=== PATIENT | male | born 1955 | race Caucasian/White ===

== ENCOUNTER → 2019-06-12 06:35 | Outpatient (CLI) | payer MEDICARE, OTHER, SELFPAY ==
[2019-06-10 13:54] VITALS: BMI 33.7
--- NOTE | 2019-06-12 10:18 | STRESSREP ---
Stress Test Report Exercise myocardial perfusion stress test. 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 Medications: Amlodipine, aspirin, metoprolol, rosuvastatin. Stress protocol: Resting EKG demonstrates normal sinus rhythm with a rate of 66 bpm normal intervals are noted resting blood pressures 144/74 mmHg. The patient exercised according to regular Andriy protocol for total duration of 8 minutes. Patient completed stage III of the Andriy protocol. The maximum heart rate attained was 151 bpm which was 97% of maximum predicted heart rate the maximum workload was 10.1 metabolic equivalents. At rest there were no ST or T wave changes noted suggest ischemia at peak exercise mild downsloping ST depression in leads II, III and aVF less than 1 mm not meeting the criteria for ischemia. No clinical angina was noted the test was terminated due to target heart rate being achieved. The resting blood pressure was 144/74 with a peak blood pressure 182/70 mmHg. Myocardial perfusion protocol. 15.0 mCi of technetium 99m sestamibi was injected at rest. The patient exercised according to regular Andriy protocol for 8 minutes at peak exercise 45.0 mCi of technetium 99m sestamibi was injected stress images were obtained stress and rest images were reconstructed and compared in the short axis vertical long horizontal long axis. Gated images were also obtained Perfusion SPECT analysis. Review of the stress images demonstrate normal uptake of tracer noted in all areas of the myocardium no areas of reversibility are noted suggest ischemia no previous infarct is noted. Gated SPECT analysis: The gated ejection fraction is noted to be 60%. Conclusion: Normal exercise myocardial perfusion stress test. Good functional aerobic capacity. Preserved ejection fraction.
== END ==
PROVIDERS: Family Provider Family Medicine; PCP Family Medicine; Referring Provider Internal Medicine Cardiovascular Disease; Visit Provider Internal Medicine Cardiovascular Disease
DX: Z95.1 Presence of aortocoronary bypass graft (principal)
CPT/HCPCS: 78452; 93017; A9500; A4216

== ENCOUNTER → 2019-10-12 10:47 | Outpatient (CLI) | payer MEDICARE, OTHER, SELFPAY ==
[2019-07-02 14:18] VITALS: BMI 33.7
--- NOTE | 2019-10-12 16:30 | LES_PTH ---
PATIENT: TRAVIS WHITNEY LOC: [facility] U#:[id number] AGE/SX: 70/M ROOM: RE10/12/[address]: Dr. Sundar Panda MD : [id number] BED: DIS: SPEC #: [id number] RECD: 10/13/19 10:42 STATUS: CAILIN KARIS #: [id number] KULWANT: 10/12/19 16:[address]: Sundar Panda DEPT: SURGICAL PATHOLOGY RECD BY: Randolph Ledbetter ENTERED: 10/13/19 13:08 SP TYPE: Lesion OTHR DR: Dr. Cody Kasper MD Tissues: Skin of eyelid, NOS Procedures: Surgery Specimen Level IV HEADER OPERATION: Removal of lesion ALEKSANDR PRE-OP DIAGNOSIS: Lesion increased size and hits LL with a blink TISSUE SUBMITTED: Lesion ALEKSADNR MICROSCOPIC DIAGNOSIS ALEKSANDR lesion, biopsy: Squamous papilloma. SJ:jackie 10/14/19 MICROSCOPIC DESCRIPTION Slides are reviewed. GROSS DESCRIPTION Received in fixative is one container labeled with the patient's name and designated left upper lid. The specimen consists of a piece of golden-white skin measuring 0.3 x 0.3 x 0.1 cm. The entire specimen is submitted in one cassette. / SJ:jackie 10/13/19 TC:1 CPT: 17893
== END ==
PROVIDERS: PCP Family Medicine; Referring Provider Ophthalmology; Visit Provider Ophthalmology
DX: D23.121 Other benign neoplasm of skin of left upper eyelid, including canthus (principal)
CPT/HCPCS: 88305

== ENCOUNTER → 2020-07-19 06:53 | Outpatient (CLI) | payer MEDICARE, OTHER, SELFPAY ==
[2020-06-09 14:45] VITALS: BMI 32.5
[2020-06-16 08:18] VITALS: BMI 32.5
--- NOTE | 2020-07-19 12:42 | STRESSREP ---
Stress Test Report Exercise myocardial perfusion stress test. 65-year-old man with a history of coronary artery disease. Medications amlodipine aspirin metoprolol glimepiride. Stress protocol: Resting EKG demonstrates normal sinus rhythm with a rate of 66 bpm normal intervals are noted resting blood pressure is 144/76 mmHg. Patient exercised according to regular Andriy protocol for a total duration of 6 minutes and 30 seconds. The maximum heart rate attained was 146 bpm which was 94% of max impacted heart rate the maximum workload was 7.7 metabolic equivalents. At rest there were no ST or T wave changes noted suggest ischemia at peak exercise upsloping ST changes only were noted with intermediate criteria for ischemia. T wave inversions was noted in lead III. The test was terminated due to shortness of breath. The resting blood pressure was 144/76 with a peak blood pressure 190/82 mmHg. Myocardial perfusion protocol. 14.7 mCi of technetium 99m sestamibi was injected at rest. The patient exercised according to regular Andriy protocol for 6-1/2 minutes. At peak exercise 44.9 mCi of technetium 99m sestamibi was injected stress images were obtained stress and rest images were reconstructed and compared in the short axis vertical long horizontal long axis. Gated images were also obtained Perfusion SPECT analysis: Review of the images demonstrate normal uptake of tracer noted in all areas of myocardium except for small portion of the apex which demonstrates a perfusion defect. This is present on the resting images as well. The above is suggestive of apical thinning. No reversibility is noted to suggest ischemia no previous infarct is noted. Gated SPECT analysis: The gated ejection fraction is 62%. Conclusion: Normal exercise myocardial perfusion stress test at a moderate workload. Preserved ejection fraction.
== END ==
PROVIDERS: PCP Family Medicine; Referring Provider Internal Medicine Cardiovascular Disease; Visit Provider Internal Medicine Cardiovascular Disease
DX: I25.10 Atherosclerotic heart disease of native coronary artery without angina pectoris (principal); Z95.1 Presence of aortocoronary bypass graft
CPT/HCPCS: 78452; 93017; A9500; A4216

== ENCOUNTER 2020-11-10 15:26 | Outpatient (RCR) | payer MEDICARE, OTHER, SELFPAY ==
[2020-06-16 08:18] VITALS: BMI 32.5
[2020-11-10] MEDS: COVID-19 VACC, MRNA(PFIZER)/PF 30 MCG/0.3 ML SYRINGE IM (08:14)
[2020-12-01] MEDS: COVID-19 VACC, MRNA(PFIZER)/PF 30 MCG/0.3 ML SYRINGE IM (07:54)
== END 2020-11-10 23:59 ==
LOC: IMMUN 15:26
PROVIDERS: PCP Family Medicine; Visit Provider Family Medicine
DX: Z23 Encounter for immunization (principal)
CPT/HCPCS: 0001A; 0002A

== ENCOUNTER → 2023-02-01 | Outpatient (CLI) | payer MEDICARE, OTHER, SELFPAY ==
--- NOTE | 2023-02-01 16:26 | STRESSREP ---
Stress Test Report Exercise myocardial perfusion stress test. 67-year-old man with a history of coronary artery disease Stress protocol: Resting EKG demonstrates normal sinus rhythm with a rate of 73 bpm resting blood pressure is 130/72 mmHg. The patient exercised according to the regular Andriy protocol for a total duration of 7 minutes attaining a maximum heart rate of 150 bpm which was 98% of maximum predicted heart rate; the maximum workload was 10 metabolic equivalents. At rest there were no ST or T wave changes noted to suggest ischemia and at peak exercise upsloping ST changes only were noted which did not meet the criteria for ischemia. No clinical angina was noted the test was terminated due to the target heart rate being achieved/fatigue. During recovery there were some downsloping ST changes noted which did not meet the criteria for ischemia. The peak blood pressure was 218/74 mmHg. Rate-pressure product was 25,200. Myocardial perfusion protocol. 14.9 mCi of technetium 99m sestamibi was injected at rest. The patient exercised according to regular Andriy protocol for total duration of 7 minutes and at peak exercise 44.6 mCi of technetium 99m sestamibi was injected stress images were obtained stress and rest images were reconstructed in comparing the short axis vertical long and horizontal long axis. Gated images were also obtained. Perfusion SPECT analysis: Review of the stress images demonstrate normal uptake of tracer noted in all areas of the myocardium. The resting images similarly demonstrate normal uptake of tracer noted in all areas of the myocardium. No areas of reversibility are noted to suggest ischemia no previous infarct was noted. Gated SPECT analysis: The gated ejection fraction is 53%. Conclusion: Normal exercise myocardial perfusion stress test at a high workload Preserved ejection fraction.
== END | disposition home or self-care (01) ==
LOC: CVS 06:20
PROVIDERS: PCP Family Medicine; Referring Provider Nurse Practitioner Family; Visit Provider Nurse Practitioner Family
DX: Z02.89 Encounter for other administrative examinations (principal); I25.10 Atherosclerotic heart disease of native coronary artery without angina pectoris; Z95.1 Presence of aortocoronary bypass graft; I10 Essential (primary) hypertension; E78.5 Hyperlipidemia, unspecified
CPT/HCPCS: 78452; 93017; A9500; A4216

== ENCOUNTER 2025-07-02 16:07 | Emergency (ER) | payer MEDICARE, OTHER, SELFPAY ==
[2025-07-02 16:07] VITALS: BP 148/116; PULSE 82; RESP 16; TEMP 37; O2SAT 98; BMI 32.3
--- NOTE | 2025-07-02 16:27 | EKG12_ITS ---
Test Reason : CP Blood Pressure : */* mmHG Vent. Rate : 72 BPM Atrial Rate : 72 BPM P-R Int : 282 ms QRS Dur : 80 ms QT Int : 394 ms P-R-T Axes : 57 64 80 degrees QTcB Int : 431 ms Sinus rhythm with 1st degree A-V block with Fusion complexes Nonspecific ST and T wave abnormality Abnormal ECG Confirmed by DORON PABON ([id number]), editorial specialist VIRGILIO HANDLEY ([id number]) on 07/05/2025 6:39:09 AM Referred By: UG/TB Confirmed By: DORON PABON
--- NOTE | 2025-07-02 16:28 | EX.ED.DYSGE1 ---
HPI History of Present Illness Chief Complaint: Abd Pain Detail of Chief Complaint: Patient presents with upper abdominal pain, distention, nausea Informant: patient Onset/Context/Timing Onset: Yesterday Context: Sudden Onset Timing: Continuous Quality: Pain Location: Right upper quadrant greater left upper quadrant Current Severity: Severe Maximum Severity: Severe Worsened by: Nothing Relieved by: Nothing Associated Symptoms Associated Symptoms: Nausea and vomiting yesterday and diarrhea yesterday Narrative Narrative: Patient is a 70-year-old male. He has history of essential hypertension, hyperlipidemia, coronary disease status post bypass surgery October 2009 who was placed on Ozempic part of a cardiology study through the [place] [facility] office. He is seen by NURSE UNIT MANAGER Raffi Arguello. The pain does radiate through to his back. He denies intolerance to greasy or fried foods. He had nothing to eat today. He denies fever, chills night sweats. He denies chest discomfort. He complains of pain in the right costal margin region and epigastric area. He states he does not drink alcoholic beverages. Prior similar symptoms: No Recent Illness/Hospitalization: No [facility] Medical History Type 2 diabetes mellitus Atherosclerosis of coronary artery of [place] heart without angina pectoris Essential hypertension HLD (hyperlipidemia) Home Medications ?Medication ?Instructions ?Recorded ?Last Taken ?Type aspirin 81 mg tablet,delayed 81 mg PO DAILY 06/05/19 Unknown History release (Adult Aspirin Regimen) metoprolol succinate 50 mg 50 mg PO DAILY 06/05/19 Unknown History tablet,extended release 24 hr nitroglycerin 0.4 mg sublingual 0.4 mg sublingual Q5-15M chest pain 06/05/19 Unknown History tablet omega-3 fatty acids 1,250 mg 1,250 mg PO DAILY 06/05/19 Unknown History capsule omeprazole 20 mg capsule,delayed 20 mg PO DAILY 06/05/19 Unknown History release rosuvastatin 20 mg tablet 20 mg PO DAILY 06/05/19 Unknown History metformin 750 mg tablet,extended 750 mg PO BID 04/12/22 Unknown History release 24 hr losartan 50 mg tablet 50 mg PO DAILY #90 tabs 09/10/23 Unknown Rx amlodipine 5 mg tablet 5 mg PO DAILY #90 tabs 05/31/25 Unknown Rx glimepiride 4 mg tablet 4 mg PO QDAY #1 TAB 05/31/25 Unknown Rx semaglutide 0.25 mg or 0.5 mg (2 0.25 mg (0.368 mL) subcut QWEEK 4 06/10/25 Unknown Rx mg/3 mL) subcutaneous pen injector weeks #3 mL (Ozempic) metoclopramide HCl 5 mg tablet 5 mg PO UD #20 tabs 07/02/25 Unknown Rx (Reglan) Allergy/AdvReac Type Severity Reaction Status Date / Time celecoxib (From Celebrex) Allergy shortness Verified 07/02/25 16:09 of breath mushroom Allergy swelling Verified 07/02/25 16:09 naproxen Allergy rash Verified 07/02/25 16:09 [id number] Reductase Allergy leg cramps Verified 07/02/25 16:09 Inhibitor (Gxpcoji-Fhm-Bcz Reductase Inhibitor) Surgical History History of cataract extraction with lens replacement H/O coronary artery bypass surgery (11/02/09) H/O hernia repair H/O neck surgery History of lumbar surgery H/O colonoscopy History of appendectomy Social History Smoking Status: Former smoker how long ago did patient quit smokin alcohol intake: never substance use type: does not use caffeine: Yes Type: tea Number of servings: 10 ROS ROS ED Constitutional Constitutional ED: Denies chills, fever(s), subjective or sweats Eyes Eyes: Denies blurry vision or change in vision ENT ENT ED: Denies ear pain, rhinorrhea or sore throat Cardiovascular Cardiovascular: Denies chest pain, orthopnea, palpitations, paroxysmal nocturnal dyspnea or racing heartbeat Respiratory/Chest Respiratory/Chest: Denies cough, dyspnea, dyspnea on exertion, orthopnea or paroxysmal nocturnal dyspnea Gastrointestinal Gastrointestinal: Reports abdominal pain, diarrhea, nausea, vomiting and other Details: Stool was mushy not watery. There was no blood or mucus. He states it was a light mckeon brown color ; Denies constipation or melena Genitourinary Genitourinary ED: Denies dysuria, hematuria or urinary frequency Musculoskeletal Musculoskeletal: Reports back pain; Denies arthralgias or myalgias Integumentary Denies rash Neurologic Neurologic: Denies headache(s), paresthesias or weakness Endocrine Endocrinology: Denies cold intolerance or heat intolerance Hematologic/Lymphatic Hematologic/Lymphatic: Reports systems reviewed and no addt'l complaints, except as documented EXAM Physical Exam Const Vital Signs: 07/02/25 16:07 07/02/25 18:07 Temperature 98.6 F 99.0 F Temperature Source Oral Oral Pulse Rate 82 100 Respiratory Rate 16 17 Blood Pressure 148/116 H 155/83 H Blood Pressure Mean 126 107 Pulse Ox 98 95 Oxygen Delivery Method Room Air Room Air Positive well nourished and well developed Constitutional Narrative: Patient appears uncomfortable. His abdomen appears distended. BMI is 32.3. Blood pressure is elevated. General Appearance ED: well developed and pallor HEENT Reports dry mucous membranes HEENT Narrative: Head is atraumatic and normocephalic. Ears are normal. Nares are patent. Posterior pharynx is normal Mouth ED: Yes dry mucous membranes Mouth: dry mucous membranes Eyes PERRL and EOMs intact bilaterally General Eye ED: Negative for pale conjunctiva or scleral icterus Neck no lymphadenopathy, supple and no JVD Resp normal respiratory effort and clear to auscultation bilaterally Cardio regular rate, regular rhythm, S1 normal heart sound, S2 normal heart sound and no murmurs GI no masses; Negative for non-tender, non-distended or hepatosplenomegaly Inspection: abdominal distention Auscultation: hypoactive bowel sounds Palpation: soft and tender RUQ and Sarkar's sign Back/Spine no CVA tenderness Extremity normal to inspection General Extremety ED: Negative for edema General Extremity: Negative for edema Neuro oriented x3 and CN's II-XII intact bilaterally Sensorium / Orientation: alert Psych mental status grossly normal Skin no rashes or lesions noted, no wounds and No skin turgor normal General Skin Exam: pallor; Negative for jaundice MDM MDM MDM Narrative Medical decision making narrative: Differential diagnosis includes abdominal pain due to Ozempic, pain unknown etiology, biliary colic, cholecystitis, peptic ulcer disease. Will obtain liver panel, lipase as well as CBC and electrolyte panel. Patient was medicated with IV morphine for his pain and IV Zofran for his nausea. Lab Data Attestation: I reviewed the patient's lab results. Lab results narrative: White count is elevated 14.7 thousand with shift. H&H and indices are unremarkable. Electrolyte panel is unremarkable. Glucose is 181 with normal CO2 anion gap. Liver enzymes are normal. Lipase is normal Labs: Laboratory Results - last 24 hr 07/02/25 16:30 WBC 14.7 H RBC 5.11 Hgb 13.7 Hct 42.2 MCV 82.6 MCH 26.8 L MCHC 32.5 RDW Std Deviation 42.4 RDW Coeff of [place] 14.0 Plt Count 199 MPV 10.4 Immature Gran % (Auto) 0.400 Neut % (Auto) 77.1 H Lymph % (Auto) 14.3 L [place] % (Auto) 7.7 Eos % (Auto) 0.3 Baso % (Auto) 0.2 Absolute Neuts (auto) 11.4 H Absolute Lymphs (auto) 2.11 Nucleated RBC % 0 Sodium 140 Potassium 4.0 Chloride 104 Carbon Dioxide 23.5 Anion Gap 13 BUN 13 Creatinine 0.84 Estim Creat Clear Calc 90.81 Est GFR (MDRD) Non-Af 93 BUN/Creatinine Ratio 15.5 Glucose 181 H Lactic Acid 2.2 H* Calcium 10.0 Total Bilirubin 0.85 Direct Bilirubin 0.49 H AST 31 ALT 26 Alkaline Phosphatase 48 Total Protein 7.3 Albumin 4.9 H Globulin 2.5 Lipase 41 Radiography Diagnostic Testing: Clinical Impression(s) from Imaging Studies Abdomen/Pelvis CT 07/02/25 17:28 IMPRESSION: 1. Colonic diverticulosis without acute diverticulitis. 2. No acute findings in the abdomen or pelvis as imaged. Reading Location: [facility] The radiologist interpretation was reviewed. Suspect this is due to the Ozempic. Patient had improvement after Reglan. Will prescribe 5-day course of Reglan. He was told he will need to tell his doctor that he will need to drop out of the study and stop taking Ozempic Treatment and Re-Evaluation :: In spite of 0.1 mg/kg of morphine patient still having 8?9 out of 10 pain. Prior to ordering advanced imaging he was reexamined. Patient has delayed capillary refill. He has a very firm abdomen. He has bilateral discomfort. In light of this we will obtain a CT of the abdomen pelvis with IV contrast to assess cause of his symptoms and findings. Discharge Plan Triage Chief Complaint: Abd Pain ED Provider: UvaldoTerrence Dx/Rx/DC Orders Clinical Impression: Adverse effect of drug therapy, Gastric paresis, Type 2 diabetes mellitus, HLD (hyperlipidemia), Essential hypertension, Acidosis, lactic, Leukocytosis Instructions: ED Drug Reaction, Other Prescriptions: New metoclopramide HCl [Reglan] 5 mg tablet 5 mg PO UD Qty: 20 0RF Rx Instructions: Half hour AC and at bedtime No Action nitroglycerin 0.4 mg tablet, sublingual 0.4 mg SUBLINGUAL Q5-15M omega-3 fatty acids 1,250 mg capsule 1,250 mg PO DAILY rosuvastatin 20 mg tablet 20 mg PO DAILY metoprolol succinate 50 mg tablet extended release 24 hr 50 mg PO DAILY omeprazole 20 mg capsule,delayed release(DR/EC) 20 mg PO DAILY aspirin [Adult Aspirin Regimen] 81 mg tablet,delayed release (DR/EC) 81 mg PO DAILY metformin 750 mg tablet extended release 24 hr 750 mg PO BID glimepiride 4 mg tablet 4 mg PO QDAY Qty: 1 0RF amlodipine 5 mg tablet 5 mg PO DAILY Qty: 90 4RF losartan 50 mg tablet 50 mg PO DAILY Qty: 90 3RF Ozempic 0.25 mg or 0.5 mg (2 mg/3 mL) pen injector 0.25 mg subcut QWEEK 28 Days Qty: 3 0RF Rx Instructions: for 4 weeks Primary Care Provider: Cody Kasper Referrals: Cody Kasper MD [Primary Care Provider, Family Practice] - As Needed Activity Restrictions/Additional Instructions: You need to discontinue taking Ozempic Print Language: Czech Disposition Disposition: Home, Self Care
[2025-07-02] MEDS: 0.9% Normal Saline (1000mL) 1,000 ML 999 ML IV (16:33)
[2025-07-02 16:56] LABS: Hematocrit 42.2 % (40-54); Hemoglobin 13.7 g/dL (13.0-16.5); Immature Granulocytes Count 0.060 X10^3/uL (0.0-0.0); Mean Corp Hgb Conc 32.5 g/dL (32-36); Mean Corpuscular Volume 82.6 fL (80-94); Mean Platelet Vol. 10.4 fl (6.2-12.0); NRBC Flagged by Analyzer 0 % (0-5); Platelet Count 199 K/mm3 (150-450); RBC Distribution Width CV 14.0 % (11.6-14.6); RBC Distribution Width SD 42.4 fl (35.1-43.9); Red Blood Count 5.11 M/mm3 (4.6-6.2); White Blood Count 14.7 K/mm3 (4.4-11.0)
--- OUTSIDE RECORDS SUMMARY | 2025-07-02 17:04 | XMS RPT_ITS | CCD ---
Author Organization [facility]iniSyne Care Team Providers Care Cartridge Feeder Name Role Phone CHAPARRO CROWDER Unavailable Unavailable CHAPARRO CROWDER Unavailable Unavailable NO REFERRING Unavailable Unavailable DANIELA BRADY Unavailable Unavailable DANIELA BRADY Unavailable Unavailable DANIELA BRADY Unavailable Unavailable ELVIA CONTRERAS MD Primary Care Physician Elvia Contreras MD Primary Care Provider [phone] Dr. Elvia Contreras Primary Care Provider Alayna CNC SPECIALIST, CNC SPECIALIST-C Raffi Miller Referring Provider Alayna CNC SPECIALIST, CNC SPECIALIST-C Raffi Miller Other Provider Dr. Chetan Malave Attending Provider [phone] Elvia Contreras MD Primary Care Provider Elvia Contreras MD Primary Care Provider [phone] Elvia Contreras MD Primary Care Provider ELVIA CONTRERAS MD Primary Care Unavailable ELVIA CONTRERAS MD Attending Unavailable ELVIA CONTRERAS MD Primary Care Unavailable ELVIA CONTRERAS MD Attending Unavailable ELVIA CONTRERAS MD Primary Care Unavailable ELVIA CONTRERAS MD Attending Unavailable ELVIA CONTRERAS MD Primary Care Unavailable [facility] GARDUNO MD Attending Unavail able ELVIA CONTRERAS Primary Care Unavailable JOHANNE CHAPMAN Attending Unavailable Dr. Elvia Contreras MD Primary Care Physician [phone] Dr. Elvia Contreras MD Referring Provider Alayna CNC SPECIALIST-CRaffi Attending Physician Elvia Contreras Referring Unavailable Elvia Contreras Primary Care Unavailable Raffi Catalan NP Attending Unavailable ELVIA CONTRERAS MD Primary Care Unavailable ELVIA CONTRERAS MD Attending Unavailable ELVIA CONTRERAS MD Attending Unavailable ELVIA CONTRERAS MD Primary Care Unavailable ELVIA CONTRERAS MD Primary Care Unavailable ELVIA CONTRERAS MD Attending Unavailable ELVIA CONTRERAS MD Primary Care Unavailable ELVIA CONTRERAS MD Attending Unavailable Allergies Allergy Classification Reported Allergen(s) Allergy Type Date of Onset Reaction(s) Facility Acetaminophen / oxyCODONE (1 source) Acetaminophen / oxyCODONE; Translations: [acetaminophen-ox ycodone] Drug Allergy [facility] NSAIDs (3 sources) Naproxen; Translations: [naproxen] Drug Allergy Naproxen (substance) [facility] (1 source) acetaminophen / oxyCODONE; Translations: [PERCOCET] Drug Allergy [facility] (10 sources) celecoxib; Translations: [CELEBREX] Drug Allergy [facility] (1 source) Mushroom (edible); Translations: [MUSHROOMS] Propensity to adverse reactions (disorder) [facility] (19 sources) naproxen; Translations: [NAPROXEN] Drug Allergy 0 Rash [facility] (1 source) HCIUKEU-ISE-CXG REDU; Translations: [ZXTFILG-LEM-SRA REDU] Propensity to adverse reactions (disorder) [facility] (9 sources) Acetaminophen / oxyCODONE; Translations: [acetaminophen-ox ycodone] Drug Allergy [facility] (17 sources) celecoxib; Translations: [celecoxib] Drug Allergy 0 Naproxen (substance), Shortness of Breath [facility] (6 sources) HMG-CoA reductase inhibitor; Translations: [JWZEVYN-EOS-CWT REDUCTASE INHIBITORS] Propensity to adverse reactions 0 [facility] (3 sources) mushrooms [Other] Propensity to adverse reactions [address] [facility] (2 sources) cultivated mushroom extract Drug Allergy 2 swelling [facility] Comment on above: Morrels (2 sources) Yngcqkk-Feb-Rhv Reductase Inhibitor Allergy to substance 1 leg cramps [facility] (1 source) OTHER; Translations: [OTHER] Propensity to adverse reactions (disorder) 0 [facility] (1 source) celecoxib Drug Allergy 5 [facility] (1 source) Mushroom (edible) Drug allergy (disorder) 5 [facility] (1 source) Htdihon-Cyv-Hdr Reductase Inhibitor Drug allergy (disorder) 5 [facility] Medications Current Medications Medication Drug Class(es) Dates Sig (Normalized) Sig (Original) amLODIPine 5 mg oral tablet (20 sources) Dihydropyridine Calcium Channel Davey Start: 03-19-2025 End: 10-05-2025 take 1 tablet by mouth once daily Amlodipine 5 mg tablet Active 5 mg PO DAILY 90 4 May 31, 2025 2:00pm Complies with drug therapy Start: 06-10-2020 End: 05-31-2025 take 1 tablet by mouth once daily Amlodipine 10 mg tablet Discontinued 10 mg PO DAILY 90 4 June 10, 2020 1:53pm May 31, 2025 2:02pm Start: 12-13-2016 End: 02-02-2025 take 1 tablet by mouth once daily Amlodipine 5 mg tablet Discontinued 5 mg PO DAILY June 05, 2019 12:00am June 10, 2020 1:54pm Comment on above: Take 1 tablet by beatrice th once daily. Aspirin (17 sources) Platelet Aggregation Inhibitor, Nonsteroidal Anti-inflammatory Drug Start: 11-05-2014 take 81 doses by mouth once daily aspirin 81, Oral, qDay Start Date: 11/05/14 Status: Ordered Medication Dispense Status: Completed Total Allowed Fills: 1 Fills Dispensed: 0 Start: 11-05-2014 aspirin 81, Or al, qDay Start Date: 11/05/14 Status: Ordered Repeat number: 1 Start: 11-05-2014 aspirin 81, Or al, qDay Start Date: 11/05/14 Status: Ordered Start: 10-11-2009 take 1 tablet by beatrice th once daily Aspirin (Adult Aspirin Regimen) 81 mg tablet,delayed release (DR/EC) Active 81 mg PO DAILY June 05, 2019 12:00am Complies with drug therapy Comment on above: Take one(1) tablet d aily. CPAP/BIPAP/OTHER (2 sources) Start: 01-17-2024 End: 06-03-2051 CPAP/BIPAP/OTHER autoCPAP 12-20 cmH2O DME [facility] 1 Each 01/17/2024 06/03/2051 Active Start: 01-17-2024 End: 06-03-2051 CPAP/BIPAP/OTHER autoCPAP 12 -20 cmH2O DME [facility] 1 Each 0 01/17/2024 06/03/2051 Active empagliflozin 10 mg oral tablet (1 source) Sodium-Glucose Cotransporter 2 Inhibitor Start: 05-31-2025 take 1 tablet by mouth once daily Empagliflozin (Jardiance) 10 mg tablet Active 10 mg PO DAILY 08 08May 31, 2025 12:00am Complies with drug therapy Fish Oils (10 sources) Start: 05-18-2019 Fish Oil 1000 mg oral capsule Dose : 1,000 mg = 1 cap(s), Oral, qDay, # 90 cap(s), 0 Refill(s) Start Date: 05/18/19 Status: Ordered Medication Dispense Status: Completed Quantity: 90.0 Unit: cap(s) Total Allowed Fills: 1 Fills Dispensed: 0 Start: 05-18-2019 Fish Oil 1000 mg oral capsule Dose : 1,000 mg = 1 cap(s), Oral, qDay, # 90 cap(s), 0 Refill(s) Start Date: 05/18/19 Status: Ordered Quantity: 90.0 Unit: cap(s) Repeat number: 1 Start: 05-18-2019 Fish Oil 1000 mg oral capsule Dose : 1,000 mg = 1 cap(s), Oral, qDay, # 90 cap(s), 0 Refill(s) Start Date: 05/18/19 Status: Ordered glimepiride 4 mg oral tablet (20 sources) Sulfonylurea Start: 09-22-2024 glimepiride 2 mg oral tablet Dose : 2 mg = 1 tab(s), Oral, qDay, # 90 tab(s), 3 Refill(s), Pharmacy: [facility], CAD (coronary atherosclerotic disease) Diabetes mellitus type 2, 174.5, cm, 09/22/24 8:55:00 EST, Height, kg, 09/22/24 8:55:00 EST, Dosing Weight Start Date: 09/22/24 Status: Ordered Quantity: 90.0 Unit: tab(s) Repeat number: 4 Indications: Type 2 diabetes mellitus without complications; Atherosclerotic heart disease of unga coronary artery without angina pectoris; Start: 02-02-2022 End: 05-31-2025 glimepiride 4 mg oral tablet Dose : 4 mg = 1 tab(s), Oral, qDay, # 90 tab(s), 0 Refill(s), [facility], 174.5, cm, 03/17/25 9:27:00 EDT, Height, kg, 03/17/25 9:27:00 EDT, Dosing Weight Start Date: 05/03/25 Status: Ordered Medication Dispense Status: Completed Quantity: 90.0 Unit: tab(s) Total Allowed Fills: 1 Fills Dispensed: 0 Start: 06-09-2020 End: 04-12-2022 take 1 tablet by mouth once daily Glimepiride 2 mg tablet Discontinued 2 mg PO DAILY June 09, 2020 12:00am April 12, 2022 11:02am Start: 06-05-2019 End: 06-10-2019 take 1 tablet by mouth once daily in the morning as needed Glimepiride 4 mg tablet Discontinued 4 mg PO EVERY MORNING as needed June 05, 2019 12:00am June 10, 2019 1:56pm Comment on above: Take 4 mg by mouth a s needed. losartan potassium 50 mg oral tablet (19 sources) Angiotensin 2 Receptor Davey Start: 08-04-2024 losartan 50 mg oral tablet Dose : 50 mg = 1 tab(s), Oral, qDay, # 90 tab(s), 3 Refill(s), Pharmacy: [facility], 174.5, cm, 03/19/24 7:33:00 EDT, Height, kg, 03/19/24 7:33:00 EDT, Dosing Weight Start Date: 08/04/24 Status: Ordered Medication Dispense Status: Completed Quantity: 90.0 Unit: tab(s) Total Allowed Fills: 4 Fills Dispensed: 0 Start: 03-11-2023 End: 09-10-2023 take 1 tablet by mouth once daily Losartan 50 mg tablet Discontinued 50 mg PO DAILY 90 September 04, 2023 12:19pm September 10, 2023 5:09pm Start: 06-05-2021 End: 03-11-2023 take 1 tablet by mouth once daily Losartan 25 mg tablet Discontinued 25 mg PO DAILY 08 08May 29, 2022 10:50am March 11, 2023 11:44am meloxicam 15 mg oral tablet (3 sources) Nonsteroidal Anti-inflammatory Drug Start: 11-02-2022 meloxicam 15 mg o ral tablet Dose : 15 mg = 1 tab(s), Oral, qDay, Take with food/milk, # 90 tab(s), 1 Refill(s), [facility] HTN (hypertension) Diabetes mellitus type 2, 174.5, cm, 09/12/22 7:55:00 EST, Height, kg, 09/12/22 7:55:00 EST... Start Date: 11/02/22 Status: Ordered Start: 06-13-2022 meloxicam 15 m g oral tablet Dose : 15 mg = 1 tab(s), Oral, qDay, Take with food/milk, # 90 tab(s), 3 Refill(s), Pharmacy: [facility], HTN (hypertension) Diabetes mellitus type 2, 174.5, cm, 06/13/22 8:01:00 EDT, Height Start Date: 06/13/22 Status: Ordered nitroglycerin 0.4 mg sublingual tablet (17 sources) Nitrate Vasodilator Start: 06-05-2019 Nitroglyce rin 0.4 mg tablet, sublingual Active 0.4 mg SL every 5 to 15 minutes as needed June 05, 2019 12:00am Complies with drug therapy Start: 11-29-2016 nitroglycerin sublingual (NITROQUICK) 0.4 mg SL tablet Dissolve 1 tablet under the tongue as needed. FOR CHEST PAIN. IF NO RELIEF CALL 911 25 tablet 6 11/29/2016 Active Start: 10-26-2014 nitroglycerin 0.4 mg sublingual tablet 0.4 mg Dose = 1 tab(s), Sublingual, q5min, PRN for chest pain, # 25 tab(s), 0 Refill(s), Pharmacy: [facility], 174.5, cm, 06/13/22 8:01:00 EDT, Height Start Date: 06/14/22 Status: Ordered Medication Dispense Status: Completed Quantity: 25.0 Unit: tab(s) Total Allowed Fills: 1 Fills Dispensed: 0 Comment on above: Dissolve 1 tablet un elvira the tongue as needed. FOR CHEST PAIN. IF NO RELIEF CALL 911 Tilden-3 Fatty Acids (2 sources) Start: 06-05-2019 take 1 capsule by mouth once daily Tilden-3 Fatty Acids 1,250 mg capsule Active 1250 mg PO DAILY June 05, 2019 12:00am Complies with drug therapy Start: 06-05-2019 take 1 capsule by mo uth once daily omega-3 fatty acids 1,250 mg capsule Active 1250 MG PO DAILY June 05, 2019 12:00am Tilden-3 Fatty Acids, FISH OIL, 360-1,200 mg cap (4 sources) take 1 capsule by mo uth once daily at breakfast Tilden-3 Fatty Acids, FISH OIL, 360-1,200 mg cap Take 1 capsule by mouth daily with breakfast. Active take 1 capsule by mo uth once daily at breakfast Tilden-3 Fatty Acids, FISH OIL, 360-1,200 mg cap Take 1 capsule by mouth daily with breakfast. 0 Active Comment on above: Take 1 capsule by mo uth daily with breakfast. omeprazole 20 mg delayed release oral capsule (17 sources) Proton Pump Inhibitor Start: 06-05-2019 End: 09-17-2025 omeprazole 20 mg oral delayed release capsule Dose : 20 mg = 1 cap(s), Oral, qDay, # 90 cap(s), 3 Refill(s), Pharmacy: [facility], 174.5, cm, 09/22/24 8:55:00 EST, Height, kg, 09/22/24 8:55:00 EST, Dosing Weight Start Date: 09/22/24 Stop Date: 09/17/25 Status: Ordered Medication Dispense Status: Completed Quantity: 90.0 Unit: cap(s) Total Allowed Fills: 4 Fills Dispensed: 0 Start: 02-15-2010 OMEPRAZOLE 20 MG TAB, DELAYED RELEASE Take one(1) tablet daily. 30 6 02/15/2010 Active Comment on above: Take one(1) tablet d aily. predniSONE 50 mg oral tablet (1 source) Start: 03-14-2023 End: 03-19-2023 predniSONE 50 mg oral tablet Dose : 50 mg = 1 tab(s), Oral, qDayM, X 5 day(s), # 5 tab(s), 0 Refill(s), 03/19/23 0:00:00 EDT, Ankle pain Start Date: 03/14/23 Stop Date: 03/19/23 Status: Ordered psyllium 3400 mg powder for oral suspension (4 sources) Psyllium Seed-[place] crose Take by mouth twice daily. Active Comment on above: Take by mouth twice daily. rosuvastatin calcium 20 mg oral tablet (17 sources) HMG-CoA Reductase Inhibitor Start: 10-26-2013 Crestor 20 mg oral tablet Dose : 20 mg = 1 tab(s), Oral, Daily, # 90 tab(s), 3 Refill(s), Pharmacy: [facility], 174.5, cm, 03/19/24 7:33:00 EDT, Height, kg, 03/19/24 7:33:00 EDT, Dosing Weight Start Date: 07/17/24 Status: Ordered Medication Dispense Status: Completed Quantity: 90.0 Unit: tab(s) Total Allowed Fills: 4 Fills Dispensed: 0 Comment on above: Take 1 tablet by beatrice th once daily. Semaglutide (1 source) Start: 05-31-2025 Semaglutide (Ozempic) 0.25 mg or 0.5 mg (2 mg/3 mL) pen injector Active 0.25 mg SC EVERY WEEK 3 28 0 May 31, 2025 12:00am June 27, 2025 12:00am for 4 weeks Complies with drug therapy Completed/Discontinued Medications Medication Drug Class(es) Dates Sig (Normalized) Sig (Original) acetaminophen 325 mg / HYDROcodone bitartrate 5 mg oral tablet (7 sources) Opioid Agonist Start: 06-05-2019 End: 06-10-2019 Hydrocodone-Acetami nophen ([place]) 5-325 mg tablet Discontinued 1 {tbl} PO EVERY 6 HOURS as needed 0 June 05, 2019 12:00am June 10, 2019 1:57pm Comment on above: Take 1 tablet by beatrice every 6 hours as needed. CPAP (13 sources) Start: 03-03-2020 End: 01-16-2024 CPAP Supplies: Mask (per patient preference) optional chin strap (if indicated) , filters, tubing, humidifier and lifetime supplies. Dx. ZACHARIAH 327.23 1 Device 11 03/03/2020 01/16/2024 Discontinued Start: 03-03-2020 CPAP Supplies: Mask (per patient preference) optional chin strap (if indicated) , filters, tubing, humidifier and lifetime supplies. Dx. ZACHARIAH 327.23 1 Device 11 03/03/2020 Active Start: 09-10-2019 CPAP New set u p: Settings 12 - 16 cm H2O, suitable mask per pt preference, chin strap, head gear, humidity, tubing, lifetime supplies. G47.33 ZACHARIAH 1 Device 09/10/2019 Active Start: 09-10-2019 CPAP New set u p: Settings 12 - 16 cm H2O, suitable mask per pt preference, chin strap, head gear, humidity, tubing, lifetime supplies. G47.33 ZACHARIAH 1 Device 0 09/10/2019 Active Start: 06-18-2012 End: 01-16-2024 CPAP Indications: ZACHARIAH (obstr uctive sleep apnea) CPAP 14 cm H2O, suitable mask, tubing, humidifier, filters. Lifetime supplies. Dx: 327.23 - Obstructive sleep apnea 1 Device 0 06/18/2012 01/16/2024 Discontinued Start: 06-18-2012 CPAP Indicatio ns: ZACHARIAH (obstructive sleep apnea) CPAP 14 cm H2O, suitable mask, tubing, humidifier, filters. Lifetime supplies. Dx: 327.23 - Obstructive sleep apnea 1 Device 0 06/18/2012 Active Comment on above: CPAP 14 cm H2O, suit able mask, tubing, humidifier, filters. Lifetime supplies. Dx: 327.23 - Obstructive sleep apnea New set up: Settings 12 - 16 cm H2O, suitable mask per pt preference, chin strap, head gear, humidity, tubing, lifetime supplies. G47.33 ZACHARIAH Supplies: Mask (per patient preference) optional chin strap (if indicated) , filters, tubing, humidifier and lifetime supplies. Dx. ZACHARIAH 327.23 cyclobenzaprine hydrochloride 10 mg oral tablet (1 source) Muscle Relaxant Start: take 1 tablet by mouth every eight hours as needed cyclobenzaprine (FLEXERIL) 10 mg tablet Take 1 tablet by mouth three times daily as needed for Muscle Spasm. 15 tablet 0 02/23/2020 Active Comment on above: Take 1 tablet by beatrice three times daily as needed for Muscle Spasm. docusate sodium 100 mg oral capsule (20 sources) Start: End: 025 take 1 capsule by mouth once daily Docusate Sodium 100 mg capsule Discontinued 100 mg PO DAILY March 05, 2024 9:12am May 31, 2025 1:26pm Start: 09-19-2011 End: 04-12-2022 Colace 50 mg oral capsule Do se : 50 mg = 1 cap(s), Oral, BID, PRN for constipation Start Date: 10/26/14 Status: Ordered Medication Dispense Status: Completed Total Allowed Fills: 1 Fills Dispensed: 0 Comment on above: Take by mouth daily at bedtime. FLAXSEED OIL ORAL (1 source) take 1 capsule by mouth once daily FLAXSEED OIL ORAL Take 1 capsule by mouth once daily. 0 Active Comment on above: Take 1 capsule by mo ut once daily. linseed oil 1000 mg oral capsule (2 sources) Start: 9 End: 9 take 1 capsule by mouth once daily Flaxseed Oil 1,000 mg capsule Discontinued 1000 mg PO DAILY June 05, 2019 12:00am June 10, 2019 1:56pm 24 hr metFORMIN hydrochloride 750 mg extended release oral tablet (20 sources) Biguanide Start: End: metFORMIN 750 mg oral tablet EXTENDED RELEASE Dose : 750 mg = 1 tab(s), Oral, BID, # 200 tab(s), 1 Refill(s), Pharmacy: [facility], 174.5, cm, 09/22/24 8:55:00 EST, Height, kg, 09/22/24 8:55:00 EST, Dosing Weight Start Date: 09/22/24 Stop Date: 04/10/25 Status: Ordered Medication Dispense Status: Completed Quantity: 200.0 Unit: tab(s) Total Allowed Fills: 2 Fills Dispensed: 0 Start: 03-21-2022 End: 09-19-2024 metFORMIN 750 mg oral tablet EXTENDED RELEASE Dose : 750 mg = 1 tab(s), Oral, BID, # 200 tab(s), 1 Refill(s), Pharmacy: [facility], 174.5, cm, 09/19/23 7:54:00 EST, Height, kg, 09/19/23 7:54:00 EST, Dosing Weight Start Date: 03/03/24 Stop Date: 09/19/24 Status: Ordered Start: 06-09-2020 End: 04-12-2022 Metformin 500 mg tablet Discontinued 750 mg PO TWICE A DAY June 09, 2020 2:46pm April 12, 2022 11:02am Start: 06-09-2020 End: 04-12-2022 take 750 mg by mouth twice daily Metformin Discontinue d 750 MG PO TWICE A DAY June 09, 2020 2:46pm April 12, 2022 11:02am Start: 06-05-2019 End: 06-09-2020 take 1 tablet by mouth once daily Metformin 500 mg tablet Discontinued 500 mg PO DAILY June 05, 2019 12:00am June 09, 2020 2:47pm take 1 tablet by beatrice th twice daily at mealtime metFORMIN (GLUCOPHAGE) 500 mg tablet Take 500 mg by mouth twice daily with meals. Active Comment on above: Take 500 mg by mouth daily with breakfast. Take 500 mg by mouth twice daily with meals. metoprolol tartrate 50 mg oral tablet (17 sources) beta-Adrenergic Davey Start: 07-17-2024 End: 07-31-2024 Metoprolol Succinate ER 50 mg oral TABLET extended release Dose : 50 mg = 1 tab(s), Oral, qDay, # 90 tab(s), 3 Refill(s), Pharmacy: [facility], 174.5, cm, 03/19/24 7:33:00 EDT, Height, kg, 03/19/24 7:33:00 EDT, Dosing Weight Start Date: 07/17/24 Stop Date: 07/31/24 Status: Ordered Medication Dispense Status: Completed Quantity: 90.0 Unit: tab(s) Total Allowed Fills: 4 Fills Dispensed: 0 Start: 06-13-2022 End: 03-24-2024 Metoprolol Succinate ER 50 m g oral TABLET extended release Dose : 50 mg = 1 tab(s), Oral, qDay, # 90 tab(s), 1 Refill(s), Pharmacy: [facility], 174.5, cm, 09/19/23 7:54:00 EST, Height, kg, 09/19/23 7:54:00 EST, Dosing Weight Start Date: 09/26/23 Stop Date: 03/24/24 Status: Ordered Start: 08-25-2021 Metoprolol Suc cinate ER 50 mg oral TABLET extended release Dose : 50 mg = 1 tab(s), Oral, qDay, # 30 tab(s), 11 Refill(s), Pharmacy: [facility], 174.3, cm, 05/29/21 7:49:00 EDT, Height, kg, 05/29/21 7:49:00 EDT, Dosing Weight Start Date: 08/25/21 Status: Ordered Start: 10-26-2013 take 1 tablet by beatrice th once daily Metoprolol Succinate 50 mg tablet extended release 24 hr Active 50 mg PO DAILY June 05, 2019 12:00am Complies with drug therapy Comment on above: Take 1 tablet by beatrice th once daily. Tilden-3 Fatty Acids, FISH OIL, (FISH OIL) 360-1,200 mg cap (1 source) take 1 capsule by mouth once daily at breakfast Tilden-3 Fatty Acids, FISH OIL, (FISH OIL) 360-1,200 mg cap Take 1 capsule by mouth daily with breakfast. 0 Active Comment on above: Take 1 capsule by mo uth daily with breakfast. Psyllium Seed-Sucrose (METAMUCIL) powd (1 source) Psyllium Seed-Sucrose (METAMUCIL) powd Take by mouth twice daily. 0 Active Comment on above: Take by mouth twice daily. tiZANidine 4 mg oral tablet (3 sources) Central alpha-2 Adrenergic Agonist Start: 9 End: 9 take 1 tablet by mouth every eight hours as needed Tizanidine 4 mg tablet Discontinued 4 mg PO Q8H as needed June 05, 2019 12:00am June 10, 2019 1:56pm take 1 tablet by beatrice th every six hours as needed tiZANidine (ZANAFLEX) 4 mg tablet Take 4 mg by mouth every 6 hours as needed. 0 Active Comment on above: Take 4 mg by mouth e very 6 hours as needed. traMADol hydrochloride 50 mg oral tablet (2 sources) Opioid Agonist Start: 9 End: 9 take 1 tablet by mouth every six hours as needed Tramadol 50 mg tablet Discontinued 50 mg PO EVERY 6 HOURS as needed June 05, 2019 12:00am June 10, 2019 1:57pm Problems Active Problems Problem Classification Problem Date Documented Date Episodic/Chronic Administrative/social admission (2 sources) Administrative reason for encounter; Translations: [Encounter for other administrative examinations] 06-16-2020 Episodic Coronary atherosclerosis and other heart disease (20 sources) Coronary atherosclerosis; Translations: [Coronary arteriosclerosis] Onset: 11-02-2009 11-28-2021 Chronic Diabetes mellitus without complication (17 sources) Type 2 diabetes mellitus; Translations: [Type 2 diabetes mellitus without complications] Onset: 09-19-2023 05-18-2019 Chronic Disorders of lipid metabolism (20 sources) Hypercholesterolemia; Translations: [Mixed hyperlipidemia] Onset: 11-03-2009 10-26-2014 Chronic Esophageal disorders (12 sources) Gastroesophageal reflux disease; Translations: [Gastro-esophageal reflux disease without esophagitis] Onset: 09-19-2023 11-28-2021 Chronic Essential hypertension (20 sources) Hypertensive disorder; Translations: [Essential (primary) hypertension] Onset: 11-03-2009 10-26-2014 Chronic Other circulatory disease (10 sources) Carotid bruit 05-18-2019 Episodic Other injuries and conditions due to external causes (10 sources) Multiple bruising 01-13-2018 Episodic Other non-traumatic joint disorders (1 source) Osteophyte, vertebrae; Translations: [OSTEOPHYTE VERTEBRAE] Onset: 07-27-2015 Chronic Other non-traumatic joint disorders (1 source) Ankle joint pain; Translations: [Pain in unspecified ankle and joints of unspecified foot] Onset: 03-14-2023 Episodic Other screening for suspected conditions (not mental disorders or infectious disease) (1 source) Patient encounter status; Translations: [Encounter for screening for malignant neoplasm of colon] 02-05-2023 Episodic Residual codes; unclassified (10 sources) Sleep apnea 10-26-2014 Chronic Residual codes; unclassified (12 sources) Obstructive sleep apnea syndrome; Translations: [Obstructive sleep apnea (adult) (pediatric)] Onset: 04-30-2012 02-01-2021 Chronic Residual codes; unclassified (10 sources) H/O Spinal surgery 10-26-2014 Episodic Spondylosis; intervertebral disc disorders; other back problems (2 sources) Other cervical disc degeneration, unspecified cervical region; Translations: [OTH CERV DISC DEGENERATI] Onset: 07-27-2015 Chronic Spondylosis; intervertebral disc disorders; other back problems (20 sources) Spinal stenosis, cervical region; Translations: [Cervical radiculitis] Onset: 12-21-2011 05-18-2019 Episodic Unclassified (9 sources) Non-smoker 06-13-2022 Unclassified (9 sources) Vaccination needed 06-13-2022 Unclassified (5 sources) 11/02/09: CABG x 4:in situ RIVERA>LAD, free DIAMOND>lat cx (Y'd proximally to RENATA) and posterolateral cx, SVG>PDA Onset: 11-02-2009 Past or Other Problems Problem Classification Problem Date Documented Da te Episodic/Chronic Abdominal pain (10 sources) Lower abdominal pain; Translations: [Lower abdominal pain, unspecified] Onset: 02-05-2023 02-05-2023 Episodic Fluid and electrolyte disorders (2 sources) Hypervolemia; Translations: [Fluid overload] Onset: 11-03-2009 Resolved: 11-06-2009 Episodic Other connective tissue disease (1 source) Arthrodesis status; Translations: [ARTHRODESIS STATUS] Onset: 07-27-2015 Episodic Other connective tissue disease (5 sources) History of cervical spine fusion; Translations: [Arthrodesis status] Onset: 12-24-2011 12-24-2011 Episodic Other gastrointestinal disorders (5 sources) Constipation; Translations: [Constipation, unspecified] Onset: 02-05-2023 02-05-2023 Episodic Other lower respiratory disease (2 sources) Disorder of respiratory system; Translations: [Respiratory disorder, unspecified] Onset: 11-02-2009 Resolved: 11-03-2009 Episodic Pleurisy; pneumothorax; pulmonary collapse (5 sources) Atelectasis; Translations: [Atelectasis] Onset: 11-03-2009 Episodic Results Test Name Value Interpretation Reference Range Facility .Auto Diffon 06-16-2025 Basophil, Absolute 0.0 10 3/mcL Normal 0.0-0.3 [facility] Comment on above: Performed By: #### A CATHIE, GFR, LIPID, CMP, A1C, PSA, CBC, ADIFF, VIDH #### [facility] [address] [place], [place] [address] Basophils/100 WBC (Bld) 0.9 % Normal 0.0-2.5 Comment on above: Performed By: #### A CATHIE, GFR, LIPID, CMP, A1C, PSA, CBC, ADIFF, VIDH #### [address] [address] Eosinophil, Absolute 0.1 10 3/mcL Normal 0.0-0.7 [facility] Comment on above: Performed By: #### A CATHIE, GFR, LIPID, CMP, A1C, PSA, CBC, ADIFF, VIDH #### [address] [address] Eosinophils/100 WBC (Bld) 1.8 % Normal 0.0-6.0 Comment on above: Performed By: #### A CATHIE, GFR, LIPID, CMP, A1C, PSA, CBC, ADIFF, VIDH #### [address] [address] Lymphocyte, Absolute 1.3 10 3/mcL Normal 0.9-4.3 [facility] Comment on above: Performed By: #### A CATHIE, GFR, LIPID, CMP, A1C, PSA, CBC, ADIFF, VIDH #### [address] [address] Lymphocytes/100 WBC (Bld) 29.8 % Normal 20.0-40.0 Comment on above: Performed By: #### A CATHIE, GFR, LIPID, CMP, A1C, PSA, CBC, ADIFF, VIDH #### [address] [address] Monocyte, Absolute 0.4 10 3/mcL Normal 0.1-1.4 [facility] Comment on above: Performed By: #### A CATHIE, GFR, LIPID, CMP, A1C, PSA, CBC, ADIFF, VIDH #### [address] [address] Monocytes/100 WBC (Bld) 9.9 % Normal 2.0-13.0 Comment on above: Performed By: #### A CATHIE, GFR, LIPID, CMP, A1C, PSA, CBC, ADIFF, VIDH #### [address] [address] Neutrophils/100 WBC (Bld) 57.6 % Normal 50.0-75.0 Comment on above: Performed By: #### A CATHIE, GFR, LIPID, CMP, A1C, PSA, CBC, ADIFF, VIDH #### [address] [address] .GFRon 06-16-2025 Estimated Glomerular Filtration Rate 95 ml/min/1.73sqm Normal Comment on above: Result Comment: Stages of Chronic Kidney Disease (CKD) Stage Description eGFR(ml/min/1.73 sq.m.) CKD 1 Normal kidney function or >=90 normal kindney function with possible kidney damage (ex. Proteinuria) CKD 2 Kidney damage with mild loss 60-89 of kidney function CKD 3a Mild to moderate loss of kidney 45-59 function CKD 3b Moderate to severe loss of 30-44 of kindey function CKD 4 Severe loss of kidney function 15-29 CKD 5 Kidney failure <15 Note: (go live 2024) the eGFR calculation was updated to the 2020 CKD-EPI creatinine equation without a race factor to calculate the eGFR results. Performed By: #### A CATHIE, GFR, LIPID, CMP, A1C, PSA, CBC, ADIFF, VIDH #### [address] [address] .NEUABSon 06-16-2025 Neutrophil, Absolute 2.5 10 3/mcL Normal 2.3-8.1 [facility] Comment on above: Performed By: #### A CATHIE, GFR, LIPID, CMP, A1C, PSA, CBC, ADIFF, VIDH #### [address] [address] A1Con 06-16-2025 Glucose [Mass/Vol] 169 mg/dL Normal [facility] Comment on above: Result Comment: Caitlin mated Average Glucose calculated by equation ((28.7xA1C)-46.7) Estimated average glucose (eAG) is a calculated value from Hemoglobin A1C and is assistance representative of the average blood glucose level in the last 2-3 month period. Normal range: less than 114 mg/dL Performed By: #### A CATHIE, GFR, LIPID, CMP, A1C, PSA, CBC, ADIFF, VIDH #### [address] [address] HbA1c (Bld) [Mass fraction] 7.5 % High 4.3-6.4 Comment on above: Performed By: #### A CATHIE, GFR, LIPID, CMP, A1C, PSA, CBC, ADIFF, VIDH #### [address] [address] CBCon 06-16-2025 Erythrocyte distribution width (RBC) [Ratio] 14.6 % Normal 11.5-15.5 Comment on above: Performed By: #### A CATHIE, GFR, LIPID, CMP, A1C, PSA, CBC, ADIFF, VIDH #### [place] [id number] Hematocrit (Bld) [Volume fraction] 36.4 % Low 40.0-52.0 Comment on above: Performed By: #### A CATHIE, GFR, LIPID, CMP, A1C, PSA, CBC, ADIFF, VIDH #### [address] [address] Hgb 12.1 G/dL Low 13.0-17.5 Comment on above: Performed By: #### A CATHIE, GFR, LIPID, CMP, A1C, PSA, CBC, ADIFF, VIDH #### [address] [address] MCH (RBC) [Entitic mass] 26.9 pg Low 27.0-33.0 Comment on above: Performed By: #### A CATHIE, GFR, LIPID, CMP, A1C, PSA, CBC, ADIFF, VIDH #### [address] [address] MCHC 33.2 G/dL Normal 32.0-36.0 Comment on above: Performed By: #### A CATHIE, GFR, LIPID, CMP, A1C, PSA, CBC, ADIFF, VIDH #### [address] [address] MCV (RBC) [Entitic vol] 81.1 fL Normal 81.0-100.0 Comment on above: Performed By: #### A CATHIE, GFR, LIPID, CMP, A1C, PSA, CBC, ADIFF, VIDH #### [address] [address] Platelet 131 10 3/mcL Low 150-450 Comment on above: Performed By: #### A CATHIE, GFR, LIPID, CMP, A1C, PSA, CBC, ADIFF, VIDH #### [address] [address] Platelet mean volume (Bld) [Entitic vol] 9.0 fL Normal 6.4-10.5 Comment on above: Performed By: #### A CATHIE, GFR, LIPID, CMP, A1C, PSA, CBC, ADIFF, VIDH #### [address] [address] RBC 4.49 10 6/mcL Low 4.50-6.00 Comment on above: Performed By: #### A CATHIE, GFR, LIPID, CMP, A1C, PSA, CBC, ADIFF, VIDH #### [address] [address] WBC 4.3 10 3/mcL Low 4.5-10.8 Comment on above: Performed By: #### A CATHIE, GFR, LIPID, CMP, A1C, PSA, CBC, ADIFF, VIDH #### [address] [address] CMPon 06-16-2025 Albumin Level 3.8 G/dL Normal 3.4-4.8 Comment on above: Performed By: #### A CATHIE, GFR, LIPID, CMP, A1C, PSA, CBC, ADIFF, VIDH #### [address] [address] Albumin/Globulin [Mass ratio] 1.3 {ratio} Normal 1.1-2.5 Comment on above: Performed By: #### A CATHIE, GFR, LIPID, CMP, A1C, PSA, CBC, ADIFF, VIDH #### [address] [address] ALP [Catalytic activity/Vol] 45 U/L Normal 40-135 Comment on above: Performed By: #### A CATHIE, GFR, LIPID, CMP, A1C, PSA, CBC, ADIFF, VIDH #### [address] [address] ALT [Catalytic activity/Vol] 31 U/L Normal 16-63 Comment on above: Performed By: #### A CATHIE, GFR, LIPID, CMP, A1C, PSA, CBC, ADIFF, VIDH #### [address] [address] AST [Catalytic activity/Vol] 11 U/L Normal 10-40 Comment on above: Performed By: #### A CATHIE, GFR, LIPID, CMP, A1C, PSA, CBC, ADIFF, VIDH #### [address] [address] Bili Total 0.3 mg/dL Normal 0.2-1.0 Comment on above: Result Comment: Use of this assay is not recommended for patients undergoing treatment with eltrombopag due to the potential for falsely elevated results. Performed By: #### A CATHIE, GFR, LIPID, CMP, A1C, PSA, CBC, ADIFF, VIDH #### [address] [address] BUN/Creatinine Ratio 15 ratio Normal 7-27 [facility] Comment on above: Performed By: #### A CATHIE, GFR, LIPID, CMP, A1C, PSA, CBC, ADIFF, VIDH #### [address] [address] Calcium [Mass/Vol] 9.4 mg/dL Normal 8.4-10.2 [facility] Comment on above: Performed By: #### A CATHIE, GFR, LIPID, CMP, A1C, PSA, CBC, ADIFF, VIDH #### [address] [address] Chloride [Moles/Vol] 106 mmol/L Normal 98-107 [facility] Comment on above: Performed By: #### A CATHIE, GFR, LIPID, CMP, A1C, PSA, CBC, ADIFF, VIDH #### [place] [address] CO2 [Moles/Vol] 27 mmol/L Normal 23-31 Comment on above: Performed By: #### A CATHIE, GFR, LIPID, CMP, A1C, PSA, CBC, ADIFF, VIDH #### [address] [address] Creatinine [Mass/Vol] 0.79 mg/dL Normal 0.67-1.17 [facility] Comment on above: Performed By: #### A CATHIE, GFR, LIPID, CMP, A1C, PSA, CBC, ADIFF, VIDH #### [place] [address] Electrolyte Balance 9.0 mEq/L Normal 4.0-15.0 [facility] Comment on above: Performed By: #### A CATHIE, GFR, LIPID, CMP, A1C, PSA, CBC, ADIFF, VIDH #### [place] [address] Globulin 3.0 G/dL Normal 2.7-4.4 Comment on above: Performed By: #### A CATHIE, GFR, LIPID, CMP, A1C, PSA, CBC, ADIFF, VIDH #### [place] [address] Glucose [Mass/Vol] 147 mg/dL High 83-110 [facility] Comment on above: Performed By: #### A CATHIE, GFR, LIPID, CMP, A1C, PSA, CBC, ADIFF, VIDH #### [address] [address] Potassium [Moles/Vol] 4.3 mmol/L Normal 3.5-5.1 [facility] Comment on above: Performed By: #### A CATHIE, GFR, LIPID, CMP, A1C, PSA, CBC, ADIFF, VIDH #### [address] [address] Sodium [Moles/Vol] 142 mmol/L Normal 136-145 [facility] Comment on above: Performed By: #### A CATHIE, GFR, LIPID, CMP, A1C, PSA, CBC, ADIFF, VIDH #### [place] [address] [place], [place] [address] Total Protein 6.8 G/dL Normal 6.4-8.2 Comment on above: Performed By: #### A CATHIE, GFR, LIPID, CMP, A1C, PSA, CBC, ADIFF, VIDH #### [place] [address] Urea nitrogen [Mass/Vol] 12 mg/dL Normal 7-18 Comment on above: Performed By: #### A CATHIE, GFR, LIPID, CMP, A1C, PSA, CBC, ADIFF, VIDH #### [address] [address] LABORATORYOrdered By: SYSTEM SYSTEM on 06-16-2025 25-hydroxyvitamin D3 [Mass/Vol] 21.6 ng/mL Invalid Interpretation Code AO ADM SS Comment on above: Interpretive Data: I nterpretive Values Based on Total 25(OH) Vitamin D: Deficient <20 ng/mL Insufficient 20 - <30 ng/mL Sufficient 30-100 ng/mL Albumin BCP dye [Mass/Vol] 3.8 G/dL Normal 3.4 - 4.8 G/dL AO ADM SS Albumin/Globulin [Mass ratio] 1.3 {ratio} Normal 1.1 - 2.5 ratio AO ADM SS ALP [Catalytic activity/Vol] 45 U/L Normal 40 - 135 U/L AO ADM SS ALT With P-5'-P [Catalytic activity/Vol] 31 U/L Normal 16 - 63 U/L AO ADM SS AST With P-5'-P [Catalytic activity/Vol] 11 U/L Normal 10 - 40 U/L AO ADM SS Basophils (Bld) [#/Vol] 0.0 103/mcL Normal 0.0 - 0.3 10^3/mcL AO Workflow SS Basophils/100 WBC (Bld) 0.9 % Normal 0.0 - 2.5 % AO Workflow SS Bilirubin [Mass/Vol] 0.3 mg/dL Normal 0.2 - 1 .0 mg/dL AO ADM SS Comment on above: Interpretive Data: U se of this assay is not recommended for patients undergoing treatment with eltrombopag due to the potential for falsely elevated results. Calcium [Mass/Vol] 9.4 mg/dL Normal 8.4 - 10. 2 mg/dL AO ADM SS Chloride [Moles/Vol] 106 mmol/L Normal 98 - 10 7 mmol/L AO ADM SS CO2 [Moles/Vol] 27 mmol/L Normal 23 - 31 mmol/L AO ADM SS Creatinine [Mass/Vol] 0.79 mg/dL Normal 0.67 - 1.17 mg/dL AO ADM SS Electrolyte Balance 9.0 mEq/L Normal 4.0 - 15 .0 mEq/L AO ADM SS Eosinophil, Absolute 0.1 103/mcL Normal 0.0 - 0 .7 10^3/mcL AO Workflow SS Eosinophils/100 WBC (Bld) 1.8 % Normal 0.0 - 6.0 % AO Workflow SS Erythrocyte distribution width (RBC) [Ratio] 14.6 % Normal 11.5 - 15.5 % AO Workflow SS Globulin 3.0 G/dL Normal 2.7 - 4.4 G/dL AO ADM SS GLOMERULAR FILTRATION RATE/1.73 SQ M.PREDICTED:ARVRAT:PT: SER/PLAS/BLD:QN:CREATI NINE-BASED FORMULA (CKD-EPI 2020) 95 ml/min/1.73sqm Invalid Interpretation Code AO Chemistry S Comment on above: Interpretive Data: Stages of Chronic Kidney Disease (CKD) Stage Description eGFR(ml/min/1.73 sq.m.) CKD 1 Normal kidney function or >=90 normal kindney function with possible kidney damage (ex. Proteinuria) CKD 2 Kidney damage with mild loss 60-89 of kidney function CKD 3a Mild to moderate loss of kidney 45-59 function CKD 3b Moderate to severe loss of 30-44 of kindey function CKD 4 Severe loss of kidney function 15-29 CKD 5 Kidney failure <15 Note: (go live 2024) the eGFR calculation was updated to the 2020 CKD-EPI creatinine equation without a race factor to calculate the eGFR results. Glucose [Mass/Vol] 147 mg/dL High 83 - 110 mg/dL AO ADM SS Glucose [Mass/Vol] 169 mg/dL Invalid Interpretation Code AO Chemistry S Comment on above: Interpretive Data: E stimated average glucose (eAG) is a calculated value from Hemoglobin A1C and is assistance representative of the average blood glucose level in the last 2-3 month period. Normal range: less than 114 mg/dL HbA1c (Bld) [Mass fraction] 7.5 % High 4.3 - 6.4 % AO ADM SS Hematocrit (Bld) [Volume fraction] 36.4 % Low 40.0 - 52.0 % AO Workflow SS Hemoglobin (Bld) [Mass/Vol] 12.1 G/dL Low 13.0 - 17.5 G/dL AO Workflow SS Lymphocytes (Bld) [#/Vol] 1.3 103/mcL Normal 0.9 - 4.3 10^3/mcL AO Workflow SS Lymphocytes/100 WBC (Bld) 29.8 % Normal 20.0 - 40.0 % AO Workflow SS MCH (RBC) [Entitic mass] 26.9 pg Low 27.0 - 33.0 pg AO Workflow SS MCHC 33.2 G/dL Normal 32.0 - 36.0 G/dL AO Workflow SS MCV (RBC) [Entitic vol] 81.1 fL Normal 81.0 - 100.0 fL AO Workflow SS Monocytes (Bld) [#/Vol] 0.4 103/mcL Normal 0.1 - 1.4 10^3/mcL AO Workflow SS Monocytes/100 WBC (Bld) 9.9 % Normal 2.0 - 13.0 % AO Workflow SS Neutrophils (Bld) [#/Vol] 2.5 103/mcL Normal 2.3 - 8.1 10^3/mcL AO Workflow SS Neutrophils/100 WBC (Bld) 57.6 % Normal 50.0 - 75.0 % AO Workflow SS Platelet mean volume (Bld) [Entitic vol] 9.0 fL Normal 6.4 - 10.5 fL AO Workflow SS Platelets (Bld) [#/Vol] 131 103/mcL Low 150 - 450 10^3/mcL AO Workflow SS Potassium [Moles/Vol] 4.3 mmol/L Normal 3.5 - 5.1 mmol/L AO ADM SS Prostate specific Ag [Mass/Vol] 2.92 ng/mL Normal 0.00 - 4.00 ng/mL AO ADM SS Protein [Mass/Vol] 6.8 G/dL Normal 6.4 - 8.2 G/dL AO ADM SS RBC (Bld) [#/Vol] 4.49 106/mcL Low 4.50 - 6.0 0 10^6/mcL AO Workflow SS Sodium [Moles/Vol] 142 mmol/L Normal 136 - 145 mmol/L AO ADM SS Urea nitrogen [Mass/Vol] 12 mg/dL Normal 7 - 18 mg/dL AO ADM SS Urea nitrogen/Creatinine [Mass ratio] 15 ratio Normal 7 - 27 ratio AO ADM SS WBC (Bld) [#/Vol] 4.3 103/mcL Low 4.5 - 10.8 10^3/mcL AO Workflow SS LABORATORYOrdered By: Elvia Echeverria on 06-16-2025 Cholesterol [Mass/Vol] 130 mg/dL Normal 0 - 200 mg/dL AO ADM SS Comment on above: Interpretive Data: C holesterol Reference Interval: Less than 200 Desirable 200-239 Borderline high risk 240 and above High risk Cholesterol in HDL [Mass/Vol] 45 mg/dL Normal 40 - 60 mg/dL AO ADM SS Cholesterol in LDL [Mass/Vol] 56 mg/dL Normal 0 - 130 mg/dL AO ADM SS Triglyceride [Mass/Vol] 146 mg/dL Normal 0 - 150 mg/dL AO ADM SS Comment on above: Interpretive Data: T riglyceride Reference Interval: Less than 150 Normal 150-199 Borderline high risk 200-499 High risk 500 or higher Very high risk LIPIDon 06-16-2025 Cholesterol [Mass/Vol] 130 mg/dL Normal 0-200 [facility] Comment on above: Result Comment: Chol esterol Reference Interval: Less than 200 Desirable 200-239 Borderline high risk 240 and above High risk Performed By: #### A CATHIE, GFR, LIPID, CMP, A1C, PSA, CBC, ADIFF, VIDH #### [place] [address] [place], [place] [address] Cholesterol in HDL [Mass/Vol] 45 mg/dL Normal 40-60 Comment on above: Performed By: #### A CATHIE, GFR, LIPID, CMP, A1C, PSA, CBC, ADIFF, VIDH #### [place] [address] [place], [place] [address] Cholesterol in LDL [Mass/Vol] 56 mg/dL Normal 0-130 Comment on above: Performed By: #### A CATHIE, GFR, LIPID, CMP, A1C, PSA, CBC, ADIFF, VIDH #### [place] [address] [place], [place] [address] Triglyceride [Mass/Vol] 146 mg/dL Normal 0-150 Comment on above: Result Comment: Trig lyceride Reference Interval: Less than 150 Normal 150-199 Borderline high risk 200-499 High risk 500 or higher Very high risk Performed By: #### A CATHIE, GFR, LIPID, CMP, A1C, PSA, CBC, ADIFF, VIDH #### [place] [address] [place], [place] [address] PSAon 06-16-2025 Prostate Specific Antigen 2.92 ng/mL Normal 0.00-4.00 Comment on above: Performed By: #### A CATHIE, GFR, LIPID, CMP, A1C, PSA, CBC, ADIFF, VIDH #### [address] [address] VIDHon 06-16-2025 Vit. D 25-Hydroxy 21.6 ng/mL Normal Comment on above: Result Comment: Inte rpretive Values Based on Total 25(OH) Vitamin D: Deficient <20 ng/mL Insufficient 20 - <30 ng/mL Sufficient 30-100 ng/mL Performed By: #### A CATHIE, GFR, LIPID, CMP, A1C, PSA, CBC, ADIFF, VIDH #### [address] [address] Cardiology Visit Reporton Cardiology Visit Report [facility] [address] [place], [place] [id number] OFFICE VISIT Date of Service: 05/31/25 MR#: [id number] Acct: [id number] Name: OBDULIO WHITNEY Rep #: [id number] : 1955 Provider: DARRIUS jacinto Age/Sex: 70/M [place] [facility] [place] Status: Signed with Addenda ADDENDUM by DARRIUS Catalan on 06/10/25 at 1637 Addendum Addendum Details:: Patient is currently enrolled in [employer] research trial. He has been randomized to GLP-1 medication. 06/10/25 1637 Date Raffi Catalan NP cc: Dr. Elvia Contreras MD * Signed HPI HPI History of Present Illness Details: Pleasant 70-year-old man with a history of coronary artery disease status post coronary artery bypass surgery in 2009 with an in situ left internal mammary artery to the left anterior descending artery, free right internal mammary artery to the lateral circumflex artery and posterior lateral circumflex artery and saphenous vein graft to the posterior descending artery. 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 His last stress test was in 2018 during which no evidence of ischemia was noted. As part of his [employer] license he underwent a stress test on 07/19/2020 that was negative for ischemia at a moderate workload and showed a preserved ejection fraction and January 2023 that was also negative for ischemia at a high workload. He denies chest, arm, jaw, or neck discomfort. He acknowledges occasional palpitations that he describes as pounding. He states bilateral lower extremity edema near his ankles. He denies claudication. He states shortness of breath with activity such as caring for his mini horses carrying wheelbarrow. He denies shortness of breath at rest, orthopnea, or PND. He denies chronic cough. He denies significant, sudden weight gain. He denies lightheadedness, dizziness, near- syncope, or syncope. He denies blood in urine, blood in stool, or epistaxis. He denies fever with chills. He denies myalgia. He denies fatigue. He acknowledges weakness. His exercise level has remained stable. Intake Vital Signs 03/05/24 09:07 05/31/25 13:27 Height 5 ft 8 in 5 ft 8 in Weight: 211 lb BMI 32.1 BP 99/68 Blood Pressure Location Lt brachial Position Sitting Respiration 16 Pulse 70 Pulse Source Monitor Intake Visit Reasons: OVERDUE FOR OV/LAST SEEN 02/2024 Pattern Mechanic Required: No Accompanied by: Self Is patient in pain?: No Allergies celecoxib (From Celebrex) Allergy (Verified 05/31/25 13:25) shortness of breath mushroom Allergy (Verified 05/31/25 13:25) swelling naproxen Allergy (Verified 05/31/25 13:25) rash Fimqftr-QTE-HlU Reductase Inhibitor (Scrykjc-Oxt-Nng Reductase Inhibitor) Allergy (Verified 05/31/25 13:25) leg cramps Medications ???Medication ???Instructions ???Recorded ???Confirmed ???Type aspirin 81 mg tablet,delayed 81 mg PO DAILY 06/05/19 05/31/25 H istory release (Adult Aspirin Regimen) metoprolol succinate 50 mg 50 mg PO DAILY 06/05/19 05/31/25 H istory tablet,extended release 24 hr nitroglycerin 0.4 mg sublingual 0.4 mg sublingual Q5-15M PRN 06/0505/31/25 History tablet omega-3 fatty acids 1,250 mg 1,250 mg PO DAILY 06/05/19 5 History capsule omeprazole 20 mg capsule,delayed 20 mg PO DAILY 06/05/19 05/31/25 H istory release rosuvastatin 20 mg tablet 20 mg PO DAILY 06/05/19 05/31/25 H istory metformin 750 mg tablet,extended 750 mg PO BID 04/12/22 05/31/25 Hi story release 24 hr losartan 50 mg tablet 50 mg PO DAILY #90 tabs 09/10/23 0 05/31/25 Rx amlodipine 5 mg tablet 5 mg PO DAILY #90 tabs 05/31/25 Rx empagliflozin 10 mg tablet 10 mg PO DAILY #30 tabs 05/31/25 0 05/31/25 Rx (Jardiance) glimepiride 4 mg tablet 4 mg PO QDAY #1 TAB 05/31/2505/31 Rx semaglutide 0.25 mg or 0.5 mg (2 0.25 mg (0.368 mL) subcut QWEEK 4 05/31/25 05/31/25 Rx mg/3 mL) subcutaneous pen injector weeks #3 mL (Ozempic) Have you fallen in the past year?: No PFSH Medical History (Updated 05/31/25 @ 13:54 by Raffi Catalan CNC SPECIALIST, CNC SPECIALIST-C) Type 2 diabetes mellitus Atherosclerosis of coronary artery of [place] heart without angina pectoris Essential hypertension HLD (hyperlipidemia) Surgical History History of cataract extraction with lens replacement H/O coronary artery bypass surgery (11/02/09) H/O hernia repair H/O neck surgery History of lumbar surgery H/O colonoscopy History of appendectomy Social History Smoking Status: Former smoker how long ago did patient quit smokin alcohol intake: never substance use type: does not use caffeine: Yes Type: tea Number of servings: 10 (more content not included)... Normal [facility] .Auto Diffon 03-11-2025 Basophil, Absolute 0.0 10 3/mcL Normal 0.0-0.3 [facility] Comment on above: Performed By: #### A CATHIE, GFR, LIPID, CMP, A1C, PSA, CBC, ADIFF, VIDH #### [address] [address] Basophils/100 WBC (Bld) 1.1 % Normal 0.0-2.5 Comment on above: Performed By: #### A CATHIE, GFR, LIPID, CMP, A1C, PSA, CBC, ADIFF, VIDH #### [address] [address] Eosinophil, Absolute 0.1 10 3/mcL Normal 0.0-0.7 [facility] Comment on above: Performed By: #### A CATHIE, GFR, LIPID, CMP, A1C, PSA, CBC, ADIFF, VIDH #### [address] [address] Eosinophils/100 WBC (Bld) 1.3 % Normal 0.0-6.0 Comment on above: Performed By: #### A CATHIE, GFR, LIPID, CMP, A1C, PSA, CBC, ADIFF, VIDH #### [address] [address] Lymphocyte, Absolute 1.3 10 3/mcL Normal 0.9-4.3 [facility] Comment on above: Performed By: #### A CATHIE, GFR, LIPID, CMP, A1C, PSA, CBC, ADIFF, VIDH #### [address] [address] Lymphocytes/100 WBC (Bld) 30.9 % Normal 20.0-40.0 Comment on above: Performed By: #### A CATHIE, GFR, LIPID, CMP, A1C, PSA, CBC, ADIFF, VIDH #### [address] [address] Monocyte, Absolute 0.5 10 3/mcL Normal 0.1-1.4 [facility] Comment on above: Performed By: #### A CATHIE, GFR, LIPID, CMP, A1C, PSA, CBC, ADIFF, VIDH #### [address] [address] Monocytes/100 WBC (Bld) 10.6 % Normal 2.0-13.0 Comment on above: Performed By: #### A CATHIE, GFR, LIPID, CMP, A1C, PSA, CBC, ADIFF, VIDH #### [address] [address] Neutrophils/100 WBC (Bld) 56.1 % Normal 50.0-75.0 Comment on above: Performed By: #### A CATHIE, GFR, LIPID, CMP, A1C, PSA, CBC, ADIFF, VIDH #### [address] [address] .GFRon 03-11-2025 Estimated Glomerular Filtration Rate 97 ml/min/1.73sqm Normal Comment on above: Result Comment: Stages of Chronic Kidney Disease (CKD) Stage Description eGFR(ml/min/1.73 sq.m.) CKD 1 Normal kidney function or >=90 normal kindney function with possible kidney damage (ex. Proteinuria) CKD 2 Kidney damage with mild loss 60-89 of kidney function CKD 3a Mild to moderate loss of kidney 45-59 function CKD 3b Moderate to severe loss of 30-44 of kindey function CKD 4 Severe loss of kidney function 15-29 CKD 5 Kidney failure <15 Note: (go live 2024) the eGFR calculation was updated to the 2020 CKD-EPI creatinine equation without a race factor to calculate the eGFR results. Performed By: #### A CATHIE, GFR, LIPID, CMP, A1C, PSA, CBC, ADIFF, VIDH #### [address] [address] .NEUABSon 03-11-2025 Neutrophil, Absolute 2.4 10 3/mcL Normal 2.3-8.1 [facility] Comment on above: Performed By: #### A CATHIE, GFR, LIPID, CMP, A1C, PSA, CBC, ADIFF, VIDH #### [place] [id number] A1Con 03-11-2025 Glucose [Mass/Vol] 200 mg/dL Normal [facility] Comment on above: Result Comment: Caitlin mated Average Glucose calculated by equation ((28.7xA1C)-46.7) Estimated average glucose (eAG) is a calculated value from Hemoglobin A1C and is assistance representative of the average blood glucose level in the last 2-3 month period. Normal range: less than 114 mg/dL Performed By: #### A CATHIE, GFR, LIPID, CMP, A1C, PSA, CBC, ADIFF, VIDH #### [address] [address] HbA1c (Bld) [Mass fraction] 8.6 % High 4.3-6.4 Comment on above: Performed By: #### A CATHIE, GFR, LIPID, CMP, A1C, PSA, CBC, ADIFF, VIDH #### [address] [address] CBCon 03-11-2025 Erythrocyte distribution width (RBC) [Ratio] 14.3 % Normal 11.5-15.5 Comment on above: Performed By: #### L IPID, ADIFF, ANEU, GFR, A1C, CBC, CMP #### [place] [id number] Hematocrit (Bld) [Volume fraction] 40.4 % Normal 40.0-52.0 Comment on above: Performed By: #### L IPID, ADIFF, ANEU, GFR, A1C, CBC, CMP #### [place] [address] Hgb 13.3 G/dL Normal 13.0-17.5 Comment on above: Performed By: #### L IPID, ADIFF, ANEU, GFR, A1C, CBC, CMP #### [place] [address] MCH (RBC) [Entitic mass] 26.5 pg Low 27.0-33.0 Comment on above: Performed By: #### L IPID, ADIFF, ANEU, GFR, A1C, CBC, CMP #### [place] [address] MCHC 32.8 G/dL Normal 32.0-36.0 Comment on above: Performed By: #### L IPID, ADIFF, ANEU, GFR, A1C, CBC, CMP #### [place] [address] MCV (RBC) [Entitic vol] 80.8 fL Low 81.0-100.0 Comment on above: Performed By: #### L IPID, ADIFF, ANEU, GFR, A1C, CBC, CMP #### [place] [address] Platelet 154 10 3/mcL Normal 150-450 Comment on above: Performed By: #### L IPID, ADIFF, ANEU, GFR, A1C, CBC, CMP #### [place] [address] Platelet mean volume (Bld) [Entitic vol] 8.9 fL Normal 6.4-10.5 Comment on above: Performed By: #### L IPID, ADIFF, ANEU, GFR, A1C, CBC, CMP #### [place] [address] RBC 5.00 10 6/mcL Normal 4.50-6.00 Comment on above: Performed By: #### L IPID, ADIFF, ANEU, GFR, A1C, CBC, CMP #### [address] [address] WBC 4.3 10 3/mcL Low 4.5-10.8 Comment on above: Performed By: #### L IPID, ADIFF, ANEU, GFR, A1C, CBC, CMP #### [address] [address] CMPon 03-11-2025 Albumin Level 3.9 G/dL Normal 3.4-4.8 Comment on above: Performed By: #### A CATHIE, GFR, LIPID, CMP, A1C, PSA, CBC, ADIFF, VIDH #### [address] [address] Albumin/Globulin [Mass ratio] 1.2 {ratio} Normal 1.1-2.5 Comment on above: Performed By: #### A CATHIE, GFR, LIPID, CMP, A1C, PSA, CBC, ADIFF, VIDH #### [address] [address] ALP [Catalytic activity/Vol] 44 U/L Normal 40-135 Comment on above: Performed By: #### A CATHIE, GFR, LIPID, CMP, A1C, PSA, CBC, ADIFF, VIDH #### [address] [address] ALT [Catalytic activity/Vol] 30 U/L Normal 16-63 Comment on above: Performed By: #### A CATHIE, GFR, LIPID, CMP, A1C, PSA, CBC, ADIFF, VIDH #### [address] [address] AST [Catalytic activity/Vol] 13 U/L Normal 10-40 Comment on above: Performed By: #### A CATHIE, GFR, LIPID, CMP, A1C, PSA, CBC, ADIFF, VIDH #### [address] [address] Bili Total 0.5 mg/dL Normal 0.2-1.0 Comment on above: Result Comment: Use of this assay is not recommended for patients undergoing treatment with eltrombopag due to the potential for falsely elevated results. Performed By: #### A CATHIE, GFR, LIPID, CMP, A1C, PSA, CBC, ADIFF, VIDH #### [address] [address] BUN/Creatinine Ratio 20 ratio Normal 7-27 [facility] Comment on above: Performed By: #### A CATHIE, GFR, LIPID, CMP, A1C, PSA, CBC, ADIFF, VIDH #### [address] [address] Calcium [Mass/Vol] 9.5 mg/dL Normal 8.4-10.2 [facility] Comment on above: Performed By: #### A CATHIE, GFR, LIPID, CMP, A1C, PSA, CBC, ADIFF, VIDH #### [address] [address] Chloride [Moles/Vol] 103 mmol/L Normal 98-107 [facility] Comment on above: Performed By: #### A CATHIE, GFR, LIPID, CMP, A1C, PSA, CBC, ADIFF, VIDH #### [address] [address] CO2 [Moles/Vol] 28 mmol/L Normal 23-31 Comment on above: Performed By: #### A CATHIE, GFR, LIPID, CMP, A1C, PSA, CBC, ADIFF, VIDH #### [address] [address] Creatinine [Mass/Vol] 0.74 mg/dL Normal 0.67-1.17 [facility] Comment on above: Performed By: #### A CATHIE, GFR, LIPID, CMP, A1C, PSA, CBC, ADIFF, VIDH #### [address] [address] Electrolyte Balance 9.0 mEq/L Normal 4.0-15.0 [facility] Comment on above: Performed By: #### A CATHIE, GFR, LIPID, CMP, A1C, PSA, CBC, ADIFF, VIDH #### [address] [address] Globulin 3.3 G/dL Normal 2.7-4.4 Comment on above: Performed By: #### A CATHIE, GFR, LIPID, CMP, A1C, PSA, CBC, ADIFF, VIDH #### [address] [address] Glucose [Mass/Vol] 254 mg/dL High 83-110 [facility] Comment on above: Performed By: #### A CATHIE, GFR, LIPID, CMP, A1C, PSA, CBC, ADIFF, VIDH #### [address] [address] Potassium [Moles/Vol] 4.9 mmol/L Normal 3.5-5.1 [facility] Comment on above: Performed By: #### A CATHIE, GFR, LIPID, CMP, A1C, PSA, CBC, ADIFF, VIDH #### [address] [address] Sodium [Moles/Vol] 140 mmol/L Normal 136-145 [facility] Comment on above: Performed By: #### A CATHIE, GFR, LIPID, CMP, A1C, PSA, CBC, ADIFF, VIDH #### [address] [address] Total Protein 7.2 G/dL Normal 6.4-8.2 Comment on above: Performed By: #### A CATHIE, GFR, LIPID, CMP, A1C, PSA, CBC, ADIFF, VIDH #### [address] [address] Urea nitrogen [Mass/Vol] 15 mg/dL Normal 7-18 Comment on above: Performed By: #### A CATHIE, GFR, LIPID, CMP, A1C, PSA, CBC, ADIFF, VIDH #### [place] [address] [place], [place] [address] LABORATORYOrdered By: SYSTEM SYSTEM on 03-11-2025 Albumin BCP dye [Mass/Vol] 3.9 G/dL Normal 3.4 - 4.8 G/dL AO ADM SS Albumin/Globulin [Mass ratio] 1.2 {ratio} Normal 1.1 - 2.5 ratio AO ADM SS ALP [Catalytic activity/Vol] 44 U/L Normal 40 - 135 U/L AO ADM SS ALT With P-5'-P [Catalytic activity/Vol] 30 U/L Normal 16 - 63 U/L AO ADM SS AST With P-5'-P [Catalytic activity/Vol] 13 U/L Normal 10 - 40 U/L AO ADM SS Basophils (Bld) [#/Vol] 0.0 103/mcL Normal 0.0 - 0.3 10^3/mcL AO Workflow SS Basophils/100 WBC (Bld) 1.1 % Normal 0.0 - 2.5 % AO Workflow SS Bilirubin [Mass/Vol] 0.5 mg/dL Normal 0.2 - 1 .0 mg/dL AO ADM SS Comment on above: Interpretive Data: U se of this assay is not recommended for patients undergoing treatment with eltrombopag due to the potential for falsely elevated results. Calcium [Mass/Vol] 9.5 mg/dL Normal 8.4 - 10. 2 mg/dL AO ADM SS Chloride [Moles/Vol] 103 mmol/L Normal 98 - 10 7 mmol/L AO ADM SS CO2 [Moles/Vol] 28 mmol/L Normal 23 - 31 mmol/L AO ADM SS Creatinine [Mass/Vol] 0.74 mg/dL Normal 0.67 - 1.17 mg/dL AO ADM SS Electrolyte Balance 9.0 mEq/L Normal 4.0 - 15 .0 mEq/L AO ADM SS Eosinophil, Absolute 0.1 103/mcL Normal 0.0 - 0 .7 10^3/mcL AO Workflow SS Eosinophils/100 WBC (Bld) 1.3 % Normal 0.0 - 6.0 % AO Workflow SS Erythrocyte distribution width (RBC) [Ratio] 14.3 % Normal 11.5 - 15.5 % AO Workflow SS Estimated Glomerular Filtration Rate 97 ml/min/1.73sqm Invalid Interpretation Code AO Chemistry S Comment on above: Interpretive Data: Stages of Chronic Kidney Disease (CKD) Stage Description eGFR(ml/min/1.73 sq.m.) CKD 1 Normal kidney function or >=90 normal kindney function with possible kidney damage (ex. Proteinuria) CKD 2 Kidney damage with mild loss 60-89 of kidney function CKD 3a Mild to moderate loss of kidney 45-59 function CKD 3b Moderate to severe loss of 30-44 of kindey function CKD 4 Severe loss of kidney function 15-29 CKD 5 Kidney failure <15 Note: (go live 2024) the eGFR calculation was updated to the 2020 CKD-EPI creatinine equation without a race factor to calculate the eGFR results. Globulin 3.3 G/dL Normal 2.7 - 4.4 G/dL AO ADM SS Glucose [Mass/Vol] 254 mg/dL High 83 - 110 mg/dL AO ADM SS Glucose [Mass/Vol] 200 mg/dL Invalid Interpretation Code AO Chemistry S Comment on above: Interpretive Data: E stimated average glucose (eAG) is a calculated value from Hemoglobin A1C and is assistance representative of the average blood glucose level in the last 2-3 month period. Normal range: less than 114 mg/dL HbA1c (Bld) [Mass fraction] 8.6 % High 4.3 - 6.4 % AO ADM SS Hematocrit (Bld) [Volume fraction] 40.4 % Normal 40.0 - 52.0 % AO Workflow SS Hemoglobin (Bld) [Mass/Vol] 13.3 G/dL Normal 13.0 - 17.5 G/dL AO Workflow SS Lymphocytes (Bld) [#/Vol] 1.3 103/mcL Normal 0.9 - 4.3 10^3/mcL AO Workflow SS Lymphocytes/100 WBC (Bld) 30.9 % Normal 20.0 - 40.0 % AO Workflow SS MCH (RBC) [Entitic mass] 26.5 pg Low 27.0 - 33.0 pg AO Workflow SS MCHC 32.8 G/dL Normal 32.0 - 36.0 G/dL AO Workflow SS MCV (RBC) [Entitic vol] 80.8 fL Low 81.0 - 100.0 fL AO Workflow SS Monocytes (Bld) [#/Vol] 0.5 103/mcL Normal 0.1 - 1.4 10^3/mcL AO Workflow SS Monocytes/100 WBC (Bld) 10.6 % Normal 2.0 - 13.0 % AO Workflow SS Neutrophils (Bld) [#/Vol] 2.4 103/mcL Normal 2.3 - 8.1 10^3/mcL AO Workflow SS Neutrophils/100 WBC (Bld) 56.1 % Normal 50.0 - 75.0 % AO Workflow SS Platelet mean volume (Bld) [Entitic vol] 8.9 fL Normal 6.4 - 10.5 fL AO Workflow SS Platelets (Bld) [#/Vol] 154 103/mcL Normal 150 - 450 10^3/mcL AO Workflow SS Potassium [Moles/Vol] 4.9 mmol/L Normal 3.5 - 5.1 mmol/L AO ADM SS Protein [Mass/Vol] 7.2 G/dL Normal 6.4 - 8.2 G/dL AO ADM SS RBC (Bld) [#/Vol] 5.00 106/mcL Normal 4.50 - 6.0 0 10^6/mcL AO Workflow SS Sodium [Moles/Vol] 140 mmol/L Normal 136 - 145 mmol/L AO ADM SS Urea nitrogen [Mass/Vol] 15 mg/dL Normal 7 - 18 mg/dL AO ADM SS Urea nitrogen/Creatinine [Mass ratio] 20 ratio Normal 7 - 27 ratio AO ADM SS WBC (Bld) [#/Vol] 4.3 103/mcL Low 4.5 - 10.8 10^3/mcL AO Workflow SS LABORATORYOrdered By: Regine Sarkar on 03-11-2025 Cholesterol [Mass/Vol] 131 mg/dL Normal 0 - 200 mg/dL AO ADM SS Comment on above: Interpretive Data: C holesterol Reference Interval: Less than 200 Desirable 200-239 Borderline high risk 240 and above High risk Cholesterol in HDL [Mass/Vol] 43 mg/dL Normal 40 - 60 mg/dL AO ADM SS Cholesterol in LDL [Mass/Vol] 61 mg/dL Normal 0 - 130 mg/dL AO ADM SS Triglyceride [Mass/Vol] 135 mg/dL Normal 0 - 150 mg/dL AO ADM SS Comment on above: Interpretive Data: T riglyceride Reference Interval: Less than 150 Normal 150-199 Borderline high risk 200-499 High risk 500 or higher Very high risk LIPIDon 03-11-2025 Cholesterol [Mass/Vol] 131 mg/dL Normal 0-200 [facility] Comment on above: Result Comment: Chol esterol Reference Interval: Less than 200 Desirable 200-239 Borderline high risk 240 and above High risk Performed By: #### A CATHIE, GFR, LIPID, CMP, A1C, PSA, CBC, ADIFF, VIDH #### [address] [address] Cholesterol in HDL [Mass/Vol] 43 mg/dL Normal 40-60 Comment on above: Performed By: #### A CATHIE, GFR, LIPID, CMP, A1C, PSA, CBC, ADIFF, VIDH #### [address] [address] Cholesterol in LDL [Mass/Vol] 61 mg/dL Normal 0-130 Comment on above: Performed By: #### A CATHIE, GFR, LIPID, CMP, A1C, PSA, CBC, ADIFF, VIDH #### [address] [address] Triglyceride [Mass/Vol] 135 mg/dL Normal 0-150 Comment on above: Result Comment: Trig lyceride Reference Interval: Less than 150 Normal 150-199 Borderline high risk 200-499 High risk 500 or higher Very high risk Performed By: #### A CATHIE, GFR, LIPID, CMP, A1C, PSA, CBC, ADIFF, VIDH #### [address] [address] MALBRon 12-22-2024 U Creatinine 36.4 mg/dL Normal Comment on above: Performed By: #### A CATHIE, GFR, LIPID, CMP, A1C, PSA, CBC, ADIFF, VIDH #### [address] [address] U Microalb 28.5 mg/L Normal Comment on above: Performed By: #### A CATHIE, GFR, LIPID, CMP, A1C, PSA, CBC, ADIFF, VIDH #### [address] [address] U Ratio Alb/Cre 78 mg/G High 0-30 Comment on above: Performed By: #### A CATHIE, GFR, LIPID, CMP, A1C, PSA, CBC, ADIFF, VIDH #### [address] [address] .GFRon 08-18-2024 GFR 94 ml/min/1.73sqm [facility] Comment on above: Result Comment: GFR Population mean for , Non- Americans Ages 20-29 = 116 mL/min/1.73 sq.m. Ages 30-39 = 107 mL/min/1.73 sq.m. Ages 40-49 = 99 mL/min/1.73 sq.m. Ages 50-59 = 93 mL/min/1.73 sq.m. Ages 60-69 = 85 mL/min/1.73 sq.m. Ages 70+ = 75 mL/min/1.73 sq.m. Chronic Kidney Disease: Less than 60 mL/min/1.73 square meters End Stage Renal Disease: Less than 15 mL/min/1.73 square meters Performed By: #### A CATHIE, GFR, LIPID, CMP, A1C, PSA, CBC, ADIFF, VIDH #### [address] [address] GFR Non- 77 ml/min/1.73sqm [facility] Comment on above: Result Comment: GFR Population mean for , Non- Americans Ages 20-29 = 116 mL/min/1.73 sq.m. Ages 30-39 = 107 mL/min/1.73 sq.m. Ages 40-49 = 99 mL/min/1.73 sq.m. Ages 50-59 = 93 mL/min/1.73 sq.m. Ages 60-69 = 85 mL/min/1.73 sq.m. Ages 70+ = 75 mL/min/1.73 sq.m. Chronic Kidney Disease: Less than 60 mL/min/1.73 square meters End Stage Renal Disease: Less than 15 mL/min/1.73 square meters Performed By: #### A CATHIE, GFR, LIPID, CMP, A1C, PSA, CBC, ADIFF, VIDH #### [place] [address] [place], [place] [address] A1Con 08-18-2024 Glucose [Mass/Vol] 203 mg/dL Normal [facility] Comment on above: Result Comment: Caitlin mated Average Glucose calculated by equation ((28.7xA1C)-46.7) Estimated average glucose (eAG) is a calculated value from Hemoglobin A1C and is assistance representative of the average blood glucose level in the last 2-3 month period. Normal range: less than 114 mg/dL Performed By: #### A CATHIE, GFR, LIPID, CMP, A1C, PSA, CBC, ADIFF, VIDH #### [address] [address] HbA1c (Bld) [Mass fraction] 8.7 % High 4.3-6.4 Comment on above: Performed By: #### A CATHIE, GFR, LIPID, CMP, A1C, PSA, CBC, ADIFF, VIDH #### [address] [address] CMPon 08-18-2024 Albumin Level 3.9 G/dL Normal 3.4-4.8 Comment on above: Performed By: #### A CATHIE, GFR, LIPID, CMP, A1C, PSA, CBC, ADIFF, VIDH #### [address] [address] Albumin/Globulin [Mass ratio] 1.4 {ratio} Normal 1.1-2.5 Comment on above: Performed By: #### A CATHIE, GFR, LIPID, CMP, A1C, PSA, CBC, ADIFF, VIDH #### [address] [address] ALP [Catalytic activity/Vol] 52 U/L Normal 40-135 Comment on above: Performed By: #### A CAHTIE, GFR, LIPID, CMP, A1C, PSA, CBC, ADIFF, VIDH #### [address] [address] ALT [Catalytic activity/Vol] 34 U/L Normal 16-63 Comment on above: Performed By: #### A CATHIE, GFR, LIPID, CMP, A1C, PSA, CBC, ADIFF, VIDH #### [address] [address] AST [Catalytic activity/Vol] 17 U/L Normal 10-40 Comment on above: Performed By: #### A CATHIE, GFR, LIPID, CMP, A1C, PSA, CBC, ADIFF, VIDH #### [address] [address] Bili Total 0.5 mg/dL Normal 0.2-1.0 Comment on above: Result Comment: Use of this assay is not recommended for patients undergoing treatment with eltrombopag due to the potential for falsely elevated results. Performed By: #### A CATHIE, GFR, LIPID, CMP, A1C, PSA, CBC, ADIFF, VIDH #### [address] [address] BUN/Creatinine Ratio 17 ratio Normal 7-27 [facility] Comment on above: Performed By: #### A CATHIE, GFR, LIPID, CMP, A1C, PSA, CBC, ADIFF, VIDH #### [address] [address] Calcium [Mass/Vol] 9.4 mg/dL Normal 8.4-10.2 [facility] Comment on above: Performed By: #### A CATHIE, GFR, LIPID, CMP, A1C, PSA, CBC, ADIFF, VIDH #### [address] [address] Chloride [Moles/Vol] 102 mmol/L Normal 98-107 [facility] Comment on above: Performed By: #### A CATHIE, GFR, LIPID, CMP, A1C, PSA, CBC, ADIFF, VIDH #### [address] [address] CO2 [Moles/Vol] 27 mmol/L Normal 23-31 Comment on above: Performed By: #### A CATHIE, GFR, LIPID, CMP, A1C, PSA, CBC, ADIFF, VIDH #### [address] [address] Creatinine [Mass/Vol] 0.96 mg/dL Normal 0.70-1.30 [facility] Comment on above: Result Comment: Test ing performed on Siemens Dimension EXL analyzer using a modified kinetic Rinku technique. Performed By: #### A CATHIE, GFR, LIPID, CMP, A1C, PSA, CBC, ADIFF, VIDH #### [address] [address] Electrolyte Balance 11.0 mEq/L Normal 4.0-15.0 [facility] Comment on above: Performed By: #### A CATHIE, GFR, LIPID, CMP, A1C, PSA, CBC, ADIFF, VIDH #### [address] [address] Globulin 2.7 G/dL Normal Comment on above: Performed By: #### A CATHIE, GFR, LIPID, CMP, A1C, PSA, CBC, ADIFF, VIDH #### [address] [address] Glucose [Mass/Vol] 214 mg/dL High 83-110 [facility] Comment on above: Performed By: #### A CATHIE, GFR, LIPID, CMP, A1C, PSA, CBC, ADIFF, VIDH #### [address] [address] Potassium [Moles/Vol] 4.5 mmol/L Normal 3.5-5.1 [facility] Comment on above: Performed By: #### A CATHIE, GFR, LIPID, CMP, A1C, PSA, CBC, ADIFF, VIDH #### [address] [address] Sodium [Moles/Vol] 140 mmol/L Normal 136-145 [facility] Comment on above: Performed By: #### A CATHIE, GFR, LIPID, CMP, A1C, PSA, CBC, ADIFF, VIDH #### [address] [address] Total Protein 6.6 G/dL Normal 6.4-8.2 Comment on above: Performed By: #### A CATHIE, GFR, LIPID, CMP, A1C, PSA, CBC, ADIFF, VIDH #### [place] [id number] [place], [place] [address] Urea nitrogen [Mass/Vol] 16 mg/dL Normal 7-18 Comment on above: Performed By: #### A CATHIE, GFR, LIPID, CMP, A1C, PSA, CBC, ADIFF, VIDH #### [place] [address] [place], [place] [address] LABORATORYOrdered By: SYSTEM SYSTEM on 08-18-2024 Albumin BCP dye [Mass/Vol] 3.9 G/dL Normal 3.4 - 4.8 G/dL AO ADM SS Albumin/Globulin [Mass ratio] 1.4 {ratio} Normal 1.1 - 2.5 ratio AO ADM SS ALP [Catalytic activity/Vol] 52 U/L Normal 40 - 135 U/L AO ADM SS ALT With P-5'-P [Catalytic activity/Vol] 34 U/L Normal 16 - 63 U/L AO ADM SS AST With P-5'-P [Catalytic activity/Vol] 17 U/L Normal 10 - 40 U/L AO ADM SS Bilirubin [Mass/Vol] 0.5 mg/dL Normal 0.2 - 1 .0 mg/dL AO ADM SS Comment on above: Interpretive Data: U se of this assay is not recommended for patients undergoing treatment with eltrombopag due to the potential for falsely elevated results. Calcium [Mass/Vol] 9.4 mg/dL Normal 8.4 - 10. 2 mg/dL AO ADM SS Chloride [Moles/Vol] 102 mmol/L Normal 98 - 10 7 mmol/L AO ADM SS CO2 [Moles/Vol] 27 mmol/L Normal 23 - 31 mmol/L AO ADM SS Creatinine [Mass/Vol] 0.96 mg/dL Normal 0.70 - 1.30 mg/dL AO ADM SS Comment on above: Interpretive Data: T esting performed on Siemens Dimension EXL analyzer using a modified kinetic Rinku technique. Electrolyte Balance 11.0 mEq/L Normal 4.0 - 15 .0 mEq/L AO ADM SS GFR/1.73 sq M.predicted among blacks MDRD (S/P/Bld) [Vol rate/Area] 94 ml/min/1.73sqm Invalid Interpretation Code AO Chemistry S Comment on above: Interpretive Data: GFR Population mean for , Non- Americans Ages 20-29 = 116 mL/min/1.73 sq.m. Ages 30-39 = 107 mL/min/1.73 sq.m. Ages 40-49 = 99 mL/min/1.73 sq.m. Ages 50-59 = 93 mL/min/1.73 sq.m. Ages 60-69 = 85 mL/min/1.73 sq.m. Ages 70+ = 75 mL/min/1.73 sq.m. Chronic Kidney Disease: Less than 60 mL/min/1.73 square meters End Stage Renal Disease: Less than 15 mL/min/1.73 square meters GFR/1.73 sq M.predicted among non-blacks MDRD (S/P/Bld) [Vol rate/Area] 77 ml/min/1.73sqm Invalid Interpretation Code AO Chemistry S Comment on above: Interpretive Data: GFR Population mean for , Non- Americans Ages 20-29 = 116 mL/min/1.73 sq.m. Ages 30-39 = 107 mL/min/1.73 sq.m. Ages 40-49 = 99 mL/min/1.73 sq.m. Ages 50-59 = 93 mL/min/1.73 sq.m. Ages 60-69 = 85 mL/min/1.73 sq.m. Ages 70+ = 75 mL/min/1.73 sq.m. Chronic Kidney Disease: Less than 60 mL/min/1.73 square meters End Stage Renal Disease: Less than 15 mL/min/1.73 square meters Globulin 2.7 G/dL Invalid Interpretation Code AO ADM SS Glucose [Mass/Vol] 214 mg/dL High 83 - 110 mg/dL AO ADM SS Glucose [Mass/Vol] 203 mg/dL Invalid Interpretation Code AO Chemistry S Comment on above: Interpretive Data: E stimated average glucose (eAG) is a calculated value from Hemoglobin A1C and is assistance representative of the average blood glucose level in the last 2-3 month period. Normal range: less than 114 mg/dL HbA1c (Bld) [Mass fraction] 8.7 % High 4.3 - 6.4 % AO ADM SS Potassium [Moles/Vol] 4.5 mmol/L Normal 3.5 - 5.1 mmol/L AO ADM SS Prostate specific Ag [Mass/Vol] 3.26 ng/mL Normal 0.00 - 4.00 ng/mL AO ADM SS Protein [Mass/Vol] 6.6 G/dL Normal 6.4 - 8.2 G/dL AO ADM SS Sodium [Moles/Vol] 140 mmol/L Normal 136 - 145 mmol/L AO ADM SS Urea nitrogen [Mass/Vol] 16 mg/dL Normal 7 - 18 mg/dL AO ADM SS Urea nitrogen/Creatinine [Mass ratio] 17 ratio Normal 7 - 27 ratio AO ADM SS LABORATORYOrdered By: Daniel Casillas on 08-18-2024 Cholesterol [Mass/Vol] 145 mg/dL Normal 0 - 200 mg/dL AO ADM SS Comment on above: Interpretive Data: C holesterol Reference Interval: Less than 200 Desirable 200-239 Borderline high risk 240 and above High risk Cholesterol in HDL [Mass/Vol] 41 mg/dL Normal 40 - 60 mg/dL AO ADM SS Cholesterol in LDL [Mass/Vol] 72 mg/dL Normal 0 - 130 mg/dL AO ADM SS Triglyceride [Mass/Vol] 160 mg/dL High 0 - 150 mg/dL AO ADM SS Comment on above: Interpretive Data: T riglyceride Reference Interval: Less than 150 Normal 150-199 Borderline high risk 200-499 High risk 500 or higher Very high risk LIPIDon 08-18-2024 Cholesterol [Mass/Vol] 145 mg/dL Normal 0-200 [facility] Comment on above: Result Comment: Chol esterol Reference Interval: Less than 200 Desirable 200-239 Borderline high risk 240 and above High risk Performed By: #### A CATHIE, GFR, LIPID, CMP, A1C, PSA, CBC, ADIFF, VIDH #### [address] [address] Cholesterol in HDL [Mass/Vol] 41 mg/dL Normal 40-60 Comment on above: Performed By: #### A CATHIE, GFR, LIPID, CMP, A1C, PSA, CBC, ADIFF, VIDH #### [place] [address] [place], [place] [address] Cholesterol in LDL [Mass/Vol] 72 mg/dL Normal 0-130 Comment on above: Performed By: #### A CATHIE, GFR, LIPID, CMP, A1C, PSA, CBC, ADIFF, VIDH #### [address] [address] Triglyceride [Mass/Vol] 160 mg/dL High 0-150 Comment on above: Result Comment: Trig lyceride Reference Interval: Less than 150 Normal 150-199 Borderline high risk 200-499 High risk 500 or higher Very high risk Performed By: #### A CATHIE, GFR, LIPID, CMP, A1C, PSA, CBC, ADIFF, VIDH #### [address] [address] PSAon 08-18-2024 Prostate Specific Antigen 3.26 ng/mL Normal 0.00-4.00 Comment on above: Performed By: #### A CATHIE, GFR, LIPID, CMP, A1C, PSA, CBC, ADIFF, VIDH #### [address] [address] .GFRon 03-11-2024 GFR 90 ml/min/1.73sqm Normal [facility] ([place]) Comment on above: Result Comment: GFR Population mean for , Non- Americans Ages 20-29 = 116 mL/min/1.73 sq.m. Ages 30-39 = 107 mL/min/1.73 sq.m. Ages 40-49 = 99 mL/min/1.73 sq.m. Ages 50-59 = 93 mL/min/1.73 sq.m. Ages 60-69 = 85 mL/min/1.73 sq.m. Ages 70+ = 75 mL/min/1.73 sq.m. Chronic Kidney Disease: Less than 60 mL/min/1.73 square meters End Stage Renal Disease: Less than 15 mL/min/1.73 square meters Performed By: #### G FR, CMP, A1C, LIPID #### [address] [address] GFR Non- 74 ml/min/1.73sqm Normal [facility] ([place]) Comment on above: Result Comment: GFR Population mean for , Non- Americans Ages 20-29 = 116 mL/min/1.73 sq.m. Ages 30-39 = 107 mL/min/1.73 sq.m. Ages 40-49 = 99 mL/min/1.73 sq.m. Ages 50-59 = 93 mL/min/1.73 sq.m. Ages 60-69 = 85 mL/min/1.73 sq.m. Ages 70+ = 75 mL/min/1.73 sq.m. Chronic Kidney Disease: Less than 60 mL/min/1.73 square meters End Stage Renal Disease: Less than 15 mL/min/1.73 square meters Performed By: #### G FR, CMP, A1C, LIPID #### [address] [address] A1Con 03-11-2024 HbA1c (Bld) [Mass fraction] 6.7 % High 4.3-6.4 [facility] ([place]) Comment on above: Performed By: #### G FR, CMP, A1C, LIPID ####[address] [address] CMPon 03-11-2024 Albumin Level 4.0 G/dL Normal 3.4-4.8 [facility] ([place]) Comment on above: Performed By: #### G FR, CMP, A1C, LIPID #### [address] [address] Albumin/Globulin [Mass ratio] 1.5 {ratio} Normal 1.1-2.5 [facility] ([place]) Comment on above: Performed By: #### G FR, CMP, A1C, LIPID #### [address] [address] ALP [Catalytic activity/Vol] 44 U/L Normal 40-135 [facility] ([place]) Comment on above: Performed By: #### G FR, CMP, A1C, LIPID #### [address] [address] ALT [Catalytic activity/Vol] 29 U/L Normal 16-63 [facility] ([place]) Comment on above: Performed By: #### G FR, CMP, A1C, LIPID #### [address] [id number] AST [Catalytic activity/Vol] 14 U/L Normal 10-40 [facility] ([place] Comment on above: Performed By: #### G FR, CMP, A1C, LIPID #### [address] [id number] Bili Total 0.4 mg/dL Normal 0.2-1.0 [facility] ([place]) Comment on above: Result Comment: Use of this assay is not recommended for patients undergoing treatment with eltrombopag due to the potential for falsely elevated results. Performed By: #### G FR, CMP, A1C, LIPID #### [address] [id number] BUN/Creatinine Ratio 12 ratio Normal 7-27 [facility] ([place]) Comment on above: Performed By: #### G FR, CMP, A1C, LIPID #### [address] [id number] Calcium [Mass/Vol] 9.9 mg/dL Normal 8.4-10.2 [facility] ([place]) Comment on above: Performed By: #### G FR, CMP, A1C, LIPID #### [address] [id number] Chloride [Moles/Vol] 102 mmol/L Normal 98-107 [facility] ([place]) Comment on above: Performed By: #### G FR, CMP, A1C, LIPID #### [address] [id number] CO2 [Moles/Vol] 27 mmol/L Normal 23-31 [facility] ([place]) Comment on above: Performed By: #### G FR, CMP, A1C, LIPID #### [address] [id number] Creatinine [Mass/Vol] 1.00 mg/dL Normal 0.70-1.30 [facility] ([place]) Comment on above: Performed By: #### G FR, CMP, A1C, LIPID #### [address] [address] Electrolyte Balance 10.0 mEq/L Normal 4.0-15.0 [facility] ([place]) Comment on above: Performed By: #### G FR, CMP, A1C, LIPID #### [id number] [place], [place] [address] Globulin 2.7 G/dL Normal [facility] [facility] ([place]) Comment on above: Performed By: #### G FR, CMP, A1C, LIPID #### [address] [place], [place] [address] Glucose [Mass/Vol] 132 mg/dL High 83-110 [facility] ([place]) Comment on above: Performed By: #### G FR, CMP, A1C, LIPID #### [address] [address] Potassium [Moles/Vol] 4.8 mmol/L Normal 3.5-5.1 [facility] ([place]) Comment on above: Performed By: #### G FR, CMP, A1C, LIPID #### [address] [address] Sodium [Moles/Vol] 139 mmol/L Normal 136-145 [facility] ([place]) Comment on above: Performed By: #### G FR, CMP, A1C, LIPID #### [address] [address] Total Protein 6.7 G/dL Normal 6.4-8.2 [facility] Comment on above: Performed By: #### G FR, CMP, A1C, LIPID #### [address] [address] Urea nitrogen [Mass/Vol] 12 mg/dL Normal 7-18 [facility] ([place]) Comment on above: Performed By: #### G FR, CMP, A1C, LIPID #### [address] [address] LABORATORYOrdered By: SYSTEM SYSTEM on 03-11-2024 Albumin BCP dye [Mass/Vol] 4.0 G/dL Normal 3.4 - 4.8 G/dL AO ADM SS Albumin/Globulin [Mass ratio] 1.5 {ratio} Normal 1.1 - 2.5 ratio AO ADM SS ALP [Catalytic activity/Vol] 44 U/L Normal 40 - 135 U/L AO ADM SS ALT With P-5'-P [Catalytic activity/Vol] 29 U/L Normal 16 - 63 U/L AO ADM SS AST With P-5'-P [Catalytic activity/Vol] 14 U/L Normal 10 - 40 U/L AO ADM SS Bilirubin [Mass/Vol] 0.4 mg/dL Normal 0.2 - 1 .0 mg/dL AO ADM SS Comment on above: Interpretive Data: U se of this assay is not recommended for patients undergoing treatment with eltrombopag due to the potential for falsely elevated results. Calcium [Mass/Vol] 9.9 mg/dL Normal 8.4 - 10. 2 mg/dL AO ADM SS Chloride [Moles/Vol] 102 mmol/L Normal 98 - 10 7 mmol/L AO ADM SS CO2 [Moles/Vol] 27 mmol/L Normal 23 - 31 mmol/L AO ADM SS Creatinine [Mass/Vol] 1.00 mg/dL Normal 0.70 - 1.30 mg/dL AO ADM SS Electrolyte Balance 10.0 mEq/L Normal 4.0 - 15 .0 mEq/L AO ADM SS GFR/1.73 sq M.predicted among blacks MDRD (S/P/Bld) [Vol rate/Area] 90 ml/min/1.73sqm Invalid Interpretation Code AO Chemistry S Comment on above: Interpretive Data: GFR Population mean for , Non- Americans Ages 20-29 = 116 mL/min/1.73 sq.m. Ages 30-39 = 107 mL/min/1.73 sq.m. Ages 40-49 = 99 mL/min/1.73 sq.m. Ages 50-59 = 93 mL/min/1.73 sq.m. Ages 60-69 = 85 mL/min/1.73 sq.m. Ages 70+ = 75 mL/min/1.73 sq.m. Chronic Kidney Disease: Less than 60 mL/min/1.73 square meters End Stage Renal Disease: Less than 15 mL/min/1.73 square meters GFR/1.73 sq M.predicted among non-blacks MDRD (S/P/Bld) [Vol rate/Area] 74 ml/min/1.73sqm Invalid Interpretation Code AO Chemistry S Comment on above: Interpretive Data: GFR Population mean for , Non- Americans Ages 20-29 = 116 mL/min/1.73 sq.m. Ages 30-39 = 107 mL/min/1.73 sq.m. Ages 40-49 = 99 mL/min/1.73 sq.m. Ages 50-59 = 93 mL/min/1.73 sq.m. Ages 60-69 = 85 mL/min/1.73 sq.m. Ages 70+ = 75 mL/min/1.73 sq.m. Chronic Kidney Disease: Less than 60 mL/min/1.73 square meters End Stage Renal Disease: Less than 15 mL/min/1.73 square meters Globulin 2.7 G/dL Invalid Interpretation Code AO ADM SS Glucose [Mass/Vol] 132 mg/dL High 83 - 110 mg/dL AO ADM SS HbA1c (Bld) [Mass fraction] 6.7 % High 4.3 - 6.4 % AO ADM SS Potassium [Moles/Vol] 4.8 mmol/L Normal 3.5 - 5.1 mmol/L AO ADM SS Protein [Mass/Vol] 6.7 G/dL Normal 6.4 - 8.2 G/dL AO ADM SS Sodium [Moles/Vol] 139 mmol/L Normal 136 - 145 mmol/L AO ADM SS Urea nitrogen [Mass/Vol] 12 mg/dL Normal 7 - 18 mg/dL AO ADM SS Urea nitrogen/Creatinine [Mass ratio] 12 ratio Normal 7 - 27 ratio AO ADM SS LABORATORYOrdered By: Elvia Echeverria on 03-11-2024 Cholesterol [Mass/Vol] 129 mg/dL Normal 0 - 200 mg/dL AO ADM SS Comment on above: Interpretive Data: C holesterol Reference Interval: Less than 200 Desirable 200-239 Borderline high risk 240 and above High risk Cholesterol in HDL [Mass/Vol] 49 mg/dL Normal 40 - 60 mg/dL AO ADM SS Cholesterol in LDL [Mass/Vol] 65 mg/dL Normal 0 - 130 mg/dL AO ADM SS Triglyceride [Mass/Vol] 74 mg/dL Normal 0 - 150 mg/dL AO ADM SS Comment on above: Interpretive Data: T riglyceride Reference Interval: Less than 150 Normal 150-199 Borderline high risk 200-499 High risk 500 or higher Very high risk LIPIDon 03-11-2024 Cholesterol [Mass/Vol] 129 mg/dL Normal 0-200 [facility] ([place]) Comment on above: Result Comment: Chol esterol Reference Interval: Less than 200 Desirable 200-239 Borderline high risk 240 and above High risk Performed By: #### G FR, CMP, A1C, LIPID #### [address] [place], [place] [address] Cholesterol in HDL [Mass/Vol] 49 mg/dL Normal 40-60 [facility] ([place] Comment on above: Performed By: #### G FR, CMP, A1C, LIPID #### [address] [place], [place] [address] Cholesterol in LDL [Mass/Vol] 65 mg/dL Normal 0-130 [facility] ([place] Comment on above: Performed By: #### G FR, CMP, A1C, LIPID #### [address] [place], [place] [address] Triglyceride [Mass/Vol] 74 mg/dL Normal 0-150 [facility] ([place]) Comment on above: Result Comment: Trig lyceride Reference Interval: Less than 150 Normal 150-199 Borderline high risk 200-499 High risk 500 or higher Very high risk Performed By: #### G FR, CMP, A1C, LIPID #### [address] [address] AUREAOVon 01-17-2024 CNOV Office Visit (SLEWST) -------- OBDULIO WHITNEY ([id number]) 1955 M Date Time Provider Department 01/17/24 8:00 AM JOHANEN CHAPMAN During your visit today, we recorded the following information about you: Pulse Respiration Blood pressure Weight 63/minute 18/minute 129/75 96.5 kg Johanne Chapman APRN.CNP 01/17/2024 8:[address] 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 Plan: - Continue Auto CPAP at 12-16 cmH2O. - Remember to clean your mask and equipment regularly, as directed. - You should be eligible for new supplies approximately every 3-6 months, depending on your insurance coverage. Contact your [employer] (DME) company for new supplies as needed. Follow up in 1 year(s) and PRN. Bill Sandoval, ALONZO.MAINTENANCE CRAFTSMAN Here for follow up for ZACHARIAH, annual follow up. He uses PAP all night, every night, I can't sleep without it. His recently. SLEEP APNEA Sleep apnea type : ZACHARIAH, Most Recent Apnea-Hypopnea Index (AHI): 6.4, supine 55.4 Treatment : PAP therapy DME: [facility] P[facility] History: Uses AutoPAP for 9 hours per night, 7 nights per week. Current PAP settin-16 cm H2O. Difficulties with AutoPAP: None Reviewed objective PAP compliance data: Mask type: hybrid full face mask Mask issues: none There is a perceived benefit by the patient: can't sleep without it -------- PATIENT-ENTERED QUESTIONNAIRE SLEEP SCORES 04/30/2012 06/18/2012 PHQ-9 Score 14 5 ALLERGIES Allergen Reactions Celebrex [Celecoxib] Shortness of Breath Mushrooms [Other] Swelling Naproxen Rash Statins [Statins-Hm* Leg cramps CURRENT MEDICATIONS: CPAP New set up: Settings 12 - 16 cm H2O, suitable mask per pt preference, chin strap, head gear, humidity, tubing, lifetime supplies. G47.33 ZACHARAIH amLODIPine (NORVASC) 5 mg tablet Take 1 tablet by mouth once daily. (Patient taking differently: Take 10 mg by mouth once daily.) nitroglycerin sublingual (NITROQUICK) 0.4 mg SL tablet Dissolve 1 tablet under the tongue as needed. FOR CHEST PAIN. IF NO RELIEF CALL 911 metFORMIN (GLUCOPHAGE) 500 mg tablet Take 500 mg by mouth twice daily with meals. glimepiride (AMARYL) 4 mg tablet Take 4 mg by mouth as needed. Tilden-3 Fatty Acids, FISH OIL, 360-1,200 mg cap Take 1 capsule by mouth daily with breakfast. rosuvastatin (CRESTOR) 20 mg tablet Take 1 tablet by mouth once daily. metoprolol succinate XL, long acting, (TOPROL XL) 50 mg 24 hr tablet Take 1 tablet by mouth once daily. docusate sodium (COLACE) 50 mg capsule Take by mouth daily at bedtime. OMEPRAZOLE 20 MG TAB, DELAYED RELEASE Take one(1) tablet daily. aspirin(ECOTRIN LOW STRENGTH 81 MG TAB) Take one(1) tablet daily. HYDROcodone-acetam inophen (NORCO) 5-325 mg per tablet Take 1 tablet by mouth every 6 hours as needed. (Patient not taking: Reported on 05/17/2021) Psyllium Seed-Sucrose Take by mouth twice daily. (Patient not taking: Reported on 01/17/2024) PHYSICAL EXAMINATION: Vital Signs: BP 129/75 Pulse 63 Resp 18 Wt 96.5 kg (212 lb 12.8 oz) SpO2 97% BMI 32.36 kg/m? PHYSICAL EXAM: General appearance: pleasant, NAD Mental status: alert and oriented, able to provide own history Constitutional: WNL Skin: No visible rashes on exposed skin Neuro: No focal deficits observed, no tremors IMPRESSION: Zachariah (obstructive sleep apnea) (primary encounter diagnosis) Obdulio Whitney is a delightful 68 year old male with ZACHARIAH. PMH of HTN, HLD, CAD. --Patient is compliant with PAP therapy and reports subjective benefits from treatment --We reviewed PAP compliance report; AHI just slightly >5 PLAN: - Continue Auto CPAP, increase pressure range to 12-20 cmHO. We'll get a download in a month, we'll call him with update. His machine has about 16,000 hrs on it. - Remember to clean your mask and equipment regularly, as directed. - You should be eligible for new supplies approximately every 3-6 months, depending on your insurance coverage. Contact your [employer] (DME) company for new supplies as needed. - Follow up in 12 months with [facility]. Johanne Chapman APRN.MAINTENANCE CRAFTSMAN Allergies As of Date: 01/17/2024 Noted Allergy Reaction CELEBREX (CELECOXIB) 10/11/2009 12 - Shortness of Breath NAPROXEN 10/11/2009 2 - Rash STATINS ([id number] REDUCTAS* 0 Comments: Leg cramps Date Reviewed: 01/17/2024 Reviewed by: Annie Packer L (more content not included)... Normal [facility] Luli 12-24-2023 ISAN Telephone ([place]) -------- OBDULIO WHITNEY ([id number]) 1955 M Date Time Provider Department 12/24/23 BILL SANDOVAL During your visit today, we recorded the following information about you: Yue Boo OCCA 12/24/2023 9:25 AM Signed Faxed and received confirmation from [facility] for CPAP orders. Patient's most recent visit was 05/17/2021. [facility] notified that patient will need to make an appointment. Ya Rizo 01/01/2024 3:19 PM Signed Called Patient-no answer. Left voicemail informing him that he will need to see a Sleep Specialist with [facility] before CPAP supplies can be renewed. Patient provided phone number for [facility] to schedule. Patient can see any [facility], but [place] may be most convenient location for the patient. Rachel Palacios 01/06/2024 10:37 AM Signed Called and left message asking patient to call back to schedule consult to sleep. Ya Rizo 01/09/2024 3:51 PM Signed Unable to reach letter mailed to address on file. Ya Rizo Allergies As of Date: 12/24/2023 Noted Allergy Reaction CELEBREX (CELECOXIB) 10/11/2009 12 - Shortness of Breath mushrooms [Other] 10/31/2009 7 - Swelling NAPROXEN 10/11/2009 2 - Rash STATINS ([id number] REDUCTAS* 0 Comments: Leg cramps Date Reviewed: 02/05/2023 Reviewed by: Elenita Cerna RN - Fully Assessed Reason for Visit: Orders [681] Cmt: Faxed and received confirmation from [facility] for CPAP orders. Patient's most recent visit was 05/17/2021. DME notified that patient will need to make an appointment. Prescriptions as of 01/09/2024 - CPAP Supplies: Mask (per patient preference) optional chin strap (if indicated) , filters, tubing, humidifier and lifetime supplies. Dx. ZACHARIAH 327.23 - CPAP New set up: Settings 12 - 16 cm H2O, suitable mask per pt preference, chin strap, head gear, humidity, tubing, lifetime supplies. G47.33 ZACHARIAH - amLODIPine (NORVASC) 5 mg tablet Take 1 tablet by mouth once daily. - nitroglycerin sublingual (NITROQUICK) 0.4 mg SL tablet Dissolve 1 tablet under the tongue as needed. FOR CHEST PAIN. IF NO RELIEF CALL 911 - metFORMIN (GLUCOPHAGE) 500 mg tablet Take 500 mg by mouth twice daily with meals. - glimepiride (AMARYL) 4 mg tablet Take 4 mg by mouth as needed. - HYDROcodone-acetam inophen (NORCO) 5-325 mg per tablet Take 1 tablet by mouth every 6 hours as needed. - Tilden-3 Fatty Acids, FISH OIL, 360-1,200 mg cap Take 1 capsule by mouth daily with breakfast. - Psyllium Seed-Sucrose Take by mouth twice daily. - rosuvastatin (CRESTOR) 20 mg tablet Take 1 tablet by mouth once daily. - metoprolol succinate XL, long acting, (TOPROL XL) 50 mg 24 hr tablet Take 1 tablet by mouth once daily. - CPAP CPAP 14 cm H2O, suitable mask, tubing, humidifier, filters. Lifetime supplies. Dx: 327.23 - Obstructive sleep apnea - docusate sodium (COLACE) 50 mg capsule Take by mouth daily at bedtime. - OMEPRAZOLE 20 MG TAB, DELAYED RELEASE Take one(1) tablet daily. - aspirin(ECOTRIN LOW STRENGTH 81 MG TAB) Take one(1) tablet daily. 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] 11/02/2009 11/03/2009 CAD (Coronary Artery Disease) [I25.10] 11/02/2009 Atelectasis/pleura l effusion [J98.11] 11/03/2009 Fluid Overload [276.6] 11/03/2009 11/06/2009 Post op HTN (Hypertension) [I10] 11/03/2009 Hyperlipidemia with target LDL less than 70 [E7*11/03/2009 Cervical stenosis of spine [M48.02] 12/21/2011 Status post cervical spinal fusion [Z98.1] 12/24/2011 ZACHARIAH (obstructive sleep apnea) [G47.33] 04/30/2012 Bilateral lower abdominal cramping [R10.31, R10*02/05/2023 Constipation [K59.00] 02/05/2023 Lower abdominal pain [R10.30] 02/05/2023 Letter Text Encounter Status:Closed by YUE BOO on 12/24/23 Normal [facility] LABORATORYOrdered By: Ravindra Machado on 09-19-2023 Albumin DL <= 20 mg/L (U) [Mass/Vol] 615 mcg/dL Invalid Interpretation Code AO ADM SS Albumin/Creatinine DL <= 20 mg/L (U) [Mass ratio] 19 mcg/mg Normal 0 - 30 mcg/mg AO ADM SS Creatinine (U) [Mass/Vol] 31.7 mg/dL Low 39.0 - 259.0 mg/dL AO ADM SS MALBRon 09-19-2023 U Creatinine 31.7 mg/dL Low 39.0-259.0 [facility] ([place]) Comment on above: Performed By: #### M ALBR #### Anthony [address] [address] U Microalb 615 mcg/dL Normal [facility] ([place]) Comment on above: Performed By: #### M ALBR #### [address] [place], [place] [address] U Ratio Alb/Cre 19 mcg/mg Normal 0-30 [facility] ([place]) Comment on above: Performed By: #### M ALBR #### [address] [place], [place] [address] .GFRon 09-11-2023 GFR 99 ml/min/1.73sqm Normal [facility] ([place]) Comment on above: Result Comment: GFR Population mean for , Non- Americans Ages 20-29 = 116 mL/min/1.73 sq.m. Ages 30-39 = 107 mL/min/1.73 sq.m. Ages 40-49 = 99 mL/min/1.73 sq.m. Ages 50-59 = 93 mL/min/1.73 sq.m. Ages 60-69 = 85 mL/min/1.73 sq.m. Ages 70+ = 75 mL/min/1.73 sq.m. Chronic Kidney Disease: Less than 60 mL/min/1.73 square meters End Stage Renal Disease: Less than 15 mL/min/1.73 square meters Performed By: #### G FR, CMP, PSA, LIPID, A1C #### [address] [address] GFR Non- 82 ml/min/1.73sqm Normal [facility] ([place]) Comment on above: Result Comment: GFR Population mean for , Non- Americans Ages 20-29 = 116 mL/min/1.73 sq.m. Ages 30-39 = 107 mL/min/1.73 sq.m. Ages 40-49 = 99 mL/min/1.73 sq.m. Ages 50-59 = 93 mL/min/1.73 sq.m. Ages 60-69 = 85 mL/min/1.73 sq.m. Ages 70+ = 75 mL/min/1.73 sq.m. Chronic Kidney Disease: Less than 60 mL/min/1.73 square meters End Stage Renal Disease: Less than 15 mL/min/1.73 square meters Performed By: #### G FR, CMP, PSA, LIPID, A1C #### [address] [address] A1Con 09-11-2023 HbA1c (Bld) [Mass fraction] 7.1 % High 4.3-6.4 [facility] ([place]) Comment on above: Performed By: #### G FR, CMP, PSA, LIPID, A1C #### [address] [address] CMPon 09-11-2023 Albumin Level 4.3 G/dL Normal 3.4-4.8 [facility] ([place]) Comment on above: Performed By: #### G FR, CMP, PSA, LIPID, A1C #### [address] [address] Albumin/Globulin [Mass ratio] 1.4 {ratio} Normal 1.1-2.5 [facility] ([place]) Comment on above: Performed By: #### G FR, CMP, PSA, LIPID, A1C #### [address] [address] ALP [Catalytic activity/Vol] 51 U/L Normal 40-135 [facility] ([place]) Comment on above: Performed By: #### G FR, CMP, PSA, LIPID, A1C #### [address] [address] ALT [Catalytic activity/Vol] 30 U/L Normal 16-63 [facility] ([place]) Comment on above: Performed By: #### G FR, CMP, PSA, LIPID, A1C #### [address] [address] AST [Catalytic activity/Vol] 16 U/L Normal 10-40 [facility] ([place]) Comment on above: Performed By: #### G FR, CMP, PSA, LIPID, A1C #### [address] [address] Bili Total 0.5 mg/dL Normal 0.2-1.0 [facility] ([place]) Comment on above: Result Comment: Use of this assay is not recommended for patients undergoing treatment with eltrombopag due to the potential for falsely elevated results. Performed By: #### G FR, CMP, PSA, LIPID, A1C #### [address] [address] BUN/Creatinine Ratio 11 ratio Normal 7-27 [facility] ([place]) Comment on above: Performed By: #### G FR, CMP, PSA, LIPID, A1C #### [address] [address] Calcium [Mass/Vol] 9.9 mg/dL Normal 8.4-10.2 [facility] ([place]) Comment on above: Performed By: #### G FR, CMP, PSA, LIPID, A1C #### [address] [address] Chloride [Moles/Vol] 102 mmol/L Normal 98-107 [facility] ([place]) Comment on above: Performed By: #### G FR, CMP, PSA, LIPID, A1C #### [address] [address] CO2 [Moles/Vol] 29 mmol/L Normal 23-31 [facility] ([place]) Comment on above: Performed By: #### G FR, CMP, PSA, LIPID, A1C #### [address] [address] Creatinine [Mass/Vol] 0.92 mg/dL Normal 0.70-1.30 [facility] ([place]) Comment on above: Performed By: #### G FR, CMP, PSA, LIPID, A1C #### [address] [address] Electrolyte Balance 12.0 mEq/L Normal 4.0-15.0 [facility] ([place]) Comment on above: Performed By: #### G FR, CMP, PSA, LIPID, A1C #### [address] [address] Globulin 3.0 G/dL Normal [facility] ([place]) Comment on above: Performed By: #### G FR, CMP, PSA, LIPID, A1C #### [address] [address] Glucose [Mass/Vol] 169 mg/dL High 80-115 [facility] ([place]) Comment on above: Performed By: #### G FR, CMP, PSA, LIPID, A1C #### [address] [address] Potassium [Moles/Vol] 4.7 mmol/L Normal 3.5-5.1 [facility] ([place]) Comment on above: Performed By: #### G FR, CMP, PSA, LIPID, A1C #### [address] [address] Sodium [Moles/Vol] 143 mmol/L Normal 136-145 [facility] ([place]) Comment on above: Performed By: #### G FR, CMP, PSA, LIPID, A1C #### [address] [address] Total Protein 7.3 G/dL Normal 6.4-8.2 [facility] ([place] Comment on above: Performed By: #### G FR, CMP, PSA, LIPID, A1C #### [address] [address] Urea nitrogen [Mass/Vol] 10 mg/dL Normal 7-18 [facility] ([place]) Comment on above: Performed By: #### G FR, CMP, PSA, LIPID, A1C #### [address] [address] LABORATORYOrdered By: SYSTEM SYSTEM on 09-11-2023 Albumin BCP dye [Mass/Vol] 4.3 G/dL Normal 3.4 - 4.8 G/dL AO ADM SS Albumin/Globulin [Mass ratio] 1.4 {ratio} Normal 1.1 - 2.5 ratio AO ADM SS ALP [Catalytic activity/Vol] 51 U/L Normal 40 - 135 U/L AO ADM SS ALT With P-5'-P [Catalytic activity/Vol] 30 U/L Normal 16 - 63 U/L AO ADM SS AST With P-5'-P [Catalytic activity/Vol] 16 U/L Normal 10 - 40 U/L AO ADM SS Bilirubin [Mass/Vol] 0.5 mg/dL Normal 0.2 - 1 .0 mg/dL AO ADM SS Comment on above: Interpretive Data: U se of this assay is not recommended for patients undergoing treatment with eltrombopag due to the potential for falsely elevated results. Calcium [Mass/Vol] 9.9 mg/dL Normal 8.4 - 10. 2 mg/dL AO ADM SS Chloride [Moles/Vol] 102 mmol/L Normal 98 - 10 7 mmol/L AO ADM SS CO2 [Moles/Vol] 29 mmol/L Normal 23 - 31 mmol/L AO ADM SS Creatinine [Mass/Vol] 0.92 mg/dL Normal 0.70 - 1.30 mg/dL AO ADM SS Electrolyte Balance 12.0 mEq/L Normal 4.0 - 15 .0 mEq/L AO ADM SS GFR/1.73 sq M.predicted among blacks MDRD (S/P/Bld) [Vol rate/Area] 99 ml/min/1.73sqm Invalid Interpretation Code AO Chemistry S Comment on above: Interpretive Data: GFR Population mean for , Non- Americans Ages 20-29 = 116 mL/min/1.73 sq.m. Ages 30-39 = 107 mL/min/1.73 sq.m. Ages 40-49 = 99 mL/min/1.73 sq.m. Ages 50-59 = 93 mL/min/1.73 sq.m. Ages 60-69 = 85 mL/min/1.73 sq.m. Ages 70+ = 75 mL/min/1.73 sq.m. Chronic Kidney Disease: Less than 60 mL/min/1.73 square meters End Stage Renal Disease: Less than 15 mL/min/1.73 square meters GFR/1.73 sq M.predicted among non-blacks MDRD (S/P/Bld) [Vol rate/Area] 82 ml/min/1.73sqm Invalid Interpretation Code AO Chemistry S Comment on above: Interpretive Data: GFR Population mean for , Non- Americans Ages 20-29 = 116 mL/min/1.73 sq.m. Ages 30-39 = 107 mL/min/1.73 sq.m. Ages 40-49 = 99 mL/min/1.73 sq.m. Ages 50-59 = 93 mL/min/1.73 sq.m. Ages 60-69 = 85 mL/min/1.73 sq.m. Ages 70+ = 75 mL/min/1.73 sq.m. Chronic Kidney Disease: Less than 60 mL/min/1.73 square meters End Stage Renal Disease: Less than 15 mL/min/1.73 square meters Globulin 3.0 G/dL Invalid Interpretation Code AO ADM SS Glucose [Mass/Vol] 169 mg/dL High 80 - 115 mg/dL AO ADM SS HbA1c (Bld) [Mass fraction] 7.1 % High 4.3 - 6.4 % AO ADM SS Potassium [Moles/Vol] 4.7 mmol/L Normal 3.5 - 5.1 mmol/L AO ADM SS Prostate specific Ag [Mass/Vol] 3.37 ng/mL Normal 0.00 - 4.00 ng/mL AO ADM SS Protein [Mass/Vol] 7.3 G/dL Normal 6.4 - 8.2 G/dL AO ADM SS Sodium [Moles/Vol] 143 mmol/L Normal 136 - 145 mmol/L AO ADM SS Urea nitrogen [Mass/Vol] 10 mg/dL Normal 7 - 18 mg/dL AO ADM SS Urea nitrogen/Creatinine [Mass ratio] 11 ratio Normal 7 - 27 ratio AO ADM SS LABORATORYOrdered By: Rosmery Spring on 09-11-2023 Cholesterol [Mass/Vol] 136 mg/dL Normal 0 - 200 mg/dL AO ADM SS Comment on above: Interpretive Data: C holesterol Reference Interval: Less than 200 Desirable 200-239 Borderline high risk 240 and above High risk Cholesterol in HDL [Mass/Vol] 53 mg/dL Normal 40 - 60 mg/dL AO ADM SS Cholesterol in LDL [Mass/Vol] 63 mg/dL Normal 0 - 130 mg/dL AO ADM SS Triglyceride [Mass/Vol] 99 mg/dL Normal 0 - 150 mg/dL AO ADM SS Comment on above: Interpretive Data: T riglyceride Reference Interval: Less than 150 Normal 150-199 Borderline high risk 200-499 High risk 500 or higher Very high risk LIPIDon 09-11-2023 Cholesterol [Mass/Vol] 136 mg/dL Normal 0-200 [facility] ([place]) Comment on above: Result Comment: Chol esterol Reference Interval: Less than 200 Desirable 200-239 Borderline high risk 240 and above High risk Performed By: #### G FR, CMP, PSA, LIPID, A1C #### [address] [address] Cholesterol in HDL [Mass/Vol] 53 mg/dL Normal 40-60 [facility] ([place]) Comment on above: Performed By: #### G FR, CMP, PSA, LIPID, A1C #### [address] [place], [place] [address] Cholesterol in LDL [Mass/Vol] 63 mg/dL Normal 0-130 [facility] ([place]) Comment on above: Performed By: #### G FR, CMP, PSA, LIPID, A1C #### [address] [address] Triglyceride [Mass/Vol] 99 mg/dL Normal 0-150 [facility] ([place]) Comment on above: Result Comment: Trig lyceride Reference Interval: Less than 150 Normal 150-199 Borderline high risk 200-499 High risk 500 or higher Very high risk Performed By: #### G FR, CMP, PSA, LIPID, A1C #### [address] [address] PSAon 09-11-2023 Prostate Specific Antigen 3.37 ng/mL Normal 0.00-4.00 [facility] ([place]) Comment on above: Performed By: #### G FR, CMP, PSA, LIPID, A1C #### [address] [address] XR ANKLE MINIMUM 3 VIEWS RIG HTon 03-14-2023 XR ANKLE MINIMUM 3 VIEWS RIGHT ORIGINAL EXAMINATION: THREE XRAY VIEWS OF THE RIGHT ANKLE 03/14/2023 3:31 pm COMPARISON: None. HISTORY: ORDERING SYSTEM PROVIDED HISTORY: Reason for Exam: pain FINDINGS: There is a curvilinear calcification overlying the dorsum of the talus, which is likely from remote injury. There is no acute fracture. The bones are in anatomic alignment. There is dorsal spurring in the midfoot. Calcifications are seen in the plantar fascia. There is no radiopaque foreign body. IMPRESSION: No acute osseous abnormality. Interpreted by: Brooks Walters MD Preliminary Report By: Brooks Walters MD Electronically signed By Brooks Walters MD Dictated Date: 03/14/2023 3:38:18 PM Prelim Date: 03/14/2023 3:41:35 PM Sign Date: 03/14/2023 3:41:35 PM Ordering Provider: MC GARDUNO [facility] ([place]) LABORATORYOrdered By: SYSTEM SYSTEM on 03-11-2023 Albumin BCP dye [Mass/Vol] 4.1 G/dL Invalid Interpretation Code 3.4 - 4.8 G/dL AO ADM SS Albumin/Globulin [Mass ratio] 1.6 {ratio} Invalid Interpretation Code 1.1 - 2.5 ratio AO ADM SS ALP [Catalytic activity/Vol] 54 U/L Invalid Interpretation Code 40 - 135 U/L AO ADM SS ALT With P-5'-P [Catalytic activity/Vol] 44 U/L Invalid Interpretation Code 16 - 63 U/L AO ADM SS AST With P-5'-P [Catalytic activity/Vol] 29 U/L Invalid Interpretation Code 10 - 40 U/L AO ADM SS Bilirubin [Mass/Vol] 0.3 mg/dL Invalid Interpretation Code 0.2 - 1.0 mg/dL AO ADM SS Calcium [Mass/Vol] 9.3 mg/dL Invalid Interpretation Code 8.4 - 10.2 mg/dL AO ADM SS Chloride [Moles/Vol] 103 mmol/L Invalid Interpretation Code 98 - 107 mmol/L AO ADM SS CO2 [Moles/Vol] 28 mmol/L Invalid Interpretation Code 23 - 31 mmol/L AO ADM SS Creatinine [Mass/Vol] 0.86 mg/dL Invalid Interpretation Code 0.70 - 1.30 mg/dL AO ADM SS Electrolyte Balance 10.0 mEq/L Invalid Interpretation Code 4.0 - 15.0 mEq/L AO ADM SS GFR/1.73 sq M.predicted among blacks MDRD (S/P/Bld) [Vol rate/Area] 107 ml/min/1.73sqm Invalid Interpretation Code AO Chemistry S GFR/1.73 sq M.predicted among non-blacks MDRD (S/P/Bld) [Vol rate/Area] 88 ml/min/1.73sqm Invalid Interpretation Code AO Chemistry S Globulin 2.5 G/dL Invalid Interpretation Code AO ADM SS Glucose [Mass/Vol] 259 mg/dL Invalid Interpretation Code 80 - 115 mg/dL AO ADM SS HbA1c (Bld) [Mass fraction] 9.7 % Invalid Interpretation Code 4.3 - 6.4 % AO ADM SS Potassium [Moles/Vol] 4.9 mmol/L Invalid Interpretation Code 3.5 - 5.1 mmol/L AO ADM SS Protein [Mass/Vol] 6.6 G/dL Invalid Interpretation Code 6.4 - 8.2 G/dL AO ADM SS Sodium [Moles/Vol] 141 mmol/L Invalid Interpretation Code 136 - 145 mmol/L AO ADM SS Urea nitrogen [Mass/Vol] 11 mg/dL Invalid Interpretation Code 7 - 18 mg/dL AO ADM SS Urea nitrogen/Creatinine [Mass ratio] 13 ratio Invalid Interpretation Code 7 - 27 ratio AO ADM SS LABORATORYOrdered By: Rosmery Spring on 03-11-2023 Cholesterol [Mass/Vol] 160 mg/dL Invalid Interpretation Code 0 - 200 mg/dL AO ADM SS Cholesterol in HDL [Mass/Vol] 41 mg/dL Invalid Interpretation Code 40 - 60 mg/dL AO ADM SS Cholesterol in LDL [Mass/Vol] 91 mg/dL Invalid Interpretation Code 0 - 130 mg/dL AO ADM SS Triglyceride [Mass/Vol] 140 mg/dL Invalid Interpretation Code 0 - 150 mg/dL AO ADM SS SURGICAL PATHOLOGYon 023 Case Report Surgical Pathology Report Case: [id number] Authorizing Provider: Kris Michel MD Collected: 02/05/2023 11:42 AM Ordering Location: Ambulatory Surgery Received: 02/05/2023 01:03 PM Pathologist: Crissy Bentley MD Specimens: A) - COLON BIOPSY, RANDOM colon bx's B) - SIGMOID COLON POLYP [facility] FINAL DIAGNOSIS A. Colon, biopsy: -Colonic mucosa with no significant histologic abnormality -Negative for chronic, active or microscopic colitis B. Colon, sigmoid, polypectomy: -Hyperplastic polyp (with severe thermal artifact) [facility] Gross Description A. COLON BIOPSY Received in formalin are multiple pieces of golden, soft tissue aggregating to 1.9 x 0.4 x 0.1 cm. Totally submitted in two cassettes. B. SIGMOID COLON POLYP Received in formalin is one piece of golden, soft tissue measuring 0.3 x 0.2 x 0.1 cm. Totally submitted in one cassette. Gross examination performed at [facility], [address] [place] [address] FFS 02/05/2023 11:[address] [facility] Performing Lab Diagnostic interpretation performed at [facility], [address] [place], [place] [address] CLIA# [id number] Ski Guide: Jairo Boyce M.D. [facility] COLONOSCOPY DIAGNOSTICon [facility] LABORATORYOrdered By: SYSTEM SYSTEM on 09-05-2022 HbA1c (Bld) [Mass fraction] 6.8 % Invalid Interpretation Code 4.3 - 6.4 % AO ADM SS LABORATORYOrdered By: Judy Elliott on 06-05-2022 Albumin BCP dye [Mass/Vol] 4.1 G/dL Invalid Interpretation Code 3.4 - 4.8 G/dL AO ADM SS Albumin/Globulin [Mass ratio] 1.5 {ratio} Invalid Interpretation Code 1.1 - 2.5 ratio AO ADM SS ALP [Catalytic activity/Vol] 57 U/L Invalid Interpretation Code 40 - 135 U/L AO ADM SS ALT With P-5'-P [Catalytic activity/Vol] 36 U/L Invalid Interpretation Code 16 - 63 U/L AO ADM SS AST With P-5'-P [Catalytic activity/Vol] 23 U/L Invalid Interpretation Code 10 - 40 U/L AO ADM SS Bilirubin [Mass/Vol] 0.5 mg/dL Invalid Interpretation Code 0.2 - 1.0 mg/dL AO ADM SS Calcium [Mass/Vol] 9.3 mg/dL Invalid Interpretation Code 8.4 - 10.2 mg/dL AO ADM SS Chloride [Moles/Vol] 102 mmol/L Invalid Interpretation Code 98 - 107 mmol/L AO ADM SS Cholesterol [Mass/Vol] 149 mg/dL Invalid Interpretation Code 0 - 200 mg/dL AO ADM SS Cholesterol in HDL [Mass/Vol] 39 mg/dL Invalid Interpretation Code 40 - 60 mg/dL AO ADM SS Cholesterol in LDL [Mass/Vol] 80 mg/dL Invalid Interpretation Code 0 - 130 mg/dL AO ADM SS CO2 [Moles/Vol] 28 mmol/L Invalid Interpretation Code 23 - 31 mmol/L AO ADM SS Creatinine [Mass/Vol] 0.91 mg/dL Invalid Interpretation Code 0.70 - 1.30 mg/dL AO ADM SS Electrolyte Balance 10.0 mEq/L Invalid Interpretation Code 4.0 - 15.0 mEq/L AO ADM SS Globulin 2.7 G/dL Invalid Interpretation Code AO ADM SS Glucose [Mass/Vol] 211 mg/dL Invalid Interpretation Code 80 - 115 mg/dL AO ADM SS Potassium [Moles/Vol] 5.1 mmol/L Invalid Interpretation Code 3.5 - 5.1 mmol/L AO ADM SS Prostate specific Ag [Mass/Vol] 3.56 ng/mL Invalid Interpretation Code 0.00 - 4.00 ng/mL AO ADM SS Protein [Mass/Vol] 6.8 G/dL Invalid Interpretation Code 6.4 - 8.2 G/dL AO ADM SS Sodium [Moles/Vol] 140 mmol/L Invalid Interpretation Code 136 - 145 mmol/L AO ADM SS Triglyceride [Mass/Vol] 151 mg/dL Invalid Interpretation Code 0 - 150 mg/dL AO ADM SS Urea nitrogen [Mass/Vol] 14 mg/dL Invalid Interpretation Code 7 - 18 mg/dL AO ADM SS Urea nitrogen/Creatinine [Mass ratio] 15 ratio Invalid Interpretation Code 7 - 27 ratio AO ADM SS LABORATORYOrdered By: SYSTEM SYSTEM on 06-05-2022 GFR 100 ml/min/1.73sqm Invalid Interpretation Code AO Chemistry S GFR Non- 83 ml/min/1.73sqm Invalid Interpretation Code AO Chemistry S LABORATORYOrdered By: Rosmery Spring on 06-05-2022 HbA1c (Bld) [Mass fraction] 9.0 % Invalid Interpretation Code 4.3 - 6.4 % AO ADM SS Vital Signs Date Time Vital Sign Value Performing Clinician Facility 05-31-2025 13:27-0400 Body height 172.[address] Elvia Contreras MD Work Phone: [facility] 05-31-2025 13:27-0400 Body mass index (BMI) [Ratio] 32.1 kg/m2 Dr. Elvia Contreras MD Work Phone: [facility] 05-31-2025 13:27-0400 Body weight 95.[address] Elvia Contreras MD Work Phone: [facility] 05-31-2025 13:27-0400 Diastolic blood pressure 68 mm[Hg] Dr. Elvia Contreras MD Work Phone: [facility] 05-31-2025 13:27-0400 Heart rate 70 /min Dr. Elvia Contreras MD Work Phone: [facility] 05-31-2025 13:27-0400 Respiratory rate 16 /min Dr. Elvia Contreras MD Work Phone: [facility] 05-31-2025 13:27-0400 Systolic blood pressure 99 mm[Hg] Dr. Elvia Contreras MD Work Phone: [facility] 01-17-2024 07:57-0400 Body mass index (BMI) [Ratio] 32.36 kg/m2 Johanne Adela INVENTORY AUDITOR.MAINTENANCE CRAFTSMAN Work Phone: [facility] 01-17-2024 07:57-0400 Body weight 96.53 kg Johanne Adela INVENTORY AUDITOR.MAINTENANCE CRAFTSMAN Work Phone: [facility] 01-17-2024 07:57-0400 Diastolic blood pressure 75 mm[Hg] Johanne Adela INVENTORY AUDITOR.MAINTENANCE CRAFTSMAN Work Phone: [facility] 01-17-2024 07:57-0400 Heart rate 63 /min Johanne Adela INVENTORY AUDITOR.MAINTENANCE CRAFTSMAN Work Phone: [facility] 01-17-2024 07:57-0400 Respiratory rate 18 /min Johanne Adela INVENTORY AUDITOR.MAINTENANCE CRAFTSMAN Work Phone: [facility] 01-17-2024 07:57-0400 SaO2% (BldA) [Mass fraction] 97 % Johanne Adela INVENTORY AUDITOR.MAINTENANCE CRAFTSMAN Work Phone: [facility] 01-17-2024 07:57-0400 Systolic blood pressure 129 mm[Hg] Johanne Adela INVENTORY AUDITOR.MAINTENANCE CRAFTSMAN Work Phone: [facility] 03-14-2023 15:11-0400 Blood Pressure Cuff Size MC GARDUNO MD [facility] 03-14-2023 15:11-0400 Blood Pressure Location MC GARDUNO MD [facility] 03-14-2023 15:11-0400 Blood Pressure Method MC GARDUNO MD [facility] 03-14-2023 15:11-0400 Body temperature 97.52 [degF] MC GARDUNO MD [facility] 03-14-2023 15:11-0400 Body weight 100 kg CM GARDUNO MD [facility] 03-14-2023 15:11-0400 Diastolic Blood Pressure Non-Invasive 87 1 MC GARDUNO MD [facility] 03-14-2023 15:11-0400 Heart rate 64 /min MC GARDUNO MD [facility] 03-14-2023 15:11-0400 Respiratory rate 18 /min MC GARDUNO MD [facility] 03-14-2023 15:11-0400 Systolic Blood Pressure Non-Invasive 152 1 MC GARDUNO MD [facility] 02-05-2023 12:44-0400 Diastolic blood pressure 74 mm[Hg] Kris Michel MD Work Phone: [facility] 02-05-2023 12:44-0400 Systolic blood pressure 167 mm[Hg] Kris Michel MD Work Phone: [facility] 02-05-2023 12:30-0400 Heart rate 80 /min Kris Michel MD Work Phone: [facility] 02-05-2023 12:30-0400 Respiratory rate 16 /min Kris Michel MD Work Phone: [facility] 02-05-2023 12:30-0400 SaO2% (BldA) [Mass fraction] 93 % Kris Michel MD Work Phone: [facility] 02-05-2023 10:56-0400 Body temperature 97.11 [degF] Kris Michel MD Work Phone: [facility] 02-05-2023 10:56-0400 Body weight 101.37 kg Kris Michel MD Work Phone: [facility] Encounters Encounter Date Encounter Type Care Provider Facility Start: 06-16-2025 End: 06-16-2025 ambulatory ELVIA CONTRERAS MD Facility[facility] Start: 06-16-2025 End: 06-16-2025 Patient encounter procedure ELVIA CONTRERAS MD [facility] Start: 05-31-2025 End: 05-31-2025 Patient encounter procedure Raffi Catalan CNC SPECIALIST-C [facility] Work Phone: Start: 05-31-2025 End: 05-31-[address] Elvia Contreras MD Work Phone: [facility] Start: 03-11-2025 End: 03-11-2025 ambulatory ELVIA CONTRERAS MD Facility:[facility] Start: 03-11-2025 End: 03-11-2025 Patient encounter procedure ELVIA CONTRERAS MD [facility] Start: 12-22-2024 End: 12-26-2024 ambulatory ELVIA CONTRERAS MD Facility:[facility] Start: 12-09-2024 End: 12-11-2024 [facility] Work Phone: Neurology Comment on above: CMN Start: 08-18-2024 End: 08-18-2024 ambulatory ELVIA CONTRERAS MD [facility] Start: 08-18-2024 End: 08-18-2024 Patient encounter procedure ELVIA CONTRERAS MD [facility] Start: 03-11-2024 End: 03-11-2024 ambulatory ELVIA CONTRERAS MD Facility:[facility] Start: 03-11-2024 End: 03-11-2024 Patient encounter procedure ELVAI CONTRERAS MD [facility] Start: 01-17-2024 End: 01-17-2024 ambulatory ELVIA CONTRERAS Facility:[facility] Start: 01-17-2024 End: 01-17-2024 Patient encounter procedure Johanne Chapman INVENTORY AUDITOR.MAINTENANCE CRAFTSMAN Work Phone: Neurology Comment on above: ZACHARIAH (obstructive sle ep apnea) (Primary Dx) Start: 12-24-2023 Telephone encounter Bill Blood INVENTORY AUDITOR.MAINTENANCE CRAFTSMAN Work Phone: Neurology Comment on above: Orders (Faxed and re ceived confirmation from Suleiman Carrasco for CPAP orders. Patient's most recent visit was 05/17/2021. DME notified that patient will need to make an appointment. ) Start: 09-19-2023 End: 09-23-2023 ambulatory ELVIA CONTRERAS MD Facility:[facility] Start: 09-19-2023 End: 09-23-2023 Outreach Lab ELVIA CONTRERAS MD [facility] Start: 09-11-2023 End: 09-11-2023 ambulatory ELVIA CONTRERAS MD Facility:[facility] Start: 09-11-2023 End: 09-11-2023 Patient encounter procedure ELVIA CONTRERAS MD [facility] Start: 03-14-2023 End: 03-14-2023 Emergency department patient visit MC GARDUNO MD [facility] Start: 03-11-2023 End: 03-11-2023 Patient encounter procedure ELVIA CONTRERAS MD [facility] Start: 02-05-2023 End: 02-05-2023 Subsequent hospital visit by physician Kris Michel MD Work Phone: Ambulatory Surgery Comment on above: Constipation, unspec ified constipation type [K59.00] Start: 02-01-2023 Non-patient / Non-visit Dr. Fiore Work Phone: [facility] Start: 02-01-2023 End: 02-01-[address] Elvia Contreras Work Phone: [facility] Work Phone: Start: 02-01-2023 End: 02-01-[address] Elvia Contreras Work Phone: [facility] Work Phone: Start: 12-19-2022 Telephone encounter Bill Blood APRN.MAINTENANCE CRAFTSMAN Work Phone: Neurology Comment on above: CMN- PAP supplies ([employer]) Start: 09-05-2022 End: 09-05-2022 Patient encounter procedure ELVIA CONTRERAS MD [facility] Start: 06-05-2022 End: 06-05-2022 Patient encounter procedure ELVIA CONTRERAS MD [facility] Start: 06-25-2018 End: 06-25-2018 Patient encounter DANIELA Egan [facility] Start: 07-27-2015 End: 07-28-2015 Ambulatory [facility] Facility:[facility] Procedures Date Procedure Procedure Detail Performing Clinician Start: 02-05-2023 Level iv surg pathol ogy gross&microscopic exam Kirs Michel MD Work Phone: Start: 02-05-2023 Colonoscopy flx dx w /collj spec when pfrmd Azalia Perez PA-C Work Phone: Start: 02-05-2023 Colonoscopy Kris anne MD Work Phone: Start: 02-01-2023 Radionuclide imaging of perfusion of myocardium under exercise stress Dr. Elvia Contreras Work Phone: Start: 12-12-2020 Colonoscopy Bill Blood APRN.CNP Work Phone: Start: 11-02-2009 History of coronary artery bypass grafting H/O coronary artery bypass surgery Dr. Elvia Contreras Work Phone: Comment on above: CABG x 4 RIVERA-LAD, S equential FREE DIAMOND-Lat Cx and PLB, SVG- RPDA 11/02/2009 Start: 11-01-2009 Lipid 1996 panel - S lee or Plasma Kris Michel MD Work Phone: Appendectomy Appendectomy( Confirmed ) ELVIA CONTRERAS MD Cholecystectomy Cholecystectomy( Confirmed ) ELVIA CONTRERAS MD Coronary artery bypa ss grafts x 5 CABG x 5 - Coronary artery bypass grafts x 5( Confirmed ) ELVIA CONTRERAS MD Decompression of cer vical spine ELVIA CONTRERAS MD Plan of Treatment Date Care Activity Detail Author Start: 2029 RSV Vaccine (1 - 1-d ose 75+ series) RSV Vaccine (1 - 1-dose 75+ series) [facility] Start: 12-12-[address] [facility] Start: 12-12-2025 COLORECTAL CANCER SCREENING COLORECTAL CANCER SCREENING [facility] Start: 05-31-2025 Hepatic function panel [facility] Start: 05-26-2025 Pneumococcal Vaccine : 50+ (3 of 3 - PCV20 or PCV21) Pneumococcal Vaccine: 50+ (3 of 3 - PCV20 or PCV21) [facility] Start: 05-26-2025 Pneumococcal Vaccine : 65+ (3 - PPSV23 or PCV20) Pneumococcal Vaccine: 65+ (3 - PPSV23 or PCV20) [facility] Start: 05-26-2025 Pneumococcal Vaccine : 65+ (3 of 3 - PPSV23 or PCV20) Pneumococcal Vaccine: 65+ (3 of 3 - PPSV23 or PCV20) [facility] Start: 02-05-[address] [facility] Start: 02-05-2025 Colorectal Cancer Screening Colorectal Cancer Screening [facility] Start: 02-05-2025 Screening for malign ant neoplasm of colon [facility] Start: 01-22-2025 End: 01-22-2025 Patient encounter procedure Neurology Comment on above: 1 year follow up Start: 01-16-2025 BP Controlled (<130/80) BP Controlle d (<130/80) [facility] Start: 09-09-2024 Advance Directive Discussion Advance Directive Discussion [facility] Start: 05-10-2024 Covid-19 Vaccine () Covid-19 Vaccine () [facility] Start: 05-10-2024 Influenza vaccination [facility] Start: 09-09-2023 Advance Directive Discussion Advance Directive Discussion [facility] Start: 09-09-2023 Behavioral Health Screening Behavioral Health Screening [facility] Start: 05-10-2023 Covid-19 Vaccine () Covid-19 Vaccine () [facility] Start: 05-10-2023 Influenza vaccination [facility] Start: 09-09-2022 ADVANCE DIRECTIVE DISCUSSION ADVANCE DIRECTIVE DISCUSSION [facility] Start: 09-09-2022 DEPRESSION ASSESSMENT DEPRESSION ASS ESSMENT [facility] Start: 01-26-2021 COVID-19 VACCINE (3 - Booster for Pfizer series) COVID-19 VACCINE (3 - Booster for Pfizer series) [facility] Start: 11-30-2019 DIABETES SCREEN DIABETES SCREEN [facility] Start: 11-30-2019 Diabetes Screening Diabetes Screenin g [facility] Start: 2019 PNEUMOCOCCAL: 65+ (1 - PCV) PNEUMOCOCCAL: 65+ (1 - PCV) [facility] Start: 11-18-2014 Shingrix Vaccine (2 of 3) Shingrix Vaccine (2 of 3) [facility] Start: 11-01-2014 Lipid 1996 panel - S lee or Plasma Lipid Screening [facility] Start: 11-01-2014 Lipid panel Lipid Screening [facility] Start: 11-01-2014 L[address]ID SCREEN LIPID SCREEN [facility] Start: 2014 RSV Vaccine (1 - 1-d ose 60+ series) RSV Vaccine (1 - 1-dose 60+ series) [facility] Start: 12-08-2013 PROSTATE CANCER SCREENING DISCUSSION PROSTATE CANCER SCREENING DISCUSSION [facility] Start: 11-01-2010 Hepatitis B surface antibody level LDL CHOLESTEROL [facility] Start: 2004 SHINGRIX VACCINE (1 of 2) SHINGRIX VACCINE (1 of 2) [facility] Start: 1999 COLOGUARD (FIT-DNA) COLOGUARD (FIT-D NA) [facility] Start: [address] COLONOGRAPHY [facility] Start: 1999 FECAL OCCULT BLOOD FECAL OCCULT BLOO D [facility] Start: 1999 Screening for malign ant neoplasm of colon [facility] Start: 1999 SIGMOIDOSCOPY SIGMOIDOSCOPY [facility] Start: [address] [facility] Start: 1972 ANNUAL PCP TEAM DINKEY MECHANIC SERA DISEASE VISIT ANNUAL PCP TEAM CHRONIC DISEASE VISIT [facility] Start: 1972 Anxiety Screening Anxiety Screening [facility] Start: 1972 BP CONTROLLED (<130/80) BP CONTROLLE D (<130/80) [facility] Start: 1972 Depression Screening Depression Scre ening [facility] Start: 1972 HEPATITIS C SCREENING HEPATITIS C SC [facility] Start: 1972 Hepatitis C screening Hepatitis C [facility] Start: 1954 ABDOMINAL AORTIC ANEURYSM SCREENING ABDOMINAL AORTIC ANEURYSM SCREENING [facility] Start: 1954 Abdominal aortic aneurysm screening Abdominal Aortic Aneurysm Screening [facility] Basic metabolic 2008 panel with ionized calcium - Serum or Plasma [facility] CBC W Auto Different ial panel - Blood [facility] Hemoglobin A1c/Hemoglobin.total in Blood [facility] Lipid 1996 panel - S lee or Plasma [facility] Immunizations Immunization Date Immunization Notes Care Provider Fa cility 06-25-2024 influenza virus vacc ine, unspecified formulation ELVIA CONTRERAS MD [facility] 07-02-2023 influenza virus vacc ine, unspecified formulation ELVIA CONTRERAS MD [facility] 06-13-2022 influenza, high dose seasonal, preservative-free ELVIA CONTRERAS MD [facility] 06-13-2022 influenza virus vacc ine, unspecified formulation Kris Michel MD Work Phone: [facility] 08-02-2021 SARS-CoV-2 mRNA (tozinameran) vaccine ELVIA CONTRERAS MD [facility] 06-18-2021 influenza virus vacc ine, unspecified formulation ELVIA CONTRERAS MD [facility] 12-01-2020 SARS-CoV-2 mRNA (tozinameran) vaccine ELVIA CONTRERAS MD [facility] 11-10-2020 SARS-CoV-2 mRNA (tozinameran) vaccine ELVIA CONTRERAS MD [facility] Comment on above: Result Comment: 2020: [id number] 05-26-2020 influenza virus vacc ine, unspecified formulation ELVIA CONTRERAS MD [facility] 05-26-2020 pneumococcal conjuga te vaccine, 13 martha CONTRERAS MD [facility] 06-13-2018 influenza virus vacc ine, unspecified formulation ELVIA CONTRERAS MD [facility] 10-28-2017 pneumococcal polysaccharide vaccine, 23 martha CONTRERAS MD [facility] 07-24-2017 influenza virus vacc ine, unspecified formulation ELVIA CONTRERAS MD [facility] 06-04-2016 influenza virus vacc ine, unspecified formulation ELVIA CONTRERAS MD [facility] 06-10-2015 influenza virus vacc ine, unspecified formulation ELVIA CONTRERAS MD [facility] 09-23-2014 zoster vaccine, live ELVIA CONTRERAS MD [facility] Payers Date Payer Category Payer Self-pay [id number] 2019 Private Health Insurance [id number] 2019 Unknown [id number] 2019 Medicare [id number] 2019 Medicare [id number] 1954 Unknown [id number] [id number] 1954 Unknown [id number] 2.16.8 [id number] 1954 Unknown [id number] 2.16.8 [id number] 1954 Unknown [id number] 2.16.8 [id number] 1954 Unknown [id number] 2.16. [id number] 1954 Unknown [id number] 2.16. [id number] 1954 Unknown [id number] 2.16.8 [id number] 1954 Unknown [id number] 2.16.8 [id number] Unknown [id number] Unknown LIAM [id number] Unknown [id number] Social History Date Type Detail Facility Start: 05-18-2019 End: 03-17-2025 Tobacco smoking status Ex-smoker (finding) [facility] Sex Assigned At [facility] Start: 10-11-1973 End: 10-11-1999 History of tobacco use Current smoker [facility] Start: 10-11-1973 End: 10-11-1999 History of tobacco use Cigarette Smoker [facility] Start: 04-30-2012 End: 08-14-2020 Cigarettes smoked current (pack per day) - Reported 4 [facility] Start: 04-30-2012 End: 01-17-2024 Tobacco use and exposure Smokeless tobacco non-user [facility] Start: 05-17-2021 End: 01-17-2024 Alcohol intake Current non-drinker of alcohol (finding) [facility] Start: 1955 Sex Assigned At Not on file [facility] Start: 04-12-2022 Tobacco smoking stat [facility] Unknown if ever smoked [facility] Start: 1955 Sex Assigned At Male [facility] Start: 08-14-2020 End: 02-05-2023 Tobacco use panel [facility] National Score (1-10 0), lower number is lower risk Not on file [facility] Start: 11-19-2014 Sex Male (finding) [facility] Functional Status Date Assessment Result Facility 03-14-2023 Functional Status ID band on, Call device within reach, Bed in low position, Wheels locked, Upper/Half-Length side-rails up, Phone within reach, Visitor at bedside, Safety level maintained [facility] 09-20-2014 Are you deaf, or do you have serious difficulty hearing No 09/20/2014 8:21 AM Nikki Mazariegos Cma No [facility] 09-20-2014 Are you blind, or do you have serious difficulty seeing, even when wearing glasses No 09/20/2014 8:21 AM Nikki Mazariegos Cma No [facility] 09-20-2014 Do you have serious difficulty walking or climbing stairs No 09/20/2014 8:21 AM Nikki Mazariegos Cma No [facility] 09-20-2014 Do you have difficul ty dressing or bathing No 09/20/2014 8:21 AM Nikki Mazariegos Cma No [facility] 09-20-2014 Because of a physica l, mental, or emotional condition, do you have difficulty doing errands alone such as visiting a physician's office or shopping No 09/20/2014 8:21 AM Nikki Mazariegos Cma No [facility] Mental Status Date Assessment Result Facility 03-14-2023 Mental Status Oriented x 4 [facility] 09-20-2014 Because of a physica l, mental, or emotional condition, do you have serious difficulty concentrating, remembering, or making decisions No 09/20/2014 8:21 AM Nikki Mazariegos Cma No [facility] Clinical Notes 11-03-2009 to 05-31-2025 Note Date & Type Note Facility 05-31-2025 Progress note [facility] 05-31-2025 Evaluation note Diagnosis Onset Date Resolution Type 2 diabetes mellitus acute May 31, 2025 1:16pm Atherosclerosis of coronary artery of unga heart without angina pectoris chronic May 31, 2025 1:16pm Essential hypertension chronic Se ptember 2024 1:16pm HLD (hyperlipidemia) chronic Sept ember 2024 1:16pm [facility] Work Phone: 1(116) 494-848609-22-2025 Progress note Author Raffi Catalan [facility] Note Date/Time May 31, 2025 2:13pm [facility] [address] [place] [address] OFFICE VISIT Date of Service: 05/31/25 MR#: [id number] Acct: [id number] Name: OBDULIO WHITNEY Rep #: [id number] : 1955 Provider: DARRIUS Catalan Age/Sex: 70/M Location: [facility] Status: Signed HPI HPI History of Present Illness Details: Pleasant 70-year-old man with a history of coronary artery disease status post coronary artery bypass surgery in 2009 with an in situ left internal mammary artery to the left anterior descending artery, free right internal mammary artery to the lateral circumflex artery and posterior lateral circumflex artery and saphenous vein graft to the posterior descending artery. 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 His last stress test was in 2018 during which no evidence of ischemia was noted. As part of his CDL license he underwent a stress test on 07/19/2020 that was negative for ischemia at a moderate workload and showed a preserved ejection fraction and January 2023 that was also negative forischemia at a high workload. He denies chest, arm, jaw, or neck discomfort. He acknowledges occasional palpitations that he describes as pounding. He states bilateral lower extremityedema near his ankles. He denies claudication. He states shortness of breath with activity such as caring for his mini horses carrying wheelbarrow. He denies shortness of breath at rest, orthopnea, or PND. He denies chronic cough. He denies significant, sudden weight gain. He denies lightheadedness, dizziness, near-syncope, or syncope. He denies blood in urine, blood in stool, or epistaxis. He denies fever with chills. He denies myalgia. He denies fatigue. He acknowledges weakness. His exercise level has remained stable. Intake Vital Signs 03/05/24 09:07 05/31/25 13:27 Height 5 ft 8 in 5 ft 8 in Weight: 211 lb BMI 32.1 BP 99/68 Blood Pressure Location Lt brachial Position Sitting Respiration 16 Pulse 70 Pulse Source Monitor Intake Visit Reasons: OVERDUE FOR OV/LAST SEEN 02/2024 Pattern Mechanic Required: No Accompanied by: Self Is patient in pain?: No Allergies celecoxib (From Celebrex) Allergy (Verified 05/31/25 13:25) shortness of breath mushroom Allergy (Verified 05/31/25 13:25) swelling naproxen Allergy (Verified 05/31/25 13:25) rash Eqknhvt-ADE-ZcI Reductase Inhibitor (Samdsgv-Cmr-Tuq Reductase Inhibitor) Allergy (Verified 05/31/25 13:25) leg cramps Medications ?Medication ?Instructions ?Recorded ?Confirmed ?Type aspirin 81 mg tablet,delayed 81 mg PO DAILY 06/05/19 0 05/31/25 History release (Adult Aspirin Regimen) metoprolol succinate 50 mg 50 mg PO DAILY 06/05/19 History tablet,extended release 24 hr nitroglycerin 0.4 mg sublingual 0.4 mg sublingual Q5-1 5M PRN 06/05/19 05/31/25 History tablet omega-3 fatty acids 1,250 mg 1,250 mg PO DAILY 9 05/31/25 History capsule omeprazole 20 mg capsule,delayed 20 mg PO DAILY 05/31/25 History release rosuvastatin 20 mg tablet 20 mg PO DAILY 06/05/1905/11 History metformin 750 mg tablet,extended 750 mg PO BID 2 05/31/25 History release 24 hr losartan 50 mg tablet 50 mg PO DAILY #90 tabs 01/0 11/0205/31/25 Rx amlodipine 5 mg tablet 5 mg PO DAILY #90 tabs 05/3105/31/25 Rx empagliflozin 10 mg tablet 10 mg PO DAILY #30 tabs 05/31/25 Rx (Jardiance) glimepiride 4 mg tablet 4 mg PO QDAY #1 TAB 05/31/25 05/31/25 Rx semaglutide 0.25 mg or 0.5 mg (2 0.25 mg (0.368 mL) boyer bcut QWEEK 4 05/31/25 05/31/25 Rx mg/3 mL) subcutaneous pen injector weeks #3 mL (Ozempic) Have you fallen in the past year?: No PFSH Medical History (Updated 05/31/25 @ 13:54 by Raffi Catalan CNC SPECIALIST, CNC SPECIALIST-C) Type 2 diabetes mellitus Atherosclerosis of coronary artery of unga heart without angina pectoris Essential hypertension HLD (hyperlipidemia) Surgical History History of cataract extraction with lens replacement H/O coronary artery bypass surgery (11/02/09) H/O hernia repair H/O neck surgery History of lumbar surgery H/O colonoscopy History of appendectomy Social History Smoking Status: Former smoker how long ago did patient quit smokin alcohol intake: never substance use type: does not use caffeine: Yes Type: tea Number of servings: 10 ROS Const Const: Positive for weakness; Negative for fatigue Eyes Eyes: Negative for change in vision ENT ENT: Negative for dizziness or balance problems Cardio Chest Pain: No Palpitations: Yes feels like its: pounding (Occasional) Edema: Bilateral and None Muscle aches with walking: None Resp Respiratory: Positive for SOB with activity; Negative for SOB at rest or SOB orthopnea\SOB lying down GI GI: Negative nausea or heartburn : Negative for hematuria or frequent nighttime urination/ nocturia Musc Musc: Negative for balance problems Skin Skin: Negative non-healing lesions or rash Neuro Neuro: Positive for weakness; Negative for dizziness, lightheadedness, near syncope or syncope Endo Endo: Negative for fatigue Allergy Allergy/Immunology: Negative for rash Cardiology Exam Const Appearance: cooperative, healthy appearing, comfortable and no acute distress Nutritional Appearance: well nourished and obese Orientation: alert, awake and oriented x3 Head Head: normal to inspection Ears: hearing grossly normal bilaterally Nose: external nose normal Face and Sinus: face symmetric Mouth: moist mucous membranes Eyes General: appearance normal, both eyes and all related structures Eyelids: eyelids normal EOM: EOM intact bilaterally Neck Neck: normal visual inspection and no JVD Carotids: normal carotid upstroke Chest Chest inspection: normal inspection of the chest, symmetric chest movement and normal respiratory effort; Negative cough Auscultation: Bilateral: Clear to Auscultation Cardio Rate: regular rate Rhythm: regular rhythm Heart sounds: S1 normal and S2 normal; Negative rub, gallop or murmur GI GI: normal to inspection and obese Neuro General: patient alert, patient awake, patient oriented x3 and CN's II-XI intactbilaterally Skin Skin: no rashes or lesions noted Extremities Pulses: Normal: Right Posterior Tibial Pulse, Left Posterior Tibial Pulse, RightRadial Pulse and Left Radial Pulse Lower Extremity Edema: +1: Bilateral Psych Psychological: normal affect Supplemental Info Supplemental Information Stress test from 02/01/23: Conclusion: Normal exercise myocardial perfusion stress test at a high workload Preserved ejection fraction. Stress test from 06/12/2019: Conclusion: Normal exercise myocardial perfusion stress test. Good functional aerobic capacity. Preserved ejection fraction. Past Visits: Cardiology Visit Today Assessment and Plan Assessment and Plan (1) Atherosclerosis of coronary artery of unga heart without angina pectoris: Status: Chronic Qualifiers: Coronary Disease-Associated Artery/Lesion type: unga artery QualifiedCode(s): I25.10 - Atherosclerotic heart disease of unga coronary artery without angina pectoris Plan: He had CABG in October 2009. His stress test in January 2023 was negative for ischemia at 10 METs with a peak blood pressure of 218/74. This appears stable. We will continue to monitor and not make any medication regimen changes. We will continue to promote risk factor and lifestyle modification. (2) Essential hypertension: Status: Chronic Plan: Will reduce amlodipine to 5mg PO daily to assist with lower extremity edema. He will monitor his blood pressure to guide medication adjustments. (3) HLD (hyperlipidemia): Status: Chronic Qualifiers: Hyperlipidemia type: unspecified Qualified Code(s): E78.5 - Hyperlipidemia, unspecified Plan: Lipid Panel from 03/11/2023: Total Cholesterol: 160, Triglycerides: 140, HDL: 41, and LDL: 91. He was reminded of LDL below 70 for secondary prevention with ideal goal of 50-55 given history of diabetes. He expects this to be repeated with PCP in the near future. We briefly reviewed increasing Crestor or adding Zetia therapy or PCSK9 related medications. (4) Type 2 diabetes mellitus: Status: Acute Plan: We discussed PRECEDENTD research trial that includes randomization to GLP-1 or SGLT2 medication. He is currently on metformin and glimepiride. He does have interest in such research trial. He will proceed with laboratory testing for updated results. Will send prescription for both Jardiance and Ozempic to discern coverage and pricing. Orders: Orders Hemoglobin A1c Today E11.9 - Type 2 diabetes mellitus without complications CBC W/Diff, Automated Today I25.10 - Atherosclerotic heart disease of unga coronary artery without angina pectoris Basic Metabolic Profile (BMP) Today E11.9 - Type 2 diabetes mellitus without complications, E78.5 - Hyperlipidemia, unspecified, I10 - Essential (primary) hypertension, I25.10 - Atherosclerotic heart disease of unga coronary artery without angina pectoris Liver Profile Today E11.9 - Type 2 diabetes mellitus without complications, E78.5 - Hyperlipidemia, unspecified, I10 - Essential (primary) hypertension, I25.10 - Atherosclerotic heart disease of unga coronary artery without angina pectoris Lipid Profile Today E11.9 - Type 2 diabetes mellitus without complications, E78.5 - Hyperlipidemia, unspecified, I10 - Essential (primary) hypertension, I25.10 - Atherosclerotic heart disease of unga coronary artery without angina pectoris Medications: New empagliflozin (Jardiance) 10 mg PO DAILY 30 tabs 11RF semaglutide (Ozempic) for 4 weeks 0.25 mg (0.368 mL) subcut QWEEK 3 mL 0RF 4 weeks Changed From glimepiride take 0.5 - 1 tablet daily To glimepiride 4 mg PO QDAY 1 TAB 0RF From amlodipine 10 mg PO DAILY 90 tabs 4RF To amlodipine 5 mg PO DAILY 90 tabs 4RF Plan PRECEDENTD research trial Plan Details Additional Comments: Thank you for allowing us to participate in the patients plan of care, if you have any questions please do not hesitate to call. Plan was reviewed with patient/family member along with red flag symptoms. Understanding was acknowledged. Questions were answered to apparent satisfaction. This note was generated using a voice recognition system and there may be incorrect words, spelling or punctuation that were not noted when reviewing the office note prior to saving. Portions of this documentation were copied and pasted from previous office visitnotes to provide a cohesive continuity of the history. The note has been reviewed, edited, and updated, as necessary. Follow Up: PCP Labs (For Continuity Of Care) 12-15 Months ([address] [facility]) Coding Level of Care Code Off vis,est,level 4 Diagnoses Atherosclerosis of unga coronary artery of unga heart without angina pectoris I25.10 Coronary Disease-Associated Artery/Lesion type: unga artery Essential hypertension I10 Hyperlipidemia, unspecified hyperlipidemia type E78.5 Hyperlipidemia type: unspecified Type 2 diabetes mellitus E11.9 Coding Level of Care Code Off vis,est,level 4 Diagnoses Atherosclerosis of unga coronary artery of unga heart without angina pectoris I25.10 Coronary Disease-Associated Artery/Lesion type: unga artery Essential hypertension I10 Hyperlipidemia, unspecified hyperlipidemia type E78.5 Hyperlipidemia type: unspecified Type 2 diabetes mellitus E11.9 Clinical Quality Measures Falls Risk Screening/Assistive Devices Have you fallen in the past year?: No 05/31/25 1448 <Electronically signed by Raffi RIZO> Date _ Raffi H Roof CNC SPECIALIST CNC SPECIALIST-C Cosigner Signature: Date (if applicable) CC: Dr. Elvia Contreras MD ~ [place] [email or web address] Work Phone: 1(654) 240-693204-02-2025 NoteHNO ID: [id number] Author: ?, ?, ? Service: ? Author Type: ? 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 History of Present illness Narrative* Johanne Chapman APRN.[facility] - 01/17/2024 8:00 AM EDT Images from the original note were not included. 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 Plan: - Continue Auto CPAP at 12-16 cmH2O. - Remember to clean your mask and equipment regularly, as directed. - You should be eligible for new supplies approximately every 3-6 months, depending on your insurance coverage. Contact your Durable Medical Equipment (DME) company for new supplies as needed. Follow up in 1 year(s) and PRN. Bill Sandoval APRN.MAINTENANCE CRAFTSMAN Here for follow up for ZACHARIAH, annual follow up. He uses PAP all night, every night, I can't sleep without it. His recently. SLEEP APNEA Sleep apnea type : ZACHARIAH, Most Recent Apnea-Hypopnea Index (AHI): 6.4, supine 55.4 Treatment : PAP therapy DME: [facility] PAP History: Uses AutoPAP for 9 hours per night, 7 nights per week. Current PAP settin-16 cm H2O. Difficulties with AutoPAP: None Reviewed objective PAP compliance data: Mask type: hybrid full face mask Mask issues: none There is a perceived benefit by the patient: can't sleep without it PATIENT-ENTERED QUESTIONNAIRE SLEEP SCORES 04/30/2012 06/18/2012 PHQ-9 Score 14 5 ALLERGIES Allergen Reactions Celebrex [Celecoxib] Shortness of Breath Mushrooms [Other] Swelling Naproxen Rash Statins [Statins-Hm* Leg cramps CURRENT MEDICATIONS: CPAP New set up: Settings 12 - 16 cm H2O, suitable mask per pt preference, chin strap, head gear, humidity, tubing, lifetime supplies. G47.33 ZACHARIAH amLODIPine (NORVASC) 5 mg tablet Take 1 tablet by mouth once daily. (Patient taking differently: Take 10 mg by mouth once daily.) nitroglycerin sublingual (NITROQUICK) 0.4 mg SL tablet Dissolve 1 tablet under the tongue as needed. FOR CHEST PAIN. IF NO RELIEF CALL 911 metFORMIN (GLUCOPHAGE) 500 mg tablet Take 500 mg by mouth twice daily with meals. glimepiride (AMARYL) 4 mg tablet Take 4 mg by mouth as needed. Tilden-3 Fatty Acids, FISH OIL, 360-1,200 mg cap Take 1 capsule by mouth daily with breakfast. rosuvastatin (CRESTOR) 20 mg tablet Take 1 tablet by mouth once daily. metoprolol succinate XL, long acting, (TOPROL XL) 50 mg 24 hr tablet Take 1 tablet by mouth once daily. docusate sodium (COLACE) 50 mg capsule Take by mouth daily at bedtime. OMEPRAZOLE 20 MG TAB, DELAYED RELEASE Take one(1) tablet daily. aspirin(ECOTRIN LOW STRENGTH 81 MG TAB) Take one(1) tablet daily. HYDROcodone-acetaminophen (NORCO) 5-325 mg per tablet Take 1 tablet by mouth every 6 hours as needed. (Patient not taking: Reported on 05/17/2021) Psyllium Seed-Sucrose Take by mouth twice daily. (Patient not taking: Reported on 01/17/2024) PHYSICAL EXAMINATION: Vital Signs: BP 129/75 Pulse 63 Resp 18 Wt 96.5 kg (212 lb 12.8 oz) SpO2 97% BMI 32.36 kg/m PHYSICAL EXAM: General appearance: pleasant, NAD Mental status: alert and oriented, able to provide own history Constitutional: WNL Skin: No visible rashes on exposed skin Neuro: No focal deficits observed, no tremors IMPRESSION: Zachariah (obstructive sleep apnea) (primary encounter diagnosis) Obdulio Whitney is a delightful 68 year old male with ZACHARIAH. PMH of HTN, HLD, CAD. --Patient is compliant with PAP therapy and reports subjective benefits from treatment --We reviewed PAP compliance report; AHI just slightly >5 PLAN: - Continue Auto CPAP, increase pressure range to 12-20 cmHO. We'll get a download in a month, we'llcall him with update. His machine has about 16,000 hrs on it. - Remember to clean your mask and equipment regularly, as directed. - You should be eligible for new supplies approximately every 3-6 months, depending on your insurance coverage. Contact your Durable Medical Equipment (DME) company for new supplies as needed. - Follow up in 12 months with ALLI. Johanne Chapman APRN.CNP [facility] NoteHNO ID: [id number] Author: JOHANNE CHAPMAN APRN.ISA Service: ? Author Type: Nurse Practitioner Type: Progress Notes Filed: 01/17/2024 08:36 Note Text: 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 Plan: - Continue Auto CPAP at 12-16 cmH2O. - Remember to clean your mask and equipment regularly, as directed. - You should be eligible for new supplies approximately every 3-6 months, depending on your insurance coverage. Contact your Durable Medical Equipment (DME) company for new supplies as needed. Follow up in 1 year(s) and PRN. Bill Sandoval APRN.MAINTENANCE CRAFTSMAN Here for follow up for ZACHARIAH, annual follow up. He uses PAP all night, every night, I can't sleep without it. His recently. SLEEP APNEA Sleep apnea type : ZACHARIAH, Most Recent Apnea-Hypopnea Index (AHI): 6.4, supine 55.4 Treatment : PAP therapy DME: [facility] PAP History: Uses AutoPAP for 9 hours per night, 7 nights per week. Current PAP settin-16 cm H2O. Difficulties with AutoPAP: None Reviewed objective PAP compliance data: Mask type: hybrid full face mask Mask issues: none There is a perceived benefit by the patient: can't sleep without it PATIENT-ENTERED QUESTIONNAIRE SLEEP SCORES 04/30/2012 06/18/2012 PHQ-9 Score 14 5 ALLERGIES Allergen Reactions Celebrex [Celecoxib] Shortness of Breath Mushrooms [Other] Swelling Naproxen Rash Statins [Statins-Hm* Leg cramps CURRENT MEDICATIONS: CPAP New set up: Settings 12 - 16 cm H2O, suitable mask per pt preference, chin strap, head gear, humidity, tubing, lifetime supplies. G47.33 ZACHARIAH amLODIPine (NORVASC) 5 mg tablet Take 1 tablet by mouth once daily. (Patient taking differently: Take 10 mg by mouth once daily.) nitroglycerin sublingual (NITROQUICK) 0.4 mg SL tablet Dissolve 1 tablet under the tongue as needed. FOR CHEST PAIN. IF NO RELIEF CALL 911 metFORMIN (GLUCOPHAGE) 500 mg tablet Take 500 mg by mouth twice daily with meals. glimepiride (AMARYL) 4 mg tablet Take 4 mg by mouth as needed. Tilden-3 Fatty Acids, FISH OIL, 360-1,200 mg cap Take 1 capsule by mouth daily with breakfast. rosuvastatin (CRESTOR) 20 mg tablet Take 1 tablet by mouth once daily. metoprolol succinate XL, long acting, (TOPROL XL) 50 mg 24 hr tablet Take 1 tablet by mouth once daily. docusate sodium (COLACE) 50 mg capsule Take by mouth daily at bedtime. OMEPRAZOLE 20 MG TAB, DELAYED RELEASE Take one(1) tablet daily. aspirin(ECOTRIN LOW STRENGTH 81 MG TAB) Take one(1) tablet daily. HYDROcodone-acetaminophen (NORCO) 5-325 mg per tablet Take 1 tablet by mouth every 6 hours as needed. (Patient not taking: Reported on 05/17/2021) Psyllium Seed-Sucrose Take by mouth twice daily. (Patient not taking: Reported on 01/17/2024) PHYSICAL EXAMINATION: Vital Signs: BP 129/75 Pulse 63 Resp 18 Wt 96.5 kg (212 lb 12.8 oz) SpO2 97% BMI 32.36 kg/m? PHYSICAL EXAM: General appearance: pleasant, NAD Mental status: alert and oriented, able to provide own history Constitutional: WNL Skin: No visible rashes on exposed skin Neuro: No focal deficits observed, no tremors IMPRESSION: Zachariah (obstructive sleep apnea) (primary encounter diagnosis) Obdulio Whitney is a delightful 68 year old male with ZACHARIAH. PMH of HTN, HLD, CAD. --Patient is compliant with PAP therapy and reports subjective benefits from treatment --We reviewed PAP compliance report; AHI just slightly >5 PLAN: - Continue Auto CPAP, increase pressure range to 12-20 cmHO. We'll get a download in a month, we'll call him with update. His machine has about 16,000 hrs on it. - Remember to clean your mask and equipment regularly, as directed. - You should be eligible for new supplies approximately every 3-6 months, depending on your insurance coverage. Contact your Durable Medical Equipment (DME) company for new supplies as needed. - Follow up in 12 months with [facility]I. Johanne Chapman APRN.[facility]04-16-2024 Miscellaneous Notes * Telephone Encounter - Yue Boo OCCA - 12/24/2023 9:20 AM EDT Faxed and received confirmation from [facility] Car[facility] for CPAP orders. Patient's most recent visit was 05/17/2021. DME notified that patient will need to make an appointment. [facility] Hospital Discharge instructions Patient Education 03/14/2023 15:47:17 Arthralgia Arthralgia Arthralgia is the term for pain in or around the joint. It is a symptom, not a disease. This pain may involve one or more joints. In some cases, the pain moves from joint to joint. There are many causes for joint pain. These include: Injury Osteoarthritis (wearing out of the joint surface) Gout (inflammation of the joint due to crystals in the joint fluid) Infection inside the joint Bursitis (inflammation of the fluid-filled sacs around the joint) Autoimmune disorders such as rheumatoid arthritis or lupus Tendonitis (inflammation of chords that attach muscle to bone) Home care Rest the involved joint(s) until your symptoms improve. You may be prescribed pain medicine. If none is prescribed, you may use acetaminophen or ibuprofen to control pain and inflammation. Follow-up care Follow up with your healthcare provider or as advised. When to seek medical advice Contact your healthcare provider right away if any of the following occurs: Pain, swelling, or redness of joint increases Pain worsens or recurs after a period of improvement Pain moves to other joints You cannot bear weight on the affected joint You cannot move the affected joint Joint appears deformed New rash appears Fever of 100.4 F (38 C) or higher, or as directed by your healthcare provider [phone] [employer]. [address] [place] [address], [place] [address]. All rights reserved. This information is not intended as a substitute for professional medical care. Always follow yourhealthcare professional's instructions. Follow Up Care 03/14/2023 14:57:47 With:ELVIA CONTRERAS MD Address: [address] [place] [address]- When:2-4 days [facility] 07-06-2023 Note Discharge Instructions Thank you for allowing [facility] to assist you with your healthcare needs. The following is importantdischarge information regarding your hospital visit. Diagnosis from Today's Visit Ankle pain Ankle pain-swelling What to Do Next Instructions from Your Care Team No qualifying data available. Post Acute Orders No qualifying data available. You Need to Schedule the Following Appointments Follow Up with ELVIA CONTRERAS MD When Within 2-4 days Where: [address] [place] [address]- Allergies CeleBREX Percocet 5/325 celecoxib (Naproxen) naproxen Medications Please ask your primary doctor or pharmacist before taking any other medication not listed, including over the counter drugs, herbal medications, vitamins and or supplements as they may interact withur home medications. What How Much When Why Instructions Last Dose New predniSONE (predniSONE 50 mg oral tablet) 1 tab(s) by mouth Once a day with a meal Ankle pain Duration: 5 Days Printed Prescription Unchanged amLODIPine (amLODIPine 5 mg oral tablet) 2 tab(s) by mouth Once a day Duration: 90 Days Unchanged aspirin 81 by mouth Once a day Unchanged docusate (Colace 50 mg oral capsule) 1 cap by mouth Two (2) times a day as needed for for constipation Unchanged glimepiride (glimepiride 4 mg oral tablet) See instructions take 0.5 - 1 tablet daily Unchanged losartan (losartan 25 mg oral tablet) 1 tab(s) by mouth Once a day Unchanged meloxicam (meloxicam 15 mg oral tablet) 1 tab(s) by mouth Once a day HTN (hypertension) Diabetes mellitus type 2 Take with food/ milk Unchanged metFORMIN (metFORMIN 750 mg oral tablet EXTENDED RELEASE) 1 tab(s) by mouth Two (2) times a day Duration: 90 Days Unchanged metoprolol (Metoprolol Succinate ER 50 mg oral TABLET extended release) 1 tab(s) by mouth Once a day Duration: 90 Days Unchanged nitroGLYcerin (nitroglycerin 0.4 mg sublingual tablet) 1 tab(s) under the tongue Every 5 minutes as needed for for chest pain Unchanged omega-3 polyunsaturated fatty acids (Fish Oil 1000 mg oral capsule) 1 cap by mouth Once a day Unchanged omeprazole (omeprazole 20 mg oral delayed release capsule) 1 cap by mouth Once a day Duration: 90 Days Unchanged rosuvastatin (Crestor 20 mg oral tablet) 1 tab(s) by mouth Every day Please take this list to your next doctor s visit. Bring all medications you take, including over the counter medications, herbals and other supplements with you to your doctor s visit. Patients and families are reminded to discard old lists and to update any records with all medication providers or retail pharmacies. Medication Leaflets prednisone (JOVANNA Holloway What is the most important information I should know about prednisone? You should not use prednisone if you have a fungal infection anywhere in your body. You should not stop using prednisone suddenly. Follow your doctor's instructions about tapering your dose. What is prednisone? Prednisone is a steroid that reduces inflammation in the body, and also suppresses your immune system. Prednisone is used to treat many different conditions such as hormonal disorders, skin diseases, arthritis, lupus, psoriasis, allergic conditions, ulcerative colitis, Crohn's disease, eye diseases, lung diseases, asthma, tuberculosis, blood cell disorders, kidney disorders, leukemia, lymphoma, multi ple sclerosis, organ transplant rejection, swelling from a brain tumor or injury. Prednisone may also be used for purposes not listed in this medication guide. What should I discuss with my healthcare provider before taking prednisone? You should not use prednisone if you are allergic to it, or if you have a fungal infection anywherein your body. Steroid medication can weaken your immune system, making it easier for you to get an infection or worsening an infection you already have. Tell your doctor about any illness or infection you've had within the past several weeks. Tell your doctor if you have ever had: heart problems, high blood pressure, or a heart attack; glaucoma or cataracts; herpes infection of the eyes; past or present tuberculosis; a parasite infection that causes diarrhea (such as threadworms); any illness that causes diarrhea; underactive thyroid; diabetes; a stomach ulcer, diverticulitis; a colostomy or ileostomy; osteoporosis or low bone mineral density (steroid medication can increase your risk of bone loss); low levels of calcium or potassium in your blood; cirrhosis or other liver disease; mental illness or psychosis; or a muscle disorder such as myasthenia gravis. Long-term use of steroids may lead to bone loss (osteoporosis), especially if you smoke or drink alcohol, if you do not exercise, or if you do not get enough vitamin D or calcium in your diet. It is not known whether this medicine will harm an unborn baby. Tell your doctor if you are or plan to become . You should not breastfeed while using prednisone. How should I take prednisone? Follow all directions on your prescription label and read all medication guides or instruction sheets. Your doctor may occasionally change your dose. Use the medicine exactly as directed. Prednisone is taken daily or every other day, depending on the condition being treated. You may need to take the medicine at a certain time of day. Follow your doctor's instructions about when and how often to take this medicine. Take with food if prednisone upsets your stomach. Measure liquid medicine carefully. Use the dosing syringe provided, or use a medicine dose-measuring device (not a kitchen spoon). Swallow the delayed-release tablet whole and do not crush, chew, or break it. Prednisone can weaken (suppress) your immune system, and you may get an infection more easily. Callyour doctor if you have signs of infection (fever, weakness, cold or flu symptoms, skin sores, diarrhea, frequent or recurring illness). If you have major surgery or a severe injury or infection, your prednisone dose needs may change. Make sure any doctor caring for you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 4 c DL grade 2 c glidescope / documented as of this encounter (statuses as of 12/20/2022) [facility]02-25-2010 History of Past illness Narrative* Problem Noted Date Diagnosed Date Resolved Date Fluid overload 11/03/2009 11/06/2009 Overview: 11/03/09/ signs of interstitial pulm edema despite evn to neg Fb. ? SIRS. Lasix x1 11/04/2009 decrease lasix dose and convert to po, is at preop wt, CXR with poor inspiration, atelectasis, and small left pleural effusion. 11/05/2009 increase po dose of lasix for today, eval response. / Disease of airway 11/02/2009 11/03/2009 Overview: difficult mask (chacon) grade 4 c DL grade 2 c glidescope / documented as of this encounter (statuses as of 07/14/2023) [facility]02-25-2010 History of Past illness Narrative* Problem Noted Date Diagnosed Date Resolved Date Fluid overload 11/03/2009 11/06/2009 Overview: 11/03/09/ signs of interstitial pulm edema despite evn to neg Fb. ? SIRS. Lasix x1 11/04/2009 decrease lasix dose and convert to po, is at preop wt, CXR with poor inspiration, atelectasis, and small left pleural effusion. 11/05/2009 increase po dose of lasix for today, eval response. / Disease of airway 11/02/2009 11/03/2009 Overview: difficult mask (chacon) grade 4 c DL grade 2 c glidescope / documented as of this encounter (statuses as of 12/24/2023) [facility]ments Appointment Date:06/13/2022 08:00:00 AM Scheduled Provider:ELVIA CONTRERAS MD Location:[facility] Appointment Type:[facility] Evaluation + Plan note Future Appointments Appointment Date:09/12/2022 08:00:00 AM Scheduled Provider:ELVIA CONTRERAS MD Location:[facility] Appointment Type:[facility] Evaluation + Plan note Future Appointments Appointment Date:03/19/2023 07:30:00 AM Scheduled Provider:ELVIA CONTRERAS MD Location:[facility] Appointment Type:[facility] Evaluation + Plan note Future Appointments Appointment Date:09/19/2023 08:00:00 AM Scheduled Provider:ELVIA CONTRERAS MD Location:[facility] Appointment Type:[facility] [employer] + Plan note Future Appointments Appointment Date:03/19/2024 07:30:00 AM Scheduled Provider:ELVIA CONTRERAS MD Location:[facility] Appointment Type: OV Future Scheduled Tests Laboratory* A1C Hemoglobin 03/19/24 * Lipid Profile 03/19/24 * Complete Metabolic Panel 03/19/24 [facility] Evaluation + Plan note Future Appointments Appointment Date:03/19/2024 07:30:00 AM Scheduled Provider:ELVIA CONTRERAS MD Location:[facility] Appointment Type:[facility] Evaluation + Plan note Future Appointments Appointment Date:09/22/2024 09:00:00 AM Scheduled Provider:ELVIA CONTRERAS MD Location:[facility] Appointment Type: OV [facility] Evaluation + Plan note Future Appointments Appointment Date:03/17/2025 09:30:00 AM Scheduled Provider:ELVIA CONTRERAS MD [facility] Appointment Type:PC OV [facility] Evaluation + Plan note Future Appointments Appointment Date:06/17/2025 09:00:00 AM Scheduled Provider:ELVIA CONTRERAS MD [facility] Appointment Type:PC OV Follow Up [facility] Evaluation noteNo assessment information available [facility] Work Phone: evaluation note* Diagnosis Encounter for screening for malignant neoplasm of colon- Primary Special screening for malignant neoplasms, colon Constipation, unspecified constipation type Lower abdominal pain Abdominal pain, other specified site Bilateral lower abdominal cramping Abdominal pain, other specified site documented in this encounter [facility] note* Diagnosis ZACHARIAH (obstructive sleep apnea)- Primary Obstructive sleep apnea (adult) (pediatric) documented in this encounter [facility] course Narrative No data available for this section [facility] Hospital Discharge instructions No data available for this section [facility] Progress note No data available for this section [facility] Reason for referral (narrative)* Outpatient Procedure (Routine) - Closed Specialty Diagnoses / Procedures Referred By Gamaliel t Referred To Contact [facility] Diagnoses Constipation, unspecified constipation type Lower abdominal pain Bilateral lower abdominal cramping Procedures COLONOSCOPY DIAGNOSTIC COLONOSCOPY FLX DX W/COLLJ SPEC WHEN PFRMD Azalia Perez PA-C [address] [place] [address] [facility] [address] [place] [address] Referral ID Status Reason Start Date Expiration Date V isits Requested Visits Authorized [id number] Closed Auto-Generate d Referral 01/18/2023 01/19/[address] [facility]ative[facility]No reason for referral [facility] Work Phone: Reason for visit Narrative* Outpatient Procedure (Routine) - Closed Specialty Diagnoses / Procedures Referred By Contbob t Referred To Contact [facility] Diagnoses Constipation, unspecified constipation type Lower abdominal pain Bilateral lower abdominal cramping Procedures COLONOSCOPY DIAGNOSTIC COLONOSCOPY FLX DX W/COLLJ SPEC WHEN PFRMD Azalia Perez PA-C [address] [place] [address] [facility] [address] [place] [address] Referral ID Status Reason Start Date Expiration Date V isits Requested Visits Authorized [id number] Closed Auto-Generate d Referral 01/18/2023 01/19/[address] [facility] Summary Purpose Family History No Family History Records FoundNo Family History Records Found No data available for this section No data available for this section No data available for this section No Family History Records Found No data available for this section No Family History Records Found No data available for this section No Family History Records Found No data available for this section No Family History Records Found Advance Directives No Advanced Directives Records FoundNo Advanced Directives Records FoundNo Advanced Directives Records FoundNo Advanced Directives Records FoundNo Advanced Directives Records FoundNo Advanced Directives Records Found Chief Complaint and Reason for Visit Chief Complaint Atherosclerotic hear t disease of unga coronary a Atherosclerotic heart disease of unga coronary a Chief Complaint Admit Date OVERDUE FOR OV/LAST SEEN 02/2024 Septemb er 2024 1:16pm Reason for Visit Admit Date Type 2 diabetes mellitus May 31, 2025 1:16pm Atherosclerosis of coronary artery of unga heart without angina pectoris May 31, 2025 1:16pm Essential hypertension May 31, 2 025 1:16pm HLD (hyperlipidemia) May 31 1:16pm Medications Administered Section Inactive Administered Medications - up to 3 most recent administrations Medication Order MAR Action Action Date Dose Rate Site diphenhydrAMINE 12.5-50 mg injection (BENADRYL) 12.5-50 mg, INTRAVENOUS, DIRECTED, Starting on Sat02/05/23 at 1200, Until Sat02/05/23 at 1559, DOSING DIRECTED BY PHYSICIAN FOR PROCEDURAL SEDATION ONLY, Intraprocedure Given 02/05/2023 11:30 AM EDT 50 mg fentaNYL 50 mcg/mL 25-100 mcg injection (SUBLIMAZE) 25-100 mcg, INTRAVENOUS, DIRECTED, Starting on Sat02/05/23 at 1200, Until Sat02/05/23 at 1559, DOSING DIRECTED BY PHYSICIAN FOR PROCEDURAL SEDATION ONLY, Intraprocedure Given 02/05/2023 11:38 AM EDT 50 mcg Given 02/05/2023 11:28 AM EDT 50 mcg lactated ringers iv infusion 30 mL/hr, INTRAVENOUS, CONTINUOUS, Starting on Sat02/05/23 at 1100, Until Sat02/05/23 at 1223, Preprocedure New Bag/Syringe/Bottle 02/05/2023 10:55 AM EDT 30 mL/hr 30 mL/hr Hand, Right midazolam 1-5 mg injection (VERSED) 1-5 mg, INTRAVENOUS, DIRECTED, Starting on Sat02/05/23 at 1200, Until Sat02/05/23 at 1559, DOSING DIRECTED BY PHYSICIAN FOR PROCEDURAL SEDATION ONLY, Intraprocedure Given 02/05/2023 11:40 AM EDT 2 mg Given 02/05/2023 11:34 AM EDT 2 mg Given 02/05/2023 11:28 AM EDT 3 mg Additional Source Comments (unrecognized sect ion and content) No Status Records FoundNo Status Records FoundNo Status Records FoundNo Status Records FoundNo Status Records FoundNo Status Records Found INFORMATION SOURCE (unrecogn ized section and content) DATE CREATED AUTHOR 03/05/2018 [facility] DATE CREATED AUTHOR AUTHOR'S ORGANIZ ATION 07/28/2018 [facility] DATE CREATED AUTHOR AUTHOR'S ORGANIZ ATION 03/12/20[facility] DATE CREATED AUTHOR AUTHOR'S ORGANIZ ATION 12/14/2024 [facility] DATE CREATED AUTHOR AUTHOR'S ORGANIZ ATION 06/15/2025 [facility] DATE CREATED AUTHOR AUTHOR'S ORGANIZ ATION 06/18/2025 Care Team (unrecognized sect ion and content) Care Team Personnel Name: ELVIA CONTRERAS MD Position: P4 Physician - Primary Care Med Service: Active Provider Member Role: Primary Care Physician Address: Address: [address] [place] [id number] Care Team Related Persons Name: MAYCO WHITNEY Address: Home [address] [place], [place] [id number] Care Team Personnel Name: ELVIA CONTRERAS MD Position: P4 Physician - Primary Care Member Role: Primary Care Physician Address: Address: [address] [place] [id number] Care Team Related Persons Name: MAYCO WHITNEY Address: [place] [address] [place], [place] [id number] Source Comments (unrecognsonny d section and content) In the event this informatio n is protected by the Federal Confidentiality of Alcohol and Drug Abuse Patient Records regulations: The Federal rules restrict any use of the information to criminally investigate or prosecute any alcohol or drug abuse patient.[facility] the event this information is protected by the Federal Confidentiality of Alcohol and Drug Abuse Patient Records regulations: The Federal rules restrict any use of the information to criminally investigate or prosecute any alcohol or drug abuse patient.[facility] the event this information is protected by the Federal Confidentiality of Alcohol and Drug Abuse Patient Records regulations: The Federal rules restrict any use of the information to criminally investigate or prosecute any alcohol or drug abuse patient.[facility] the event this information is protected by the Federal Confidentiality of Alcohol and Drug Abuse Patient Records regulations: The Federal rules restrict any use of the information to criminally investigate or prosecute any alcohol or drug abuse patient.[facility] the event this information is protected by the Federal Confidentiality of Alcohol and Drug Abuse Patient Records regulations: The Federal rules restrict any use of the information to criminally investigate or prosecute any alcohol or drug abuse patient.[facility] Reason for Visit (unrecogniz ed section and content) Reason Comments CMN- PAP supplies [facility] Reason Comments Orders [facility]. Patient's most recent visit was 05/17/2021. DME notified that patient will need to make an appointment. Reason Comments New Patient Evaluation Reason Comments CMN Care Teams (unrecognized sec tion and content) Cartridge Feeder Relationship Specialty Start Date End Date Elvia Contreras MD [address] [place] [address] PCP - General 10/04/09 Team Status: Active Member Role Status Dates Dr. Elvia Contreras MD Family Provider Active Dr. Elvia Contreras MD Primary Care Provider Active Team Status: Active Member Role Status Dates Dr. Elvia Contreras MD Primary Care Provider Active Raffi Catalan CNC SPECIALIST, CNC SPECIALIST-C Referring Provider, Other Provide r Active Dr. Chetan Malave MD Attending Provider Active Team Status: Inactive Member Role Status Dates Dr. Elvia Contreras MD Primary Care Provider Active Raffi Catalan CNC SPECIALIST, CNC SPECIALIST-C Attending Provider, Referring Pro vider Active Cartridge Feeder Relationship Specialty Start Date End Date Elvia Contreras MD [address] [place] [address] PCP - General 10/04/09 Cartridge Feeder Relationship Specialty Start Date End Date Elvia Contreras MD [address] [place] [address] PCP - General 10/04/09 Cartridge Feeder Relationship Specialty Start Date End Date Elvia Contreras MD [address] [place] [address] PCP - General 10/04/09 Cartridge Feeder Relationship Specialty Start Date End Date Elvia Contreras MD [address] [place] [address] PCP - General 10/04/09 Team Status: Active Member Role/Relationship Status Dates Dr. Elvia Contreras MD Primary care physician Active Team Status: Inactive Member Role/Relationship Status Dates Dr. Elvia Contreras MD Primary care physician Active Start: May 31, 2025 End: May 31, 2025 Dr. Elvia Contreras MD Referring Provider Active Start: May 31, 2025 End: May 31, 2025 Raffi Catalan CNC SPECIALIST, CNC SPECIALIST-C Attending physician Active Start: May 31, 2025 End: May 31, 2025 Goals (unrecognized section and content) Goals may be documented in a n alternate section FOR RECORDS PERTAINING TO PATIENTS WHO ARE OR HAVE BEEN ENROLLED IN A CHEMICAL DEPENDENCY/SUBSTANCEABUSE PROGRAM, SOME INFORMATION MAY BE OMITTED. This clinical summary was aggregated from multiple sources. Caution should be exercised in using it in the provision of clinical care. This summary normalizes information from multiple sources, and as a consequence, information in this document may materially change the coding, format and clinical context of patient data. In addition, data may be omitted in some cases. CLINICAL DECISIONS SHOULD BE BASED ON THE PRIMARY CLINICAL RECORDS. [facility]. provides no warranty or guarantee of the accuracy or completeness of information in this document.
[2025-07-02 17:21] LABS: AST(SGOT) 31 U/L (<=37); Alanine Aminotransfer ALT/SGPT 26 U/L (<=46); Albumin, Serum 4.9 g/dL (3.4-4.8); Alkaline Phosphatase 48 U/L (40-129); Anion Gap 13 (5-15); BUN 13 mg/dL (4-19); BUN/Creat Ratio 15.5 RATIO (10-20); Bilirubin, Direct 0.49 mg/dL (0.00-0.30); Calcium,Total 10.0 mg/dL (7.6-11.0); Carbon Dioxide 23.5 mmol/L (21.0-32.0); Chloride 104 mmol/L (98-108); Estimated Creatinine Clearance 90.81 ml/min (50-250); Globulin 2.5 g/dL (2.2-4.2); Glucose 181 mg/dL (70-99); Lipase 41 U/L (13-75); Potassium 4.0 mmol/L (3.3-5.1)
--- NOTE | 2025-07-02 17:28 | CT_ITS ---
PROCEDURE: ABDOMEN/PELVIS W IV CONT ONLY 07/02/2025 REASON FOR EXAM: ABDOMINAL PAIN, LEUKOCYTOSIS, GUARDING, MOTTLED TECHNIQUE: Procedure Code: [id number] Modality: CT Procedure: ABDOMEN/PELVIS W IV CONT ONLY Coronal and Sagittal reconstruction series were provided. CONTRAST: 100 cc of Isovue 370 One or more dose reduction techniques were used (e.g., Automated exposure control, adjustment of the mA and/or kV according to patient size, use of iterative reconstruction technique. COMPARISON: None available. FINDINGS: Lung bases: Unremarkable. Liver: Normal size. No mass. Gallbladder: Unremarkable. No biliary ductal dilatation. Spleen: Normal size. Pancreas: Normal size without evidence of mass surrounding inflammation or ductal dilation. Adrenals: Unremarkable Kidneys: Normal renal sizes. No hydronephrosis. Bladder: Unremarkable Reproductive Organs: Prostate nonenlarged. No pelvic masses. Bowel: Colonic diverticulosis without diverticulitis. No bowel obstruction. Appendix: Normal. Lymph nodes: Unremarkable. Vasculature: Mild diffuse atherosclerotic calcifications are noted. No aneurysm. Peritoneum / Retroperitoneum: No free fluid or air. Bones: Degenerative changes of the spine. No acute fractures. CT/Abdomen/Pelvis W IV Cont ONLY IMPRESSION: 1. Colonic diverticulosis without acute diverticulitis. 2. No acute findings in the abdomen or pelvis as imaged. Reading Location: [facility]
[2025-07-02 18:07] VITALS: BP 155/83; PULSE 100; RESP 17; TEMP 37.2; O2SAT 95
[2025-07-02 20:22] VITALS: BP 159/80; PULSE 110; RESP 24; TEMP 36.6; O2SAT 95
[2025-07-02 20:50] LABS: Reflex Lactate? Y
== END 2025-07-02 20:28 | disposition home or self-care (01) ==
PROVIDERS: Emergency Provider Emergency Medicine; PCP Family Medicine; Visit Provider Emergency Medicine
DX: K31.84 Gastroparesis (principal); E11.9 Type 2 diabetes mellitus without complications; T38.3X5A Adverse effect of insulin and oral hypoglycemic [antidiabetic] drugs, initial encounter; E87.20 Acidosis, unspecified; M54.9 Dorsalgia, unspecified; I10 Essential (primary) hypertension; Z79.85 Long-term (current) use of injectable non-insulin antidiabetic drugs; R10.11 Right upper quadrant pain; R10.12 Left upper quadrant pain; D72.829 Elevated white blood cell count, unspecified; I25.10 Atherosclerotic heart disease of native coronary artery without angina pectoris; E78.5 Hyperlipidemia, unspecified; R11.2 Nausea with vomiting, unspecified; R19.7 Diarrhea, unspecified; Z79.82 Long term (current) use of aspirin; Z79.84 Long term (current) use of oral hypoglycemic drugs; Z79.899 Other long term (current) drug therapy; Z87.891 Personal history of nicotine dependence; Z95.1 Presence of aortocoronary bypass graft
CPT/HCPCS: 99283; 74177; 80048; 80076; 83605; 83690; 85025; 93005; Q9967; A4216; J2405

== ENCOUNTER 2025-07-03 05:34 | Inpatient (IN) | payer MEDICARE, OTHER, SELFPAY ==
[2025-07-03] VITALS (9 sets, daily range): BP systolic 150–180; BP diastolic 69–84; PULSE 80–91; RESP 17–97; TEMP 36.5–37.2; O2SAT 92–97; BMI 32.1; BMI 68.3; BMI 31.1
--- NOTE | 2025-07-03 05:48 | ED.VIS.GI ---
HPI <Dr. Chas Esquivel DO - Last Filed: 07/03/25 22:07> HPI - GI History of Present Illness Chief Complaint: Abd Pain Informant: patient Abdominal Pain/Flank Pain Onset: Yesterday Context: Gradual Onset Timing: Continuous Quality: Cramping Location: Epigastric, RUQ and LUQ Worsened by: Nothing Relieved by: Nothing Nausea/Vomiting/Emesis GI Symptom: Positive for Nausea; Negative for Vomiting Diarrhea/Melena/Hematochezia GI Symptom: Negative for Diarrhea, Melena or Hematochezia Associated Symptoms Associated Symptoms: Positive for Frequency; Negative for Dysuria or Hematuria Narrative Narrative: Patient presents with abdominal pain that began yesterday. Patient states he was seen here yesterday had his workup was negative. Patient states the pain is over the upper abdomen and radiates into his back. Patient describes the pain as cramping. Patient states nothing makes it worse and nothing makes it better. Patient admits to some nausea but denies any vomiting. Patient denies any diarrhea, melena, or hematochezia. Patient does admit to some urinary frequency but denies any dysuria or hematuria. [facility] <Dr. Chas Esquivel, DO - Last Filed: 07/03/25 22:07> [facility] Medical History Type 2 diabetes mellitus Atherosclerosis of coronary artery of [place] heart without angina pectoris Essential hypertension HLD (hyperlipidemia) Home Medications ?Medication ?Instructions ?Recorded ?Last Taken ?Type aspirin 81 mg tablet,delayed 81 mg PO DAILY cardiac 06/05/19 07/02/25 History release (Adult Aspirin Regimen) metoprolol succinate 50 mg 50 mg PO DAILY htn 06/05/19 07/02/25 History tablet,extended release 24 hr nitroglycerin 0.4 mg sublingual 0.4 mg sublingual Q5-15M chest pain 06/05/19 Unknown History tablet omega-3 fatty acids 1,250 mg 1,250 mg PO DAILY unknown 06/05/19 07/02/25 History capsule omeprazole 20 mg capsule,delayed 20 mg PO DAILY GERD 06/05/19 07/02/25 History release rosuvastatin 20 mg tablet 20 mg PO DAILY high cholesterol 06/05/19 07/02/25 History metformin 750 mg tablet,extended 750 mg PO BID DM 04/12/22 07/02/25 History release 24 hr losartan 50 mg tablet 50 mg PO DAILY #90 tabs 09/10/23 Unknown Rx amlodipine 5 mg tablet 5 mg PO DAILY #90 tabs 05/31/25 07/02/25 Rx glimepiride 4 mg tablet 4 mg PO QDAY #1 TAB 05/31/25 07/02/25 Rx semaglutide 0.25 mg or 0.5 mg (2 0.25 mg (0.368 mL) subcut QWEEK 4 06/10/25 07/02/25 Rx mg/3 mL) subcutaneous pen injector weeks #3 mL (Ozempic) metoclopramide HCl 5 mg tablet 5 mg PO UD #20 tabs 07/02/25 07/02/25 21:30 Rx (Reglan) Allergy/AdvReac Type Severity Reaction Status Date / Time celecoxib (From Celebrex) Allergy shortness Verified 07/03/25 05:35 of breath mushroom Allergy swelling Verified 07/03/25 05:35 naproxen Allergy rash Verified 07/03/25 05:35 Phzhjod-SHE-RlG Reductase Allergy leg cramps Verified 07/03/25 05:35 Inhibitor (Zybkuqq-Qgu-Wzs Reductase Inhibitor) Surgical History History of cataract extraction with lens replacement H/O coronary artery bypass surgery (11/02/09) H/O hernia repair H/O neck surgery History of lumbar surgery H/O colonoscopy History of appendectomy Social History Smoking Status: Former smoker how long ago did patient quit smokin alcohol intake: never substance use type: does not use caffeine: Yes Type: tea Number of servings: 10 ROS <Dr. Chas Esquivel, DO - Last Filed: 07/03/25 22:07> ROS ED Constitutional Constitutional ED: Denies chills or fever(s) Eyes Eyes: Denies blurry vision or change in vision ENT ENT ED: Denies rhinorrhea or sore throat Cardiovascular Cardiovascular: Reports chest pain; Denies palpitations Respiratory/Chest Respiratory/Chest: Denies cough or dyspnea Gastrointestinal Gastrointestinal: Reports abdominal pain and nausea; Denies melena or vomiting Genitourinary Genitourinary ED: Denies dysuria or hematuria Musculoskeletal Musculoskeletal: Reports back pain; Denies neck pain Integumentary Denies abscess or rash Neurologic Neurologic: Denies headache(s) or weakness Allergic/Immunologic Allergic/Immunologic ED: Denies mouth swelling or urticaria EXAM <Dr. Chas Esquivel DO - Last Filed: 07/03/25 22:07> Physical Exam Const Vital Signs: 07/03/25 05:35 07/03/25 08:29 07/03/25 10:53 Temperature 97.7 F L Temperature Source Oral Pulse Rate 81 80 89 Respiratory Rate 22 H 27 H 97 H Blood Pressure 180/74 H 150/74 H 160/76 H Blood Pressure Mean 109 99 104 Pulse Ox 97 94 97 Oxygen Delivery Method Room Air Room Air Room Air 07/03/25 11:04 Temperature 98.0 F Temperature Source Pulse Rate 89 Respiratory Rate 97 H Blood Pressure 160/76 H Blood Pressure Mean 104 Pulse Ox 97 Oxygen Delivery Method Positive well nourished and well developed General Appearance ED: well developed and NAD HEENT Reports moist mucous membranes Neck supple and no JVD Resp normal respiratory effort and clear to auscultation bilaterally Cardio regular rate and regular rhythm GI non-distended Palpation: soft and tender epigastric, LUQ and RUQ; Negative for guarding or rebound tenderness present Extremity full ROM Neuro CN's II-XII intact bilaterally, moves all extremities and no sensory deficits noted Sensorium / Orientation: alert Motor Exam: strength 5/5 throughout Psych mental status grossly normal and thought process normal <Adis Weinstein MD - Last Filed: 07/03/25 11:29> Physical Exam Const Vital Signs: 07/03/25 05:35 07/03/25 08:29 07/03/25 10:53 Temperature 97.7 F L Temperature Source Oral Pulse Rate 81 80 89 Respiratory Rate 22 H 27 H 97 H Blood Pressure 180/74 H 150/74 H 160/76 H Blood Pressure Mean 109 99 104 Pulse Ox 97 94 97 Oxygen Delivery Method Room Air Room Air Room Air 07/03/25 11:04 Temperature 98.0 F Temperature Source Pulse Rate 89 Respiratory Rate 97 H Blood Pressure 160/76 H Blood Pressure Mean 104 Pulse Ox 97 Oxygen Delivery Method MDM <Dr. Chas Esquivel DO - Last Filed: 07/03/25 22:07> MDM MDM Narrative Medical decision making narrative: Differential diagnosis includes but is not limited to gastritis, peptic ulcer disease, duodenal ulcer, pancreatitis, cholecystitis, cholelithiasis, colitis, and viral illness. CBC will be obtained to assess for leukocytosis and anemia. Comprehensive metabolic profile will be obtained to assess for hepatic function, renal function, and electrolyte abnormality. Lipase will be obtained to assess for pancreatitis. Urinalysis will be obtained to assess for urinary tract infection and hematuria. CT scan of the abdomen and pelvis will be obtained to assess for bowel obstruction, perforation, pancreatitis, and colitis. History & Record Review Additional record(s) reviewed:: Prior outpatient record, Prior ED visit and Prior labs Lab Data Attestation: I reviewed the patient's lab results. Lab results narrative: Comprehensive metabolic profile was reviewed. Bilirubin was elevated at 3.57, AST was elevated at 203, and ALT was elevated at 183. These are increased from yesterday. Lipase was reviewed and was normal at 46. Urinalysis was reviewed. Urine urobilinogen was elevated at 4. Urine bilirubin was slightly elevated at 1. Urine glucose was elevated at 1000. There is no evidence of urinary tract infection or hematuria. Labs: Laboratory Results - last 24 hr 07/03/25 07/03/25 06:15 06:48 WBC 16.9 H RBC 5.14 Hgb 13.6 Hct 41.5 MCV 80.7 MCH 26.5 L MCHC 32.8 RDW Std Deviation 40.9 RDW Coeff of [place] 14.0 Plt Count 155 MPV 10.1 Neut % (Auto) Not Reportable Absolute Neuts (auto) 14.4 H Absolute Lymphs (auto) 0.51 L Total Counted 100 Neutrophils % (Manual) 79 H Band Neutrophils % 6 H Lymphocytes % (Manual) 3 L Monocytes % (Manual) 11 H Metamyelocytes % 1 Differential Comment SCANNED Diff Path Review May foll Reactive Lymphocytes RARE Platelet Estimate ADEQUATE RBC Morphology NORM C+C Ovalocytes RARE Sodium 138 Potassium 4.1 Chloride 101 Carbon Dioxide 22.4 Anion Gap 14 BUN 13 Creatinine 0.98 Estim Creat Clear Calc 77.64 Est GFR (MDRD) Non-Af 83 BUN/Creatinine Ratio 13.7 Glucose 242 H Calcium 9.9 Total Bilirubin 3.57 H AST 203 H ALT 183 H Alkaline Phosphatase 66 Total Protein 7.1 Albumin 4.5 Globulin 2.6 Albumin/Globulin Ratio 1.8 Lipase 46 Urine Color Yellow Urine Clarity Clear Urine pH 5.0 Ur Specific [place] 1.020 Urine Protein 30 H Urine Glucose (UA) 1000 H Urine Ketones 5 H Urine Occult Blood 50 H Urine Nitrite Negative Urine Bilirubin 1 H Urine Urobilinogen 4 H Ur Leukocyte Esterase Negative Urine RBC 0 SEEN Urine WBC 0 SEEN Ur Squamous Epith Cells 0 SEEN Urine Bacteria 0 SEEN Urine Mucus 0 SEEN Radiography Diagnostic Testing: Clinical Impression(s) from Imaging Studies Abdomen/Pelvis CT 07/03/25 06:31 IMPRESSION: Gallbladder mildly distended with minimal stranding around it. Correlate clinically and with gallbladder ultrasound as needed to evaluate for very early gallbladder disease. Diverticulosis without diverticulitis. Enlarged prostate with probable bladder outlet obstruction Reading Location: [id number] Gallbladder Ultrasound 07/03/25 07:08 IMPRESSION: Mildly distended gallbladder with minimal adjacent perihepatic fluid. Gallbladder mildly painful with palpation. Suspect gallbladder disease and possibly very early cholecystitis. Reading Location: [facility] Additional Tests and Interventions Additional Tests or Interventions: Because of the increase and bilirubin, AST, and ALT, right upper quadrant ultrasound will be obtained. Treatment and Re-Evaluation :: Patient was given IV fluids, morphine, and Reglan. Care of the patient will be turned over to the oncoming physician pending lab results. <Adis Weinstein MD - Last Filed: 07/03/25 11:29> [facility] Lab Data Labs: Laboratory Results - last 24 hr 07/03/25 07/03/25 06:15 06:48 WBC 16.9 H RBC 5.14 Hgb 13.6 Hct 41.5 MCV 80.7 MCH 26.5 L MCHC 32.8 RDW Std Deviation 40.9 RDW Coeff of [place] 14.0 Plt Count 155 MPV 10.1 Neut % (Auto) Not Reportable Absolute Neuts (auto) 14.4 H Absolute Lymphs (auto) 0.51 L Total Counted 100 Neutrophils % (Manual) 79 H Band Neutrophils % 6 H Lymphocytes % (Manual) 3 L Monocytes % (Manual) 11 H Metamyelocytes % 1 Differential Comment SCANNED Diff Path Review May foll Reactive Lymphocytes RARE Platelet Estimate ADEQUATE RBC Morphology NORM C+C Ovalocytes RARE Sodium 138 Potassium 4.1 Chloride 101 Carbon Dioxide 22.4 Anion Gap 14 BUN 13 Creatinine 0.98 Estim Creat Clear Calc 77.64 Est GFR (MDRD) Non-Af 83 BUN/Creatinine Ratio 13.7 Glucose 242 H Calcium 9.9 Total Bilirubin 3.57 H AST 203 H ALT 183 H Alkaline Phosphatase 66 Total Protein 7.1 Albumin 4.5 Globulin 2.6 Albumin/Globulin Ratio 1.8 Lipase 46 Urine Color Yellow Urine Clarity Clear Urine pH 5.0 Ur Specific [place] 1.020 Urine Protein 30 H Urine Glucose (UA) 1000 H Urine Ketones 5 H Urine Occult Blood 50 H Urine Nitrite Negative Urine Bilirubin 1 H Urine Urobilinogen 4 H Ur Leukocyte Esterase Negative Urine RBC 0 SEEN Urine WBC 0 SEEN Ur Squamous Epith Cells 0 SEEN Urine Bacteria 0 SEEN Urine Mucus 0 SEEN Radiography Diagnostic Testing: Clinical Impression(s) from Imaging Studies Abdomen/Pelvis CT 07/03/25 06:31 IMPRESSION: Gallbladder mildly distended with minimal stranding around it. Correlate clinically and with gallbladder ultrasound as needed to evaluate for very early gallbladder disease. Diverticulosis without diverticulitis. Enlarged prostate with probable bladder outlet obstruction Reading Location: [facility] Gallbladder Ultrasound 07/03/25 07:08 IMPRESSION: Mildly distended gallbladder with minimal adjacent perihepatic fluid. Gallbladder mildly painful with palpation. Suspect gallbladder disease and possibly very early cholecystitis. Reading Location: [id number] Management Discussion w/another healthcare provider: Hospitalist (Dr. Rosales) and Court Deputy (Dr. Shaffer, general surgery) Treatment and Re-Evaluation :: Patient was given IV fluids, morphine, and Reglan. Care of the patient will be turned over to the oncoming physician pending lab results. Dr. Weinstein: Patient was endorsed to me by the overnight physician, Dr. Eqsuivel with ultrasound pending. I reviewed his laboratory work and he does have transaminitis and hyperbilirubinemia. I reviewed the radiology report of the ultrasound as well as the CT scan. The gallbladder is distended. On the ultrasound, there is a mildly distended gallbladder with perihepatic fluid. There is suspected gallbladder disease versus acute early cholecystitis. Given the increase in the patient's white count, and transaminitis with hyperbilirubinemia, concern is for acute cholecystitis. Patient was started on Zosyn intravenously. Repeat examination shows return of his pain and tenderness in the right upper quadrant. He was administered an additional dose of morphine 4 mg intravenously. I discussed the patient with Dr. Shaffer with general surgery. He states that the patient would most likely need an MRCP and possibly ERCP. There is no sausage linker listed at available or currently on-call. He suggested transfer. I did discuss the patient with the [facility] Transfer line and Dr. Nguyen. Given limited bed availability, they suggested that patient be admitted here for MRCP. As it is a weekend, availability of MRCP was questionable. I rediscussed patient with Dr. Shaffer who consented to admission to medicine with consult. Of note, I was able to order an MRCP from the emergency department. I then discussed the patient with the hospitalist, Dr. John Rosales. It was learned, that Dr. Lizama with gastroenterology is available this weekend in the event that he would need ERCP. Disposition is admit in stable condition. Discharge Plan Dx/Rx/DC Orders Clinical Impression: Abdominal pain, Hyperbilirubinemia, Transaminitis, Acute cholecystitis Disposition Disposition: Acute Care Hospital [facility] Discharge Date/Time: 07/03/25 11:48
--- OUTSIDE RECORDS SUMMARY | 2025-07-03 05:59 | XMS RPT_ITS | CCD ---
Author Organization [facility]iniSyva Care Team Providers Care Director Of State Name Role Phone CHAPARRO CROWDER Unavailable Unavailable CHAPARRO CROWDER Unavailable Unavailable NO REFERRING Unavailable Unavailable DANIELA BRADY Unavailable Unavailable DANIELA BRADY Unavailable Unavailable DANIELA BARDY Unavailable Unavailable CODY CONTRERAS MD Primary Care Physician Cody Contreras MD Primary Care Provider Dr. Cody Contreras Primary Care Provider Alayna APPLICATIONS TESTER, APPLICATIONS TESTER-C Raffi Miller Referring Provider Alayna APPLICATIONS TESTER, APPLICATIONS TESTER-C Raffi Miller Other Provider Dr. Chetan Malave Attending Provider [phone] Cody Contreras MD Primary Care Provider Cody Contreras MD Primary Care Provider [phone] Cody Contreras MD Primary Care Provider [phone] CODY CONTRERAS MD Primary Care Unavailable CODY CONTRERAS MD Attending Unavailable CODY CONTRERAS MD Primary Care Unavailable CODY CONTRERAS MD Attending Unavailable CODY CONTRERAS MD Primary Care Unavailable CODY CONTRERAS MD Attending Unavailable CODY CONTRERAS MD Primary Care Unavailable [facility] GARDUNO MD Attending Unavail able CODY CONTRERAS Primary Care Unavailable JOHANNE CHAPMAN Attending Unavailable Dr. Cody Contreras MD Primary Care Physician [phone] Dr. Cody Contreras MD Referring Provider Alayna APPLICATIONS TESTER-CRaffi Attending Physician Cody Contreras Referring Unavailable Cody Contreras Primary Care Unavailable Raffi Catalan NP Attending Unavailable CODY CONTRERAS MD Primary Care Unavailable CODY CONTRERAS MD Attending Unavailable CODY CONTRERAS MD Attending Unavailable CODY CONTRERAS MD Primary Care Unavailable CODY CONTRERAS MD Primary Care Unavailable CODY CONTRERAS MD Attending Unavailable CODY CONTRERAS MD Primary Care Unavailable CODY CONTRERAS MD Attending Unavailable Allergies Allergy Classification Reported Allergen(s) Allergy Type Date of Onset Reaction(s) Facility Acetaminophen / oxyCODONE (1 source) Acetaminophen / oxyCODONE; Translations: [acetaminophen-ox ycodone] Drug Allergy [facility] NSAIDs (3 sources) Naproxen; Translations: [naproxen] Drug Allergy Naproxen (substance) [facility] (1 source) acetaminophen / oxyCODONE; Translations: [PERCOCET] Drug Allergy [facility] Repository (11 sources) celecoxib; Translations: [CELEBREX] Drug Allergy [facility] Repository (1 source) Mushroom (edible); Translations: [MUSHROOMS] Propensity to adverse reactions (disorder) [facility] Repository (20 sources) naproxen; Translations: [NAPROXEN] Drug Allergy 0 Rash [facility] Repository (1 source) [id number] REDU; Translations: [[id number] REDU] Propensity to adverse reactions (disorder) [facility] Repository (10 sources) Acetaminophen / oxyCODONE; Translations: [acetaminophen-ox ycodone] Drug Allergy [facility] (18 sources) celecoxib; Translations: [celecoxib] Drug Allergy 0 Naproxen (substance), Shortness of Breath [facility] (6 sources) HMG-CoA reductase inhibitor; Translations: [[id number] REDUCTASE INHIBITORS] Propensity to adverse reactions 0 [facility] (3 sources) mushrooms [Other] Propensity to adverse reactions 0 Swelling [facility] (2 sources) cultivated mushroom extract Drug Allergy 2 swelling [facility] Comment on above: [place] (2 sources) Kxxnorg-Anb-Etb Reductase Inhibitor Allergy to substance 1 leg cramps [facility] (1 source) OTHER; Translations: [OTHER] Propensity to adverse reactions (disorder) 0 [facility] Repository (1 source) celecoxib Drug Allergy 5 [facility] Repository (1 source) Mushroom (edible) Drug allergy (disorder) 5 [facility] Repository (1 source) Zzktlmt-Ihp-Pmy Reductase Inhibitor Drug allergy (disorder) 5 [facility] Repository Medications Current Medications Medication Drug Class(es) Dates Sig (Normalized) Sig (Original) amLODIPine 5 mg oral tablet (20 sources) Dihydropyridine Calcium Channel Davey Start: 03-19-2025 End: 06-12-2026 amLODIPine 5 mg oral tablet Dose : 5 mg = 1 tab(s), Oral, qDay, # 90 tab(s), 3 Refill(s), Pharmacy: [facility], 174.5, cm, 06/17/25 8:57:00 EDT, Height, kg, 06/17/25 8:57:00 EDT, Dosing Weight Start Date: 06/17/25 Stop Date: 06/12/26 Status: Ordered Medication Dispense Status: Completed Quantity: 90.0 Unit: tab(s) Total Allowed Fills: 4 Fills Dispensed: 0 Start: 06-10-2020 End: 05-31-2025 take 1 tablet [...] tablet by beatrice th once daily. Aspirin (18 sources) Platelet Aggregation Inhibitor, Nonsteroidal Anti-inflammatory Drug [...] 12:00am Complies with drug therapy Fish Oils (11 sources) Start: 05-18-2019 Fish Oil 1000 mg [...] mg oral tablet (20 sources) Sulfonylurea Start: 06-17-2025 glimepiride 4 mg oral tablet Dose : 4 mg = 1 tab(s), Oral, qDay, # 90 tab(s), 3 Refill(s), Pharmacy: [facility], 174.5, cm, 06/17/25 8:57:00 EDT, Height, kg, 06/17/25 8:57:00 EDT, Dosing Weight Start Date: 06/17/25 Status: Ordered Medication Dispense Status: Completed Quantity: 90.0 Unit: tab(s) Total Allowed Fills: 4 Fills Dispensed: 0 Start: 09-22-2024 glimepiride 2 mg oral tablet [...] mellitus without complications; Atherosclerotic heart disease of [place] coronary artery without angina pectoris; Start: 02-02-2022 End: 05-31-2025 glimepiride 4 mg oral tablet Dose : 4 mg = 1 tab(s), Oral, qDay, # 90 tab(s), 0 Refill(s), Pharmacy: [facility], 174.5, cm, 03/17/25 9:27:00 EDT, Height, [...] needed. losartan potassium 50 mg oral tablet (20 sources) Angiotensin 2 Receptor Davey Start: 08-04-2024 End: 06-12-2026 losartan 50 mg oral tablet Dose : 50 mg = 1 tab(s), Oral, BID, # 180 tab(s), 3 Refill(s), Pharmacy: [facility], 174.5, cm, 06/17/25 8:57:00 EDT, Height, kg, 06/17/25 8:57:00 EDT, Dosing Weight Start Date: 06/17/25 Stop Date: 06/12/26 Status: Ordered Medication Dispense Status: Completed Quantity: 180.0 Unit: tab(s) Total Allowed Fills: 4 Fills Dispensed: 0 Start: 03-11-2023 End: 09-10-2023 take 1 tablet by mouth once daily Losartan 50 mg tablet Discontinued 50 mg PO DAILY 90 September 04, 2023 12:19pm September 10, 2023 5:09pm Start: 06-05-2021 End: 03-11-2023 take 1 tablet by mouth once daily Losartan 25 mg tablet Discontinued 25 mg PO DAILY 30 May 29, 2022 10:50am March 11, 2023 11:44am meloxicam 15 mg oral tablet (3 sources) Nonsteroidal Anti-inflammatory Drug Start: 11-02-2022 meloxicam 15 mg o ral tablet Dose : 15 mg = 1 tab(s), Oral, qDay, Take with food/milk, # 90 tab(s), 1 Refill(s), [facility]acy: [facility] ([facility] ), HTN (hypertension) Diabetes mellitus type 2, 174.5, cm, 09/12/22 7:55:00 EST, Height, kg, 09/12/22 7:55:00 EST... Start Date: 11/02/22 Status: Ordered Start: 06-13-2022 meloxicam 15 m g oral tablet Dose : 15 mg = 1 tab(s), Oral, qDay, Take with food/milk, # 90 tab(s), 3 Refill(s), Pharmacy: [facility], HTN (hypertension) Diabetes mellitus type 2, 174.5, cm, 06/13/22 8:01:00 EDT, Height Start Date: 06/13/22 Status: Ordered 24 hr metFORMIN hydrochlorid e 750 mg extended release oral tablet (20 sources) Biguanide Start: 06-17-2025 End: 01-03-2026 metFORMIN 750 mg oral tablet EXTENDED RELEASE Dose : 750 mg = 1 tab(s), Oral, BID, # 200 tab(s), 1 Refill(s), Pharmacy: [facility], 174.5, cm, 06/17/25 8:57:00 EDT, Height, kg, 06/17/25 8:57:00 EDT, Dosing Weight Start Date: 06/17/25 Stop Date: 01/03/26 Status: Ordered Medication Dispense Status: Completed Quantity: 200.0 Unit: tab(s) Total Allowed Fills: 2 Fills Dispensed: 0 Start: 09-22-2024 End: 04-10-2025 metFORMIN 750 mg oral tablet EXTENDED RELEASE [...] meals. metoprolol tartrate 50 mg oral tablet (18 sources) beta-Adrenergic Davey Start: 06-17-2025 Metoprolol Succinate ER 50 mg oral TABLET extended release Dose : 50 mg = 1 tab(s), Oral, qDay, # 90 tab(s), 3 Refill(s), Pharmacy: [facility], 174.5, cm, 06/17/25 8:57:00 EDT, Height, kg, 06/17/25 8:57:00 EDT, Dosing Weight Start Date: 06/17/25 Status: Ordered Medication Dispense Status: Completed Quantity: 90.0 Unit: tab(s) Total Allowed Fills: 4 Fills Dispensed: 0 Start: 07-17-2024 End: 07-31-2024 Metoprolol Succinate ER 50 m g oral [...] qDay, # 30 tab(s), 11 Refill(s), Pharmacy: [facility], 174.3, cm, 05/29/21 7:49:00 EDT, Height, kg, 05/29/21 7:49:00 EDT, Dosing Weight Start Date: 08/25/21 Status: Ordered Start: 10-26-2013 take 1 tablet by beatrice th once daily Metoprolol Succinate 50 mg tablet extended release 24 hr Active 50 mg PO DAILY June 05, 2019 12:00am Complies with drug therapy Comment on above: Take 1 tablet by beatrice th once daily. nitroglycerin 0.4 mg sublingual tablet (18 sources) Nitrate Vasodilator Start: 06-05-2019 Nitroglycerin 0.4 mg tablet, sublingual Active 0.4 mg [...] pain, # 25 tab(s), 0 Refill(s), Pharmacy: [facility], 174.5, cm, 06/13/22 8:01:00 EDT, Height Start Date: 06/14/22 Status: Ordered Medication Dispense Status: Completed Quantity: 25.0 Unit: tab(s) Total Allowed Fills: 1 Fills Dispensed: 0 Comment on above: Dissolve 1 tablet un elvira the tongue as needed. FOR CHEST PAIN. IF NO RELIEF CALL 911 [place]-3 Fatty Acids (2 sources) Start: 06-05-2019 take 1 capsule by mouth once daily [place]-3 Fatty Acids 1,250 mg capsule Active 1250 mg PO DAILY June 05, 2019 12:00am Complies with drug therapy Start: 06-05-2019 take 1 capsule by mo ut once daily omega-3 fatty acids 1,250 mg capsule Active 1250 MG PO DAILY June 05, 2019 12:00am [place]-3 Fatty Acids, FISH OIL, 360-1,200 mg cap (4 sources) take 1 capsule by mo ut once daily at breakfast [place]-3 Fatty Acids, FISH OIL, 360-1,200 mg cap Take 1 capsule by mouth daily with breakfast. Active take 1 capsule by mo ut once daily at breakfast [place]-3 Fatty Acids, FISH OIL, 360-1,200 mg cap Take 1 capsule by mouth daily with breakfast. 0 Active Comment on above: Take 1 capsule by [facility] daily with breakfast. omeprazole 20 mg delayed release oral capsule (18 sources) Proton Pump Inhibitor Start: 06-05-2019 End: 06-12-2026 omeprazole 20 mg oral delayed release capsule Dose : 20 mg = 1 cap(s), Oral, qDay, # 90 cap(s), 3 Refill(s), Pharmacy: [facility], 174.5, cm, 06/17/25 8:57:00 EDT, Height, kg, 06/17/25 8:57:00 EDT, Dosing Weight Start Date: 06/17/25 Stop Date: 06/12/26 Status: Ordered Medication Dispense Status: Completed Quantity: [...] daily. rosuvastatin calcium 20 mg oral tablet (18 sources) HMG-CoA Reductase Inhibitor Start: 10-26-2013 Crestor 20 mg oral tablet Dose : 20 mg = 1 tab(s), Oral, Daily, # 90 tab(s), 3 Refill(s), Pharmacy: [facility], 174.5, cm, 06/17/25 8:57:00 EDT, Height, kg, 06/17/25 8:57:00 EDT, Dosing Weight Start Date: 06/17/25 Status: Ordered Medication Dispense Status: Completed Quantity: [...] Agonist Start: 06-05-2019 End: 06-10-2019 Hydrocodone-Acetami nophen (Beatrice) 5-325 mg tablet Discontinued 1 {tbl} PO [...] oral tablet (1 source) Muscle Relaxant Start: 020 take 1 tablet by mouth every eight hours as needed cyclobenzaprine (FLEXERIL) 10 mg tablet Take 1 tablet by mouth three times daily as needed for Muscle Spasm. 15 tablet 0 02/23/2020 Active Comment on above: Take 1 tablet by beatrice three times daily as needed for Muscle Spasm. docusate sodium 100 mg oral capsule (20 sources) Start: 022 End: 025 take 1 capsule by mouth [...] above: Take 1 capsule by mo uth once daily. linseed oil 1000 mg oral capsule (2 sources) Start: 9 End: 9 take 1 capsule by mouth once daily Flaxseed Oil 1,000 mg capsule Discontinued 1000 mg PO DAILY June 05, 2019 12:00am June 10, 2019 1:56pm [place]-3 Fatty Acids, FISH OIL, (FISH OIL) 360-1,200 mg cap (1 source) take 1 capsule by mouth once daily at breakfast [place]-3 Fatty Acids, FISH OIL, (FISH OIL) 360-1,200 mg cap Take 1 capsule by mouth daily with breakfast. 0 Active Comment on above: Take 1 capsule by mo [facility] daily with breakfast. Psyllium Seed-Sucrose (METAMUCIL) powd [...] 2019 1:56pm take 1 tablet by beatrice every six hours as needed tiZANidine (ZANAFLEX) [...] [Encounter for other administrative examinations] 06-16-2020 Episodic Coagulation and hemorrhagic disorders (1 source) Thrombocytopenic disorder 06-17-2025 Chronic Coronary atherosclerosis and other heart disease (20 sources) Coronary atherosclerosis; Translations: [Coronary arteriosclerosis] Onset: 11-02-2009 11-28-2021 Chronic Deficiency and other anemia (1 source) Anemia 06-17-2025 Episodic Diabetes mellitus without complication (18 sources) Type 2 diabetes mellitus; Translations: [Type 2 diabetes mellitus without complications] Onset: 09-19-2023 05-18-2019 Chronic Disorders of lipid metabolism (20 sources) Hypercholesterolemia; Translations: [Mixed hyperlipidemia] Onset: 11-03-2009 10-26-2014 Chronic Esophageal disorders (13 sources) Gastroesophageal reflux disease; Translations: [Gastro-esophageal reflux disease without esophagitis] Onset: 09-19-2023 11-28-2021 Chronic Essential hypertension (20 sources) Hypertensive disorder; Translations: [Essential (primary) hypertension] Onset: 11-03-2009 10-26-2014 Chronic Other circulatory disease (11 sources) Carotid bruit 05-18-2019 Episodic Other injuries and conditions due to external causes (11 sources) Multiple bruising 01-13-2018 Episodic Other non-traumatic [...] of colon] 02-05-2023 Episodic Residual codes; unclassified (11 sources) Sleep apnea 10-26-2014 Chronic Residual codes; unclassified (14 sources) Obstructive sleep apnea syndrome; Translations: [Obstructive sleep apnea (adult) (pediatric)] Onset: 04-30-2012 02-01-2021 Chronic Residual codes; unclassified (11 sources) H/O Spinal surgery 10-26-2014 Episodic Spondylosis; intervertebral disc disorders; other back problems (2 sources) Other cervical disc degeneration, unspecified cervical region; Translations: [OTH CERV DISC DEGENERATI] Onset: 07-27-2015 Chronic Spondylosis; intervertebral disc disorders; other back problems (20 sources) Spinal stenosis, cervical region; Translations: [Cervical radiculitis] Onset: 12-21-2011 05-18-2019 Episodic Unclassified (10 sources) Non-smoker 06-13-2022 Unclassified (10 sources) Vaccination needed 06-13-2022 Unclassified (5 sources) [...] Test Name Value Interpretation Reference Range Facility LABORATORYOrdered By: SYSTEM SYSTEM on 07-02-2025 Basophils (Bld) [#/Vol] 0.0 103/mcL Normal 0.0 - 0.3 10^3/mcL AO Workflow SS Basophils/100 WBC (Bld) 0.7 % Normal 0.0 - 2.5 % AO Workflow SS CRP [Mass/Vol] 0.1 mg/dL Normal 0.0 - 0.3 mg/dL AO ADM SS Eosinophil, Absolute 0.1 103/mcL Normal 0.0 - 0 .7 10^3/mcL AO Workflow SS Eosinophils/100 WBC (Bld) 1.0 % Normal 0.0 - 6.0 % AO Workflow SS Erythrocyte distribution width (RBC) [Ratio] 15.0 % Normal 11.5 - 15.5 % AO Workflow SS Ferritin [Mass/Vol] 28.0 ng/mL Normal 26.0 - 3 88.0 ng/mL AO ADM SS Hematocrit (Bld) [Volume fraction] 40.6 % Normal 40.0 - 52.0 % AO Workflow SS Hemoglobin (Bld) [Mass/Vol] 13.2 G/dL Normal 13.0 - 17.5 G/dL AO Workflow SS Immature reticulocytes/Total reticulocytes (Bld) 0.50 IRF High 0.21 - 0.43 IRF AO Workflow SS Iron [Mass/Vol] 109 ug/dL Normal 65 - 175 mcg/dL AO ADM SS Lymphocytes (Bld) [#/Vol] 1.2 103/mcL Normal 0.9 - 4.3 10^3/mcL AO Workflow SS Lymphocytes/100 WBC (Bld) 18.9 % Low 20.0 - 40.0 % AO Workflow SS MCH (RBC) [Entitic mass] 26.5 pg Low 27.0 - 33.0 pg AO Workflow SS MCHC 32.6 G/dL Normal 32.0 - 36.0 G/dL AO Workflow SS MCV (RBC) [Entitic vol] 81.3 fL Normal 81.0 - 100.0 fL AO Workflow SS Monocytes (Bld) [#/Vol] 0.5 103/mcL Normal 0.1 - 1.4 10^3/mcL AO Workflow SS Monocytes/100 WBC (Bld) 8.4 % Normal 2.0 - 13.0 % AO Workflow SS Neutrophils (Bld) [#/Vol] 4.6 103/mcL Normal 2.3 - 8.1 10^3/mcL AO Workflow SS Neutrophils/100 WBC (Bld) 71.0 % Normal 50.0 - 75.0 % AO Workflow SS Platelet mean volume (Bld) [Entitic vol] 8.7 fL Normal 6.4 - 10.5 fL AO Workflow SS Platelets (Bld) [#/Vol] 162 103/mcL Normal 150 - 450 10^3/mcL AO Workflow SS RBC (Bld) [#/Vol] 5.00 106/mcL Normal 4.50 - 6.0 0 10^6/mcL AO Workflow SS Reticulocytes, Auto 1.2 % Normal 0.2 - 2.3 % AO W orkflow SS WBC (Bld) [#/Vol] 6.5 103/mcL Normal 4.5 - 10.8 10^3/mcL AO Workflow SS LABORATORYOrdered By: Faviola Christianson on 07-02-2025 ESR 15 minute reading (Bld) [Velocity] 6 mm/hr Normal 0 - 20 mm/hr AH Auto Heme SS .Auto Diffon 06-16-2025 Basophil, Absolute 0.0 10 3/mcL Normal 0.0-0.3 [facility] Comment on above: Performed By: #### A CATHIE, GFR, LIPID, CMP, A1C, PSA, CBC, ADIFF, VIDH #### [address] [address] Basophils/100 WBC (Bld) 0.9 % Normal 0.0-2.5 [facility] Comment on above: Performed By: #### A CATHIE, GFR, LIPID, CMP, A1C, PSA, CBC, ADIFF, VIDH #### [address] [address] Eosinophil, Absolute 0.1 10 3/mcL Normal 0.0-0.7 [facility] Comment on above: Performed By: #### A CATHIE, GFR, LIPID, CMP, A1C, PSA, CBC, ADIFF, VIDH #### [address] [address] Eosinophils/100 WBC (Bld) 1.8 % Normal 0.0-6.0 [facility] Comment on above: Performed By: #### A CATHIE, GFR, LIPID, CMP, A1C, PSA, CBC, ADIFF, VIDH #### [address] [address] Lymphocyte, Absolute 1.3 10 3/mcL Normal 0.9-4.3 [facility] Comment on above: Performed By: #### A CATHIE, GFR, LIPID, CMP, A1C, PSA, CBC, ADIFF, VIDH #### [address] [address] Lymphocytes/100 WBC (Bld) 29.8 % Normal 20.0-40.0 [facility] Comment on above: Performed By: #### A CATHIE, GFR, LIPID, CMP, A1C, PSA, CBC, ADIFF, VIDH #### [address] [address] Monocyte, Absolute 0.4 10 3/mcL Normal 0.1-1.4 [facility] Comment on above: Performed By: #### A CATHIE, GFR, LIPID, CMP, A1C, PSA, CBC, ADIFF, VIDH #### [address] [address] Monocytes/100 WBC (Bld) 9.9 % Normal 2.0-13.0 [facility] Comment on above: Performed By: #### A CATHIE, GFR, LIPID, CMP, A1C, PSA, CBC, ADIFF, VIDH #### [address] [address] Neutrophils/100 WBC (Bld) 57.6 % Normal 50.0-75.0 [facility] Comment on above: Performed By: #### A CATHIE, GFR, LIPID, CMP, A1C, PSA, CBC, ADIFF, VIDH #### [address] [address] .GFRon 06-16-2025 Estimated Glomerular Filtration Rate 95 ml/min/1.73sqm Normal [facility] Comment on above: Result Comment: Stages of [...] CMP, A1C, PSA, CBC, ADIFF, VIDH #### [address] [address] .NEUABSon 06-16-2025 Neutrophil, Absolute 2.5 10 3/mcL Normal 2.3-8.1 [facility] Comment on above: Performed By: #### A CATHIE, GFR, LIPID, CMP, A1C, PSA, CBC, ADIFF, VIDH #### [address] [address] A1Con 06-16-2025 Glucose [Mass/Vol] 169 mg/dL Normal [facility] Comment on above: Result Comment: Caitlin mated Average Glucose calculated by equation ((28.7xA1C)-46.7) Estimated average glucose (eAG) is a calculated value from Hemoglobin A1C and 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 average blood glucose level in the last 2-3 month period. Normal range: less than 114 mg/dL Performed By: #### A CATHIE, GFR, LIPID, CMP, A1C, PSA, CBC, ADIFF, VIDH #### [place] [id number] HbA1c (Bld) [Mass fraction] 7.5 % High 4.3-6.4 [facility] Comment on above: Performed By: #### A CATHIE, GFR, LIPID, CMP, A1C, PSA, CBC, ADIFF, VIDH #### [address] [address] CBCon 06-16-2025 Erythrocyte distribution width (RBC) [Ratio] 14.6 % Normal 11.5-15.5 [facility] Comment on above: Performed By: #### A CATHIE, GFR, LIPID, CMP, A1C, PSA, CBC, ADIFF, VIDH #### [address] [address] Hematocrit (Bld) [Volume fraction] 36.4 % Low 40.0-52.0 [facility] Comment on above: Performed By: #### A CATHIE, GFR, LIPID, CMP, A1C, PSA, CBC, ADIFF, VIDH #### [address] [address] Hgb 12.1 G/dL Low 13.0-17.5 [facility] Comment on above: Performed By: #### A CATHIE, GFR, LIPID, CMP, A1C, PSA, CBC, ADIFF, VIDH #### [place] [address] MCH (RBC) [Entitic mass] 26.9 pg Low 27.0-33.0 [facility] Comment on above: Performed By: #### A CATHIE, GFR, LIPID, CMP, A1C, PSA, CBC, ADIFF, VIDH #### [place] [address] MCHC 33.2 G/dL Normal 32.0-36.0 [facility] Comment on above: Performed By: #### A CATHIE, GFR, LIPID, CMP, A1C, PSA, CBC, ADIFF, VIDH #### [place] [address] MCV (RBC) [Entitic vol] 81.1 fL Normal 81.0-100.0 [facility] Comment on above: Performed By: #### A CATHIE, GFR, LIPID, CMP, A1C, PSA, CBC, ADIFF, VIDH #### [place] [address] Platelet 131 10 3/mcL Low 150-450 [facility] Comment on above: Performed By: #### A CATHIE, GFR, LIPID, CMP, A1C, PSA, CBC, ADIFF, VIDH #### [address] [address] Platelet mean volume (Bld) [Entitic vol] 9.0 fL Normal 6.4-10.5 [facility] Comment on above: Performed By: #### A CATHIE, GFR, LIPID, CMP, A1C, PSA, CBC, ADIFF, VIDH #### [place] [address] RBC 4.49 10 6/mcL Low 4.50-6.00 [facility] Comment on above: Performed By: #### A CATHIE, GFR, LIPID, CMP, A1C, PSA, CBC, ADIFF, VIDH #### [address] [address] WBC 4.3 10 3/mcL Low 4.5-10.8 [facility] Comment on above: Performed By: #### A CATHIE, GFR, LIPID, CMP, A1C, PSA, CBC, ADIFF, VIDH #### [address] [address] CMPon 06-16-2025 Albumin Level 3.8 G/dL Normal 3.4-4.8 [facility] Comment on above: Performed By: #### A CATHIE, GFR, LIPID, CMP, A1C, PSA, CBC, ADIFF, VIDH #### [address] [address] Albumin/Globulin [Mass ratio] 1.3 {ratio} Normal 1.1-2.5 [facility] Comment on above: Performed By: #### A CATHIE, GFR, LIPID, CMP, A1C, PSA, CBC, ADIFF, VIDH #### [address] [address] ALP [Catalytic activity/Vol] 45 U/L Normal 40-135 [facility] Comment on above: Performed By: #### A CATHIE, GFR, LIPID, CMP, A1C, PSA, CBC, ADIFF, VIDH #### [address] [address] ALT [Catalytic activity/Vol] 31 U/L Normal 16-63 [facility] Comment on above: Performed By: #### A CATHIE, GFR, LIPID, CMP, A1C, PSA, CBC, ADIFF, VIDH #### [address] [address] AST [Catalytic activity/Vol] 11 U/L Normal 10-40 [facility] Comment on above: Performed By: #### A CATHIE, GFR, LIPID, CMP, A1C, PSA, CBC, ADIFF, VIDH #### [address] [address] Bili Total 0.3 mg/dL Normal 0.2-1.0 [facility] Comment on above: Result Comment: Use of this assay is not recommended for patients undergoing treatment with eltrombopag due to the potential for falsely elevated results. Performed By: #### A CATHIE, GFR, LIPID, CMP, A1C, PSA, CBC, ADIFF, VIDH #### [address] [address] BUN/Creatinine Ratio 15 ratio Normal 7-27 [facility] Comment on above: Performed By: #### A CATHIE, GFR, LIPID, CMP, A1C, PSA, CBC, ADIFF, VIDH #### [place] [id number] Calcium [Mass/Vol] 9.4 mg/dL Normal 8.4-10.[address] [facility] Comment on above: Performed By: #### A CATHIE, GFR, LIPID, CMP, A1C, PSA, CBC, ADIFF, VIDH #### [address] [address] Chloride [Moles/Vol] 106 mmol/L Normal 98-107 [facility] Comment on above: Performed By: #### A CATHIE, GFR, LIPID, CMP, A1C, PSA, CBC, ADIFF, VIDH #### [address] [address] CO2 [Moles/Vol] 27 mmol/L Normal 23-31 [facility] Comment on above: Performed By: #### A CATHIE, GFR, LIPID, CMP, A1C, PSA, CBC, ADIFF, VIDH #### [address] [address] Creatinine [Mass/Vol] 0.79 mg/dL Normal 0.67-1.17 [facility] Comment on above: Performed By: #### A CATHIE, GFR, LIPID, CMP, A1C, PSA, CBC, ADIFF, VIDH #### [address] [address] Electrolyte Balance 9.0 mEq/L Normal 4.0-15.0 [facility] Comment on above: Performed By: #### A CATHEI, GFR, LIPID, CMP, A1C, PSA, CBC, ADIFF, VIDH #### [address] [address] Globulin 3.0 G/dL Normal 2.7-4.4 [facility] Comment on above: Performed By: #### A CATHIE, GFR, LIPID, CMP, A1C, PSA, CBC, ADIFF, VIDH #### [address] [address] Glucose [Mass/Vol] 147 mg/dL High 83-[address] [facility] Comment on above: Performed By: #### A CATHIE, GFR, LIPID, CMP, A1C, PSA, CBC, ADIFF, VIDH #### [address] [address] Potassium [Moles/Vol] 4.3 mmol/L Normal 3.5-5.1 [facility] Comment on above: Performed By: #### A CATHIE, GFR, LIPID, CMP, A1C, PSA, CBC, ADIFF, VIDH #### [address] [address] Sodium [Moles/Vol] 142 mmol/L Normal 136-[address] [facility] Comment on above: Performed By: #### A CATHIE, GFR, LIPID, CMP, A1C, PSA, CBC, ADIFF, VIDH #### [address] [address] Total Protein 6.8 G/dL Normal 6.4-8.2 [facility] Comment on above: Performed By: #### A CATHIE, GFR, LIPID, CMP, A1C, PSA, CBC, ADIFF, VIDH #### [address] [address] Urea nitrogen [Mass/Vol] 12 mg/dL Normal 7-18 [facility] Comment on above: Performed By: #### A CATHIE, GFR, LIPID, CMP, A1C, PSA, CBC, ADIFF, VIDH #### [id number] [place], [place] [address] LABORATORYOrdered By: SYSTEM SYSTEM on 06-16-2025 25-hydroxyvitamin [...] calculated value from Hemoglobin A1C and 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 average blood glucose level [...] 06-16-2025 Cholesterol [Mass/Vol] 130 mg/dL Normal 0-200 [facility] Comment on above: Result Comment: Chol esterol Reference Interval: Less than 200 Desirable 200-239 Borderline high risk 240 and above High risk Performed By: #### A CATHIE, GFR, LIPID, CMP, A1C, PSA, CBC, ADIFF, VIDH #### [address] [address] Cholesterol in HDL [Mass/Vol] 45 mg/dL Normal 40-60 [facility] Comment on above: Performed By: #### A CATHIE, GFR, LIPID, CMP, A1C, PSA, CBC, ADIFF, VIDH #### [address] [address] Cholesterol in LDL [Mass/Vol] 56 mg/dL Normal 0-130 [facility] Comment on above: Performed By: #### A CATHIE, GFR, LIPID, CMP, A1C, PSA, CBC, ADIFF, VIDH #### [address] [address] Triglyceride [Mass/Vol] 146 mg/dL Normal 0-150 [facility] Comment on above: Result Comment: Trig lyceride Reference Interval: Less than 150 Normal 150-199 Borderline high risk 200-499 High risk 500 or higher Very high risk Performed By: #### A CATHIE, GFR, LIPID, CMP, A1C, PSA, CBC, ADIFF, VIDH #### [address] [address] PSAon 06-16-2025 Prostate Specific Antigen 2.92 ng/mL Normal 0.00-4.00 [facility] Comment on above: Performed By: #### A CATHIE, GFR, LIPID, CMP, A1C, PSA, CBC, ADIFF, VIDH #### [place] [address] [place], [place] [address] VIDHon 06-16-2025 Vit. D 25-Hydroxy 21.6 ng/mL Normal [facility] Comment on above: Result Comment: Inte rpretive Values Based on Total 25(OH) Vitamin D: Deficient <20 ng/mL Insufficient 20 - <30 ng/mL Sufficient 30-100 ng/mL Performed By: #### A CATHIE, GFR, LIPID, CMP, A1C, PSA, CBC, ADIFF, VIDH #### [phone] [place], [place] [address] Cardiology Visit Reporton Cardiology Visit Report [facility] [address] [place] [address] OFFICE VISIT Date of Service: 05/31/25 MR#: [id number] Acct: [id number] Name: OBDULIO WHITNEY Rep #: [id number] : 1955 Provider: DARRIUS jacinto Age/Sex: 70/M Location: [facility] Status: Signed with Addenda ADDENDUM by DARRIUS Catalan on 06/10/25 at 1637 Addendum Addendum Details:: Patient is currently enrolled in [employer] research trial. He has been randomized to GLP-1 medication. 06/10/25 1637 Date Raffi Catlaan NP cc: Dr. Cody Contreras MD * Signed HPI HPI History [...] the posterior descending artery. 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 His last stress test was in 2019 during which no evidence of ischemia was [...] Visit Reasons: OVERDUE FOR OV/LAST SEEN 02/2024 Experimental Display Builder Required: No Accompanied by: Self Is patient in pain?: No Allergies celecoxib (From Celebrex) Allergy (Verified 05/31/25 13:25) shortness of breath mushroom Allergy (Verified 05/31/25 13:25) swelling naproxen Allergy (Verified 05/31/25 13:25) rash Ynzqxpe-LJQ-OtO Reductase Inhibitor (Oljmpmw-Kqf-Edg Reductase Inhibitor) Allergy (Verified 05/31/25 13:25) leg [...] (Updated 05/31/25 @ 13:54 by Raffi Catalan APPLICATIONS TESTER, APPLICATIONS TESTER-C) Type 2 diabetes mellitus Atherosclerosis of coronary artery of [place] heart without angina pectoris Essential hypertension HLD [...] servings: 10 (more content not included)... Normal [facility] .Auto Diffon 03-11-2025 Basophil, Absolute 0.0 10 3/mcL Normal 0.0-0.3 [facility] Comment on above: Performed By: #### A CATHIE, GFR, LIPID, CMP, A1C, PSA, CBC, ADIFF, VIDH #### [address] [address] Basophils/100 WBC (Bld) 1.1 % Normal 0.0-2.5 [facility] Comment on above: Performed By: #### A CATHIE, GFR, LIPID, CMP, A1C, PSA, CBC, ADIFF, VIDH #### [address] [address] Eosinophil, Absolute 0.1 10 3/mcL Normal 0.0-0.7 [facility] Comment on above: Performed By: #### A CATHIE, GFR, LIPID, CMP, A1C, PSA, CBC, ADIFF, VIDH #### [address] [address] Eosinophils/100 WBC (Bld) 1.3 % Normal 0.0-6.0 [facility] Comment on above: Performed By: #### A CATHIE, GFR, LIPID, CMP, A1C, PSA, CBC, ADIFF, VIDH #### [address] [address] Lymphocyte, Absolute 1.3 10 3/mcL Normal 0.9-4.3 [facility] Comment on above: Performed By: #### A CATHIE, GFR, LIPID, CMP, A1C, PSA, CBC, ADIFF, VIDH #### [address] [address] Lymphocytes/100 WBC (Bld) 30.9 % Normal 20.0-40.0 [facility] Comment on above: Performed By: #### A CATHIE, GFR, LIPID, CMP, A1C, PSA, CBC, ADIFF, VIDH #### [address] [address] Monocyte, Absolute 0.5 10 3/mcL Normal 0.1-1.4 [facility] Comment on above: Performed By: #### A CATHIE, GFR, LIPID, CMP, A1C, PSA, CBC, ADIFF, VIDH #### [address] [address] Monocytes/100 WBC (Bld) 10.6 % Normal 2.0-13.0 [facility] Comment on above: Performed By: #### A CATHIE, GFR, LIPID, CMP, A1C, PSA, CBC, ADIFF, VIDH #### [address] [place], [place] [address] Neutrophils/100 WBC (Bld) 56.1 % Normal 50.0-75.0 [facility] Comment on above: Performed By: #### A CATHIE, GFR, LIPID, CMP, A1C, PSA, CBC, ADIFF, VIDH #### [address] [address] .GFRon 03-11-2025 Estimated Glomerular Filtration Rate 97 ml/min/1.73sqm Normal [facility] Comment on above: Result Comment: Stages of [...] CMP, A1C, PSA, CBC, ADIFF, VIDH #### [address] [address] .NEUABSon 03-11-2025 Neutrophil, Absolute 2.4 10 3/mcL Normal 2.3-8.1 [facility] Comment on above: Performed By: #### A CATHIE, GFR, LIPID, CMP, A1C, PSA, CBC, ADIFF, VIDH #### [address] [place], [place] [address] A1Con 03-11-2025 Glucose [Mass/Vol] 200 mg/dL Normal [facility] Comment on above: Result Comment: Caitlin mated Average Glucose calculated by equation ((28.7xA1C)-46.7) Estimated average glucose (eAG) is a calculated value from Hemoglobin A1C and 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 average blood glucose level in the last 2-3 month period. Normal range: less than 114 mg/dL Performed By: #### A CATHIE, GFR, LIPID, CMP, A1C, PSA, CBC, ADIFF, VIDH #### [address] [address] HbA1c (Bld) [Mass fraction] 8.6 % High 4.3-6.4 [facility] Comment on above: Performed By: #### A CATHIE, GFR, LIPID, CMP, A1C, PSA, CBC, ADIFF, VIDH #### [place] [id number] CBCon 03-11-2025 Erythrocyte distribution width (RBC) [Ratio] 14.3 % Normal 11.5-15.5 [facility] Comment on above: Performed By: #### L IPID, ADIFF, ANEU, GFR, A1C, CBC, CMP #### [place] [phone] Hematocrit (Bld) [Volume fraction] 40.4 % Normal 40.0-52.0 [facility] Comment on above: Performed By: #### L IPID, ADIFF, ANEU, GFR, A1C, CBC, CMP #### [address] [address] Hgb 13.3 G/dL Normal 13.0-17.5 [facility] Comment on above: Performed By: #### L IPID, ADIFF, ANEU, GFR, A1C, CBC, CMP #### [address] [address] MCH (RBC) [Entitic mass] 26.5 pg Low 27.0-33.0 [facility] Comment on above: Performed By: #### L IPID, ADIFF, ANEU, GFR, A1C, CBC, CMP #### [place] [phone] MCHC 32.8 G/dL Normal 32.0-36.0 [facility] Comment on above: Performed By: #### L IPID, ADIFF, ANEU, GFR, A1C, CBC, CMP #### [address] [address] MCV (RBC) [Entitic vol] 80.8 fL Low 81.0-100.0 [facility] Comment on above: Performed By: #### L IPID, ADIFF, ANEU, GFR, A1C, CBC, CMP #### [address] [address] Platelet 154 10 3/mcL Normal 150-450 [facility] Comment on above: Performed By: #### L IPID, ADIFF, ANEU, GFR, A1C, CBC, CMP #### [address] [address] Platelet mean volume (Bld) [Entitic vol] 8.9 fL Normal 6.4-10.5 [facility] Comment on above: Performed By: #### L IPID, ADIFF, ANEU, GFR, A1C, CBC, CMP #### [address] [address] RBC 5.00 10 6/mcL Normal 4.50-6.00 [facility] Comment on above: Performed By: #### L IPID, ADIFF, ANEU, GFR, A1C, CBC, CMP #### [address] [address] WBC 4.3 10 3/mcL Low 4.5-10.8 [facility] Comment on above: Performed By: #### L IPID, ADIFF, ANEU, GFR, A1C, CBC, CMP #### [address] [address] CMPon 03-11-2025 Albumin Level 3.9 G/dL Normal 3.4-4.8 [facility] Comment on above: Performed By: #### A CATHIE, GFR, LIPID, CMP, A1C, PSA, CBC, ADIFF, VIDH #### [address] [address] Albumin/Globulin [Mass ratio] 1.2 {ratio} Normal 1.1-2.5 [facility] Comment on above: Performed By: #### A CATHIE, GFR, LIPID, CMP, A1C, PSA, CBC, ADIFF, VIDH #### [address] [address] ALP [Catalytic activity/Vol] 44 U/L Normal 40-135 [facility] Comment on above: Performed By: #### A CATHIE, GFR, LIPID, CMP, A1C, PSA, CBC, ADIFF, VIDH #### [address] [address] ALT [Catalytic activity/Vol] 30 U/L Normal 16-63 [facility] Comment on above: Performed By: #### A CATHIE, GFR, LIPID, CMP, A1C, PSA, CBC, ADIFF, VIDH #### [address] [address] AST [Catalytic activity/Vol] 13 U/L Normal 10-40 [facility] Comment on above: Performed By: #### A CATHIE, GFR, LIPID, CMP, A1C, PSA, CBC, ADIFF, VIDH #### [address] [address] Bili Total 0.5 mg/dL Normal 0.2-1.0 [facility] Comment on above: Result Comment: Use of this assay is not recommended for patients undergoing treatment with eltrombopag due to the potential for falsely elevated results. Performed By: #### A CATHIE, GFR, LIPID, CMP, A1C, PSA, CBC, ADIFF, VIDH #### [address] [address] BUN/Creatinine Ratio 20 ratio Normal 7-27 [facility] Comment on above: Performed By: #### A CATHIE, GFR, LIPID, CMP, A1C, PSA, CBC, ADIFF, VIDH #### [address] [address] Calcium [Mass/Vol] 9.5 mg/dL Normal 8.4-10.[address] [facility] Comment on above: Performed By: #### A CATHIE, GFR, LIPID, CMP, A1C, PSA, CBC, ADIFF, VIDH #### [address] [address] Chloride [Moles/Vol] 103 mmol/L Normal 98-107 [facility] Comment on above: Performed By: #### A CATHIE, GFR, LIPID, CMP, A1C, PSA, CBC, ADIFF, VIDH #### [address] [address] CO2 [Moles/Vol] 28 mmol/L Normal 23-31 [facility] Comment on above: Performed By: #### A CATHIE, GFR, LIPID, CMP, A1C, PSA, CBC, ADIFF, VIDH #### [address] [address] Creatinine [Mass/Vol] 0.74 mg/dL Normal 0.67-1.17 [facility] Comment on above: Performed By: #### A CATHIE, GFR, LIPID, CMP, A1C, PSA, CBC, ADIFF, VIDH #### [address] [address] Electrolyte Balance 9.0 mEq/L Normal 4.0-15.0 [facility] Comment on above: Performed By: #### A CATHIE, GFR, LIPID, CMP, A1C, PSA, CBC, ADIFF, VIDH #### [address] [address] Globulin 3.3 G/dL Normal 2.7-4.4 [facility] Comment on above: Performed By: #### A CATHIE, GFR, LIPID, CMP, A1C, PSA, CBC, ADIFF, VIDH #### [address] [address] Glucose [Mass/Vol] 254 mg/dL High 83-[address] [facility] Comment on above: Performed By: #### A CATHIE, GFR, LIPID, CMP, A1C, PSA, CBC, ADIFF, VIDH #### [address] [address] Potassium [Moles/Vol] 4.9 mmol/L Normal 3.5-5.1 [facility] Comment on above: Performed By: #### A CATHIE, GFR, LIPID, CMP, A1C, PSA, CBC, ADIFF, VIDH #### [address] [address] Sodium [Moles/Vol] 140 mmol/L Normal 136-[address] [facility] Comment on above: Performed By: #### A CATHIE, GFR, LIPID, CMP, A1C, PSA, CBC, ADIFF, VIDH #### [address] [address] Total Protein 7.2 G/dL Normal 6.4-8.2 [facility] Comment on above: Performed By: #### A CATHIE, GFR, LIPID, CMP, A1C, PSA, CBC, ADIFF, VIDH #### [address] [address] Urea nitrogen [Mass/Vol] 15 mg/dL Normal 7-18 [facility] Comment on above: Performed By: #### A CATHIE, GFR, LIPID, CMP, A1C, PSA, CBC, ADIFF, VIDH #### [address] [address] LABORATORYOrdered By: SYSTEM SYSTEM on 03-11-2025 Albumin [...] calculated value from Hemoglobin A1C and 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 average blood glucose level [...] 03-11-2025 Cholesterol [Mass/Vol] 131 mg/dL Normal 0-200 [facility] Comment on above: Result Comment: Chol esterol Reference Interval: Less than 200 Desirable 200-239 Borderline high risk 240 and above High risk Performed By: #### A CATHIE, GFR, LIPID, CMP, A1C, PSA, CBC, ADIFF, VIDH #### [address] [address] Cholesterol in HDL [Mass/Vol] 43 mg/dL Normal 40-60 [facility] Comment on above: Performed By: #### A CATHIE, GFR, LIPID, CMP, A1C, PSA, CBC, ADIFF, VIDH #### [address] [place], [place] [address] Cholesterol in LDL [Mass/Vol] 61 mg/dL Normal 0-130 [facility] Comment on above: Performed By: #### A CATHIE, GFR, LIPID, CMP, A1C, PSA, CBC, ADIFF, VIDH #### [phone] [place], [place] [address] Triglyceride [Mass/Vol] 135 mg/dL Normal 0-150 [facility] Comment on above: Result Comment: Trig lyceride Reference Interval: Less than 150 Normal 150-199 Borderline high risk 200-499 High risk 500 or higher Very high risk Performed By: #### A CATHIE, GFR, LIPID, CMP, A1C, PSA, CBC, ADIFF, VIDH #### [address] [address] MALBRon 12-22-2024 U Creatinine 36.4 mg/dL Normal [facility] Comment on above: Performed By: #### A CATHIE, GFR, LIPID, CMP, A1C, PSA, CBC, ADIFF, VIDH #### [address] [address] U Microalb 28.5 mg/L Normal [facility] Comment on above: Performed By: #### A CATHIE, GFR, LIPID, CMP, A1C, PSA, CBC, ADIFF, VIDH #### [address] [address] U Ratio Alb/Cre 78 mg/G High 0-30 [facility] Comment on above: Performed By: #### A CATHIE, GFR, LIPID, CMP, A1C, PSA, CBC, ADIFF, VIDH #### [address] [address] .GFRon 08-18-2024 GFR 94 ml/min/1.73sqm Normal [facility] Comment on above: Result Comment: GFR Population [...] CMP, A1C, PSA, CBC, ADIFF, VIDH #### [place] [address] [place], [place] [address] GFR Non- 77 ml/min/1.73sqm Normal [facility] Comment on above: Result Comment: GFR Population [...] CMP, A1C, PSA, CBC, ADIFF, VIDH #### [address] [address] A1Con 08-18-2024 Glucose [Mass/Vol] 203 mg/dL Normal [facility] Comment on above: Result Comment: Caitlin mated Average Glucose calculated by equation ((28.7xA1C)-46.7) Estimated average glucose (eAG) is a calculated value from Hemoglobin A1C and 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 average blood glucose level in the last 2-3 month period. Normal range: less than 114 mg/dL Performed By: #### A CATHIE, GFR, LIPID, CMP, A1C, PSA, CBC, ADIFF, VIDH #### [place] [address] [place], [place] [address] HbA1c (Bld) [Mass fraction] 8.7 % High 4.3-6.4 [facility] Comment on above: Performed By: #### A CATHIE, GFR, LIPID, CMP, A1C, PSA, CBC, ADIFF, VIDH #### [place] [address] [place], [place] [address] CMPon 08-18-2024 Albumin Level 3.9 G/dL Normal 3.4-4.8 [facility] Comment on above: Performed By: #### A CATHIE, GFR, LIPID, CMP, A1C, PSA, CBC, ADIFF, VIDH #### [address] [address] Albumin/Globulin [Mass ratio] 1.4 {ratio} Normal 1.1-2.5 [facility] Comment on above: Performed By: #### A CATHIE, GFR, LIPID, CMP, A1C, PSA, CBC, ADIFF, VIDH #### [address] [address] ALP [Catalytic activity/Vol] 52 U/L Normal 40-135 [facility] Comment on above: Performed By: #### A CATHIE, GFR, LIPID, CMP, A1C, PSA, CBC, ADIFF, VIDH #### [address] [address] ALT [Catalytic activity/Vol] 34 U/L Normal 16-63 [facility] Comment on above: Performed By: #### A CATHIE, GFR, LIPID, CMP, A1C, PSA, CBC, ADIFF, VIDH #### [address] [address] AST [Catalytic activity/Vol] 17 U/L Normal 10-40 [facility] Comment on above: Performed By: #### A CATHIE, GFR, LIPID, CMP, A1C, PSA, CBC, ADIFF, VIDH #### [address] [address] Bili Total 0.5 mg/dL Normal 0.2-1.0 [facility] Comment on above: Result Comment: Use of this assay is not recommended for patients undergoing treatment with eltrombopag due to the potential for falsely elevated results. Performed By: #### A CATHIE, GFR, LIPID, CMP, A1C, PSA, CBC, ADIFF, VIDH #### [address] [address] BUN/Creatinine Ratio 17 ratio Normal 7-27 [facility] Comment on above: Performed By: #### A CATHIE, GFR, LIPID, CMP, A1C, PSA, CBC, ADIFF, VIDH #### [address] [address] Calcium [Mass/Vol] 9.4 mg/dL Normal 8.4-10.[address] [facility] Comment on above: Performed By: #### A CATHIE, GFR, LIPID, CMP, A1C, PSA, CBC, ADIFF, VIDH #### [address] [address] Chloride [Moles/Vol] 102 mmol/L Normal 98-107 [facility] Comment on above: Performed By: #### A CATHIE, GFR, LIPID, CMP, A1C, PSA, CBC, ADIFF, VIDH #### [place] [address] CO2 [Moles/Vol] 27 mmol/L Normal 23-31 [facility] Comment on above: Performed By: #### A CATHIE, GFR, LIPID, CMP, A1C, PSA, CBC, ADIFF, VIDH #### [place] [address] Creatinine [Mass/Vol] 0.96 mg/dL Normal 0.70-1.30 [facility] Comment on above: Result Comment: Test ing performed on Siemens Dimension EXL analyzer using a modified kinetic Rinku technique. Performed By: #### A CATHIE, GFR, LIPID, CMP, A1C, PSA, CBC, ADIFF, VIDH #### [address] [address] Electrolyte Balance 11.0 mEq/L Normal 4.0-15.0 [facility] Comment on above: Performed By: #### A CATHIE, GFR, LIPID, CMP, A1C, PSA, CBC, ADIFF, VIDH #### [place] [address] Globulin 2.7 G/dL Normal [facility] Comment on above: Performed By: #### A CATHIE, GFR, LIPID, CMP, A1C, PSA, CBC, ADIFF, VIDH #### [address] [address] Glucose [Mass/Vol] 214 mg/dL High 83-[address] [facility] Comment on above: Performed By: #### A CATHIE, GFR, LIPID, CMP, A1C, PSA, CBC, ADIFF, VIDH #### [address] [address] Potassium [Moles/Vol] 4.5 mmol/L Normal 3.5-5.1 [facility] Comment on above: Performed By: #### A CATHIE, GFR, LIPID, CMP, A1C, PSA, CBC, ADIFF, VIDH #### [address] [address] Sodium [Moles/Vol] 140 mmol/L Normal 136-[address] [facility] Comment on above: Performed By: #### A CATHIE, GFR, LIPID, CMP, A1C, PSA, CBC, ADIFF, VIDH #### [address] [address] Total Protein 6.6 G/dL Normal 6.4-8.2 [facility] Comment on above: Performed By: #### A CATHIE, GFR, LIPID, CMP, A1C, PSA, CBC, ADIFF, VIDH #### [address] [address] Urea nitrogen [Mass/Vol] 16 mg/dL Normal 7-18 [facility] Comment on above: Performed By: #### A CATHIE, GFR, LIPID, CMP, A1C, PSA, CBC, ADIFF, VIDH #### [address] [address] LABORATORYOrdered By: SYSTEM SYSTEM on 08-18-2024 Albumin [...] calculated value from Hemoglobin A1C and 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 average blood glucose level [...] 08-18-2024 Cholesterol [Mass/Vol] 145 mg/dL Normal 0-200 [facility] Comment on above: Result Comment: Chol esterol Reference Interval: Less than 200 Desirable 200-239 Borderline high risk 240 and above High risk Performed By: #### A CATHIE, GFR, LIPID, CMP, A1C, PSA, CBC, ADIFF, VIDH #### [address] [address] Cholesterol in HDL [Mass/Vol] 41 mg/dL Normal 40-60 [facility] Comment on above: Performed By: #### A CATHIE, GFR, LIPID, CMP, A1C, PSA, CBC, ADIFF, VIDH #### [address] [address] Cholesterol in LDL [Mass/Vol] 72 mg/dL Normal 0-130 [facility] Comment on above: Performed By: #### A CATHIE, GFR, LIPID, CMP, A1C, PSA, CBC, ADIFF, VIDH #### [address] [address] Triglyceride [Mass/Vol] 160 mg/dL High 0-150 [facility] Comment on above: Result Comment: Trig lyceride Reference Interval: Less than 150 Normal 150-199 Borderline high risk 200-499 High risk 500 or higher Very high risk Performed By: #### A CATHIE, GFR, LIPID, CMP, A1C, PSA, CBC, ADIFF, VIDH #### [address] [address] PSAon 08-18-2024 Prostate Specific Antigen 3.26 ng/mL Normal 0.00-4.00 [facility] Comment on above: Performed By: #### A CATHIE, GFR, LIPID, CMP, A1C, PSA, CBC, ADIFF, VIDH #### [address] [address] .GFRon 03-11-2024 GFR 90 ml/min/1.73sqm Normal [facility] [place] Comment on above: Result Comment: GFR Population [...] #### G FR, CMP, A1C, LIPID #### [place] [address] [address] GFR Non- 74 ml/min/1.73sqm Normal [facility] ([place] Comment on above: Result Comment: GFR Population [...] #### G FR, CMP, A1C, LIPID #### [place] [address] [address] A1Con 03-11-2024 HbA1c (Bld) [Mass fraction] 6.7 % High 4.3-6.4 [facility] ([place] Comment on above: Performed By: #### G FR, CMP, A1C, LIPID ####[place] [address] [address] CMPon 03-11-2024 Albumin Level 4.0 G/dL Normal 3.4-4.8 [facility] ([place]) Comment on above: Performed By: #### G FR, CMP, A1C, LIPID #### [address] [address] Albumin/Globulin [Mass ratio] 1.5 {ratio} Normal 1.1-2.5 [facility] ([place] Comment on above: Performed By: #### G FR, CMP, A1C, LIPID #### [address] [address] ALP [Catalytic activity/Vol] 44 U/L Normal 40-135 [facility] ([place] Comment on above: Performed By: #### G FR, CMP, A1C, LIPID #### [address] [address] ALT [Catalytic activity/Vol] 29 U/L Normal 16-63 [facility] ([place] Comment on above: Performed By: #### G FR, CMP, A1C, LIPID #### [address] [address] AST [Catalytic activity/Vol] 14 U/L Normal 10-40 [facility] ([place] Comment on above: Performed By: #### G FR, CMP, A1C, LIPID #### [address] [address] Bili Total 0.4 mg/dL Normal 0.2-1.0 [facility] ([place]) Comment on above: Result Comment: Use of this assay is not recommended for patients undergoing treatment with eltrombopag due to the potential for falsely elevated results. Performed By: #### G FR, CMP, A1C, LIPID #### [address] [id number] BUN/Creatinine Ratio 12 ratio Normal 7-27 [facility] ([place]) Comment on above: Performed By: #### G FR, CMP, A1C, LIPID #### [address] [id number] Calcium [Mass/Vol] 9.9 mg/dL Normal 8.4-10.2 [facility] ([place]) Comment on above: Performed By: #### G FR, CMP, A1C, LIPID #### [address] [id number] Chloride [Moles/Vol] 102 mmol/L Normal 98-107 [facility] ([place]) Comment on above: Performed By: #### G FR, CMP, A1C, LIPID #### [address] [id number] CO2 [Moles/Vol] 27 mmol/L Normal 23-31 [facility] ([place]) Comment on above: Performed By: #### G FR, CMP, A1C, LIPID #### [place] [id number] Creatinine [Mass/Vol] 1.00 mg/dL Normal 0.70-1.30 [facility] ([place]) Comment on above: Performed By: #### G FR, CMP, A1C, LIPID #### [address] [id number] Electrolyte Balance 10.0 mEq/L Normal 4.0-15.0 [facility] ([place]) Comment on above: Performed By: #### G FR, CMP, A1C, LIPID #### [address] [id number] Globulin 2.7 G/dL Normal [facility] ([place]) Comment on above: Performed By: #### G FR, CMP, A1C, LIPID #### [address] [address] Glucose [Mass/Vol] 132 mg/dL High 83-110 [facility] ([place]) Comment on above: Performed By: #### G FR, CMP, A1C, LIPID #### [address] [address] Potassium [Moles/Vol] 4.8 mmol/L Normal 3.5-5.1 [facility] ([place]) Comment on above: Performed By: #### G FR, CMP, A1C, LIPID #### [place] [address] Sodium [Moles/Vol] 139 mmol/L Normal 136-145 [facility] ([place]) Comment on above: Performed By: #### G FR, CMP, A1C, LIPID #### [place] [address] [place], [place] [address] Total Protein 6.7 G/dL Normal 6.4-8.2 [facility] ([place]) Comment on above: Performed By: #### G FR, CMP, A1C, LIPID #### [place] [address] [place], [place] [address] Urea nitrogen [Mass/Vol] 12 mg/dL Normal 7-18 [facility] ([place] Comment on above: Performed By: #### G FR, CMP, A1C, LIPID #### [address] [address] LABORATORYOrdered By: SYSTEM SYSTEM on 03-11-2024 Albumin [...] 03-11-2024 Cholesterol [Mass/Vol] 129 mg/dL Normal 0-200 [facility] ([place]) Comment on above: Result Comment: Chol esterol Reference Interval: Less than 200 Desirable 200-239 Borderline high risk 240 and above High risk Performed By: #### G FR, CMP, A1C, LIPID #### [address] [address] Cholesterol in HDL [Mass/Vol] 49 mg/dL Normal 40-60 [facility] ([place] Comment on above: Performed By: #### G FR, CMP, A1C, LIPID #### [address] [address] Cholesterol in LDL [Mass/Vol] 65 mg/dL Normal 0-130 [facility] ([place] Comment on above: Performed By: #### G FR, CMP, A1C, LIPID #### [address] [address] Triglyceride [Mass/Vol] 74 mg/dL Normal 0-150 [facility] ([place] Comment on above: Result Comment: Trig lyceride Reference Interval: Less than 150 Normal 150-199 Borderline high risk 200-499 High risk 500 or higher Very high risk Performed By: #### G FR, CMP, A1C, LIPID #### [place] [address] [place], [place] [address] CNOVon 01-17-2024 CNOV Office Visit (SLEWST) -------- OBDULIO WHITNEY ([id number]) 1955 M Date Time Provider Department 01/17/24 8:00 AM JOHANNE CHAPMAN During your visit today, we recorded the following information about you: Pulse Respiration Blood pressure Weight 63/minute 18/minute 129/75 96.5 kg Johanne Chapman APRN.CNP 01/17/2024 8:36 AM Signed [facility] Follow up/ Established [...] Follow up in 1 year(s) and PRN. Leighann Sandoval APRN.CNP Here for follow up for ZACHARIAH, annual [...] Take 4 mg by mouth as needed. [place]-3 Fatty Acids, FISH OIL, 360-1,200 mg cap [...] in 12 months with ALLI. Johanne Chapman APRN.FIELD APPRAISER Allergies As of Date: 01/17/2024 Noted Allergy Reaction CELEBREX (CELECOXIB) 10/11/2009 12 - Shortness of Breath NAPROXEN 10/11/2009 2 - Rash STATINS ([id number]-BHC REDUCTAS* 0 Comments: Leg cramps Date Reviewed: 01/17/2024 Reviewed by: Annie Packer L (more content not included)... Normal [facility] ISANon 12-24-2023 ISAN Telephone (NRSE) -------- OBDULIO WHITNEY Aileen ([id number]) 1955 M Date Time Provider Department 12/24/23 SANDOVALONDINA CUMMINGSJeffrey ETIENNE During your visit today, we recorded the [...] renewed. Patient provided phone number for Neurological [facility] to schedule. Patient can see any ALLI, but [place] may be most convenient location for the [...] Swelling NAPROXEN 10/11/2009 2 - Rash STATINS ([id number] REDUCTAS* 0 Comments: Leg cramps Date Reviewed: 02/05/2023 Reviewed by: Elenita Cerna, RN - Fully Assessed Reason for Visit: [...] mouth every 6 hours as needed. - [place]-3 Fatty Acids, FISH OIL, 360-1,200 mg cap [...] Status:Closed by YUE BOO on 12/24/23 Normal [facility] LABORATORYOrdered By: Ravindra Machado on 09-19-2023 Albumin DL <= 20 mg/L (U) [Mass/Vol] 615 mcg/dL Invalid Interpretation Code AO ADM SS Albumin/Creatinine DL <= 20 mg/L (U) [Mass ratio] 19 mcg/mg Normal 0 - 30 mcg/mg AO ADM SS Creatinine (U) [Mass/Vol] 31.7 mg/dL Low 39.0 - 259.0 mg/dL AO ADM SS MALBRon 09-19-2023 U Creatinine 31.7 mg/dL Low 39.0-259.0 [facility] ([place]) Comment on above: Performed By: #### M ALBR #### [address] [address] U Microalb 615 mcg/dL Normal [facility] ([place]) Comment on above: Performed By: #### M ALBR #### [facility] [address] [place], [place] [address] U Ratio Alb/Cre 19 mcg/mg Normal 0-30 [facility] ([place]) Comment on above: Performed By: #### M ALBR #### [place] [address] [place], [place] [address] .GFRon 09-11-2023 GFR 99 ml/min/1.73sqm Normal [facility] ([place]) Comment on above: Result Comment: GFR Population [...] G FR, CMP, PSA, LIPID, A1C #### [address] [address] GFR Non- 82 ml/min/1.73sqm Normal [facility] ([place]) Comment on above: Result Comment: GFR Population [...] G FR, CMP, PSA, LIPID, A1C #### [address] [address] A1Con 09-11-2023 HbA1c (Bld) [Mass fraction] 7.1 % High 4.3-6.4 [facility] ([place]) Comment on above: Performed By: #### G FR, CMP, PSA, LIPID, A1C #### [address] [address] CMPon 09-11-2023 Albumin Level 4.3 G/dL Normal 3.4-4.8 [facility] ([place]) Comment on above: Performed By: #### G FR, CMP, PSA, LIPID, A1C #### [address] [address] Albumin/Globulin [Mass ratio] 1.4 {ratio} Normal 1.1-2.5 [facility] ([place]) Comment on above: Performed By: #### G FR, CMP, PSA, LIPID, A1C #### [address] [address] ALP [Catalytic activity/Vol] 51 U/L Normal 40-135 [facility] ([place]) Comment on above: Performed By: #### G FR, CMP, PSA, LIPID, A1C #### [address] [address] ALT [Catalytic activity/Vol] 30 U/L Normal 16-63 [facility] ([place] Comment on above: Performed By: #### G FR, CMP, PSA, LIPID, A1C #### [address] [address] AST [Catalytic activity/Vol] 16 U/L Normal 10-40 [facility] ([place] Comment on above: Performed By: #### G FR, CMP, PSA, LIPID, A1C #### [address] [address] Bili Total 0.5 mg/dL Normal 0.2-1.0 [facility] ([place]) Comment on above: Result Comment: Use of this assay is not recommended for patients undergoing treatment with eltrombopag due to the potential for falsely elevated results. Performed By: #### G FR, CMP, PSA, LIPID, A1C #### [address] [address] BUN/Creatinine Ratio 11 ratio Normal 7-27 [facility] ([place]) Comment on above: Performed By: #### G FR, CMP, PSA, LIPID, A1C #### [address] [address] Calcium [Mass/Vol] 9.9 mg/dL Normal 8.4-10.2 [facility] ([place]) Comment on above: Performed By: #### G FR, CMP, PSA, LIPID, A1C #### [address] [address] Chloride [Moles/Vol] 102 mmol/L Normal 98-107 [facility] ([place]) Comment on above: Performed By: #### G FR, CMP, PSA, LIPID, A1C #### [address] [address] CO2 [Moles/Vol] 29 mmol/L Normal 23-31 [facility] ([place]) Comment on above: Performed By: #### G FR, CMP, PSA, LIPID, A1C #### [address] [address] Creatinine [Mass/Vol] 0.92 mg/dL Normal 0.70-1.30 [facility] ([place]) Comment on above: Performed By: #### G FR, CMP, PSA, LIPID, A1C #### [address] [address] Electrolyte Balance 12.0 mEq/L Normal 4.0-15.0 [facility] ([place]) Comment on above: Performed By: #### G FR, CMP, PSA, LIPID, A1C #### [address] [address] Globulin 3.0 G/dL Normal [facility] ([place]) Comment on above: Performed By: #### G FR, CMP, PSA, LIPID, A1C #### [address] [address] Glucose [Mass/Vol] 169 mg/dL High 80-115 [facility] ([place]) Comment on above: Performed By: #### G FR, CMP, PSA, LIPID, A1C #### [address] [address] Potassium [Moles/Vol] 4.7 mmol/L Normal 3.5-5.1 [facility] ([place]) Comment on above: Performed By: #### G FR, CMP, PSA, LIPID, A1C #### [address] [address] Sodium [Moles/Vol] 143 mmol/L Normal 136-145 [facility] ([place]) Comment on above: Performed By: #### G FR, CMP, PSA, LIPID, A1C #### [address] [address] Total Protein 7.3 G/dL Normal 6.4-8.2 [facility] ([place]) Comment on above: Performed By: #### G FR, CMP, PSA, LIPID, A1C #### [place] [address] [place], [place] [address] Urea nitrogen [Mass/Vol] 10 mg/dL Normal 7-18 [facility] ([place] Comment on above: Performed By: #### G FR, CMP, PSA, LIPID, A1C #### [place] [address] [place], [place] [address] LABORATORYOrdered By: SYSTEM SYSTEM on 09-11-2023 Albumin [...] 09-11-2023 Cholesterol [Mass/Vol] 136 mg/dL Normal 0-200 [facility] ([place]) Comment on above: Result Comment: Chol esterol Reference Interval: Less than 200 Desirable 200-239 Borderline high risk 240 and above High risk Performed By: #### G FR, CMP, PSA, LIPID, A1C #### [address] [address] Cholesterol in HDL [Mass/Vol] 53 mg/dL Normal 40-60 [facility] ([place] Comment on above: Performed By: #### G FR, CMP, PSA, LIPID, A1C #### [address] [address] Cholesterol in LDL [Mass/Vol] 63 mg/dL Normal 0-130 [facility] ([place] Comment on above: Performed By: #### G FR, CMP, PSA, LIPID, A1C #### [address] [address] Triglyceride [Mass/Vol] 99 mg/dL Normal 0-150 [facility] ([place]) Comment on above: Result Comment: Trig lyceride Reference Interval: Less than 150 Normal 150-199 Borderline high risk 200-499 High risk 500 or higher Very high risk Performed By: #### G FR, CMP, PSA, LIPID, A1C #### [place] [address] [place], [place] [address] PSAon 09-11-2023 Prostate Specific Antigen 3.37 ng/mL Normal 0.00-4.00 [facility] ([place]) Comment on above: Performed By: #### G FR, CMP, PSA, LIPID, A1C #### [place] [address] [place], [place] [address] XR ANKLE MINIMUM 3 VIEWS RIG HTon [...] Date: 03/14/2023 3:41:35 PM Ordering Provider: MC Allison [facility] ([place]) LABORATORYOrdered By: SYSTEM SYSTEM on 03-11-2023 Albumin [...] 023 Case Report Surgical Pathology Report Case: [id number] Authorizing Provider: Kris Michel MD Collected: 02/05/2023 11:42 AM Ordering Location: Ambulatory Surgery Received: 02/05/2023 01:03 PM Pathologist: Crissy Bentley MD Specimens: A) - COLON BIOPSY, RANDOM colon bx's B) - SIGMOID COLON POLYP [facility] FINAL DIAGNOSIS A. Colon, biopsy: -Colonic mucosa with no significant histologic abnormality -Negative for chronic, active or microscopic colitis B. Colon, sigmoid, polypectomy: -Hyperplastic polyp (with severe thermal artifact) [facility] Gross Description A. COLON BIOPSY Received in formalin are multiple pieces of golden, soft tissue aggregating to 1.9 x 0.4 x 0.1 cm. Totally submitted in two cassettes. B. SIGMOID COLON POLYP Received in formalin is one piece of golden, soft tissue measuring 0.3 x 0.2 x 0.1 cm. Totally submitted in one cassette. Gross examination performed at [facility], [address] [place] [address] FFS 02/05/2023 11:20 PM [facility] Performing Lab Diagnostic interpretation performed at [facility], [address] [place] [address] CLIA# [id number] Knapsack Sprayer: Jairo Boyce M.D. [facility] COLONOSCOPY DIAGNOSTICon [facility] LABORATORYOrdered By: SYSTEM SYSTEM on 09-05-2022 [...] 05-31-2025 13:27-0400 Body height 172.[address] Cody Contreras MD Work Phone: [facility] 05-31-2025 13:27-0400 Body mass index (BMI) [Ratio] 32.1 kg/m2 Dr. Cody Contreras MD Work Phone: [facility] 05-31-2025 13:27-0400 Body weight 95.[address] Cody Contreras MD Work Phone: [facility] 05-31-2025 13:27-0400 Diastolic blood pressure 68 mm[Hg] Dr. Cody Contreras MD Work Phone: [facility] 05-31-2025 13:27-0400 Heart rate 70 /min Dr. Cody Contreras MD Work Phone: [facility] 05-31-2025 13:27-0400 Respiratory rate 16 /min Dr. Cody Contreras MD Work Phone: [facility] 05-31-2025 13:27-0400 Systolic blood pressure 99 mm[Hg] Dr. Cody Contreras MD Work Phone: [facility] 01-17-2024 07:57-0400 Body mass index (BMI) [Ratio] 32.36 kg/m2 Johanne Chapman APRN.FIELD APPRAISER Work Phone: [facility] 01-17-2024 07:57-0400 Body weight 96.53 kg Johanne Chapman APRN.FIELD APPRAISER Work Phone: [facility] 01-17-2024 07:57-0400 Diastolic blood pressure 75 mm[Hg] Johanne Chapman APRN.FIELD APPRAISER Work Phone: [facility] 01-17-2024 07:57-0400 Heart rate 63 /min Johanne Adela [facility] RN.FIELD APPRAISER Work Phone: [facility] 01-17-2024 07:57-0400 Respiratory rate 18 /min Johanne Adela [facility] RN.FIELD APPRAISER Work Phone: [facility] 01-17-2024 07:57-0400 SaO2% (BldA) [Mass fraction] 97 % Johanne Adela [facility] RN.FIELD APPRAISER Work Phone: [facility] 01-17-2024 07:57-0400 Systolic blood pressure 129 mm[Hg] Johanne Adela [facility] RN.FIELD APPRAISER Work Phone: [facility] 03-14-2023 15:11-0400 Blood Pressure Cuff Size MC GARDUNO MD [facility] 03-14-2023 15:11-0400 Blood Pressure Location MC GARDUNO MD [facility] 03-14-2023 15:11-0400 Blood Pressure Method MC GARDUNO MD [facility] 03-14-2023 15:11-0400 Body temperature 97.52 [degF] MC GARDUNO MD [facility] 03-14-2023 15:11-0400 Body weight 100 kg MC GARDUNO MD [facility] 03-14-2023 15:11-0400 Diastolic Blood Pressure Non-Invasive 87 1 MC GARDUNO MD [facility] 03-14-2023 15:11-0400 Heart rate 64 /min MC GARDUNO MD [facility] 03-14-2023 15:11-0400 Respiratory rate 18 /min MC GARDUNO MD [facility] 03-14-2023 15:11-0400 Systolic Blood Pressure Non-Invasive 152 1 MC GARDUNO MD [facility] 02-05-2023 12:44-0400 Diastolic blood pressure 74 mm[Hg] Kris Michel MD Work Phone: [facility] 02-05-2023 12:44-0400 Systolic blood pressure 167 mm[Hg] Kris Michel MD Work Phone: [facility] 02-05-2023 12:30-0400 Heart rate 80 /min Kris Michel MD Work Phone: [facility] 02-05-2023 12:30-0400 Respiratory rate 16 /min Kris Michel MD Work Phone: [facility] 02-05-2023 12:30-0400 SaO2% (BldA) [Mass fraction] 93 % Kris Michel MD Work Phone: [facility] 02-05-2023 10:56-0400 Body temperature 97.11 [degF] Kris Michel MD Work Phone: [facility] 02-05-2023 10:56-0400 Body weight 101.37 kg Kris Michel MD Work Phone: [facility] Encounters Encounter Date Encounter Type Care Provider Facility Start: 07-02-2025 End: 07-02-2025 Patient encounter procedure CODY CONTRERAS MD [facility] Start: 06-16-2025 End: 06-16-2025 ambulatory CODY CONTRERAS MD Facility:[facility] Start: 06-16-2025 End: 06-16-2025 Patient encounter procedure CODY CONTRERAS MD [facility] Start: 05-31-2025 End: 05-31-2025 Patient encounter procedure Raffi Catalan APPLICATIONS TESTER-C [facility] Work Phone: Start: 05-31-2025 End: 05-31-[address] Cody Contreras MD Work Phone: -[facility] Start: 03-11-2025 End: 03-11-2025 ambulatory CODY CONTRERAS MD Facility:[facility] Start: 03-11-2025 End: 03-11-2025 Patient encounter procedure CODY CONTRERAS MD [facility] Start: 12-22-2024 End: 12-26-2024 ambulatory CODY CONTRERAS MD Facility:[facility] Start: 12-09-2024 End: 12-11-2024 [facility] Work Phone: Neurology Comment on above: CMN Start: 08-18-2024 End: 08-18-2024 ambulatory CODY CONTRERAS MD Facility:[facility] Start: 08-18-2024 End: 08-18-2024 Patient encounter procedure CODY CONTRERAS MD [facility] Start: 03-11-2024 End: 03-11-2024 ambulatory CODY CONTRERAS MD Facility:[facility] Start: 03-11-2024 End: 03-11-2024 Patient encounter procedure CODY CONTRERAS MD [facility] Start: 01-17-2024 End: 01-17-2024 ambulatory CODY CONTRERAS Facility:[facility] Start: 01-17-2024 End: 01-17-2024 Patient encounter procedure Johanen Chapman APRN.FIELD APPRAISER Work Phone: Neurology Comment on above: ZACHARIAH (obstructive sle ep apnea) (Primary Dx) Start: 12-24-2023 Telephone encounter Leighann Blood APRN.FIELD APPRAISER Work Phone: Neurology Comment on above: Orders (Faxed and re ceived confirmation from Suleiman Carrasco for CPAP orders. Patient's most recent visit was 05/17/2021. DME notified that patient will need to make an appointment. ) Start: 09-19-2023 End: 09-23-2023 ambulatory CODY CONTRERAS MD Facility:[facility] Start: 09-19-2023 End: 09-23-2023 Outreach Lab CODY CONTRERAS MD [facility] Start: 09-11-2023 End: 09-11-2023 ambulatory CODY CONTRERAS MD Facility:[facility] Start: 09-11-2023 End: 09-11-2023 Patient encounter procedure CODY CONTRERAS MD [facility] Start: 03-14-2023 End: 03-14-2023 Emergency department patient visit MC GARDUNO MD [facility] Start: 03-11-2023 End: 03-11-2023 Patient encounter procedure CODY CONTRERAS MD [facility] Start: 02-05-2023 End: 02-05-2023 Subsequent hospital visit by physician Kris Michel MD Work Phone: Ambulatory Surgery Comment on above: Constipation, unspec ified constipation type [K59.00] Start: 02-01-2023 Non-patient / Non-visit Dr. Fiore Work Phone: [facility] Start: 02-01-2023 End: 02-01-[address] Cody Contreras Work Phone: [facility] Work Phone: Start: 02-01-2023 End: 02-01-[address] Cody Contreras Work Phone: [facility] Work Phone: Start: 12-19-2022 Telephone encounter Leighann Blood [facility] RN.FIELD APPRAISER Work Phone: Neurology Comment on above: CMN- PAP supplies ([employer]) Start: 09-05-2022 End: 09-05-2022 Patient encounter procedure CODY CONTRERAS MD [facility] Start: 06-05-2022 End: 06-05-2022 Patient encounter procedure CODY CONTRERAS MD [facility] Start: 06-25-2018 End: 06-25-2018 Patient encounter DANIELA BRADY Jignesh [facility] Start: 07-27-2015 End: 07-28-2015 Ambulatory [facility] Facility:[facility] Procedures Date Procedure Procedure Detail Performing Clinician Start: 02-05-2023 Level iv surg pathol ogy gross&microscopic exam Kris Michel MD Work Phone: Start: 02-05-2023 Colonoscopy flx dx w /collj spec when pfrmd Azalia Perez PA-C Work Phone: Start: 02-05-2023 Colonoscopy Kris anne MD Work Phone: Start: 02-01-2023 Radionuclide imaging of perfusion of myocardium under exercise stress Dr. Cody Contreras Work Phone: Start: 12-12-2020 Colonoscopy Leighann Blood [facility] RN.FIELD APPRAISER Work Phone: Start: 11-02-2009 History of coronary artery bypass grafting H/O coronary artery bypass surgery Dr. Cody Contreras Work Phone: Comment on above: CABG x 4 RIVERA-LAD, S equential FREE DIAMOND-Lat Cx and PLB, SVG- RPDA 11/02/2009 Start: 11-01-2009 Lipid 1996 panel - S lee or Plasma Kris Michel MD Work Phone: Appendectomy Appendectomy( Confirmed ) CODY CONTRERAS MD Cholecystectomy Cholecystectomy( Confirmed ) CODY CONTRERAS MD Coronary artery bypa ss grafts x 5 CABG x 5 - Coronary artery bypass grafts x 5( Confirmed ) CODY CONTRERAS MD Decompression of cer vical spine CODY CONTRERAS MD Plan of Treatment Date Care Activity Detail Author Start: 2029 RSV Vaccine (1 - 1-d ose 75+ series) RSV Vaccine (1 - 1-dose 75+ series) [facility] Start: 12-12-2025 Colonoscopy COLONOSCOPY [facility] Start: 12-12-2025 COLORECTAL CANCER SCREENING COLORECTAL CANCER SCREENING [facility] Start: 05-31-2025 Hepatic function panel [facility] Start: 05-26-2025 Pneumococcal Vaccine : 50+ (3 of 3 - PCV20 or PCV21) Pneumococcal Vaccine: 50+ (3 of 3 - PCV20 or PCV21) [facility] Start: 05-26-2025 Pneumococcal Vaccine : 65+ (3 - PPSV23 or PCV20) Pneumococcal Vaccine: 65+ (3 - PPSV23 or PCV20) [facility] Start: 05-26-2025 Pneumococcal Vaccine : 65+ (3 of 3 - PPSV23 or PCV20) Pneumococcal Vaccine: 65+ (3 of 3 - PPSV23 or PCV20) [facility] Start: 02-05-2025 Colonoscopy Colonoscopy [facility] Start: 02-05-2025 Colorectal Cancer Screening Colorectal Cancer Screening [facility] Start: 02-05-2025 Screening for malign ant neoplasm of colon [facility] Start: 01-22-2025 End: 01-22-2025 Patient encounter procedure Neurology Comment on above: 1 year follow up Start: 01-16-2025 BP Controlled (<130/80) BP Controlle d (<130/80) [facility] Start: 09-09-2024 Advance Directive Discussion Advance Directive Discussion [facility] Start: 05-10-2024 Covid-19 Vaccine () Covid-19 Vaccine () [facility] Start: 05-10-2024 Influenza vaccination C [facility] Start: 09-09-2023 Advance Directive Discussion Advance Directive Discussion [facility] Start: 09-09-2023 Behavioral Health Screening Behavioral Health Screening [facility] Start: 05-10-2023 Covid-19 Vaccine () Covid-19 Vaccine () [facility] Start: 05-10-2023 Influenza vaccination C [facility] Start: 09-09-2022 ADVANCE DIRECTIVE DISCUSSION ADVANCE DIRECTIVE DISCUSSION [facility] Start: 09-09-2022 DEPRESSION ASSESSMENT DEPRESSION ASS ESSMENT [facility] Start: 01-26-2021 COVID-19 VACCINE (3 - Booster for Pfizer series) COVID-19 VACCINE (3 - Booster for Pfizer series) [facility] Start: 11-30-2019 DIABETES SCREEN DIABETES SCREEN [facility] Start: 11-30-2019 Diabetes Screening Diabetes Screenin g [facility] Start: 2019 PNEUMOCOCCAL: 65+ (1 - PCV) PNEUMOCOCCAL: 65+ (1 - PCV) [facility] Start: 11-18-2014 Shingrix Vaccine (2 of 3) Shingrix Vaccine (2 of 3) [facility] Start: 11-01-2014 Lipid 1996 panel - S lee or Plasma Lipid Screening [facility] Start: 11-01-2014 Lipid panel Lipid Screening [facility] Start: 11-01-2014 LIPID SCREEN LIPID SCREEN [facility] Start: 2014 RSV Vaccine (1 - 1-d ose 60+ series) RSV Vaccine (1 - 1-dose 60+ series) [facility] Start: 12-08-2013 PROSTATE CANCER SCREENING DISCUSSION PROSTATE CANCER SCREENING DISCUSSION [facility] Start: 11-01-2010 Hepatitis B surface antibody level LDL CHOLESTEROL [facility] Start: 2004 SHINGRIX VACCINE (1 of 2) SHINGRIX VACCINE (1 of 2) [facility] Start: 1999 COLOGUARD (FIT-DNA) COLOGUARD (FIT-D NA) [facility] Start: [address] COLONOGRAPHY [facility] Start: 1999 FECAL OCCULT BLOOD FECAL OCCULT BLOO D [facility] Start: 1999 Screening for malign ant neoplasm of colon [facility] Start: 1999 SIGMOIDOSCOPY SIGMOIDOSCOPY [facility] Start: 1973 Urine microalbumin profile [facility] Start: 1972 ANNUAL PCP TEAM NUCLEAR EQUIPMENT OPERATOR SERA DISEASE VISIT ANNUAL PCP TEAM CHRONIC DISEASE VISIT [facility] Start: 1972 Anxiety Screening Anxiety Screening [facility] Start: 1972 BP CONTROLLED (<130/80) BP CONTROLLE D (<130/80) [facility] Start: 1972 Depression Screening Depression Scre ening [facility] Start: 1972 HEPATIT[facility] Start: 1972 Hepatitis C screening Hepatitis C Sc [facility] Start: 1954 ABDOMINAL AORTIC ANEURYSM SCREENING ABDOMINAL AORTIC ANEURYSM SCREENING [facility] Start: 1954 Abdominal aortic aneurysm screening Abdominal Aortic Aneurysm Screening [facility] Basic metabolic 2008 panel with ionized calcium - Serum or Plasma [facility] CBC W Auto Different ial panel - Blood [facility] Hemoglobin A1c/Hemoglobin.total in Blood [facility] Lipid 1996 panel - S lee or Plasma [facility] Immunizations Immunization Date Immunization Notes Care Provider [facility] 06-25-2024 influenza virus vacc ine, unspecified formulation CODY CONTRERAS MD [facility] 07-02-2023 influenza virus vacc ine, unspecified formulation CODY CONTRERAS MD [facility] 06-13-2022 influenza, high dose seasonal, preservative-free CODY CONTRERAS MD [facility] 06-13-2022 influenza virus vacc ine, unspecified formulation Kris Michel MD Work Phone: [facility] 08-02-2021 SARS-CoV-2 mRNA (tozinameran) vaccine CODY CONTRERAS MD [facility] 06-18-2021 influenza virus vacc ine, unspecified formulation CODY CONTRERAS MD [facility] 12-01-2020 SARS-CoV-2 mRNA (tozinameran) vaccine CODY CONTRERAS MD [facility] 11-10-2020 SARS-CoV-2 mRNA (tozinameran) vaccine CODY CONTRERAS MD [facility] Comment on above: Result Comment: 2020: [id number] 05-26-2020 influenza virus vacc ine, unspecified formulation CODY CONTRERAS MD [facility] 05-26-2020 pneumococcal conjuga te vaccine, 13 martha CONTRERAS MD [facility] 06-13-2018 influenza virus vacc ine, unspecified formulation CODY CONTRERAS MD [facility] 10-28-2017 pneumococcal polysaccharide vaccine, 23 valent CODY CONTRERAS MD [facility] 07-24-2017 influenza virus vacc ine, unspecified formulation CODY CONTRERAS MD [facility] 06-04-2016 influenza virus vacc ine, unspecified formulation CODY CONTRERAS MD [facility] 06-10-2015 influenza virus vacc ine, unspecified formulation CODY CONTRERAS MD [facility] 09-23-2014 zoster vaccine, live CODY CONTRERAS MD [facility] Payers Date Payer Category Payer Self-pay [id number] 2019 Private Health Insurance [id number] 2019 Unknown [id number] 2019 Medicare [id number] 2019 Medicare [id number] 1955 Unknown [id number] 2.16.8 [id number] 1955 Unknown [id number] 2.16.8 [id number] 1954 Unknown [id number] 2.16.8 [id number] 1954 Unknown [id number] 2.16.8 [id number] 1954 Unknown [id number] 2.16. [id number] 1954 Unknown [id number] 2.16. [id number] 1955 Unknown [id number] 2.16.8 [id number] 1955 Unknown [id number] 2.16.8 [id number] Unknown [id number] Unknown LIAM [id number] Unknown [id number] [id number] Social History Date Type Detail Facility Start: 05-18-2019 End: 06-17-2025 Tobacco smoking status Ex-smoker (finding) [facility] Sex Assigned At [facility] Start: 10-11-1973 End: 10-11-1999 History of tobacco use Current smoker [facility] Start: 10-11-1973 End: 10-11-1999 History of tobacco use Cigarette Smoker [facility] Start: 04-30-2012 End: 08-14-2020 Cigarettes smoked current (pack per day) - Reported 4 [facility] Start: 04-30-2012 End: 01-17-2024 Tobacco use and exposure Smokeless tobacco non-user [facility] Start: 05-17-2021 End: 01-17-2024 Alcohol intake Current non-drinker of alcohol (finding) [facility] Start: 1955 Sex Assigned At Not on file [facility] Start: 04-12-2022 Tobacco smoking stat us NYIS Unknown if ever smoked [facility] Start: 1955 Sex Assigned At Male [facility] Start: 08-14-2020 End: 02-05-2023 Tobacco use panel [facility] National Score (1-10 0), lower number is lower risk Not on file [facility] Start: 11-19-2014 Sex Male (finding) [facility] Functional Status Date Assessment Result Facility 03-14-2023 Functional Status ID band on, Call device within reach, Bed in low position, Wheels locked, Upper/Half-Length side-rails up, Phone within reach, Visitor at bedside, Safety level maintained [facility] 09-20-2014 Are you deaf, or do you have serious difficulty hearing No 09/20/2014 8:21 AM Nikki Mazariegos Cma No [facility] 09-20-2014 Are you blind, or do you have serious difficulty seeing, even when wearing glasses No 09/20/2014 8:21 AM Nikki Mazariegos Cma No [facility] 09-20-2014 Do you have serious difficulty walking or climbing stairs No 09/20/2014 8:21 AM Nikki Mazariegos Cma No [facility] 09-20-2014 Do you have difficul ty dressing or bathing No 09/20/2014 8:21 AM Nikki Mazariegos Cma No [facility] 09-20-2014 Because of a physica l, mental, or emotional condition, do you have difficulty doing errands alone such as visiting a physician's office or shopping No 09/20/2014 8:21 AM Nikki Mazariegos Cma No [facility] Mental Status Date Assessment Result Facility 03-14-2023 Mental Status Oriented x 4 [facility] 09-20-2014 Because of a physica l, mental, or emotional condition, do you have serious difficulty concentrating, remembering, or making decisions No 09/20/2014 8:21 AM KATINA Gutierrez Information Writer, Nikki Gallagher No [facility] Clinical Notes 11-03-2009 to 05-31-2025 Note Date & Type Note Facility 05-31-2025 Progress note [facility] 05-31-2025 Evaluation note Diagnosis Onset Date Resolution Type 2 diabetes mellitus acute May 31, 2025 1:16pm Atherosclerosis of coronary artery of [place] heart without angina pectoris chronic May 31, 2025 1:16pm Essential hypertension chronic Se ptember 2024 1:16pm HLD (hyperlipidemia) chronic Sept ember 2024 1:16pm [facility] Work Phone: 1(875) 652-615909-22-2025 Progress note Author Raffi Catalan [facility] Note Date/Time May 31, 2025 2:13pm [facility] [address] [place] [address] OFFICE VISIT Date of Service: 05/31/25 MR#: [id number] Acct: [id number] Name: OBDULIO WHITNEY Rep #: [id number] : 1955 Provider: DARRIUS Catalan Age/Sex: 70/M Location: [facility] Status: Signed HPI HPI History of Present [...] the posterior descending artery. 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 His last [...] Visit Reasons: OVERDUE FOR OV/LAST SEEN 02/2024 Experimental Display Builder Required: No Accompanied by: Self Is patient in pain?: No Allergies celecoxib (From Celebrex) Allergy (Verified 05/31/25 13:25) shortness of breath mushroom Allergy (Verified 05/31/25 13:25) swelling naproxen Allergy (Verified 05/31/25 13:25) rash Gqcqvqc-SWQ-UkZ Reductase Inhibitor (Zlrfucz-Tbs-Edf Reductase Inhibitor) Allergy (Verified 05/31/25 13:25) leg [...] (Updated 05/31/25 @ 13:54 by Raffi Catalan APPLICATIONS TESTER, APPLICATIONS TESTER-C) Type 2 diabetes mellitus Atherosclerosis of coronary artery of [place] heart without angina pectoris Essential hypertension HLD [...] Plan (1) 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 Qualifiers: Coronary Disease-Associated Artery/Lesion type: [place] artery QualifiedCode(s): I25.10 - Atherosclerotic heart disease of [place] coronary artery without angina pectoris Plan: He [...] Today I25.10 - Atherosclerotic heart disease of [place] coronary artery without angina pectoris Basic Metabolic Profile (BMP) Today E11.9 - Type 2 diabetes mellitus without complications, E78.5 - Hyperlipidemia, unspecified, I10 - Essential (primary) hypertension, I25.10 - Atherosclerotic heart disease of [place] coronary artery without angina pectoris Liver Profile Today E11.9 - Type 2 diabetes mellitus without complications, E78.5 - Hyperlipidemia, unspecified, I10 - Essential (primary) hypertension, I25.10 - Atherosclerotic heart disease of [place] coronary artery without angina pectoris Lipid Profile Today E11.9 - Type 2 diabetes mellitus without complications, E78.5 - Hyperlipidemia, unspecified, I10 - Essential (primary) hypertension, I25.10 - Atherosclerotic heart disease of [place] coronary artery without angina pectoris Medications: New [...] Labs (For Continuity Of Care) 12-15 Months (COUNTER TENDER) Coding Level of Care Code Off vis,est,level 4 Diagnoses Atherosclerosis of [place] coronary artery of [place] heart without angina pectoris I25.10 Coronary Disease-Associated Artery/Lesion type: [place] artery Essential hypertension I10 Hyperlipidemia, unspecified hyperlipidemia type E78.5 Hyperlipidemia type: unspecified Type 2 diabetes mellitus E11.9 Coding Level of Care Code Off vis,est,level 4 Diagnoses Atherosclerosis of [place] coronary artery of [place] heart without angina pectoris I25.10 Coronary Disease-Associated Artery/Lesion type: [place] artery Essential hypertension I10 Hyperlipidemia, unspecified hyperlipidemia type E78.5 Hyperlipidemia type: unspecified Type 2 diabetes mellitus E11.9 Clinical Quality Measures Falls Risk Screening/Assistive Devices Have you fallen in the past year?: No 05/31/25 1448 <Electronically signed by Raffi RIZO> Date _ Raffi Catalan NP, NP-Cali Cosigner Signature: Date (if applicable) CC: Dr. Cody Contreras MD ~ [facility] Work Phone: 1(177) 424-814804-02-2025 NoteHNO ID: [id number] Author: ?, ?, ? Service: ? Author Type: ? Type: Progress Notes Filed: 12/11/2024 16:28 Note Text: CMN RECEIVED BY [facility] VIA FAX, COMPLETED, AND PLACED IN PROVIDER MAILBOX FOR SIGNATURE Maribell Alex Senior Credit Officer II [facility] COMPANY SENDING CMN: Suleiman SIGNED AND DATED CMN, FAXED TO DME AND CONFIRMATION PAGE RECEIVED: 12/11/2024 [facility]04-02-2025 History of Present illness Narrative* Maribell Alex - 12/09/2024 3:52 PM EDT CMN RECEIVED BY [employer] VIA FAX, COMPLETED, AND PLACED IN PROVIDER MAILBOX FOR SIGNATURE Maribell Alex Senior Credit Officer II [employer] SENDING CMN: Suleiman SIGNED AND DATED CMN, FAXED TO DME & CONFIRMATION PAGE RECEIVED: 12/11/2024 documented [facility] History of Present illness Narrative* Johanne Chapman APRN.ISA - 01/17/2024 8:00 AM EDT Images from the original note were not included. [facility] Follow up/ Established [...] Follow up in 1 year(s) and PRN. Leighann Sandoval, ALONZO.ISA Here for follow up for ZACHARIAH, annual follow up. He uses PAP all night, every night, I can't sleep without it. His recently. SLEEP APNEA Sleep apnea type : ZACHARIAH, Most Recent Apnea-Hypopnea Index (AHI): 6.4, supine 55.4 Treatment : PAP therapy DME: [facility] PAP History: Uses AutoPAP for 9 hours [...] Take 4 mg by mouth as needed. Aredale-3 Fatty Acids, FISH OIL, 360-1,200 mg cap [...] ALLI. Johanne Chapman APRN.CNP documented in this encounterHigh[facility] Hospital05-10-2024 NoteHNO ID: [id number] Author: JOHANNE CHAPMAN APRN.CNP Service: ? Author Type: Nurse Practitioner Type: Progress Notes Filed: 01/17/2024 08:36 Note Text: [facility] Follow up/ Established [...] Follow up in 1 year(s) and PRN. Leighann Sandoval APRN.FIELD APPRAISER Here for follow up for ZACHARIAH, annual [...] Take 4 mg by mouth as needed. [place]-3 Fatty Acids, FISH OIL, 360-1,200 mg cap [...] in 12 months with ALLI. Johanne Chapman APRN.[facility]04-16-2024 Miscellaneous Notes * Telephone Encounter - Yue Boo OCCA - 12/24/2023 9:20 AM EDT Faxed and received confirmation from Suleiman Carrasco for CPAP orders. Patient's most recent visit was 05/17/2021. DME notified that patient will need to make an appointment. documented in [facility]High[facility]23 Hospital Discharge instructions Patient Education 03/14/2023 [...] or as directed by your healthcare provider [phone] [employer]. [address] [place] [address]. All rights reserved. This information is not intended as a substitute for professional medical care. Always follow yourhealthcare professional's instructions. Follow Up Care 03/14/2023 14:57:47 With:CODY CONTRERAS MD Address: [address] [facility] [place] [address]- When:2-4 days [facility] 07-06-2023 Note Discharge Instructions Thank you for allowing [facility] to assist you with your healthcare needs. The following is importantdischarge information regarding your hospital visit. Diagnosis from Today's Visit Ankle pain Ankle pain-swelling What to Do Next Instructions from Your Care Team No qualifying data available. Post Acute Orders No qualifying data available. You Need to Schedule the Following Appointments Follow Up with CODY CONTRERAS MD When Within 2-4 days Where: [address] [facility] [place] [address]- Allergies CeleBREX Percocet 5/325 celecoxib (Naproxen) naproxen Medications Please ask your primary doctor or pharmacist before taking any other medication not listed, including over the counter drugs, herbal medications, vitamins and or supplements as they may interact withyour home medications. What How Much When Why [...] providers or retail pharmacies. Medication Leaflets prednisone (PRED ni sone) Amie What is the most important information I [...] may report side effects to FDA at 3-852-JSW-6620. What other drugs will affect prednisone? Sometimes [...] may affect prednisone. This includes prescription and xkgy-umf-czuvass medicines, vitamins, and herbal products. Not all [...] to ensure that the information provided by [employer]. ('[employer]') is accurate, up-to-date, and complete, but no guarantee is made to that effect. Drug information contained herein may be time sensitive. [employer] information has been compiled for use by healthcare practitioners and consumers in the [place] and therefore [employer] does not warrant that uses outside of the [place] are appropriate, unless specifically indicated otherwise. [employer] drug information does not endorse drugs, diagnose patients or recommend therapy. [employer] drug information isan informational resource designed to [...] effective or appropriate for any given patient. [employer] does not assume any responsibility for any aspect of healthcare administered with the aid of information [employer] provides. The information contained herein is not intended to cover all possible uses, directions, precautions, warnings, drug interactions, allergic reactions, or adverse effects. If you have questions about the drugs you are taking, check with your doctor, nurse or pharmacist. Copyright 5554-5327 [employer]. Version: 10.01. Revision Date: 12/04/2018. Education Materials Arthralgia Arthralgia [...] or as directed by your healthcare provider [phone] [employer]. [address] [place] [address]. All rights reserved. This information is not intended as a substitute for professional medical care. Always follow yourhealthcare professional's instructions. Additional Information VACCINATE! IT SAVES LIVES! Members of the community who have not yet received the COVID-19 vaccine and would like to receive it can visit one of [facility] vaccine clinics. There are many vaccine clinic locations within the [facility]. For locations and available times, please visit www.gettheshot.coronavirus.[place].gov/. It is important to note that some COVID mobile vaccine clinics are held outdoors and may be canceled in rainy or stormy conditions. To learn more about pediatric vaccinations (ages 5-11), we invite you to visit the [facility] webpage. https://www.[facility].org/pages/2119-Aojgo-Llueeikbsuy-Mzevwrabeq-Mawlr-Iyd stions.htmlTo learn more about the COVID-19 vaccine, we invite you to visit the CDC website for a list of frequently asked questions. https://www.cdc.gov/coronavirus/2019-ncov/vaccines/faq.html [facility] [employer] Patient Portal Access Instructions: Stay connected with your healthcare team and access your personal medical information anytime with the [facility] Patient Portal. If you would like a full copy of your medical records please contact the [facility] Medical Records Department Saturday through Saturday between 8a.m. and 4:30p.m. Please follow the directions below to access the portal: 1.Access the email account you provided upon registration to the [facility].2.Look for an invitation email from [facility].3.Open the email and access the invitation link: Accept [facility]itation to [facility]4.Fill in the required nicholas to create your account. Sign into [email or web address] with your username and password that you [...] you will allow to register on the [facility] Patient Portal for access to your information. You can also access the [facility] Patient Portal on the [employer]. Simply click on Health Records under Tasted MenuData and then click on the Porph[employer] logo. HOW TO SAFELY DISPOSE OF PRESCRIPTION [...] Call your local pharmacy or go to http://bit.ly/5V0Pl9s to find one close to you.3.Make use of household items: Use cat litter or old coffee grounds to dispose medications if other options arenot available. Mix your drugs with these household products, seal them in an airtight container andthrow it into the garbage. Call [facility]: [phone] to be sure your drugs can be [...] been reviewed and explained to me and I,OBDULIO WHITNEY SR understand my current condition and have read and understand these discharge instructions. I have received a written copy of the plan/instructions. If I have questions, I am aware that I should contact my doctor. Patient/Line Rider Signature: Date/Time: Relationship to Patient: Witness Name/Signature: Date/Time: [facility]07-06-2023 Note ORIGINAL EXAMINATION: THREE XRAY [...] Date: 03/14/2023 3:41:35 PM Ordering Provider: [facility]07-06-2023 Note ORIGINAL EXAMINATION: THREE XRAY VIEWS OF [...] Sign Date: 03/14/2023 3:41:35 PM Ordering Provider: [facility]05-30-2023 History and physical note* Kris Michel MD [...] back surgery 1995 PAST SURGICAL HISTORY OF 2011 neck surgery RPR 1ST INGUN HRNA AGE [...] Take 4 mg by mouth as needed. [place]-3 Fatty Acids, FISH OIL, 360-1,200 mg cap [...] Celebrex [Celecoxib], Mushrooms [Other], Naproxen, and Statins [Aitynkj-Jjh-Lxd Reductase Inhibitors] PERSONAL HISTORY: SOCIAL HISTORY Social [...] entered by the nurse and reviewed by az Nursing Notes: Josephine Kern LPN 01/18/2023 9:22 [...] which included preparing to see the patient, pbkg-oy-blfy patient care, completing clinical documentation, obtaining and/or [...] 2023 TIME: 11:28 AM documented in this encounterHigh[facility] Hospital05-30-[facility]23 Nurse Note* Elenita Cerna RN - 02/05/2023 12:00 PM EDT Arrived in phase II via cart. Left lateral position. Sedated, but responds to verbal stimuli. Colornormal; skin warm and dry. Respirations wnl and unlabored. Abdomen soft and with + bowel sounds in quads X 4. Patient resting comfortably. Elenita Cerna RN documented in this encounterHigh[facility] Hospital04-12-2023 Miscellaneous Notes* Telephone Encounter - Ivy Gillespie Ma - 12/19/2022 2:07 PM EDT Request completed and faxed. Confirmed and filed. Ivy Gillespie Ma * Telephone Encounter - Ivy Gillespie Ma - 12/19/2022 10:07 AM EDT Type of letter/form/fax request - Medical Necessity Form received from Suleiman on 2c floor and placed on [facility] Leighann Sandoval's desk for completion. Completed form needs to be faxed to [phone]. Route to [place] when form completed for processing documented in this encounterHigh[facility] History of Past illness Narrative* Problem [...] of this encounter (statuses as of 12/20/2022) [facility] of Past illness Narrative* Problem [...] of this encounter (statuses as of 07/14/2023) [facility] of Past illness Narrative* Problem [...] of this encounter (statuses as of 12/24/2023) [facility] Future Appointments Appointment Date:06/13/2022 08:00:00 AM Scheduled Provider:CODY CONTRERAS MD Location:[facility] Appointment Type:[facility] Evaluation + Plan note Future Appointments Appointment Date:09/12/2022 08:00:00 AM Scheduled Provider:CODY CONTRERAS MD Location:[facility] Appointment Type:[facility] Evaluation + Plan note Future Appointments Appointment Date:03/19/2023 07:30:00 AM Scheduled Provider:CODY CONTRERAS MD Location:[facility] Appointment Type: OV [facility] Evaluation + Plan note Future Appointments Appointment Date:09/19/2023 08:00:00 AM Scheduled Provider:CODY CONTRERAS MD Location:[facility] Appointment Type: OV [facility] Evaluation + Plan note Future Appointments Appointment Date:03/19/2024 07:30:00 AM Scheduled Provider:CODY CONTRERAS MD Location:[facility] Appointment Type:PC OV Future Scheduled Tests Laboratory* A1C Hemoglobin 03/19/24 * Lipid Profile 03/19/24 * Complete Metabolic Panel 03/19/24 [facility] Evaluation + Plan note Future Appointments Appointment Date:03/19/2024 07:30:00 AM Scheduled Provider:CODY CONTRERAS MD Location:[facility] Appointment Type: OV [facility] Evaluation + Plan note Future Appointments Appointment Date:09/22/2024 09:00:00 AM Scheduled Provider:CODY CONTRERAS MD Location:[facility] Appointment Type: OV [facility] Evaluation + Plan note Future Appointments Appointment Date:03/17/2025 09:30:00 AM Scheduled Provider:CODY CONTRERAS MD Location:[facility] Appointment Type: OV [facility] Evaluation + Plan note Future Appointments Appointment Date:06/17/2025 09:00:00 AM Scheduled Provider:CODY CONTRERAS MD Location:[facility] Appointment Type:PC OV Follow Up [facility] Evaluation + Plan note Future Appointments Appointment Date:09/17/2025 10:30:00 AM Scheduled Provider:CODY CONTRERAS MD Location:[facility] Appointment Type:PC OV Lab Check [facility] Evaluation noteNo assessment information available [facility] Work Phone: Evaluation note* Diagnosis Encounter for screening for malignant neoplasm of colon- Primary Special screening for malignant neoplasms, colon Constipation, unspecified constipation type Lower abdominal pain Abdominal pain, other specified site Bilateral lower abdominal cramping Abdominal pain, other specified site documented in this encounter [facility] note* Diagnosis ZACHARIAH (obstructive sleep apnea)- Primary Obstructive sleep apnea (adult) (pediatric) documented in this encounter [facility] course Narrative No data available for this section [facility] Hospital Discharge instructions No data available for this section [facility] Progress note No data available for this section [facility] Reason for referral (narrative)* Outpatient Procedure (Routine) - Closed Specialty Diagnoses / Procedures Referred By Contac t Referred To Contact [facility] Diagnoses Constipation, unspecified constipation type Lower abdominal pain Bilateral lower abdominal cramping Procedures COLONOSCOPY DIAGNOSTIC COLONOSCOPY FLX DX W/COLLJ SPEC WHEN Azalia Andrews PA-C [address] [place] [address] [facility] [place] [address] [place] [id number] Referral ID Status Reason Start Date Expiration Date V isits Requested Visits Authorized [id number] Closed Auto-Generate d Referral 01/18/2023 01/19/2024 1 1 [facility] for referral (narrative)No reason for referral [facility] Work Phone: Reason for visit Narrative* Outpatient Procedure (Routine) - Closed Specialty Diagnoses / Procedures Referred By Contac t Referred To Contact [facility] Diagnoses Constipation, unspecified constipation type Lower abdominal pain Bilateral lower abdominal cramping Procedures COLONOSCOPY DIAGNOSTIC COLONOSCOPY FLX DX W/COLLJ SPEC WHEN PFRMD Azalia Perez PA-C [address] [place] [address] [facility] [address] [place] [address] Referral ID Status Reason Start Date Expiration Date V isits Requested Visits Authorized [id number] Closed Auto-Generate d Referral 01/18/2023 01/19/2024 1 1 [facility] Summary Purpose Family History No Family [...] Found No data available for this section Advance Directives No Advanced Directives Records FoundNo Advanced Directives Records FoundNo Advanced Directives Records FoundNo Advanced Directives Records FoundNo Advanced Directives Records FoundNo Advanced Directives Records Found Chief Complaint and Reason for Visit Chief Complaint Atherosclerotic hear t disease of [place] coronary a Atherosclerotic heart disease of [place] coronary a Chief Complaint Admit Date OVERDUE FOR OV/LAST SEEN 02/2024 Septemb er 2024 1:16pm Reason for Visit Admit Date Type 2 diabetes mellitus May 31, 2025 1:16pm Atherosclerosis of coronary artery of [place] heart without angina pectoris May 31, 2025 1:16pm Essential hypertension May 31, 2 025 1:16pm HLD (hyperlipidemia) May 31 1:16pm Medications Administered Section Inactive Administered Medications - up to 3 most recent administrations Medication Order MAR Action Action Date Dose Rate Site diphenhydrAMINE 12.5-50 mg injection (BENADRYL) 12.5-50 mg, INTRAVENOUS, DIRECTED, Starting on Sat02/05/23 at 1200, Until Tu02/05/23 at 1559, DOSING DIRECTED BY PHYSICIAN FOR [...] section and content) DATE CREATED AUTHOR 03/05/2018 [facility] DATE CREATED AUTHOR AUTHOR'S ORGANIZ ATION 07/28/2018 [facility] DATE CREATED AUTHOR AUTHOR'S ORGANIZ ATION 03/12/2024 [facility] ([place]) DATE CREATED AUTHOR AUTHOR'S ORGANIZ ATION 12/14/2024 [facility] DATE CREATED AUTHOR AUTHOR'S ORGANIZ ATION 06/15/2025 [facility] DATE CREATED AUTHOR AUTHOR'S ORGANIZ ATION 06/18/2025 [facility] Care Team (unrecognized sect ion and content) Care Team Personnel Name: CODY CONTRERAS MD Position: P4 Physician - Primary Care Med Service: Active Provider Member Role: Primary Care Physician Address: Address: [address] [place] [address] [address] [facility] [place] [address]- [place] Care Team Related Persons Name: WHITNEYMACYO Address: Home [address] [place] [phone] [place] Care Team Personnel Name: CODY CONTRERAS MD Position: P4 Physician - Primary Care Member Role: Primary Care Physician Address: Address: [address] [facility] [place] [address]- Care Team Related Persons Name: MAYCO WHITNEY Address: Home [address] [place], [place] [id number] [place] Source Comments (unrecognize d section and content) In the event this informatio n is protected by the Federal Confidentiality of Alcohol and Drug Abuse Patient Records regulations: The Federal rules restrict any use of the information to criminally investigate or prosecute any alcohol or drug abuse patient.[facility] the event this information is protected by the Federal Confidentiality of Alcohol and Drug Abuse Patient Records regulations: The Federal rules restrict any use of the information to criminally investigate or prosecute any alcohol or drug abuse patient.[facility] the event this information is protected by the Federal Confidentiality of Alcohol and Drug Abuse Patient Records regulations: The Federal rules restrict any use of the information to criminally investigate or prosecute any alcohol or drug abuse patient.[facility] the event this information is protected by the Federal Confidentiality of Alcohol and Drug Abuse Patient Records regulations: The Federal rules restrict any use of the information to criminally investigate or prosecute any alcohol or drug abuse patient.[facility] the event this information is protected by the Federal Confidentiality of Alcohol and Drug Abuse Patient Records regulations: The Federal rules restrict any use of the information to criminally investigate or prosecute any alcohol or drug abuse patient.[facility] Reason for Visit (unrecogniz ed section and content) Reason Comments CMN- PAP supplies [facility] Reason Comments Orders Faxed and received c onfirmation from [facility] for CPAP orders. Patient's most recent visit was 05/17/2021. DME notified that patient will need to make an appointment. Reason Comments New Patient Evaluation Reason Comments CMN Care Teams (unrecognized sec tion and content) Care Team Personnel Name: CODY CONTRERAS MD Position: P4 Physician - Primary Care Member Role: Primary Care Physician Address: Counts include [address] at the [facility] [place] [address]- Telecom: Care Team Related Persons Name: OBDULIO WHITNEY Director Of State Relationship Specialty Start Date End Date Cody Contreras MD [address] [place] [address] PCP - General 10/04/09 Team Status: Active Member Role Status Dates Dr. Cody Contreras MD Family Provider Active Dr. Cody Contreras MD Primary Care Provider Active Team Status: Active Member Role Status Dates Dr. Cody Contreras MD Primary Care Provider Active Raffi H Roof APPLICATIONS TESTER, APPLICATIONS TESTER-C Referring Provider, Other Provide r Active Dr. Chetan Malave MD Attending Provider Active Team Status: Inactive Member Role Status Dates Dr. Cody Contreras MD Primary Care Provider Active Raffi Catalan NP, APPLICATIONS TESTER-C Attending Provider, Referring Pro vider Active Director Of State Relationship Specialty Start Date End Date Cody Contreras MD [address] [place] [address] PCP - General 10/04/09 Director Of State Relationship Specialty Start Date End Date Cody Contreras MD [address] [place] [address] PCP - General 10/04/09 Director Of State Relationship Specialty Start Date End Date Cody Contreras MD [address] [place] [address] PCP - General 10/04/09 Director Of State Relationship Specialty Start Date End Date Cody Contreras MD [address] [place] [address] PCP - General 10/04/09 Team Status: Active Member Role/Relationship Status Dates Dr. Cody Contreras MD Primary care physician Active Team Status: Inactive Member Role/Relationship Status Dates Dr. Cody Contreras MD Primary care physician Active Start: May 31, 2025 End: May 31, 2025 Dr. Cody Contreras MD Referring Provider Active Start: May 31, 2025 End: May 31, 2025 Raffi Catalan APPLICATIONS TESTER, APPLICATIONS TESTER-C Attending physician Active Start: May 31, 2025 [...] BE BASED ON THE PRIMARY CLINICAL RECORDS. [facility]. provides no warranty or guarantee of the accuracy or completeness of information in this document.
[2025-07-03] MEDS: 0.9% Normal Saline (1000mL) 1,000 ML 999 ML IV (06:16)
[2025-07-03 06:27] LABS: Hematocrit 41.5 % (40-54); Hemoglobin 13.6 g/dL (13.0-16.5); Mean Corp Hgb Conc 32.8 g/dL (32-36); Mean Corpuscular Volume 80.7 fL (80-94); Mean Platelet Vol. 10.1 fl (6.2-12.0); POSITIVE DIFFERENTIAL YES; POSITIVE MORPHOLOGY YES; Platelet Count 155 K/mm3 (150-450); RBC Distribution Width CV 14.0 % (11.6-14.6); RBC Distribution Width SD 40.9 fl (35.1-43.9); Red Blood Count 5.14 M/mm3 (4.6-6.2); White Blood Count 16.9 K/mm3 (4.4-11.0)
--- NOTE | 2025-07-03 06:31 | CT_ITS ---
PROCEDURE: ABDOMEN/PELVIS WITHOUT CONT 07/03/2025 REASON FOR EXAM: PAIN Abdominal pain. TECHNIQUE: Procedure Code: CTABDPEL Modality: CT Procedure: ABDOMEN/PELVIS WITHOUT CONT Noncontrast technique limits evaluation of the abdominal and pelvic viscera. Coronal and Sagittal reconstruction series were provided. One or more dose reduction techniques were used (e.g., Automated exposure control, adjustment of the mA and/or kV according to patient size, use of iterative reconstruction technique). RADIATION DOSE SUMMARY: CTDlvol: 16 mGy DLP: 870.0 mGycm COMPARISON: 02 July 2025 FINDINGS: Lung bases: Negative. ABDOMEN Liver: Single calcification in the liver. No distinct mass. Biliary system: Negative. Negative for intrahepatic or extrahepatic ductal dilatation. Gallbladder: Gallbladder slightly prominent. Minimal stranding around the gallbladder. No definitive stones. No definitive gallbladder wall thickening. Spleen: Negative. Pancreas: Negative. Adrenals: Negative. Kidneys: Negative. Negative for kidney stones, cysts or masses. Bowel: Mild scattered diverticulosis with severe diverticulosis of the sigmoid colon no active inflammation, abscess or phlegmon. Negative for small or large-bowel obstruction. Appendix: The appendix is not identified. There is no inflammatory process identified in the right lower quadrant to suggest appendicitis. Vasculature: Moderate atherosclerotic vascular calcifications of the abdominal aorta and its branches. Peritoneum / Retroperitoneum: Negative. PELVIS Lymph nodes: Negative for inguinal or iliac adenopathy. Bladder: Contrast material in the bladder. Mild diffuse urinary bladder wall thickening. Reproductive Organs: Moderately enlarged prostate. Bones and Soft Tissues: Moderate degenerative changes in the mid and lower lumbar spine. No fractures. Otherwise age appropriate appearance the lumbar spine hips and pelvis. CT/Abdomen/Pelvis without Cont IMPRESSION: Gallbladder mildly distended with minimal stranding around it. Correlate clinically and with gallbladder ultrasound as needed to evaluate for very early gallbladder disease. Diverticulosis without diverticulitis. Enlarged prostate with probable bladder outlet obstruction Reading Location: [id number]
[2025-07-03 06:54] LABS: Mucous, Urine 0 SEEN /hpf (<or=2+); Red Blood Cells-Urine 0 SEEN /hpf (0-5); Squamous Epithelial Cells - UA 0 SEEN /hpf (0-5)
[2025-07-03 06:55] LABS: Color, Urine Yellow (Yellow); Glucose, Dipstick 1000 mg/dl (Normal); Ketone-Dipstick 5 mg/dl (Negative); Leukocyte Esterase-Dipstick Negative /ul (Negative); Nitrite-Dipstick Negative (Negative); Occult Blood-Urine 50 /ul (Negative); Protein-Dipstick 30 mg/dl (Negative); Specific Gravity, Urine 1.020 (1.002-1.030)
[2025-07-03 06:58] LABS: AST(SGOT) 203 U/L (<=37); Alanine Aminotransfer ALT/SGPT 183 U/L (<=46); Albumin, Serum 4.5 g/dL (3.4-4.8); Alkaline Phosphatase 66 U/L (40-129); Anion Gap 14 (5-15); BUN 13 mg/dL (4-19); BUN/Creat Ratio 13.7 RATIO (10-20); Calcium,Total 9.9 mg/dL (7.6-11.0); Carbon Dioxide 22.4 mmol/L (21.0-32.0); Chloride 101 mmol/L (98-108); Estimated Creatinine Clearance 77.64 ml/min (50-250); Globulin 2.6 g/dL (2.2-4.2); Glucose 242 mg/dL (70-99); Lipase 46 U/L (13-75); Potassium 4.1 mmol/L (3.3-5.1)
[2025-07-03 07:01] LABS: Urine Bilirubin Dipstick 1 mg/dL (Negative)
--- NOTE | 2025-07-03 07:08 | US_ITS ---
PROCEDURE: GALLBLADDER 07/03/2025 REASON FOR EXAM: PAIN TECHNIQUE: Procedure Code: USGB Modality: US Procedure: GALLBLADDER COMPARISON: Earlier today's CT FINDINGS: Liver: Slight increased echotexture liver. Punctate calcification adjacent to the gallbladder. No focal mass. Normal portal and hepatic flow. Gallbladder: Mildly distended. Minimal amount of fluid around the liver and adjacent to the gallbladder fossa. Gallbladder wall thickness of 3 mm. Mildly painful with palpation. No definitive gallstones. Common bile duct: Normal measuring 5 mm. Pancreas: Imaged pancreas negative. Other: Right kidney normal-size and echotexture measures 12.0 x 6.1 cm. US/Gallbladder IMPRESSION: Mildly distended gallbladder with minimal adjacent perihepatic fluid. Gallblad elvira mildly painful with palpation. Suspect gallbladder disease and possibly very early cholecystitis. Reading Location: [id number]
[2025-07-03 07:23] LABS: Neutrophil-Band 6 % (0-5); Neutrophil-Segmented 79 % (47-70); Total Cells Counted 100 (MANUAL DIFF)
[2025-07-03 07:28] LABS: Reactive Lymphocyte RARE; Red Cell Morphology NORM C+C NORMAL (NORM C&C)
[2025-07-03 07:29] LABS: Differential Comment SCANNED; Differential Indicated MANUAL DIFF
[2025-07-03] MEDS: Piperacil/Tazobactam 3.375 GM in 0.9% Normal Saline (50mL MB+) 50 ML IV ×3 (09:17→20:39)
--- NOTE | 2025-07-03 10:44 | MRI_ITS ---
PROCEDURE: MRCP ABDOMEN WITHOUT CONTRAST 07/03/2025 REASON FOR EXAM: DILATED GALLBLADDER, RIGHT UPPER QUADRANT PAIN TECHNIQUE: Procedure Code: MRIMRCP Modality: MR Procedure: MRCP ABDOMEN WITHOUT CONTRAST Multiplanar and multisequence images were obtained. FINDINGS: Distended gall bladder showing sludge along its neck with minimal mural thickening and edema. Related vijay-cholecystic edema and fat stranding. No obvious related encysted collections. Relatively swollen pancreas showing high signal with mild surrounding fat stranding. No obvious related collections. The pancreatic duct is not dilated. No obvious intra or extra-hepatic biliary tracts dilatation. Minimal vijay-hepatic fluid noted. Average sized liver showing homogenous parenchymal signal with few tiny cysts. Hepatic and splenic tiny low signal calcific foci. The adrenals are normal in size and signal intensity. Both kidneys are normal in size and position. No hydronephrosis or focal masses could be seen in both kidneys. Mild perinephric fat stranding. Small and large bowel loops appear largely collapsed however, is grossly unremarkable. Stomach shows no significant abnormality. No significant lymph node enlargement is seen in the abdomen. The visualized osseous structure in thoracolumbar spine shows No marrow infiltrative lesions. MRI/MRCP Abdomen without Contrast IMPRESSION: Gall bladder sludge with mural thickening/edema and surrounding edema, possibly cholecystitis. Relatively swollen pancreas with surrounding edema suggestive of interstitial e dematous pancreatitis with acute peripancreatic fluid (Ayden C). Advise clinical and laboratory correlation. Minimal vijay-hepatic fluid noted. Reading Location: [facility] [address]
--- OUTSIDE RECORDS SUMMARY | 2025-07-03 11:41 | XMS RPT_ITS | CCD ---
Author Organization [facility] Care Team Providers Care Edge Plugger Name Role Phone CHAPARRO CROWDER Unavailable Unavailable CHAPARRO CROWDER Unavailable Unavailable NO REFERRING Unavailable Unavailable DANIELA BRADY Unavailable Unavailable DANIELA BRADY Unavailable Unavailable DANIELA BRADY Unavailable Unavailable CODY CONTRERAS MD Primary Care Physician Cody Contreras MD Primary Care Provider Dr. Cody Contreras Primary Care Provider Alayna TAX CLERK, TAX CLERK-C Raffi Miller Referring Provider Alayna TAX CLERK, TAX CLERK-C Raffi Miller Other Provider Dr. Chetan Malave Attending Provider [phone] Cody Contreras MD Primary Care Provider Cody Contreras MD Primary Care Provider Cody Contreras MD Primary Care Provider CODY CONTRERAS MD Primary Care Unavailable CODY CONTRERAS MD Attending Unavailable CODY CONTRERAS MD Primary Care Unavailable CODY CONTRERAS MD Attending Unavailable CODY CONTRERAS MD Primary Care Unavailable CODY CONTRERAS MD Attending Unavailable CODY CONTRERAS MD Primary Care Unavailable MC GARDUNO MD Attending Unavail able CODY CONTRERAS Primary Care Unavailable JOHANNE CHAPMAN Attending Unavailable Dr. Cody Contreras MD Primary Care Physician [phone] Dr. Cody Contreras MD Referring Provider Alayna TAX CLERK-CRaffi Attending Physician Cody Contreras Referring Unavailable Cody [...] / oxyCODONE; Translations: [acetaminophen-ox ycodone] Drug Allergy [facility] NSAIDs (3 sources) Naproxen; Translations: [naproxen] Drug Allergy Naproxen (substance) [facility] (1 source) acetaminophen / oxyCODONE; Translations: [PERCOCET] Drug Allergy [facility] Repository (11 sources) celecoxib; Translations: [CELEBREX] Drug Allergy [facility] Repository (1 source) Mushroom (edible); Translations: [MUSHROOMS] Propensity to adverse reactions (disorder) [facility] Repository (20 sources) naproxen; Translations: [NAPROXEN] Drug Allergy 0 Rash [facility] Repository (1 source) TESLVOJ-VES-MVP REDU; Translations: [VPWFMXE-ILN-OIP REDU] Propensity to adverse reactions (disorder) [facility] Repository (10 sources) Acetaminophen / oxyCODONE; Translations: [acetaminophen-ox ycodone] Drug Allergy [facility] (18 sources) celecoxib; Translations: [celecoxib] Drug Allergy 0 Naproxen (substance), Shortness of Breath [facility] (6 sources) HMG-CoA reductase inhibitor; Translations: [RZIUUNH-CDM-YMV REDUCTASE INHIBITORS] Propensity to adverse reactions 0 [facility] (3 sources) mushrooms [Other] Propensity to adverse reactions 0 Swelling [facility] (2 sources) cultivated mushroom extract Drug Allergy 2 swelling [facility] Comment on above: Morrels (2 sources) Aqzfytn-Arj-Kxe Reductase Inhibitor Allergy to substance 1 leg cramps [facility] (1 source) OTHER; Translations: [OTHER] Propensity to adverse reactions (disorder) 0 [facility] Repository (1 source) celecoxib Drug Allergy 5 [facility] Repository (1 source) Mushroom (edible) Drug allergy (disorder) 5 [facility] Repository (1 source) Ymenagi-Tzl-Fng Reductase Inhibitor Drug allergy (disorder) 5 [facility] Repository Medications Current Medications Medication Drug Class(es) Dates Sig (Normalized) Sig (Original) amLODIPine 5 mg oral tablet (20 sources) Dihydropyridine Calcium Channel Davey Start: 03-19-2025 End: 06-12-2026 amLODIPine 5 mg oral tablet Dose : 5 mg = 1 tab(s), Oral, qDay, # 90 tab(s), 3 Refill(s), [facility], 174.5, cm, 06/17/25 8:57:00 EDT, [...] mellitus without complications; Atherosclerotic heart disease of [place] coronary artery without angina pectoris; Start: 02-02-2022 End: 05-31-2025 glimepiride 4 mg oral tablet Dose : 4 mg = 1 tab(s), Oral, qDay, # 90 tab(s), 0 Refill(s), Pharmacy: [facility], 174.5, cm, 03/17/25 9:27:00 EDT, Height, [...] tab(s), 1 Refill(s), [facility] ), HTN (hypertension) Diabetes mellitus type 2, 174.5, cm, 09/12/22 7:55:00 EST, Height, kg, 09/12/22 7:55:00 EST... Start Date: 11/02/22 Status: Ordered Start: 06-13-2022 meloxicam 15 m g oral tablet Dose : 15 mg = 1 tab(s), Oral, qDay, Take with food/milk, # 90 tab(s), 3 Refill(s), Pharmacy: [facility], HTN (hypertension) Diabetes mellitus type 2, [...] qDay, # 30 tab(s), 11 Refill(s), Pharmacy: [facility], 174.3, cm, 05/29/21 7:49:00 EDT, Height, [...] pain, # 25 tab(s), 0 Refill(s), Pharmacy: [facility], 174.5, cm, 06/13/22 8:01:00 EDT, Height Start Date: 06/14/22 Status: Ordered Medication Dispense Status: Completed Quantity: 25.0 Unit: tab(s) Total Allowed Fills: 1 Fills Dispensed: 0 Comment on above: Dissolve 1 tablet un elvira the tongue as needed. FOR CHEST PAIN. IF NO RELIEF CALL 911 Novelty-3 Fatty Acids (2 sources) Start: 06-05-2019 take 1 capsule by mouth once daily Novelty-3 Fatty Acids 1,250 mg capsule Active 1250 mg PO DAILY June 05, 2019 12:00am Complies with drug therapy Start: 06-05-2019 take 1 capsule by mo ut once daily omega-3 fatty acids 1,250 mg capsule Active 1250 MG PO DAILY June 05, 2019 12:00am Novelty-3 Fatty Acids, FISH OIL, 360-1,200 mg cap (4 sources) take 1 capsule by mo ut once daily at breakfast Novelty-3 Fatty Acids, FISH OIL, 360-1,200 mg cap Take 1 capsule by mouth daily with breakfast. Active take 1 capsule by mo ut once daily at breakfast Novelty-3 Fatty Acids, FISH OIL, 360-1,200 mg cap Take 1 capsule by mouth daily with breakfast. 0 Active Comment on above: Take 1 capsule by [facility] daily with breakfast. omeprazole 20 mg delayed release oral capsule (18 sources) Proton Pump Inhibitor Start: 06-05-2019 End: 06-12-2026 omeprazole 20 mg oral delayed release capsule Dose : 20 mg = 1 cap(s), Oral, qDay, # 90 cap(s), 3 Refill(s), [facility], 174.5, cm, 06/17/25 8:57:00 EDT, [...] Agonist Start: 06-05-2019 End: 06-10-2019 Hydrocodone-Acetami nophen (Collins) 5-325 mg tablet Discontinued 1 {tbl} PO [...] 05, 2019 12:00am June 10, 2019 1:56pm Novelty-3 Fatty Acids, FISH OIL, (FISH OIL) 360-1,200 mg cap (1 source) take 1 capsule by mouth once daily at breakfast Novelty-3 Fatty Acids, FISH OIL, (FISH OIL) 360-1,200 mg cap Take 1 capsule by mouth daily with breakfast. 0 Active Comment on above: Take 1 capsule by mo [facility] daily with breakfast. Psyllium Seed-Sucrose (METAMUCIL) powd [...] Basophil, Absolute 0.0 10 3/mcL Normal 0.0-0.3 [facility] Comment on above: Performed By: #### A CATHIE, GFR, LIPID, CMP, A1C, PSA, CBC, ADIFF, VIDH #### [address] [address] Basophils/100 WBC (Bld) 0.9 % Normal 0.0-2.5 [facility] Comment on above: Performed By: #### A CATHIE, GFR, LIPID, CMP, A1C, PSA, CBC, ADIFF, VIDH #### [address] [address] Eosinophil, Absolute 0.1 10 3/mcL Normal 0.0-0.7 [facility] Comment on above: Performed By: #### A CATHIE, GFR, LIPID, CMP, A1C, PSA, CBC, ADIFF, VIDH #### [address] [address] Eosinophils/100 WBC (Bld) 1.8 % Normal 0.0-6.0 [facility] Comment on above: Performed By: #### A CATHIE, GFR, LIPID, CMP, A1C, PSA, CBC, ADIFF, VIDH #### [address] [address] Lymphocyte, Absolute 1.3 10 3/mcL Normal 0.9-4.3 [facility] Comment on above: Performed By: #### A CATHIE, GFR, LIPID, CMP, A1C, PSA, CBC, ADIFF, VIDH #### [address] [address] Lymphocytes/100 WBC (Bld) 29.8 % Normal 20.0-40.0 [facility] Comment on above: Performed By: #### A CATHIE, GFR, LIPID, CMP, A1C, PSA, CBC, ADIFF, VIDH #### [address] [address] Monocyte, Absolute 0.4 10 3/mcL Normal 0.1-1.4 [facility] Comment on above: Performed By: #### A CATHIE, GFR, LIPID, CMP, A1C, PSA, CBC, ADIFF, VIDH #### [address] [address] Monocytes/100 WBC (Bld) 9.9 % Normal 2.0-13.0 [facility] Comment on above: Performed By: #### A CATHIE, GFR, LIPID, CMP, A1C, PSA, CBC, ADIFF, VIDH #### [address] [address] Neutrophils/100 WBC (Bld) 57.6 % Normal 50.0-75.0 [facility] Comment on above: Performed By: #### A CATHIE, GFR, LIPID, CMP, A1C, PSA, CBC, ADIFF, VIDH #### [address] [address] .GFRon 06-16-2025 Estimated Glomerular Filtration Rate 95 ml/min/1.73sqm Normal [facility] Comment on above: Result Comment: Stages of [...] CMP, A1C, PSA, CBC, ADIFF, VIDH #### [address] [address] .NEUABSon 06-16-2025 Neutrophil, Absolute 2.5 10 3/mcL Normal 2.3-8.1 [facility] Comment on above: Performed By: #### A CATHIE, GFR, LIPID, CMP, A1C, PSA, CBC, ADIFF, VIDH #### [address] [address] A1Con 06-16-2025 Glucose [Mass/Vol] 169 mg/dL Normal [facility] Comment on above: Result Comment: Caitlin mated Average Glucose calculated by equation ((28.7xA1C)-46.7) Estimated average glucose (eAG) is a calculated value from Hemoglobin A1C and is shared services representative of the average blood glucose level in the last 2-3 month period. Normal range: less than 114 mg/dL Performed By: #### A CATHIE, GFR, LIPID, CMP, A1C, PSA, CBC, ADIFF, VIDH #### [place] [id number] HbA1c (Bld) [Mass fraction] 7.5 % High 4.3-6.4 [facility] Comment on above: Performed By: #### A CATHIE, GFR, LIPID, CMP, A1C, PSA, CBC, ADIFF, VIDH #### [address] [address] CBCon 06-16-2025 Erythrocyte distribution width (RBC) [Ratio] 14.6 % Normal 11.5-15.5 [facility] Comment on above: Performed By: #### A CATHIE, GFR, LIPID, CMP, A1C, PSA, CBC, ADIFF, VIDH #### [address] [address] Hematocrit (Bld) [Volume fraction] 36.4 % Low 40.0-52.0 [facility] Comment on above: Performed By: #### A CATHIE, GFR, LIPID, CMP, A1C, PSA, CBC, ADIFF, VIDH #### [address] [address] Hgb 12.1 G/dL Low 13.0-17.5 [facility] Comment on above: Performed By: #### A CATHIE, GFR, LIPID, CMP, A1C, PSA, CBC, ADIFF, VIDH #### [place] [address] MCH (RBC) [Entitic mass] 26.9 pg Low 27.0-33.0 [facility] Comment on above: Performed By: #### A CATHIE, GFR, LIPID, CMP, A1C, PSA, CBC, ADIFF, VIDH #### [place] [address] MCHC 33.2 G/dL Normal 32.0-36.0 [facility] Comment on above: Performed By: #### A CATHIE, GFR, LIPID, CMP, A1C, PSA, CBC, ADIFF, VIDH #### [place] [address] MCV (RBC) [Entitic vol] 81.1 fL Normal 81.0-100.0 [facility] Comment on above: Performed By: #### A CATHIE, GFR, LIPID, CMP, A1C, PSA, CBC, ADIFF, VIDH #### [place] [address] Platelet 131 10 3/mcL Low 150-450 [facility] Comment on above: Performed By: #### A CATHIE, GFR, LIPID, CMP, A1C, PSA, CBC, ADIFF, VIDH #### [address] [address] Platelet mean volume (Bld) [Entitic vol] 9.0 fL Normal 6.4-10.5 [facility] Comment on above: Performed By: #### A CATHIE, GFR, LIPID, CMP, A1C, PSA, CBC, ADIFF, VIDH #### [place] [address] RBC 4.49 10 6/mcL Low 4.50-6.00 [facility] Comment on above: Performed By: #### A CATHIE, GFR, LIPID, CMP, A1C, PSA, CBC, ADIFF, VIDH #### [address] [address] WBC 4.3 10 3/mcL Low 4.5-10.8 [facility] Comment on above: Performed By: #### A CATHIE, GFR, LIPID, CMP, A1C, PSA, CBC, ADIFF, VIDH #### [address] [address] CMPon 06-16-2025 Albumin Level 3.8 G/dL Normal 3.4-4.8 [facility] Comment on above: Performed By: #### A CATHIE, GFR, LIPID, CMP, A1C, PSA, CBC, ADIFF, VIDH #### [address] [address] Albumin/Globulin [Mass ratio] 1.3 {ratio} Normal 1.1-2.5 [facility] Comment on above: Performed By: #### A CATHIE, GFR, LIPID, CMP, A1C, PSA, CBC, ADIFF, VIDH #### [address] [address] ALP [Catalytic activity/Vol] 45 U/L Normal 40-135 [facility] Comment on above: Performed By: #### A CATHIE, GFR, LIPID, CMP, A1C, PSA, CBC, ADIFF, VIDH #### [address] [address] ALT [Catalytic activity/Vol] 31 U/L Normal 16-63 [facility] Comment on above: Performed By: #### A CATHIE, GFR, LIPID, CMP, A1C, PSA, CBC, ADIFF, VIDH #### [address] [address] AST [Catalytic activity/Vol] 11 U/L Normal 10-40 [facility] Comment on above: Performed By: #### A CATHIE, GFR, LIPID, CMP, A1C, PSA, CBC, ADIFF, VIDH #### [address] [address] Bili Total 0.3 mg/dL Normal 0.2-1.0 [facility] Comment on above: Result Comment: Use of this assay is not recommended for patients undergoing treatment with eltrombopag due to the potential for falsely elevated results. Performed By: #### A CATHIE, GFR, LIPID, CMP, A1C, PSA, CBC, ADIFF, VIDH #### [address] [address] BUN/Creatinine Ratio 15 ratio Normal 7-27 [facility] Comment on above: Performed By: #### A CATHIE, GFR, LIPID, CMP, A1C, PSA, CBC, ADIFF, VIDH #### [place] [id number] Calcium [Mass/Vol] 9.4 mg/dL Normal 8.4-10.2 [facility] Comment on above: Performed By: #### A CATHIE, GFR, LIPID, CMP, A1C, PSA, CBC, ADIFF, VIDH #### [address] [address] Chloride [Moles/Vol] 106 mmol/L Normal 98-107 [facility] Comment on above: Performed By: #### A CATHIE, GFR, LIPID, CMP, A1C, PSA, CBC, ADIFF, VIDH #### [address] [address] CO2 [Moles/Vol] 27 mmol/L Normal 23-31 [facility] Comment on above: Performed By: #### A CATHIE, GFR, LIPID, CMP, A1C, PSA, CBC, ADIFF, VIDH #### [address] [address] Creatinine [Mass/Vol] 0.79 mg/dL Normal 0.67-1.17 [facility] Comment on above: Performed By: #### A CATHIE, GFR, LIPID, CMP, A1C, PSA, CBC, ADIFF, VIDH #### [address] [address] Electrolyte Balance 9.0 mEq/L Normal 4.0-15.0 [facility] Comment on above: Performed By: #### A CATHIE, GFR, LIPID, CMP, A1C, PSA, CBC, ADIFF, VIDH #### [address] [address] Globulin 3.0 G/dL Normal 2.7-4.4 [facility] Comment on above: Performed By: #### A CATHIE, GFR, LIPID, CMP, A1C, PSA, CBC, ADIFF, VIDH #### [address] [address] Glucose [Mass/Vol] 147 mg/dL High 83-110 [facility] Comment on above: Performed By: #### A CATHIE, GFR, LIPID, CMP, A1C, PSA, CBC, ADIFF, VIDH #### [address] [address] Potassium [Moles/Vol] 4.3 mmol/L Normal 3.5-5.1 [facility] Comment on above: Performed By: #### A CATHIE, GFR, LIPID, CMP, A1C, PSA, CBC, ADIFF, VIDH #### [address] [address] Sodium [Moles/Vol] 142 mmol/L Normal 136-145 [facility] Comment on above: Performed By: #### A CATHIE, GFR, LIPID, CMP, A1C, PSA, CBC, ADIFF, VIDH #### [address] [address] Total Protein 6.8 G/dL Normal 6.4-8.2 [facility] Comment on above: Performed By: #### A CATHIE, GFR, LIPID, CMP, A1C, PSA, CBC, ADIFF, VIDH #### [address] [address] Urea nitrogen [Mass/Vol] 12 mg/dL Normal 7-18 [facility] Comment on above: Performed By: #### A CATHIE, GFR, LIPID, CMP, A1C, PSA, CBC, ADIFF, VIDH #### [place] [id number] [place], [place] [address] LABORATORYOrdered By: SYSTEM SYSTEM on 06-16-2025 25-hydroxyvitamin [...] calculated value from Hemoglobin A1C and is shared services representative of the average blood glucose level [...] 06-16-2025 Cholesterol [Mass/Vol] 130 mg/dL Normal 0-200 [facility] Comment on above: Result Comment: Chol esterol Reference Interval: Less than 200 Desirable 200-239 Borderline high risk 240 and above High risk Performed By: #### A CATHIE, GFR, LIPID, CMP, A1C, PSA, CBC, ADIFF, VIDH #### [address] [address] Cholesterol in HDL [Mass/Vol] 45 mg/dL Normal 40-60 [facility] Comment on above: Performed By: #### A CATHIE, GFR, LIPID, CMP, A1C, PSA, CBC, ADIFF, VIDH #### [address] [address] Cholesterol in LDL [Mass/Vol] 56 mg/dL Normal 0-130 [facility] Comment on above: Performed By: #### A CATHIE, GFR, LIPID, CMP, A1C, PSA, CBC, ADIFF, VIDH #### [address] [address] Triglyceride [Mass/Vol] 146 mg/dL Normal 0-150 [facility] Comment on above: Result Comment: Trig lyceride Reference Interval: Less than 150 Normal 150-199 Borderline high risk 200-499 High risk 500 or higher Very high risk Performed By: #### A CATHIE, GFR, LIPID, CMP, A1C, PSA, CBC, ADIFF, VIDH #### [address] [address] PSAon 06-16-2025 Prostate Specific Antigen 2.92 ng/mL Normal 0.00-4.00 [facility] Comment on above: Performed By: #### A CATHIE, GFR, LIPID, CMP, A1C, PSA, CBC, ADIFF, VIDH #### [place] [address] [place], [place] [address] VIDHon 06-16-2025 Vit. D 25-Hydroxy 21.6 ng/mL Normal [facility] Comment on above: Result Comment: Inte rpretive Values Based on Total 25(OH) Vitamin D: Deficient <20 ng/mL Insufficient 20 - <30 ng/mL Sufficient 30-100 ng/mL Performed By: #### A CATHIE, GFR, LIPID, CMP, A1C, PSA, CBC, ADIFF, VIDH #### [place] [address] [place], [place] [address] Cardiology Visit Reporton Cardiology Visit Report [facility] [address] [place] [address] OFFICE VISIT Date of Service: 05/31/25 MR#: [id number] Acct: [id number] Name: OBDULIO WHITNEY Rep #: [id number] : 1955 Provider: DARRIUS jacinto Age/Sex: 70/M Location: [facility] Status: Signed with Addenda ADDENDUM by DARRIUS Catalan on 06/10/25 at 1637 Addendum Addendum Details:: Patient is currently enrolled in [employer] research trial. He has been randomized to GLP-1 medication. 06/10/25 1637 Date Raffi Catalan NP cc: Dr. Cody Contreras MD * [...] the posterior descending artery. 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 His last [...] Visit Reasons: OVERDUE FOR OV/LAST SEEN 02/2024 Box Feeder Required: No Accompanied by: Self Is patient in pain?: No Allergies celecoxib (From Celebrex) Allergy (Verified 05/31/25 13:25) shortness of breath mushroom Allergy (Verified 05/31/25 13:25) swelling naproxen Allergy (Verified 05/31/25 13:25) rash Xingcau-OTC-NsH Reductase Inhibitor (Fegymgd-Mpt-Uam Reductase Inhibitor) Allergy (Verified 05/31/25 13:25) leg [...] (Updated 05/31/25 @ 13:54 by Raffi Catalan TAX CLERK, TAX CLERK-C) Type 2 diabetes mellitus Atherosclerosis of coronary artery of [place] heart without angina pectoris Essential hypertension HLD [...] servings: 10 (more content not included)... Normal [facility] .Auto Diffon 03-11-2025 Basophil, Absolute 0.0 10 3/mcL Normal 0.0-0.3 [facility] Comment on above: Performed By: #### A CATHIE, GFR, LIPID, CMP, A1C, PSA, CBC, ADIFF, VIDH #### [address] [address] Basophils/100 WBC (Bld) 1.1 % Normal 0.0-2.5 [facility] Comment on above: Performed By: #### A CATHIE, GFR, LIPID, CMP, A1C, PSA, CBC, ADIFF, VIDH #### [address] [address] Eosinophil, Absolute 0.1 10 3/mcL Normal 0.0-0.7 [facility] Comment on above: Performed By: #### A CATHIE, GFR, LIPID, CMP, A1C, PSA, CBC, ADIFF, VIDH #### [address] [address] Eosinophils/100 WBC (Bld) 1.3 % Normal 0.0-6.0 [facility] Comment on above: Performed By: #### A CATHIE, GFR, LIPID, CMP, A1C, PSA, CBC, ADIFF, VIDH #### [address] [address] Lymphocyte, Absolute 1.3 10 3/mcL Normal 0.9-4.3 [facility] Comment on above: Performed By: #### A CATHIE, GFR, LIPID, CMP, A1C, PSA, CBC, ADIFF, VIDH #### [address] [address] Lymphocytes/100 WBC (Bld) 30.9 % Normal 20.0-40.0 [facility] Comment on above: Performed By: #### A CATHIE, GFR, LIPID, CMP, A1C, PSA, CBC, ADIFF, VIDH #### [address] [address] Monocyte, Absolute 0.5 10 3/mcL Normal 0.1-1.4 [facility] Comment on above: Performed By: #### A CATHIE, GFR, LIPID, CMP, A1C, PSA, CBC, ADIFF, VIDH #### [address] [address] Monocytes/100 WBC (Bld) 10.6 % Normal 2.0-13.0 [facility] Comment on above: Performed By: #### A CATHIE, GFR, LIPID, CMP, A1C, PSA, CBC, ADIFF, VIDH #### [place] [address] [place], [place] [address] Neutrophils/100 WBC (Bld) 56.1 % Normal 50.0-75.0 [facility] Comment on above: Performed By: #### A CATHIE, GFR, LIPID, CMP, A1C, PSA, CBC, ADIFF, VIDH #### [address] [address] .GFRon 03-11-2025 Estimated Glomerular Filtration Rate 97 ml/min/1.73sqm Normal [facility] Comment on above: Result Comment: Stages of [...] CMP, A1C, PSA, CBC, ADIFF, VIDH #### [address] [address] .NEUABSon 03-11-2025 Neutrophil, Absolute 2.4 10 3/mcL Normal 2.3-8.1 [facility] Comment on above: Performed By: #### A CATHIE, GFR, LIPID, CMP, A1C, PSA, CBC, ADIFF, VIDH #### [place] [address] [place], [place] [address] A1Con 03-11-2025 Glucose [Mass/Vol] 200 mg/dL Normal [facility] Comment on above: Result Comment: Caitlin mated Average Glucose calculated by equation ((28.7xA1C)-46.7) Estimated average glucose (eAG) is a calculated value from Hemoglobin A1C and is shared services representative of the average blood glucose level in the last 2-3 month period. Normal range: less than 114 mg/dL Performed By: #### A CATHIE, GFR, LIPID, CMP, A1C, PSA, CBC, ADIFF, VIDH #### [address] [address] HbA1c (Bld) [Mass fraction] 8.6 % High 4.3-6.4 [facility] Comment on above: Performed By: #### A CATHIE, GFR, LIPID, CMP, A1C, PSA, CBC, ADIFF, VIDH #### [place] [id number] CBCon 03-11-2025 Erythrocyte distribution width (RBC) [Ratio] 14.3 % Normal 11.5-15.5 [facility] Comment on above: Performed By: #### L IPID, ADIFF, ANEU, GFR, A1C, CBC, CMP #### [place] [id number] Hematocrit (Bld) [Volume fraction] 40.4 % Normal 40.0-52.0 [facility] Comment on above: Performed By: #### L IPID, ADIFF, ANEU, GFR, A1C, CBC, CMP #### [address] [address] Hgb 13.3 G/dL Normal 13.0-17.5 [facility] Comment on above: Performed By: #### L IPID, ADIFF, ANEU, GFR, A1C, CBC, CMP #### [address] [address] MCH (RBC) [Entitic mass] 26.5 pg Low 27.0-33.0 [facility] Comment on above: Performed By: #### L IPID, ADIFF, ANEU, GFR, A1C, CBC, CMP #### [place] [id number] MCHC 32.8 G/dL Normal 32.0-36.0 [facility] Comment on above: Performed By: #### L IPID, ADIFF, ANEU, GFR, A1C, CBC, CMP #### [address] [address] MCV (RBC) [Entitic vol] 80.8 fL Low 81.0-100.0 [facility] Comment on above: Performed By: #### L IPID, ADIFF, ANEU, GFR, A1C, CBC, CMP #### [address] [address] Platelet 154 10 3/mcL Normal 150-450 [facility] Comment on above: Performed By: #### L IPID, ADIFF, ANEU, GFR, A1C, CBC, CMP #### [address] [address] Platelet mean volume (Bld) [Entitic vol] 8.9 fL Normal 6.4-10.5 [facility] Comment on above: Performed By: #### L IPID, ADIFF, ANEU, GFR, A1C, CBC, CMP #### [address] [address] RBC 5.00 10 6/mcL Normal 4.50-6.00 [facility] Comment on above: Performed By: #### L IPID, ADIFF, ANEU, GFR, A1C, CBC, CMP #### [address] [address] WBC 4.3 10 3/mcL Low 4.5-10.8 [facility] Comment on above: Performed By: #### L IPID, ADIFF, ANEU, GFR, A1C, CBC, CMP #### [address] [id number] CMPon 03-11-2025 Albumin Level 3.9 G/dL Normal 3.4-4.8 [facility] Comment on above: Performed By: #### A CATHIE, GFR, LIPID, CMP, A1C, PSA, CBC, ADIFF, VIDH #### [address] [id number] Albumin/Globulin [Mass ratio] 1.2 {ratio} Normal 1.1-2.5 [facility] Comment on above: Performed By: #### A CATHIE, GFR, LIPID, CMP, A1C, PSA, CBC, ADIFF, VIDH #### [address] [id number] ALP [Catalytic activity/Vol] 44 U/L Normal 40-135 [facility] Comment on above: Performed By: #### A CATHIE, GFR, LIPID, CMP, A1C, PSA, CBC, ADIFF, VIDH #### [address] [address] ALT [Catalytic activity/Vol] 30 U/L Normal 16-63 [facility] Comment on above: Performed By: #### A CATHIE, GFR, LIPID, CMP, A1C, PSA, CBC, ADIFF, VIDH #### [address] [address] AST [Catalytic activity/Vol] 13 U/L Normal 10-40 [facility] Comment on above: Performed By: #### A CATHIE, GFR, LIPID, CMP, A1C, PSA, CBC, ADIFF, VIDH #### [address] [address] Bili Total 0.5 mg/dL Normal 0.2-1.0 [facility] Comment on above: Result Comment: Use of this assay is not recommended for patients undergoing treatment with eltrombopag due to the potential for falsely elevated results. Performed By: #### A CATHIE, GFR, LIPID, CMP, A1C, PSA, CBC, ADIFF, VIDH #### [address] [address] BUN/Creatinine Ratio 20 ratio Normal 7-27 [facility] Comment on above: Performed By: #### A CATHIE, GFR, LIPID, CMP, A1C, PSA, CBC, ADIFF, VIDH #### [address] [address] Calcium [Mass/Vol] 9.5 mg/dL Normal 8.4-10.2 [facility] Comment on above: Performed By: #### A CATHIE, GFR, LIPID, CMP, A1C, PSA, CBC, ADIFF, VIDH #### [address] [address] Chloride [Moles/Vol] 103 mmol/L Normal 98-107 [facility] Comment on above: Performed By: #### A CATHIE, GFR, LIPID, CMP, A1C, PSA, CBC, ADIFF, VIDH #### [address] [address] CO2 [Moles/Vol] 28 mmol/L Normal 23-31 [facility] Comment on above: Performed By: #### A CATHIE, GFR, LIPID, CMP, A1C, PSA, CBC, ADIFF, VIDH #### [address] [address] Creatinine [Mass/Vol] 0.74 mg/dL Normal 0.67-1.17 [facility] Comment on above: Performed By: #### A CATHIE, GFR, LIPID, CMP, A1C, PSA, CBC, ADIFF, VIDH #### [address] [address] Electrolyte Balance 9.0 mEq/L Normal 4.0-15.0 [facility] Comment on above: Performed By: #### A CATHIE, GFR, LIPID, CMP, A1C, PSA, CBC, ADIFF, VIDH #### [address] [address] Globulin 3.3 G/dL Normal 2.7-4.4 [facility] Comment on above: Performed By: #### A CATHIE, GFR, LIPID, CMP, A1C, PSA, CBC, ADIFF, VIDH #### [address] [address] Glucose [Mass/Vol] 254 mg/dL High 83-110 [facility] Comment on above: Performed By: #### A CATHIE, GFR, LIPID, CMP, A1C, PSA, CBC, ADIFF, VIDH #### [address] [address] Potassium [Moles/Vol] 4.9 mmol/L Normal 3.5-5.1 [facility] Comment on above: Performed By: #### A CATHIE, GFR, LIPID, CMP, A1C, PSA, CBC, ADIFF, VIDH #### [address] [address] Sodium [Moles/Vol] 140 mmol/L Normal 136-145 [facility] Comment on above: Performed By: #### A CATHIE, GFR, LIPID, CMP, A1C, PSA, CBC, ADIFF, VIDH #### [address] [address] Total Protein 7.2 G/dL Normal 6.4-8.2 [facility] Comment on above: Performed By: #### A CATHIE, GFR, LIPID, CMP, A1C, PSA, CBC, ADIFF, VIDH #### [address] [address] Urea nitrogen [Mass/Vol] 15 mg/dL Normal 7-18 [facility] Comment on above: Performed By: #### A CATHIE, GFR, LIPID, CMP, A1C, PSA, CBC, ADIFF, VIDH #### [address] [address] LABORATORYOrdered By: SYSTEM SYSTEM on 03-11-2025 Albumin [...] calculated value from Hemoglobin A1C and is shared services representative of the average blood glucose level [...] 03-11-2025 Cholesterol [Mass/Vol] 131 mg/dL Normal 0-200 [facility] Comment on above: Result Comment: Chol esterol Reference Interval: Less than 200 Desirable 200-239 Borderline high risk 240 and above High risk Performed By: #### A CATHIE, GFR, LIPID, CMP, A1C, PSA, CBC, ADIFF, VIDH #### [address] [address] Cholesterol in HDL [Mass/Vol] 43 mg/dL Normal 40-60 [facility] Comment on above: Performed By: #### A CATHIE, GFR, LIPID, CMP, A1C, PSA, CBC, ADIFF, VIDH #### [address] [place], [place] [address] Cholesterol in LDL [Mass/Vol] 61 mg/dL Normal 0-130 [facility] Comment on above: Performed By: #### A CATHIE, GFR, LIPID, CMP, A1C, PSA, CBC, ADIFF, VIDH #### [address] [place], [place] [address] Triglyceride [Mass/Vol] 135 mg/dL Normal 0-150 [facility] Comment on above: Result Comment: Trig lyceride Reference Interval: Less than 150 Normal 150-199 Borderline high risk 200-499 High risk 500 or higher Very high risk Performed By: #### A CATHIE, GFR, LIPID, CMP, A1C, PSA, CBC, ADIFF, VIDH #### [address] [address] MALBRon 12-22-2024 U Creatinine 36.4 mg/dL Normal [facility] Comment on above: Performed By: #### A CATHIE, GFR, LIPID, CMP, A1C, PSA, CBC, ADIFF, VIDH #### [address] [address] U Microalb 28.5 mg/L Normal [facility] Comment on above: Performed By: #### A CATHIE, GFR, LIPID, CMP, A1C, PSA, CBC, ADIFF, VIDH #### [address] [address] U Ratio Alb/Cre 78 mg/G High 0-30 [facility] Comment on above: Performed By: #### A CATHIE, GFR, LIPID, CMP, A1C, PSA, CBC, ADIFF, VIDH #### [address] [address] .GFRon 08-18-2024 GFR 94 ml/min/1.73sqm Normal [facility] Comment on above: Result Comment: GFR Population [...] CMP, A1C, PSA, CBC, ADIFF, VIDH #### [address] [place], [place] [address] GFR Non- 77 ml/min/1.73sqm Normal [facility] Comment on above: Result Comment: GFR Population [...] CMP, A1C, PSA, CBC, ADIFF, VIDH #### [address] [address] A1Con 08-18-2024 Glucose [Mass/Vol] 203 mg/dL Normal [facility] Comment on above: Result Comment: Caitlin mated Average Glucose calculated by equation ((28.7xA1C)-46.7) Estimated average glucose (eAG) is a calculated value from Hemoglobin A1C and is shared services representative of the average blood glucose level in the last 2-3 month period. Normal range: less than 114 mg/dL Performed By: #### A CATHIE, GFR, LIPID, CMP, A1C, PSA, CBC, ADIFF, VIDH #### [address] [place], [place] [address] HbA1c (Bld) [Mass fraction] 8.7 % High 4.3-6.4 [facility] Comment on above: Performed By: #### A CATHIE, GFR, LIPID, CMP, A1C, PSA, CBC, ADIFF, VIDH #### [address] [place], [place] [address] CMPon 08-18-2024 Albumin Level 3.9 G/dL Normal 3.4-4.8 [facility] Comment on above: Performed By: #### A CATHIE, GFR, LIPID, CMP, A1C, PSA, CBC, ADIFF, VIDH #### [address] [address] Albumin/Globulin [Mass ratio] 1.4 {ratio} Normal 1.1-2.5 [facility] Comment on above: Performed By: #### A CATHIE, GFR, LIPID, CMP, A1C, PSA, CBC, ADIFF, VIDH #### [address] [address] ALP [Catalytic activity/Vol] 52 U/L Normal 40-135 [facility] Comment on above: Performed By: #### A CATHIE, GFR, LIPID, CMP, A1C, PSA, CBC, ADIFF, VIDH #### [address] [address] ALT [Catalytic activity/Vol] 34 U/L Normal 16-63 [facility] Comment on above: Performed By: #### A CATHIE, GFR, LIPID, CMP, A1C, PSA, CBC, ADIFF, VIDH #### [address] [address] AST [Catalytic activity/Vol] 17 U/L Normal 10-40 [facility] Comment on above: Performed By: #### A CATHIE, GFR, LIPID, CMP, A1C, PSA, CBC, ADIFF, VIDH #### [address] [address] Bili Total 0.5 mg/dL Normal 0.2-1.0 [facility] Comment on above: Result Comment: Use of this assay is not recommended for patients undergoing treatment with eltrombopag due to the potential for falsely elevated results. Performed By: #### A CATHIE, GFR, LIPID, CMP, A1C, PSA, CBC, ADIFF, VIDH #### [address] [address] BUN/Creatinine Ratio 17 ratio Normal 7-27 [facility] Comment on above: Performed By: #### A CATHIE, GFR, LIPID, CMP, A1C, PSA, CBC, ADIFF, VIDH #### [address] [address] Calcium [Mass/Vol] 9.4 mg/dL Normal 8.4-10.2 [facility] Comment on above: Performed By: #### A CATHIE, GFR, LIPID, CMP, A1C, PSA, CBC, ADIFF, VIDH #### [address] [address] Chloride [Moles/Vol] 102 mmol/L Normal 98-107 [facility] Comment on above: Performed By: #### A CATHIE, GFR, LIPID, CMP, A1C, PSA, CBC, ADIFF, VIDH #### [address] [address] CO2 [Moles/Vol] 27 mmol/L Normal 23-31 [facility] Comment on above: Performed By: #### A CATHIE, GFR, LIPID, CMP, A1C, PSA, CBC, ADIFF, VIDH #### [address] [address] Creatinine [Mass/Vol] 0.96 mg/dL Normal 0.70-1.30 [facility] Comment on above: Result Comment: Test ing performed on Siemens Dimension EXL analyzer using a modified kinetic Rinku technique. Performed By: #### A CATHIE, GFR, LIPID, CMP, A1C, PSA, CBC, ADIFF, VIDH #### [address] [address] Electrolyte Balance 11.0 mEq/L Normal 4.0-15.0 [facility] Comment on above: Performed By: #### A CATHIE, GFR, LIPID, CMP, A1C, PSA, CBC, ADIFF, VIDH #### [address] [address] Globulin 2.7 G/dL Normal [facility] Comment on above: Performed By: #### A CATHIE, GFR, LIPID, CMP, A1C, PSA, CBC, ADIFF, VIDH #### [address] [address] Glucose [Mass/Vol] 214 mg/dL High 83-110 [facility] Comment on above: Performed By: #### A CATHIE, GFR, LIPID, CMP, A1C, PSA, CBC, ADIFF, VIDH #### [address] [address] Potassium [Moles/Vol] 4.5 mmol/L Normal 3.5-5.1 [facility] Comment on above: Performed By: #### A CATHIE, GFR, LIPID, CMP, A1C, PSA, CBC, ADIFF, VIDH #### [address] [address] Sodium [Moles/Vol] 140 mmol/L Normal 136-145 [facility] Comment on above: Performed By: #### A CATHIE, GFR, LIPID, CMP, A1C, PSA, CBC, ADIFF, VIDH #### [address] [address] Total Protein 6.6 G/dL Normal 6.4-8.2 [facility] Comment on above: Performed By: #### A CATHIE, GFR, LIPID, CMP, A1C, PSA, CBC, ADIFF, VIDH #### [address] [address] Urea nitrogen [Mass/Vol] 16 mg/dL Normal 7-18 [facility] Comment on above: Performed By: #### A CATHIE, GFR, LIPID, CMP, A1C, PSA, CBC, ADIFF, VIDH #### [address] [address] LABORATORYOrdered By: SYSTEM SYSTEM on 08-18-2024 Albumin [...] calculated value from Hemoglobin A1C and is shared services representative of the average blood glucose level [...] 08-18-2024 Cholesterol [Mass/Vol] 145 mg/dL Normal 0-200 [facility] Comment on above: Result Comment: Chol esterol Reference Interval: Less than 200 Desirable 200-239 Borderline high risk 240 and above High risk Performed By: #### A CATHIE, GFR, LIPID, CMP, A1C, PSA, CBC, ADIFF, VIDH #### [address] [address] Cholesterol in HDL [Mass/Vol] 41 mg/dL Normal 40-60 [facility] Comment on above: Performed By: #### A CATHIE, GFR, LIPID, CMP, A1C, PSA, CBC, ADIFF, VIDH #### [address] [address] Cholesterol in LDL [Mass/Vol] 72 mg/dL Normal 0-130 [facility] Comment on above: Performed By: #### A CATHIE, GFR, LIPID, CMP, A1C, PSA, CBC, ADIFF, VIDH #### [address] [address] Triglyceride [Mass/Vol] 160 mg/dL High 0-150 [facility] Comment on above: Result Comment: Trig lyceride Reference Interval: Less than 150 Normal 150-199 Borderline high risk 200-499 High risk 500 or higher Very high risk Performed By: #### A CATHIE, GFR, LIPID, CMP, A1C, PSA, CBC, ADIFF, VIDH #### [address] [address] PSAon 08-18-2024 Prostate Specific Antigen 3.26 ng/mL Normal 0.00-4.00 [facility] Comment on above: Performed By: #### A CATHIE, GFR, LIPID, CMP, A1C, PSA, CBC, ADIFF, VIDH #### [address] [address] .GFRon 03-11-2024 GFR 90 ml/min/1.73sqm Normal [facility] ([place]) Comment on above: Result Comment: GFR Population [...] G FR, CMP, A1C, LIPID #### Anthony [address] [address] GFR Non- 74 ml/min/1.73sqm Normal [facility] ([place]) Comment on above: Result Comment: GFR Population [...] G FR, CMP, A1C, LIPID #### Anthony [address] [address] A1Con 03-11-2024 HbA1c (Bld) [Mass fraction] 6.7 % High 4.3-6.4 [facility] ([place]) Comment on above: Performed By: #### G FR, CMP, A1C, LIPID ####Anthony [address] [address] CMPon 03-11-2024 Albumin Level 4.0 G/dL Normal 3.4-4.8 [facility] ([place]) Comment on above: Performed By: #### G FR, CMP, A1C, LIPID #### [address] [address] Albumin/Globulin [Mass ratio] 1.5 {ratio} Normal 1.1-2.5 [facility] ([place]) Comment on above: Performed By: #### G FR, CMP, A1C, LIPID #### [address] [address] ALP [Catalytic activity/Vol] 44 U/L Normal 40-135 [facility] ([place]) Comment on above: Performed By: #### G FR, CMP, A1C, LIPID #### [address] [address] ALT [Catalytic activity/Vol] 29 U/L Normal 16-63 [facility] ([place]) Comment on above: Performed By: #### G FR, CMP, A1C, LIPID #### [address] [address] AST [Catalytic activity/Vol] 14 U/L Normal 10-40 [facility] ([place]) Comment on above: Performed By: #### G FR, CMP, A1C, LIPID #### [address] [address] Bili Total 0.4 mg/dL Normal 0.2-1.0 [facility] ([place]) Comment on above: Result Comment: Use of this assay is not recommended for patients undergoing treatment with eltrombopag due to the potential for falsely elevated results. Performed By: #### G FR, CMP, A1C, LIPID #### [address] [address] BUN/Creatinine Ratio 12 ratio Normal 7-27 [facility] ([place]) Comment on above: Performed By: #### G FR, CMP, A1C, LIPID #### [address] [address] Calcium [Mass/Vol] 9.9 mg/dL Normal 8.4-10.2 [facility] ([place]) Comment on above: Performed By: #### G FR, CMP, A1C, LIPID #### [address] [address] Chloride [Moles/Vol] 102 mmol/L Normal 98-107 [facility] ([place] Comment on above: Performed By: #### G FR, CMP, A1C, LIPID #### [address] [address] CO2 [Moles/Vol] 27 mmol/L Normal 23-31 [facility] ([place]) Comment on above: Performed By: #### G FR, CMP, A1C, LIPID #### [place] [address] Creatinine [Mass/Vol] 1.00 mg/dL Normal 0.70-1.30 Counts include 234 beds at the [facility] ([place]) Comment on above: Performed By: #### G FR, CMP, A1C, LIPID #### [address] [address] Electrolyte Balance 10.0 mEq/L Normal 4.0-15.0 [facility] ([place]) Comment on above: Performed By: #### G FR, CMP, A1C, LIPID #### [address] [address] Globulin 2.7 G/dL Normal [facility] ([place] Comment on above: Performed By: #### G FR, CMP, A1C, LIPID #### [address] [address] Glucose [Mass/Vol] 132 mg/dL High 83-110 [facility] ([place]) Comment on above: Performed By: #### G FR, CMP, A1C, LIPID #### [address] [address] Potassium [Moles/Vol] 4.8 mmol/L Normal 3.5-5.1 Counts include 234 beds at the [facility] ([place] Comment on above: Performed By: #### G FR, CMP, A1C, LIPID #### [place] [address] Sodium [Moles/Vol] 139 mmol/L Normal 136-145 [facility] ([place]) Comment on above: Performed By: #### G FR, CMP, A1C, LIPID #### [address] [place], [place] [address] Total Protein 6.7 G/dL Normal 6.4-8.2 [facility] ([place]) Comment on above: Performed By: #### G FR, CMP, A1C, LIPID #### [address] [place], [place] [address] Urea nitrogen [Mass/Vol] 12 mg/dL Normal 7-18 [facility] ([place] Comment on above: Performed By: #### G FR, CMP, A1C, LIPID #### [address] [address] LABORATORYOrdered By: SYSTEM SYSTEM on 03-11-2024 Albumin [...] 03-11-2024 Cholesterol [Mass/Vol] 129 mg/dL Normal 0-200 [facility] ([place]) Comment on above: Result Comment: Chol esterol Reference Interval: Less than 200 Desirable 200-239 Borderline high risk 240 and above High risk Performed By: #### G FR, CMP, A1C, LIPID #### [address] [address] Cholesterol in HDL [Mass/Vol] 49 mg/dL Normal 40-60 [facility] ([place] Comment on above: Performed By: #### G FR, CMP, A1C, LIPID #### [address] [address] Cholesterol in LDL [Mass/Vol] 65 mg/dL Normal 0-130 [facility] ([place] Comment on above: Performed By: #### G FR, CMP, A1C, LIPID #### [address] [address] Triglyceride [Mass/Vol] 74 mg/dL Normal 0-150 [facility] ([place] Comment on above: Result Comment: Trig lyceride Reference Interval: Less than 150 Normal 150-199 Borderline high risk 200-499 High risk 500 or higher Very high risk Performed By: #### G FR, CMP, A1C, LIPID #### [place] [address] [place], [place] [address] CNOVon 01-17-2024 CNOV Office Visit (SLEWST) -------- OBDULIO WHITNEY ([id number]) 1955 M Date Time Provider Department 01/17/24 8:00 AM JOHANNE CHAPMAN During your visit today, we recorded the following information about you: Pulse Respiration Blood pressure Weight 63/minute 18/minute 129/75 96.5 kg Johanne Chapman APRN.CNP 01/17/2024 8:36 AM Signed [facility] Follow up/ Established patient [...] Take 4 mg by mouth as needed. Novelty-3 Fatty Acids, FISH OIL, 360-1,200 mg cap [...] in 12 months with [facility]. Johanne Chapman APRN.[employer]ING [employer]AT CAPTAIN Allergies As of Date: 01/17/2024 Noted Allergy Reaction CELEBREX (CELECOXIB) 10/11/2009 12 - Shortness of Breath NAPROXEN 10/11/2009 2 - Rash STATINS ([id number]-ENZ REDUCTAS* 0 Comments: Leg cramps Date Reviewed: 01/17/2024 Reviewed by: Annie Packer L (more content not included)... [facility] ISANon 12-24-2023 ISAN Telephone (NRSE) -------- OBDULIO WHITNEY Aileen ([id number]) 1955 M Date Time Provider Department 12/24/23 [...] renewed. Patient provided phone number for [facility] [place] to schedule. Patient can see any [facility], but [place] may be most convenient location for the [...] Swelling NAPROXEN 10/11/2009 2 - Rash STATINS (GNEAEEI-AEM-RPX REDUCTAS* 0 Comments: Leg cramps Date Reviewed: [...] mouth every 6 hours as needed. - Novelty-3 Fatty Acids, FISH OIL, 360-1,200 mg cap [...] Status:Closed by YUE BOO on 12/24/23 [facility] LABORATORYOrdered By: Ravindra Machado on 09-19-2023 Albumin DL <= 20 mg/L (U) [Mass/Vol] 615 mcg/dL Invalid Interpretation Code AO ADM SS Albumin/Creatinine DL <= 20 mg/L (U) [Mass ratio] 19 mcg/mg Normal 0 - 30 mcg/mg AO ADM SS Creatinine (U) [Mass/Vol] 31.7 mg/dL Low 39.0 - 259.0 mg/dL AO ADM SS MALBRon 09-19-2023 U Creatinine 31.7 mg/dL Low 39.0-259.0 [facility] ([place]) Comment on above: Performed By: #### M ALBR #### [address] [address] U Microalb 615 mcg/dL Normal [facility] ([place]) Comment on above: Performed By: #### M ALBR #### [facility] [address] [place], [place] [address] U Ratio Alb/Cre 19 mcg/mg Normal 0-30 [facility] ([place]) Comment on above: Performed By: #### M ALBR #### [address] [place], [place] [address] .GFRon 09-11-2023 GFR 99 ml/min/1.73sqm Normal [facility] ([place]) Comment on above: Result Comment: GFR Population [...] G FR, CMP, PSA, LIPID, A1C #### [address] [address] GFR Non- 82 ml/min/1.73sqm Normal [facility] ([place] Comment on above: Result Comment: GFR Population [...] G FR, CMP, PSA, LIPID, A1C #### [address] [address] A1Con 09-11-2023 HbA1c (Bld) [Mass fraction] 7.1 % High 4.3-6.4 [facility] ([place] Comment on above: Performed By: #### G FR, CMP, PSA, LIPID, A1C #### [address] [address] CMPon 09-11-2023 Albumin Level 4.3 G/dL Normal 3.4-4.8 [facility] ([place] Comment on above: Performed By: #### G FR, CMP, PSA, LIPID, A1C #### [address] [address] Albumin/Globulin [Mass ratio] 1.4 {ratio} Normal 1.1-2.5 [facility] ([place] Comment on above: Performed By: #### G FR, CMP, PSA, LIPID, A1C #### [address] [address] ALP [Catalytic activity/Vol] 51 U/L Normal 40-135 [facility] ([place] Comment on above: Performed By: #### G FR, CMP, PSA, LIPID, A1C #### [address] [address] ALT [Catalytic activity/Vol] 30 U/L Normal 16-63 [facility] ([place] Comment on above: Performed By: #### G FR, CMP, PSA, LIPID, A1C #### [address] [address] AST [Catalytic activity/Vol] 16 U/L Normal 10-40 [facility] ([place] Comment on above: Performed By: #### G FR, CMP, PSA, LIPID, A1C #### [address] [address] Bili Total 0.5 mg/dL Normal 0.2-1.0 [facility] ([place] Comment on above: Result Comment: Use of this assay is not recommended for patients undergoing treatment with eltrombopag due to the potential for falsely elevated results. Performed By: #### G FR, CMP, PSA, LIPID, A1C #### [address] [address] BUN/Creatinine Ratio 11 ratio Normal 7-27 [facility] ([place]) Comment on above: Performed By: #### G FR, CMP, PSA, LIPID, A1C #### [address] [address] Calcium [Mass/Vol] 9.9 mg/dL Normal 8.4-10.2 [facility] ([place]) Comment on above: Performed By: #### G FR, CMP, PSA, LIPID, A1C #### [address] [address] Chloride [Moles/Vol] 102 mmol/L Normal 98-107 [facility] ([place] Comment on above: Performed By: #### G FR, CMP, PSA, LIPID, A1C #### [address] [address] CO2 [Moles/Vol] 29 mmol/L Normal 23-31 [facility] ([place] Comment on above: Performed By: #### G FR, CMP, PSA, LIPID, A1C #### [address] [address] Creatinine [Mass/Vol] 0.92 mg/dL Normal 0.70-1.30 Counts include 234 beds at the [facility] ([place] Comment on above: Performed By: #### G FR, CMP, PSA, LIPID, A1C #### [address] [address] Electrolyte Balance 12.0 mEq/L Normal 4.0-15.0 [facility] ([place]) Comment on above: Performed By: #### G FR, CMP, PSA, LIPID, A1C #### [address] [address] Globulin 3.0 G/dL Normal [facility] ([place] Comment on above: Performed By: #### G FR, CMP, PSA, LIPID, A1C #### [address] [address] Glucose [Mass/Vol] 169 mg/dL High 80-115 [facility] ([place] Comment on above: Performed By: #### G FR, CMP, PSA, LIPID, A1C #### [address] [address] Potassium [Moles/Vol] 4.7 mmol/L Normal 3.5-5.1 Counts include 234 beds at the [facility] ([place] Comment on above: Performed By: #### G FR, CMP, PSA, LIPID, A1C #### [address] [address] Sodium [Moles/Vol] 143 mmol/L Normal 136-145 [facility] ([place] Comment on above: Performed By: #### G FR, CMP, PSA, LIPID, A1C #### [address] [address] Total Protein 7.3 G/dL Normal 6.4-8.2 [facility] ([place] Comment on above: Performed By: #### G FR, CMP, PSA, LIPID, A1C #### [address] [place], [place] [address] Urea nitrogen [Mass/Vol] 10 mg/dL Normal 7-18 [facility] ([place] Comment on above: Performed By: #### G FR, CMP, PSA, LIPID, A1C #### [place] [address] [place], [place] [address] LABORATORYOrdered By: SYSTEM SYSTEM on 09-11-2023 Albumin [...] 09-11-2023 Cholesterol [Mass/Vol] 136 mg/dL Normal 0-200 [facility] ([place]) Comment on above: Result Comment: Chol esterol Reference Interval: Less than 200 Desirable 200-239 Borderline high risk 240 and above High risk Performed By: #### G FR, CMP, PSA, LIPID, A1C #### [address] [address] Cholesterol in HDL [Mass/Vol] 53 mg/dL Normal 40-60 [facility] ([place] Comment on above: Performed By: #### G FR, CMP, PSA, LIPID, A1C #### [address] [address] Cholesterol in LDL [Mass/Vol] 63 mg/dL Normal 0-130 [facility] ([place] Comment on above: Performed By: #### G FR, CMP, PSA, LIPID, A1C #### [address] [address] Triglyceride [Mass/Vol] 99 mg/dL Normal 0-150 [facility] ([place] Comment on above: Result Comment: Trig lyceride Reference Interval: Less than 150 Normal 150-199 Borderline high risk 200-499 High risk 500 or higher Very high risk Performed By: #### G FR, CMP, PSA, LIPID, A1C #### [address] [place], [place] [address] PSAon 09-11-2023 Prostate Specific Antigen 3.37 ng/mL Normal 0.00-4.00 [facility] ([place]) Comment on above: Performed By: #### G FR, CMP, PSA, LIPID, A1C #### [id number] [place], [place] [address] XR ANKLE MINIMUM 3 VIEWS RIG HTon [...] 03/14/2023 3:41:35 PM Ordering Provider: MC Allison [facility] ([place]) LABORATORYOrdered By: SYSTEM SYSTEM on 03-11-2023 Albumin [...] 023 Case Report Surgical Pathology Report Case: [id number] Authorizing Provider: Kris Michel MD Collected: 02/05/2023 11:42 AM Ordering Location: Ambulatory Surgery Received: 02/05/2023 01:03 PM Pathologist: Crissy Bentley MD Specimens: A) - COLON BIOPSY, RANDOM colon bx's B) - SIGMOID COLON POLYP [facility] FINAL DIAGNOSIS A. Colon, biopsy: -Colonic mucosa with no significant histologic abnormality -Negative for chronic, active or microscopic colitis B. Colon, sigmoid, polypectomy: -Hyperplastic polyp (with severe thermal artifact) [facility] Gross Description A. COLON BIOPSY Received in formalin are multiple pieces of golden, soft tissue aggregating to 1.9 x 0.4 x 0.1 cm. Totally submitted in two cassettes. B. SIGMOID COLON POLYP Received in formalin is one piece of golden, soft tissue measuring 0.3 x 0.2 x 0.1 cm. Totally submitted in one cassette. Gross examination performed at [facility], [address] [place] [address] FFS 02/05/2023 11:20 PM [facility] Performing Lab Diagnostic interpretation performed at [facility], [address] [place] [address] CLIA# [id number] Managing Member: Jairo Boyce M.D. [facility] COLONOSCOPY DIAGNOSTICon [facility] LABORATORYOrdered By: SYSTEM SYSTEM on 09-05-2022 HbA1c [...] cm Dr. Cody Contreras MD Work Phone: [facility] 05-31-2025 13:27-0400 Body mass index (BMI) [Ratio] 32.1 kg/m2 Dr. Cody Contreras MD Work Phone: [facility] 05-31-2025 13:27-0400 Body weight 95.[address] Cody Contreras MD Work Phone: [facility] 05-31-2025 13:27-0400 Diastolic blood pressure 68 mm[Hg] Dr. Cody Contreras MD Work Phone: [facility] 05-31-2025 13:27-0400 Heart rate 70 /min Dr. Cody Contreras MD Work Phone: [facility] 05-31-2025 13:27-0400 Respiratory rate 16 /min Dr. Cody Contreras MD Work Phone: [facility] 05-31-2025 13:27-0400 Systolic blood pressure 99 mm[Hg] Dr. Cody Contreras MD Work Phone: [facility] 01-17-2024 07:57-0400 Body mass index (BMI) [Ratio] 32.36 kg/m2 Johanne Chapman APRN.FISHING BOAT CAPTAIN Work Phone: [facility] 01-17-2024 07:57-0400 Body weight 96.53 kg Johanne Chapman APRN.FISHING BOAT CAPTAIN Work Phone: [facility] 01-17-2024 07:57-0400 Diastolic blood pressure 75 mm[Hg] Johanne Chapman APRN.FISHING BOAT CAPTAIN Work Phone: [facility] 01-17-2024 07:57-0400 Heart rate 63 /min Johanne Adela WIRE THREADER.FISHING BOAT CAPTAIN Work Phone: [facility] 01-17-2024 07:57-0400 Respiratory rate 18 /min Johanne Adela WIRE THREADER.FISHING BOAT CAPTAIN Work Phone: [facility] 01-17-2024 07:57-0400 SaO2% (BldA) [Mass fraction] 97 % Johanne Adela WIRE THREADER.FISHING BOAT CAPTAIN Work Phone: [facility] 01-17-2024 07:57-0400 Systolic blood pressure 129 mm[Hg] Johanne Adela WIRE THREADER.FISHING BOAT CAPTAIN Work Phone: [facility] 03-14-2023 15:11-0400 Blood Pressure Cuff Size MC GARDUNO MD [facility] 03-14-2023 15:11-0400 Blood Pressure Location MC GARDUNO MD [facility] 03-14-2023 15:11-0400 Blood Pressure Method MC GARDUNO MD [facility] 03-14-2023 15:11-0400 Body temperature 97.52 [degF] MC GARDUNO MD [facility] 03-14-2023 15:11-0400 Body weight 100 kg MC GARDUNO MD [facility] 03-14-2023 15:11-0400 Diastolic Blood Pressure Non-Invasive [address] [facility] 03-14-2023 15:11-0400 Heart rate 64 /min MC GARDUNO MD [facility] 03-14-2023 15:11-0400 Respiratory rate 18 /min MC GARDUNO MD [facility] 03-14-2023 15:11-0400 Systolic Blood Pressure Non-Invasive [address] [facility] 02-05-2023 12:44-0400 Diastolic blood pressure 74 mm[Hg] Kris Michel MD Work Phone: [facility] 02-05-2023 12:44-0400 Systolic blood pressure 167 mm[Hg] Kris Michel MD Work Phone: [facility] 02-05-2023 12:30-0400 Heart rate 80 /min Kris Micehl MD Work Phone: [facility] 02-05-2023 12:30-0400 Respiratory rate 16 /min Kris Michel MD Work Phone: [facility] 02-05-2023 12:30-0400 SaO2% (BldA) [Mass fraction] 93 % Kris Michel MD Work Phone: [facility] 02-05-2023 10:56-0400 Body temperature 97.11 [degF] Kris Michel MD Work Phone: [facility] 02-05-2023 10:56-0400 Body weight 101.37 kg Kris Michel MD Work Phone: [facility] Encounters Encounter Date Encounter Type Care Provider Facility Start: 07-02-2025 End: 07-02-2025 Patient encounter procedure CODY CONTRERAS MD [facility] Start: 06-16-2025 End: 06-16-2025 ambulatory CODY CONTRERAS MD Facility:[facility] Start: 06-16-2025 End: 06-16-2025 Patient encounter procedure CODY CONTRERAS MD [facility] Start: 05-31-2025 End: 05-31-2025 Patient encounter procedure Raffi Catalan TAX CLERK-C -[facility] Work Phone: Start: 05-31-2025 End: 05-31-[address] Cody Contreras MD Work Phone: -[facility] Start: 03-11-2025 End: 03-11-2025 ambulatory CODY CONTRERAS MD Facility:[facility] Start: 03-11-2025 End: 03-11-2025 Patient encounter procedure CODY CONTRERAS MD [facility] Start: 12-22-2024 End: 12-26-2024 ambulatory CODY CONTRERAS MD Facility:[facility] Start: 12-09-2024 End: 12-11-2024 [facility] Work Phone: Neurology Comment on above: CMN Start: 08-18-2024 End: 08-18-2024 ambulatory CODY CONTRERAS MD Facility:[facility] Start: 08-18-2024 End: 08-18-2024 Patient encounter procedure CODY CONTRERAS MD [facility] Start: 03-11-2024 End: 03-11-2024 ambulatory CODY CONTRERAS MD Facility:[facility] Start: 03-11-2024 End: 03-11-2024 Patient encounter procedure CODY CONTRERAS MD [facility] Start: 01-17-2024 End: 01-17-2024 ambulatory CODY CONTRERAS Facility:[facility] Start: 01-17-2024 End: 01-17-2024 Patient encounter procedure Johanne Chapman APRN.FISHING BOAT CAPTAIN Work Phone: Neurology Comment on above: ZACHARIAH (obstructive sle ep apnea) (Primary Dx) Start: 12-24-2023 Telephone encounter Leighann Blood APRN.FISHING BOAT CAPTAIN Work Phone: Neurology Comment on above: Orders (Faxed and re ceived confirmation from Suleiman Carrasco for CPAP orders. Patient's most recent visit was 05/17/2021. DME notified that patient will need to make an appointment. ) Start: 09-19-2023 End: 09-23-2023 ambulatory CODY CONTRERAS MD Facility:[facility] Start: 09-19-2023 End: 09-23-2023 Outreach Lab CODY CONTRERAS MD [facility] Start: 09-11-2023 End: 09-11-2023 ambulatory CODY CONTRERAS MD Facility:[facility] Start: 09-11-2023 End: 09-11-2023 Patient encounter procedure CODY CONTRERAS MD [facility] Start: 03-14-2023 End: 03-14-2023 Emergency department patient visit MC GARDUNO MD [facility] Start: 03-11-2023 End: 03-11-2023 Patient encounter procedure CODY CONTRERAS MD [facility] Start: 02-05-2023 End: 02-05-2023 Subsequent hospital visit by physician Kris Michel MD Work Phone: Ambulatory Surgery Comment on above: Constipation, unspec ified constipation type [K59.00] Start: 02-01-2023 Non-patient / Non-visit Dr. Fiore Work Phone: [facility] Start: 02-01-2023 End: 02-01-[address] Cody Contreras Work Phone: [facility] Work Phone: Start: 02-01-2023 End: 02-01-[address] Cody Contreras Work Phone: [facility] Work Phone: Start: 12-19-2022 Telephone encounter Leighann Blood WIRE THREADER.FISHING BOAT CAPTAIN Work Phone: Neurology Comment on above: CMN- PAP supplies ([employer]) Start: 09-05-2022 End: 09-05-2022 Patient encounter procedure CODY CONTRERAS MD [facility] Start: 06-05-2022 End: 06-05-2022 Patient encounter procedure CODY CONTRERAS MD [facility] Start: 06-25-2018 End: 06-25-2018 Patient encounter [facility] BRAD[facility] Start: 07-27-2015 End: 07-28-2015 Ambulatory [facility] Facility:[facility] Procedures Date Procedure Procedure Detail Performing [...] Work Phone: Start: 12-12-2020 Colonoscopy Leighann Blood WIRE THREADER.FISHING BOAT CAPTAIN Work Phone: Start: 11-02-2009 History of coronary [...] artery bypass grafts x 5( Confirmed ) CDOY CONTRERAS MD Decompression of cer vical spine CODY CONTRERAS MD Plan of Treatment Date Care Activity Detail Author Start: 2029 RSV Vaccine (1 - 1-d ose 75+ series) RSV Vaccine (1 - 1-dose 75+ series) [facility] Start: 12-12-2025 Colonoscopy COLONOSCOPY [facility] Start: 12-12-2025 COLORECTAL CANCER SCREENING COLORECTAL CANCER SCREENING [facility] Start: 05-31-2025 Hepatic function panel [facility] Start: 05-26-2025 Pneumococcal Vaccine : 50+ (3 of 3 - PCV20 or PCV21) Pneumococcal Vaccine: 50+ (3 of 3 - PCV20 or PCV21) [facility] Start: 05-26-2025 Pneumococcal Vaccine : 65+ (3 - PPSV23 or PCV20) Pneumococcal Vaccine: 65+ (3 - PPSV23 or PCV20) [facility] Start: 05-26-2025 Pneumococcal Vaccine : 65+ (3 of 3 - PPSV23 or PCV20) Pneumococcal Vaccine: 65+ (3 of 3 - PPSV23 or PCV20) [facility] Start: 02-05-2025 Colonoscopy Colonoscopy [facility] Start: 02-05-2025 Colorectal Cancer Screening Colorectal Cancer Screening [facility] Start: 02-05-2025 Screening for malign ant neoplasm of colon [facility] Start: 01-22-2025 End: 01-22-2025 Patient encounter procedure Neurology Comment on above: 1 year follow up Start: 01-16-2025 BP Controlled (<130/80) BP Controlle d (<130/80) [facility] Start: 09-09-2024 Advance Directive Discussion Advance Directive Discussion [facility] Start: 05-10-2024 Covid-19 Vaccine () Covid-19 Vaccine () [facility] Start: 05-10-2024 Influenza vaccination C [facility] Start: 09-09-2023 Advance Directive Discussion Advance Directive Discussion [facility] Start: 09-09-2023 Behavioral Health Screening Behavioral Health Screening [facility] Start: 05-10-2023 Covid-19 Vaccine () Covid-19 Vaccine () [facility] Start: 05-10-2023 Influenza vaccination C [facility] Start: 09-09-2022 ADVANCE DIRECTIVE DISCUSSION ADVANCE DIRECTIVE DISCUSSION [facility] Start: 09-09-2022 DEPRESSION ASSESSMENT DEPRESSION ASS ESSMENT [facility] Start: 01-26-2021 COVID-19 VACCINE (3 - Booster for Pfizer series) COVID-19 VACCINE (3 - Booster for Pfizer series) [facility] Start: 11-30-2019 DIABETES SCREEN DIABETES SCREEN [facility] Start: 11-30-2019 Diabetes Screening Diabetes Screenin g [facility] Start: 2019 PNEUMOCOCCAL: 65+ (1 - PCV) PNEUMOCOCCAL: 65+ (1 - PCV) [facility] Start: 11-18-2014 Shingrix Vaccine (2 of 3) Shingrix Vaccine (2 of 3) [facility] Start: 11-01-2014 Lipid 1996 panel - S lee or Plasma Lipid Screening [facility] Start: 11-01-2014 Lipid panel Lipid Screening [facility] Start: 11-01-2014 LIPID SCREEN LIPID SCREEN [facility] Start: 2014 RSV Vaccine (1 - 1-d ose 60+ series) RSV Vaccine (1 - 1-dose 60+ series) [facility] Start: 12-08-2013 PROSTATE CANCER SCREENING DISCUSSION PROSTATE CANCER SCREENING DISCUSSION [facility] Start: 11-01-2010 Hepatitis B surface antibody level LDL CHOLESTEROL [facility] Start: 2004 SHINGRIX VACCINE (1 of 2) SHINGRIX VACCINE (1 of 2) [facility] Start: 1999 COLOGUARD (FIT-DNA) COLOGUARD (FIT-D NA) [facility] Start: [address] COLONOGRAPHY [facility] Start: 1999 FECAL OCCULT BLOOD FECAL OCCULT BLOO D [facility] Start: 1999 Screening for malign ant neoplasm of colon [facility] Start: 1999 SIGMOIDOSCOPY SIGMOIDOSCOPY [facility] Start: 1973 Urine microalbumin profile [facility] Start: 1972 ANNUAL PCP TEAM VOLUNTEER ASSISTANT SERA DISEASE VISIT ANNUAL PCP TEAM CHRONIC DISEASE VISIT [facility] Start: 1972 Anxiety Screening Anxiety Screening [facility] Start: 1972 BP CONTROLLED (<130/80) BP CONTROLLE D (<130/80) [facility] Start: 1972 Depression Screening Depression Scre ening [facility] Start: 1972 HEPATITIS C SCREENING [facility]ITIS C [facility] Start: 1972 Hepatitis C screening Hepatitis C Sc [facility] Start: 1954 ABDOMINAL AORTIC ANEURYSM SCREENING ABDOMINAL AORTIC ANEURYSM SCREENING [facility] Start: 1955 Abdominal aortic aneurysm screening Abdominal Aortic Aneurysm Screening [facility] Basic metabolic 2008 panel with ionized calcium - Serum or Plasma [facility] CBC W Auto Different ial panel - Blood [facility] Hemoglobin A1c/Hemoglobin.total in Blood [facility] Lipid 1996 panel - S lee or Plasma [facility] Immunizations Immunization Date Immunization Notes Care Provider [facility] 06-25-2024 influenza virus vacc ine, unspecified formulation CODY CONTRERAS MD [facility] 07-02-2023 influenza virus vacc ine, unspecified formulation CODY CONTRERAS MD [facility] 06-13-2022 influenza, high dose seasonal, preservative-free CODY CONTRERAS MD [facility] 06-13-2022 influenza virus vacc ine, unspecified formulation Kris Michel MD Work Phone: [facility] 08-02-2021 SARS-CoV-2 mRNA (tozinameran) vaccine CODY CONTRERAS MD [facility] 06-18-2021 influenza virus vacc ine, unspecified formulation CODY CONTRERAS MD [facility] 12-01-2020 SARS-CoV-2 mRNA (tozinameran) vaccine CODY CONTRERAS MD [facility] 11-10-2020 SARS-CoV-2 mRNA (tozinameran) vaccine CODY CONTRERAS MD [facility] Comment on above: Result Comment: 2020: [id number] 05-26-2020 influenza virus vacc ine, unspecified formulation CODY CONTRERAS MD [facility] 05-26-2020 pneumococcal conjuga te vaccine, 13 martha CONTRERAS MD [facility] 06-13-2018 influenza virus vacc ine, unspecified formulation CODY CONTRERAS MD [facility] 10-28-2017 pneumococcal polysaccharide vaccine, 23 valent CODY CONTRERAS MD [facility] 07-24-2017 influenza virus vacc ine, unspecified formulation CODY CONTRERAS MD [facility] 06-04-2016 influenza virus vacc ine, unspecified formulation CODY CONTRERAS MD [facility] 06-10-2015 influenza virus vacc ine, unspecified formulation CODY CONTRERAS MD [facility] 09-23-2014 zoster vaccine, live CODY CONTRERAS MD [facility] Payers Date Payer Category Payer Self-pay [id number] 2019 Private Health Insurance [id number] 2019 Unknown [id number] Medicare [id number] 2019 Medicare [id number] 1955 Unknown [id number] 1954 Unknown [id number] [id number] 1954 Unknown [id number] [id number] 1954 Unknown [id number] [id number] 1954 Unknown [id number] [id number]. [id number] 1954 Unknown [id number] 2.16. [id number] 1954 Unknown [id number] 2.16.8 [id number] 1954 Unknown [id number] 2.16.8 [id number] Unknown [id number] Unknown LIAM [id number] Unknown [id number] [id number] Social History Date Type Detail Facility Start: 05-18-2019 End: 06-17-2025 Tobacco smoking status Ex-smoker (finding) [facility] Sex Assigned At [facility] Start: 10-11-1973 End: 10-11-1999 History of tobacco use Current smoker [facility] Start: 10-11-1973 End: 10-11-1999 History of tobacco use Cigarette Smoker [facility] Start: 04-30-2012 End: 08-14-2020 Cigarettes smoked current (pack per day) - Reported 4 [facility] Start: 04-30-2012 End: 01-17-2024 Tobacco use and exposure Smokeless tobacco non-user [facility] Start: 05-17-2021 End: 01-17-2024 Alcohol intake Current non-drinker of alcohol (finding) [facility] Start: 1955 Sex Assigned At Not on file [facility] Start: 04-12-2022 Tobacco smoking stat us AZIS Unknown if ever smoked [facility] Start: 1955 Sex Assigned At Male [facility] Start: 08-14-2020 End: 02-05-2023 Tobacco use panel [facility] National Score (1-10 0), lower number is lower risk Not on file [facility] Start: 11-19-2014 Sex Male (finding) [facility] Functional Status Date Assessment Result Facility 03-14-2023 Functional Status ID band on, Call device within reach, Bed in low position, Wheels locked, Upper/Half-Length side-rails up, Phone within reach, Visitor at bedside, Safety level maintained [facility] 09-20-2014 Are you deaf, or do you have serious difficulty hearing No 09/20/2014 8:21 AM Nikki Mazariegos Cma No [facility] 09-20-2014 Are you blind, or do you have serious difficulty seeing, even when wearing glasses No 09/20/2014 8:21 AM Nikki Mazariegos Cma No [facility] 09-20-2014 Do you have serious difficulty walking or climbing stairs No 09/20/2014 8:21 AM Nikki Mazariegos Cma No [facility] 09-20-2014 Do you have difficul ty dressing or bathing No 09/20/2014 8:21 AM Nikki Mazariegos Cma No [facility] 09-20-2014 Because of a physica l, mental, or emotional condition, do you have difficulty doing errands alone such as visiting a physician's office or shopping No 09/20/2014 8:21 AM Nikki Mazariegos Cma No [facility] Mental Status Date Assessment Result Facility 03-14-2023 Mental Status Oriented x 4 [facility] 09-20-2014 Because of a physica l, mental, or emotional condition, do you have serious difficulty concentrating, remembering, or making decisions No 09/20/2014 8:21 AM KATINA Gutierrez Integration Project Manager, Nikki Gallagher No [facility] Clinical Notes 11-03-2009 to 05-31-2025 Note Date & Type Note Facility 05-31-2025 Progress note [facility] 05-31-2025 Evaluation note Diagnosis Onset Date Resolution Type 2 diabetes mellitus acute May 31, 2025 1:16pm Atherosclerosis of coronary artery of [place] heart without angina pectoris chronic May 31, 2025 1:16pm Essential hypertension chronic Se ptember 2024 1:16pm HLD (hyperlipidemia) chronic Sept ember 2024 1:16pm [facility] Work Phone: 1(114) 450-427209-22-2025 Progress note Author Raffi Catalan [facility] Note Date/Time May 31, 2025 2:13pm [facility] [address] [place] [address] OFFICE VISIT Date of Service: 05/31/25 MR#: [id number] Acct: [id number] Name: OBDULIO WHITNEY Rep #: [id number] : 1955 Provider: DARRIUS Catalan Age/Sex: 70/M Location: [facility] Status: Signed HPI HPI History [...] the posterior descending artery. 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 His last [...] Visit Reasons: OVERDUE FOR OV/LAST SEEN 02/2024 Box Feeder Required: No Accompanied by: Self Is patient in pain?: No Allergies celecoxib (From Celebrex) Allergy (Verified 05/31/25 13:25) shortness of breath mushroom Allergy (Verified 05/31/25 13:25) swelling naproxen Allergy (Verified 05/31/25 13:25) rash Hpahkzb-YVB-XvW Reductase Inhibitor (Ffrnxuk-Nyj-Kql Reductase Inhibitor) Allergy (Verified 05/31/25 13:25) leg [...] (Updated 05/31/25 @ 13:54 by Raffi Catalan TAX CLERK, TAX CLERK-C) Type 2 diabetes mellitus Atherosclerosis of coronary artery of [place] heart without angina pectoris Essential hypertension HLD [...] Plan (1) Atherosclerosis of coronary artery of [place] heart without angina pectoris: Status: Chronic Qualifiers: Coronary Disease-Associated Artery/Lesion type: [place] artery QualifiedCode(s): I25.10 - Atherosclerotic heart disease of [place] coronary artery without angina pectoris Plan: He [...] Today I25.10 - Atherosclerotic heart disease of [place] coronary artery without angina pectoris Basic Metabolic Profile (BMP) Today E11.9 - Type 2 diabetes mellitus without complications, E78.5 - Hyperlipidemia, unspecified, I10 - Essential (primary) hypertension, I25.10 - Atherosclerotic heart disease of [place] coronary artery without angina pectoris Liver Profile Today E11.9 - Type 2 diabetes mellitus without complications, E78.5 - Hyperlipidemia, unspecified, I10 - Essential (primary) hypertension, I25.10 - Atherosclerotic heart disease of [place] coronary artery without angina pectoris Lipid Profile Today E11.9 - Type 2 diabetes mellitus without complications, E78.5 - Hyperlipidemia, unspecified, I10 - Essential (primary) hypertension, I25.10 - Atherosclerotic heart disease of [place] coronary artery without angina pectoris Medications: New [...] Labs (For Continuity Of Care) 12-15 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 (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) Coding Level of Care Code Off vis,est,level 4 Diagnoses Atherosclerosis of [place] coronary artery of [place] heart without angina pectoris I25.10 Coronary Disease-Associated Artery/Lesion type: [place] artery Essential hypertension I10 Hyperlipidemia, unspecified hyperlipidemia type E78.5 Hyperlipidemia type: unspecified Type 2 diabetes mellitus E11.9 Coding Level of Care Code Off vis,est,level 4 Diagnoses Atherosclerosis of [place] coronary artery of [place] heart without angina pectoris I25.10 Coronary Disease-Associated Artery/Lesion type: [place] artery Essential hypertension I10 Hyperlipidemia, unspecified hyperlipidemia type E78.5 Hyperlipidemia type: unspecified Type 2 diabetes mellitus E11.9 Clinical Quality Measures Falls Risk Screening/Assistive Devices Have you fallen in the past year?: No 05/31/25 1448 <Electronically signed by Raffi RIZO> Date _ Raffi Catalan NP, NP-Cali Cosigner Signature: Date (if applicable) CC: Dr. Cody Contreras MD ~ [facility] Work Phone: 1(891) 696-527704-02-2025 NoteHNO ID: [id number] Author: ?, ?, ? Service: ? Author Type: ? Type: Progress Notes Filed: 12/11/2024 16:28 Note Text: CMN RECEIVED BY [facility] VIA FAX, COMPLETED, AND PLACED IN PROVIDER MAILBOX FOR SIGNATURE Maribell Alex Hearings Reporter II [facility] SENDING CMN: Suleiman SIGNED AND DATED CMN, FAXED TO DME AND CONFIRMATION PAGE RECEIVED: 12/11/2024 [facility]04[facility] History of Present illness Narrative* Maribell Alex - 12/09/2024 3:52 PM EDT CMN RECEIVED BY [employer] [facility] VIA FAX, COMPLETED, AND PLACED IN PROVIDER MAILBOX FOR SIGNATURE Maribell Alex Hearings Reporter II [employer] SENDING CMN: Suleiman SIGNED AND DATED CMN, FAXED TO DME & CONFIRMATION PAGE RECEIVED: 12/11/2024 [facility] History of Present illness Narrative* Johanne Chapman APRN.ISA - 01/17/2024 8:00 AM EDT Images from the original note were not included. [facility] Follow up/ Established patient visit Date of last visit : 05/17/21 The following Impression/Plan was copied and pasted from the patient's last [facility] visit on 05/17/21: Impression: G47.33 ZACHARIAH (obstructive sleep apnea) (primary encounter diagnosis) 66 yo male who presents for annual visit for ZACHAIRAH on CPAP with use and benefits and [...] Take 4 mg by mouth as needed. Novelty-3 Fatty Acids, FISH OIL, 360-1,200 mg cap [...] ALLI. Johanne Chapman APRN.CNP documented in this encounter[facility] [place] NoteHNO ID: [id number] Author: JOHANNE CHAPMAN APRN.CNP Service: ? Author Type: Nurse Practitioner Type: Progress Notes Filed: 01/17/2024 08:36 Note Text: [facility] Follow up/ Established patient [...] in 1 year(s) and PRN. Leighann Sandoval APRN.FISHING BOAT CAPTAIN Here for follow up for ZACHARIAH, annual [...] Take 4 mg by mouth as needed. Novelty-3 Fatty Acids, FISH OIL, 360-1,200 mg cap [...] in 12 months with ALLI. Johanne Chapman APRN.[facility]04-16-2024 Miscellaneous Notes * Telephone Encounter - Yue Boo OCCA - 12/24/2023 9:20 AM EDT Faxed and received confirmation from Suleiman Carrasco for CPAP orders. Patient's most recent visit was 05/17/2021. DME notified that patient will need to make an appointment. documented in this encounterSelect [facility] Hospital Discharge instructions Patient Education 03/14/2023 15:47:17 [...] or as directed by your healthcare provider [phone] [employer]. [address] [place] [address]. All rights reserved. This information is not intended as a substitute for professional medical care. Always follow yourhealthcare professional's instructions. Follow Up Care 03/14/2023 14:57:47 With:CODY CONTRERAS MD Address: [address] [facility] [place] [address]- When:2-[address] [facility] 07-06-2023 Note Discharge Instructions Thank you for [...] days Where: [address] [facility] [place] [address]- Allergies CeleBREX Percocet 5/325 celecoxib (Naproxen) naproxen [...] may report side effects to FDA at [phone]-[phone]. What other drugs will affect prednisone? Sometimes [...] may affect prednisone. This includes prescription and vmxn-kth-jxjvvef medicines, vitamins, and herbal products. Not all [...] to ensure that the information provided by [employer]. ('[employer]') is accurate, up-to-date, and complete, but no guarantee is made to that effect. Drug information contained herein may be time sensitive. [employer] information has been compiled for use by healthcare practitioners and consumers in the [place] and therefore [employer] does not warrant that uses outside of the [place] are appropriate, unless specifically indicated otherwise. Personallys drug information does not endorse drugs, diagnose patients or recommend therapy. Personallys drug information isan informational resource designed to [...] effective or appropriate for any given patient. [employer] does not assume any responsibility for any aspect of healthcare administered with the aid of information [employer] provides. The information contained herein is not intended to cover all possible uses, directions, precautions, warnings, drug interactions, allergic reactions, or adverse effects. If you have questions about the drugs you are taking, check with your doctor, nurse or pharmacist. Copyright 5571-7725 [employer]. Version: 10.01. Revision Date: 12/04/2018. Education Materials [...] or as directed by your healthcare provider [phone] [employer]. [address] [place] [address]. All rights reserved. This information is not intended as a substitute for professional medical care. Always follow yourhealthcare professional's instructions. Additional Information VACCINATE! IT SAVES LIVES! Members of the community who have not yet received the COVID-19 vaccine and would like to receive it can visit one of [facility] vaccine clinics. There are many vaccine clinic locations within the [facility]. For locations and available times, please visit www.gettheshot.coronavirus.[place].gov/. It is important to note that some COVID mobile vaccine clinics are held outdoors and may be canceled in rainy or stormy conditions. To learn more about pediatric vaccinations (ages 5-11), we invite you to visit the [facility] webpage. https://www.[facility].org/pages/1053-Mxtjr-Aaktlgmjndt-Xqahedsoot-Wrqbb-Syh stions.htmlTo learn more about the COVID-19 vaccine, we invite you to visit the CDC website for a list of frequently asked questions. https://www.cdc.gov/coronavirus/2019-ncov/vaccines/faq.html [facility] Patient Portal Access Instructions: Stay connected with your healthcare team and access your personal medical information anytime with the [facility] Patient Portal. If you would like a full copy of your medical records please contact the [facility] Medical Records Department Saturday through Saturday between 8a.m. and 4:30p.m. Please follow the directions below to access the portal: 1.Access the email account you provided upon registration to the [facility].2.Look for an invitation email from [facility].3.Open the email and access the invitation link: Accept Invitation to [facility]4.Fill in the required nicholas to create your account. Sign into www.[employer] with your username and password that you [...] you will allow to register on the [facility] Patient Portal for access to your information. You can also access the [facility] Patient Portal on the Feed.fm. Simply click on Health Records under [employer]Data and then click on the [employer] logo. HOW TO SAFELY DISPOSE OF PRESCRIPTION [...] Call your local pharmacy or go to http://bit.ly/1A6Xd1s to find one close to you.3.Make use of household items: Use cat litter or old coffee grounds to dispose medications if other options arenot available. Mix your drugs with these household products, seal them in an airtight container andthrow it into the garbage. Call [facility]: [phone] to be sure your drugs can be [...] aware that I should contact my doctor. Patient/Latent Print Examiner Signature: Date/Time: Relationship to Patient: Witness Name/Signature: Date/Time: [facility]07-06-2023 Note ORIGINAL EXAMINATION: THREE XRAY VIEWS OF [...] Date: 03/14/2023 3:41:35 PM Ordering Provider: [facility]07-06-2023 Note ORIGINAL EXAMINATION: THREE XRAY VIEWS OF [...] Sign Date: 03/14/2023 3:41:35 PM Ordering Provider: [facility]05-30-2023 History and physical note* Kris Michel MD [...] Take 4 mg by mouth as needed. Novelty-3 Fatty Acids, FISH OIL, 360-1,200 mg cap [...] Celebrex [Celecoxib], Mushrooms [Other], Naproxen, and Statins [Wfltgjy-Abr-Vnk Reductase Inhibitors] PERSONAL HISTORY: SOCIAL HISTORY Social [...] entered by the nurse and reviewed by mn Nursing Notes: Josephine Kern LPN 01/18/2023 9:22 [...] which included preparing to see the patient, nftg-ne-piow patient care, completing clinical documentation, obtaining and/or [...] 2023 TIME: 11:28 AM documented in this encounterSelect [facility] [place] Nurse Note* Elenita Cerna RN - 02/05/2023 12:00 PM EDT Arrived in phase II via cart. Left lateral position. Sedated, but responds to verbal stimuli. Colornormal; skin warm and dry. Respirations wnl and unlabored. Abdomen soft and with + bowel sounds in quads X 4. Patient resting comfortably. Elenita Cerna RN documented in this encounterSelect [facility] [place]-12-2023 Miscellaneous Notes* Telephone Encounter - Ivy Gillespie Ma - 12/19/2022 2:07 PM EDT Request completed and faxed. Confirmed and filed. Ivy Gillespie Ma * Telephone Encounter - Ivy Gillespie Ma - 12/19/2022 10:07 AM EDT Type of letter/form/fax request - Medical Necessity Form received from Suleiman on 2c floor and placed on [facility] Leighann Sandoval's desk for completion. Completed form needs to be faxed to [phone]. Route to ME when form completed for processing documented in this encounterSelect [facility] [place] History of Past illness Narrative* Problem Noted [...] of this encounter (statuses as of 12/20/2022) [facility] History of Past illness Narrative* Problem Noted [...] of this encounter (statuses as of 07/14/2023) [facility] History of Past illness Narrative* Problem Noted [...] of this encounter (statuses as of 12/24/2023) [facility] Future Appointments Appointment Date:06/13/2022 08:00:00 AM Scheduled Provider:CODY CONTRERAS MD Location:[facility] Appointment Type:[facility] Evaluation + Plan note Future Appointments Appointment Date:09/12/2022 08:00:00 AM Scheduled Provider:CODY CONTRERAS MD Location:[facility] Appointment Type:[facility] Evaluation + Plan note Future Appointments Appointment Date:03/19/2023 07:30:00 AM Scheduled Provider:CODY CONTRERAS MD Location:[facility] Appointment Type: OV [facility] Evaluation + Plan note Future Appointments Appointment Date:09/19/2023 08:00:00 AM Scheduled Provider:CODY CONTRERAS MD Location:[facility] Appointment Type: OV [facility] Evaluation + Plan note Future Appointments Appointment Date:03/19/2024 07:30:00 AM Scheduled Provider:CODY CONTRERAS MD Location:[facility] Appointment Type:PC OV Future Scheduled Tests Laboratory* A1C Hemoglobin 03/19/24 * Lipid Profile 03/19/24 * Complete Metabolic Panel 03/19/24 [facility] Evaluation + Plan note Future Appointments Appointment Date:03/19/2024 07:30:00 AM Scheduled Provider:CODY CONTRERAS MD Location:[facility] Appointment Type: OV [facility] Evaluation + Plan note Future Appointments Appointment Date:09/22/2024 09:00:00 AM Scheduled Provider:CODY CONTRERAS MD Location:[facility] Appointment Type: OV [facility] Evaluation + Plan note Future Appointments Appointment Date:03/17/2025 09:30:00 AM Scheduled Provider:CODY CONTRERAS MD Location:[facility] Appointment Type: OV [facility] Evaluation + Plan note Future Appointments Appointment Date:06/17/2025 09:00:00 AM Scheduled Provider:CODY CONTRERAS MD Location:[facility] Appointment Type:PC OV Follow Up [facility] Evaluation + Plan note Future Appointments Appointment Date:09/17/2025 10:30:00 AM Scheduled Provider:CODY CONTRERAS MD Location:[facility] Appointment Type:PC OV Lab Check [facility] Evaluation noteNo assessment information available [facility] Work Phone: Evaluation note* Diagnosis Encounter for screening for malignant neoplasm of colon- Primary Special screening for malignant neoplasms, colon Constipation, unspecified constipation type Lower abdominal pain Abdominal pain, other specified site Bilateral lower abdominal cramping Abdominal pain, other specified site documented in this encounter [facility] note* Diagnosis ZACHARIAH (obstructive sleep apnea)- Primary Obstructive sleep apnea (adult) (pediatric) documented in this encounter [facility] course Narrative No data available for this section [facility] Hospital Discharge instructions No data available for this section [facility] Progress note No data available for this section [facility] Reason for referral (narrative)* Outpatient Procedure (Routine) - Closed Specialty Diagnoses / Procedures Referred By Contac t Referred To Contact [facility] Diagnoses Constipation, unspecified constipation type Lower abdominal pain Bilateral lower abdominal cramping Procedures COLONOSCOPY DIAGNOSTIC COLONOSCOPY FLX DX W/COLLJ SPEC WHEN Azalia Andrews PA-C [address] [place] [address] [facility] [place] [address] [place] [address] Referral ID Status Reason Start Date Expiration Date V isits Requested Visits Authorized [id number] Closed Auto-Generate d Referral 01/18/2023 01/19/2024 1 1 [facility] for referral (narrative)No reason for referral information availableKaiser [facility]ward Work Phone: Reason for visit Narrative* Outpatient Procedure (Routine) - Closed Specialty Diagnoses / Procedures Referred By Contac t Referred To Contact [facility] Diagnoses Constipation, unspecified constipation type Lower abdominal pain Bilateral lower abdominal cramping Procedures COLONOSCOPY DIAGNOSTIC COLONOSCOPY FLX DX W/COLLJ SPEC WHEN [facility] Azalia Perez PA-C [address] [place] [address] [facility] [place] [address] [place] [address] Referral ID Status Reason Start Date Expiration Date V isits Requested Visits Authorized [id number] Closed Auto-Generate d Referral 01/18/2023 01/19/2024 1 1 [facility] Summary Purpose Family History No Family History [...] Chief Complaint Atherosclerotic hear t disease of [place] coronary a Atherosclerotic heart disease of [place] coronary a Chief Complaint Admit Date OVERDUE FOR OV/LAST SEEN 02/2024 Septemb er 2024 1:16pm Reason for Visit Admit Date Type 2 diabetes mellitus May 31, 2025 1:16pm Atherosclerosis of coronary artery of [place] heart without angina pectoris May 31, 2025 [...] section and content) DATE CREATED AUTHOR 03/05/2018 [facility] DATE CREATED AUTHOR AUTHOR'S ORGANIZ ATION 07/28/2018 [facility] DATE CREATED AUTHOR AUTHOR'S ORGANIZ ATION 03/12/[address] [facility] ([place]) DATE CREATED AUTHOR AUTHOR'S ORGANIZ ATION 12/14/2024 [facility] DATE CREATED AUTHOR AUTHOR'S ORGANIZ ATION 06/15/[address] [facility] DATE CREATED AUTHOR AUTHOR'S ORGANIZ ATION 06/18/2025 [facility] Care Team (unrecognized sect ion and content) Care Team Personnel Name: CODY CONTRERAS MD Position: P4 Physician - Primary Care Med Service: Active Provider Member Role: Primary Care Physician Address: Address: [address] [place] [address] [address] [facility] [place] [address]- [place] Care Team Related Persons Name: WHITNEYMAYCO Address: Home [address] [place] [phone] [place] Care Team Personnel Name: CODY CONTRERAS MD Position: P4 Physician - Primary Care Member Role: Primary Care Physician Address: Address: [address] [facility] [place] [address]- Care Team Related Persons Name: MAYCO WHITNEY Address: Home [address] [place], [place] [id number] [place] Source Comments (unrecognize d section and content) In the event this informatio n is protected by the Federal Confidentiality of Alcohol and Drug Abuse Patient Records regulations: The Federal rules restrict any use of the information to criminally investigate or prosecute any alcohol or drug abuse patient.[facility] the event this information is protected by the Federal Confidentiality of Alcohol and Drug Abuse Patient Records regulations: The Federal rules restrict any use of the information to criminally investigate or prosecute any alcohol or drug abuse patient.[facility] the event this information is protected by the Federal Confidentiality of Alcohol and Drug Abuse Patient Records regulations: The Federal rules restrict any use of the information to criminally investigate or prosecute any alcohol or drug abuse patient.[facility] the event this information is protected by the Federal Confidentiality of Alcohol and Drug Abuse Patient Records regulations: The Federal rules restrict any use of the information to criminally investigate or prosecute any alcohol or drug abuse patient.[facility] the event this information is protected by the Federal Confidentiality of Alcohol and Drug Abuse Patient Records regulations: The Federal rules restrict any use of the information to criminally investigate or prosecute any alcohol or drug abuse patient.[facility] Reason for Visit (unrecogniz ed section and content) Reason Comments CMN- PAP supplies [facility] Reason Comments Orders Faxed and received c onfirmation from [facility] for CPAP orders. Patient's most recent visit was 05/17/2021. DME notified that patient will need to make an appointment. Reason Comments New Patient Evaluation Reason Comments CMN Care Teams (unrecognized sec tion and content) Care Team Personnel Name: CODY CONTRERAS MD Position: P4 Physician - Primary Care Member Role: Primary Care Physician Address: [facility] [place] [address]- Telecom: Care Team Related Persons Name: OBDULIO WHITNEY Edge Plugger Relationship Specialty Start Date End Date Cody Contreras MD [address] [place] [address] PCP - General 10/04/09 Team Status: Active Member Role Status Dates Dr. Cody Contreras MD Family Provider Active Dr. Cody Contreras MD Primary Care Provider Active Team Status: Active Member Role Status Dates Dr. Cody Contreras MD Primary Care Provider Active Raffi H Roof TAX CLERK, TAX CLERK-C Referring Provider, Other Provide r Active Dr. Chetan Malave MD Attending Provider Active Team Status: Inactive Member Role Status Dates Dr. Cody Contreras MD Primary Care Provider Active Raffi Catalan NP, TAX CLERK-C Attending Provider, Referring Pro vider Active Edge Plugger Relationship Specialty Start Date End Date Cody Contreras MD [address] [place] [address] PCP - General 10/04/09 Edge Plugger Relationship Specialty Start Date End Date Cody Contreras MD [address] [place] [address] PCP - General 10/04/09 Edge Plugger Relationship Specialty Start Date End Date Cody Contreras MD [address] [place] [address] PCP - General 10/04/09 Edge Plugger Relationship Specialty Start Date End Date Cody Contreras MD [address] [place] [address] PCP - General 10/04/09 Team Status: Active Member Role/Relationship Status Dates Dr. Cody Contreras MD Primary care physician Active Team Status: Inactive Member Role/Relationship Status Dates Dr. Cody Contreras MD Primary care physician Active Start: May 31, 2025 End: May 31, 2025 Dr. Cody Contreras MD Referring Provider Active Start: May 31, 2025 End: May 31, 2025 Raffi Catalan TAX CLERK, TAX CLERK-C Attending physician Active Start: May 31, 2025 [...] BE BASED ON THE PRIMARY CLINICAL RECORDS. [facility]. provides no warranty or guarantee of the accuracy or completeness of information in this document.
[2025-07-03] MEDS: 0.9% Normal Saline (1000mL) 1,000 ML 125 ML IV ×2 (13:07→20:20)
[2025-07-03] MEDS: Metoprolol(XL)Succ 50 MG Tablet PO (14:20)
--- NOTE | 2025-07-03 14:53 | EX.PCM.CON.S ---
Assessment & Plan Assessment/Plan (1) Acute cholecystitis: (2) Transaminitis: (3) Hyperbilirubinemia: PLAN: Plan The patient is a 70-year-old male admitted with right upper quadrant pain, leukocytosis and elevated bilirubin, AST, ALT normal alk phos. Imaging indicates very minimal gallbladder inflammation. No gallbladder stones were noted. Patient has undergone MRCP but MRCP results are still pending. Would recommend awaiting results of MRCP to determine next course of action. Based on LFT pattern, this seems consistent with hepatocellular injury from some etiology. If felt to be secondary to acute cholecystitis, would proceed with cholecystectomy but will wait for MRCP results to be filed . Would recommend continued n.p.o., IV fluids and IV antibiotics HPI Consult Data Date of Consult: 07/03/25 HPI Narrative Reason for Consultation: Abdominal pain, leukocytosis and elevated LFTs HPI Narrative: TRAVIS WHITNEY, is a 70 M who presented earlier today to the [facility] emergency department with epigastric and right upper quadrant abdominal pain. According to his family, his pain began about 2 days ago. He presented to the emergency department yesterday and underwent a workup. LFTs were unremarkable. Imaging of his liver and gallbladder were also fairly unremarkable. It was thought that his symptoms may have been related to Ozempic. He was discharged to home. He presented today to the emergency department again with similar complaints of right upper quadrant pain. He underwent another series of laboratory tests. This revealed that his white count had increased to about 17,000. His bilirubin was also elevated as well as his AST and ALT. His alkaline phosphatase was normal. Imaging by way of CT scan was first performed. This showed mild distention of the gallbladder with some haziness in the area. No obvious stones were noted. Right upper quadrant ultrasound was also performed. No gallstones were noted. Gallbladder wall was 3 mm there was mild fluid around the right upper quadrant. This was suggestive of possible very early acute cholecystitis. Given the elevated LFTs and especially the bilirubin, I was also concerned about the possibility of a common bile duct stone and suggested that he may need ERCP. I was informed by the ER that Dr. Lizama may not be available this weekend and we discussed possibly transferring to a tertiary center. [facility] Was contacted and they recommended MRCP prior to any acceptance of transfer. It was later found that Dr. Lizama was indeed in town and might be available if ERCP was necessary. Patient currently admitted. MRCP was performed but results are still pending. Patient was very somnolent due to significant pain medication recently given. I was able to get some history from his family. [facility] Medical History Type 2 diabetes mellitus Atherosclerosis of coronary artery of [place] heart without angina pectoris Essential hypertension HLD (hyperlipidemia) Home Medications ?Medication ?Instructions ?Recorded ?Last Taken ?Type aspirin 81 mg tablet,delayed 81 mg PO DAILY cardiac 06/05/19 07/02/25 History release (Adult Aspirin Regimen) metoprolol succinate 50 mg 50 mg PO DAILY htn 06/05/19 07/02/25 History tablet,extended release 24 hr nitroglycerin 0.4 mg sublingual 0.4 mg sublingual Q5-15M chest pain 06/05/19 Unknown History tablet omega-3 fatty acids 1,250 mg 1,250 mg PO DAILY unknown 06/05/19 07/02/25 History capsule omeprazole 20 mg capsule,delayed 20 mg PO DAILY GERD 06/05/19 07/02/25 History release rosuvastatin 20 mg tablet 20 mg PO DAILY high cholesterol 06/05/19 07/02/25 History metformin 750 mg tablet,extended 750 mg PO BID DM 04/12/22 07/02/25 History release 24 hr losartan 50 mg tablet 50 mg PO DAILY #90 tabs 09/10/23 Unknown Rx amlodipine 5 mg tablet 5 mg PO DAILY #90 tabs 05/31/25 07/02/25 Rx glimepiride 4 mg tablet 4 mg PO QDAY #1 TAB 05/31/25 07/02/25 Rx semaglutide 0.25 mg or 0.5 mg (2 0.25 mg (0.368 mL) subcut QWEEK 4 06/10/25 07/02/25 Rx mg/3 mL) subcutaneous pen injector weeks #3 mL (Ozempic) metoclopramide HCl 5 mg tablet 5 mg PO UD #20 tabs 07/02/25 07/02/25 21:30 Rx (Reglan) Allergy/AdvReac Type Severity Reaction Status Date / Time celecoxib (From Celebrex) Allergy shortness Verified 07/03/25 05:35 of breath mushroom Allergy swelling Verified 07/03/25 05:35 naproxen Allergy rash Verified 07/03/25 05:35 Ophynqn-RKF-WoO Reductase Allergy leg cramps Verified 07/03/25 05:35 Inhibitor (Wicrkwb-Fzd-Roc Reductase Inhibitor) Surgical History History of cataract extraction with lens replacement H/O coronary artery bypass surgery (11/02/09) H/O hernia repair H/O neck surgery History of lumbar surgery H/O colonoscopy History of appendectomy Social History Smoking Status: Former smoker how long ago did patient quit smokin alcohol intake: never substance use type: does not use caffeine: Yes Type: tea Number of servings: 10 Physical Exam Narrative Patient is somnolent but does awaken. Did not appear acutely ill or toxic He did have moderate tenderness to palpation in the right upper quadrant. No rebound or guarding Lab / Micro Data 07/03/25 06:15 07/03/25 06:15 Labs: Laboratory Results - last 24 hr 07/03/25 06:15: WBC 16.9 H, RBC 5.14, Hgb 13.6, Hct 41.5, MCV 80.7, MCH 26.5 L, MCHC 32.8, RDW Std Deviation 40.9, RDW Coeff of [place] 14.0, Plt Count 155, MPV 10.1, Neut % (Auto) Not Reportable, Absolute Neuts (auto) 14.4 H, Absolute Lymphs (auto) 0.51 L, Total Counted 100, Neutrophils % (Manual) 79 H, Band Neutrophils % 6 H, Lymphocytes % (Manual) 3 L, Monocytes % (Manual) 11 H, Metamyelocytes % 1, Differential Comment SCANNED, Diff Path Review May foll, Reactive Lymphocytes RARE, Platelet Estimate ADEQUATE, RBC Morphology NORM C+C, Ovalocytes RARE, Sodium 138, Potassium 4.1, Chloride 101, Carbon Dioxide 22.4, Anion Gap 14, BUN 13, Creatinine 0.98, Estim Creat Clear Calc 77.64, Est GFR (MDRD) Non-Af 83, BUN/Creatinine Ratio 13.7, Glucose 242 H, Calcium 9.9, Total Bilirubin 3.57 H, AST 203 H, ALT 183 H, Alkaline Phosphatase 66, Total Protein 7.1, Albumin 4.5, Globulin 2.6, Albumin/Globulin Ratio 1.8, Lipase 46 07/03/25 06:48: Urine Color Yellow, Urine Clarity Clear, Urine pH 5.0, Ur Specific [place] 1.020, Urine Protein 30 H, Urine Glucose (UA) 1000 H, Urine Ketones 5 H, Urine Occult Blood 50 H, Urine Nitrite Negative, Urine Bilirubin 1 H, Urine Urobilinogen 4 H, Ur Leukocyte Esterase Negative, Urine RBC 0 SEEN, Urine WBC 0 SEEN, Ur Squamous Epith Cells 0 SEEN, Urine Bacteria 0 SEEN, Urine Mucus 0 SEEN 07/03/25 13:10: POC Glucose 156 H Imaging Radiology Impression Abdomen/Pelvis CT 07/03/25 06:31 IMPRESSION: Gallbladder mildly distended with minimal stranding around it. Correlate clinically and with gallbladder ultrasound as needed to evaluate for very early gallbladder disease. Diverticulosis without diverticulitis. Enlarged prostate with probable bladder outlet obstruction Reading Location: [id number] Gallbladder Ultrasound 07/03/25 07:08 IMPRESSION: Mildly distended gallbladder with minimal adjacent perihepatic fluid. Gallbladder mildly painful with palpation. Suspect gallbladder disease and possibly very early cholecystitis. Reading Location: [id number]
--- NOTE | 2025-07-03 16:39 | HP.PCM.HOS_ITS ---
HPI - General General Date of Admission: 07/03/25 Date of Service: 07/03/25 Chief Complaint: Right and left upper quadrant abdominal pain HPI Narrative TRAVIS WHITNEY, is a 70 M who presents to the emergency room at [facility] with a chief complaint of right upper quadrant abdominal pain and left upper quadrant abdominal pain since yesterday. Patient had nausea vomiting and diarrhea yesterday. Patient is taking Ozempic as an outpatient and his last injection was yesterday. Patient had been evaluated in the emergency room yesterday for, liver enzymes were noted to be normal and the patient was sent home. He returns today with similar complaints. Workup in the emergency room included a CBC which showed an elevated white blood cell count at 16.9, chemistry profile was remarkable for glucose of 242, bilirubin was elevated at 3.57, AST was 203 [address] ALT was 183. CT of the abdomen showed the gallbladder to be mildly distended with minimal stranding around, there was noted to be enlarged prostate with probable bladder outlet obstruction. Gallbladder ultrasound showed mildly distended gallbladder with minimal adjacent perihepatic fluid, gallbladder was mildly painful with palpation, very early cholecystitis was suspected. Patient underwent an MRCP results of which are pending at the time of this dictation. General surgery was contacted and the case was discussed with them, they deferred admission to hospitalist service, patient will be admitted to [place] [id number], IV antibiotics will be administered in he will receive IV fluids. Patient may have to be seen by gastroenterology concerning possible choledocholithiasis. [facility], [facility] Medical History Type 2 diabetes mellitus Atherosclerosis of coronary artery of [place] heart without angina pectoris Essential hypertension HLD (hyperlipidemia) Home Medications ?Medication ?Instructions ?Recorded ?Last Taken ?Type aspirin 81 mg tablet,delayed 81 mg PO DAILY cardiac 07/02/25 History release (Adult Aspirin Regimen) metoprolol succinate 50 mg 50 mg PO DAILY htn 06/05/19 07/02/25 History tablet,extended release 24 hr nitroglycerin 0.4 mg sublingual 0.4 mg sublingual Q5-1 5M chest pain 06/05/19 Unknown History tablet omega-3 fatty acids 1,250 mg 1,250 mg PO DAILY unknown 06/05/19 07/02/25 History capsule omeprazole 20 mg capsule,delayed 20 mg PO DAILY GERD 0 9/27/19 10/24/25 History release rosuvastatin 20 mg tablet 20 mg PO DAILY high choleste rol 06/05/19 07/02/25 History metformin 750 mg tablet,extended 750 mg PO BID DM 12/2907/02/25 History release 24 hr losartan 50 mg tablet 50 mg PO DAILY #90 tabs 11/02 Unknown Rx amlodipine 5 mg tablet 5 mg PO DAILY #90 tabs 05/3107/02/25 Rx glimepiride 4 mg tablet 4 mg PO QDAY #1 TAB 05/31/25 07/02/25 Rx semaglutide 0.25 mg or 0.5 mg (2 0.25 mg (0.368 mL) blanco bcut QWEEK 4 06/10/25 07/02/25 Rx mg/3 mL) subcutaneous pen injector weeks #3 mL (Ozempic) metoclopramide HCl 5 mg tablet 5 mg PO UD #20 tabs 07/02/25 21:30 Rx (Reglan) Allergy/AdvReac Type Severity Reaction Status Date / Time celecoxib (From Celebrex) Allergy shortness Verified 07/03/25 05:35 of breath mushroom Allergy swelling Verified 07/03/25 05:35 naproxen Allergy rash Verified 07/03/25 05:35 Zihxhrz-ZCZ-NrR Reductase Allergy leg cramps Verified 07/03/25 05:35 Inhibitor (Thukcsq-Ufz-Exv Reductase Inhibitor) Surgical History History of cataract extraction with lens replacement H/O coronary artery bypass surgery (11/02/09) H/O hernia repair H/O neck surgery History of lumbar surgery H/O colonoscopy History of appendectomy Social History Smoking Status: Former smoker how long ago did patient quit smokin alcohol intake: never substance use type: does not use caffeine: Yes Type: tea Number of servings: 10 ROS Constitutional Constitutional: Reports malaise; Denies anorexia, change in weight, chills, fever(s), night sweats or weakness Eyes Eyes: Denies blurry vision, change in vision, discharge from eye(s) or eye pain Cardiovascular Cardiovascular: Denies chest pain, claudication, edema or palpitations Respiratory/Chest Respiratory/Chest: Denies cough, hemoptysis, shortness of breath at rest or shortness of breath with exertion Gastrointestinal Gastrointestinal: Reports abdominal pain, diarrhea, nausea and vomiting; Denies constipation, hematemesis, hematochezia or melena Genitourinary Genitourinary: Denies dysuria, hematuria, urinary frequency, urinary hesitancy, urinary incontinence or urinary urgency Musculoskeletal Musculoskeletal: Denies back pain, joint pain, joint stiffness, joint swelling, myalgias or neck pain Neurologic Neurologic: Denies abnormal gait, abnormal speech, dizziness, focal weakness, headache(s), loss of vision, numbness, other visual disturbances, paresthesias, syncope or tingling Psychiatric Psychiatric: Denies anxiety, cognitive impairment, depression, irritability, mood swings or suicidal ideation Endocrine Endocrinology: Denies change in body appearance, cold intolerance, excessive sweating, heat intolerance, polydipsia or polyuria Hematologic/Lymphatic Hematologic/Lymphatic: Denies none, anemia, easy bleeding, easy bruising or lymphadenopathy Allergic/Immunologic Allergic/Immunologic: Denies rhinitis, urticaria, eczemia or asthma Vital Signs Vital Signs Vital Signs: 07/03/25 05:35 07/03/25 08:29 07/03/25 10:53 Temperature 97.7 F L Temperature Source Oral Pulse Rate 81 80 89 Respiratory Rate 22 H 27 H 97 H Blood Pressure 180/74 H 150/74 H 160/76 H Blood Pressure Mean 109 99 104 Blood Pressure Source Blood Pressure Position Blood Pressure Location Pulse Ox 97 94 97 Oxygen Delivery Method Room Air Room Air Room Air 07/03/25 11:04 07/03/25 12:48 07/03/25 14:20 Temperature 98.0 F 97.9 F Temperature Source Temporal Pulse Rate 89 91 91 Respiratory Rate 97 H 18 Blood Pressure 160/76 H 164/84 H Blood Pressure Mean 104 110 Blood Pressure Source Monitor Blood Pressure Position Semi-Fowlers Blood Pressure Location Left Arm Pulse Ox 97 92 Oxygen Delivery Method Room Air Weight Weight: 203.8 kg Body Mass Index (BMI) 68.3 Physical Exam Const alert, oriented x3 and no apparent distress Constitutional Narrative: Patient has class III obesity General Appearance: cooperative, well kempt and well developed Orientation / Consciousness: awake, oriented to person, oriented to place and oriented to time HEENT normocephalic, head/scalp atraumatic, hearing grossly normal bilaterally and moist oral mucous membranes Eyes PERRL, EOMs intact bilaterally and conjunctivae normal Neck supple, no JVD, thyroid normal and no carotid bruits General: trachea midline Resp normal respiratory effort and clear to auscultation bilaterally Auscultation: Negative for rales, rhonchi or wheezes Cardio regular rate, regular rhythm, no murmurs, no rub and no gallops GI GI Narrative: is mildly distended, there is abdominal tenderness particularly over the right upper quadrant to palpation bowel sounds are present in all 4 quadrants Extremity no clubbing, cyanosis or edema Skin no rashes or lesions noted General Skin Exam: no breakdown Neuro oriented x3, CN's II-XII intact bilaterally, moves all extremities, no focal motor deficits and no sensory deficits noted Sensorium / Orientation: awake and alert Speech: speech normal Psych affect normal Results Lab / Micro Data 07/03/25 06:15 07/03/25 06:15 Labs: Laboratory Results - last 24 hr 07/03/25 06:15: WBC 16.9 H, RBC 5.14, Hgb 13.6, Hct 41.5, MCV 80.7, MCH 26.5 L, MCHC 32.8, RDW Std Deviation 40.9, RDW Coeff of [place] 14.0, Plt Count 155, MPV 10.1, Neut % (Auto) Not Reportable, Absolute Neuts (auto) 14.4 H, Absolute Lymphs (auto) 0.51 L, Total Counted 100, Neutrophils % (Manual) 79 H, Band Neutrophils % 6 H, Lymphocytes % (Manual) 3 L, Monocytes % (Manual) 11 H, Metamyelocytes % 1, Differential Comment SCANNED, Diff Path Review May foll, Reactive Lymphocytes RARE, Platelet Estimate ADEQUATE, RBC Morphology NORM C+C, Ovalocytes RARE, Sodium 138, Potassium 4.1, Chloride 101, Carbon Dioxide 22.4, Anion Gap 14, BUN 13, Creatinine 0.98, Estim Creat Clear Calc 77.64, Est GFR (MDRD) Non-Af 83, BUN/Creatinine Ratio 13.7, Glucose 242 H, Calcium 9.9, Total Bilirubin 3.57 H, AST 203 H, ALT 183 H, Alkaline Phosphatase 66, Total Protein 7.1, Albumin 4.5, Globulin 2.6, Albumin/Globulin Ratio 1.8, Lipase 46 07/03/25 06:48: Urine Color Yellow, Urine Clarity Clear, Urine pH 5.0, Ur Specific [place] 1.020, Urine Protein 30 H, Urine Glucose (UA) 1000 H, Urine Ketones 5 H, Urine Occult Blood 50 H, Urine Nitrite Negative, Urine Bilirubin 1 H, Urine Urobilinogen 4 H, Ur Leukocyte Esterase Negative, Urine RBC 0 SEEN, Urine WBC 0 SEEN, Ur Squamous Epith Cells 0 SEEN, Urine Bacteria 0 SEEN, Urine Mucus 0 SEEN 07/03/25 13:10: POC Glucose 156 H Imaging Radiology Impression Abdomen/Pelvis CT 07/03/25 06:31 IMPRESSION: Gallbladder mildly distended with minimal stranding around it. Correlate clinically and with gallbladder ultrasound as needed to evaluate for very early gallbladder disease. Diverticulosis without diverticulitis. Enlarged prostate with probable bladder outlet obstruction Reading Location: [id number] Gallbladder Ultrasound 07/03/25 07:08 IMPRESSION: Mildly distended gallbladder with minimal adjacent perihepatic fluid. Gallbladder mildly painful with palpation. Suspect gallbladder disease and possibly very early cholecystitis. Reading Location: [id number] Assessment & Plan Assessment/Plan (1) Acute cholecystitis: PLAN: Plan 1. Acute cholecystitis-patient will be admitted to [facility] 3, IV antibiotics will be started on IV fluids, labs will be monitor, patient will be seen in consultation by general surgery and may need to be seen by gastroenterology. MRCP results are pending at the time of this dictation #2 atherosclerotic heart disease-patient has a past history of coronary bypass surgery, he appears stable at this time regarding his heart disease #3 essential hypertension-patient will remain on some of his medications for blood pressure, blood pressure will be monitored #4 hyperlipidemia-patient is currently on a statin, this will be held because of the patient's elevated liver enzymes #5 class III obesity-complicates care, management, recovery, and prognosis #6 type 2 diabetes-patient's blood sugars will be monitored, sliding scale insulin will be administered as indicated #7 elevated liver enzymes-probably secondary to acute cholecystitis-patient does not appear to have an obstructive type pattern on his liver enzymes, again MRCP results are pending at this time Total clinical time spent by myself addressing the patient's medical issues, reviewing all of his data, and collaborating with patient's care team: 75 minutes Charges/Coding Visit Charges Inpatient E&M: [id number] Init Hosp L3
[2025-07-03] MEDS: Heparin Injection (Vial) 5,000 UNIT/ML VIAL 5000 UNIT SC (20:21)
--- NOTE | 2025-07-03 20:41 | CON.PCM.GI_ITS ---
HPI Consult Data Date of Consult: 07/03/25 HPI Narrative Reason for Consultation: elevated liver enzymes HPI Narrative: TRAVIS WHITNEY, is a 70-year-old man with a history of coronary artery disease status post coronary artery bypass surgery in 2009 with an in situ left internal mammary artery to the left anterior descending artery, free right internal mammary artery to the lateral circumflex artery and posterior lateral circumflex artery and saphenous vein graft to the posterior descending artery. Patient is currently enrolled in [employer] research trial. He has been randomized to GLP- 1 medication. He takes glimepiride and metformin for his diabetes. He presented to the ED 2 days ago with some abdominal pain. He underwent CT scan abdomen pelvis does not show any acute abnormalities. His symptoms were attributed to his semaglutide and he was started on metoclopramide and given pain medicine. He presented back to the hospital with worsening abdominal pain. He was afebrile. However this time his liver function test and liver enzymes were elevated. WBC 16.9 H, RBC 5.14, Hgb 13.6, Hct 41.5, MCV 80.7, Plt Count 155 Absolute Neuts (auto) 14.4 H,Neutrophils % (Manual) 79 H, Band Neutrophils % 6 H, Lymphocytes % (Manual) 3 L, Monocytes % (Manual) 11 H, Total Bilirubin 3.57 H, AST 203 H, ALT 183 H, Alkaline Phosphatase 66, Total Protein 7.1, Albumin 4.[address]/Abdomen/Pelvis without Cont IMPRESSION: Gallbladder mildly distended with minimal stranding around it. Correlate clinically and with gallbladder ultrasound as needed to evaluate for very early gallbladder disease. Diverticulosis without diverticulitis. Enlarged prostate with probable bladder outlet obstruction [facility] Medical History Type 2 diabetes mellitus Atherosclerosis of coronary artery of [place] heart without angina pectoris Essential hypertension HLD (hyperlipidemia) Home Medications ?Medication ?Instructions ?Recorded ?Last Taken ?Type aspirin 81 mg tablet,delayed 81 mg PO DAILY cardiac 07/02/25 History release (Adult Aspirin Regimen) metoprolol succinate 50 mg 50 mg PO DAILY htn 06/05/19 07/02/25 History tablet,extended release 24 hr nitroglycerin 0.4 mg sublingual 0.4 mg sublingual Q5-1 5M chest pain 06/05/19 Unknown History tablet omega-3 fatty acids 1,250 mg 1,250 mg PO DAILY unknown 06/05/19 07/02/25 History capsule omeprazole 20 mg capsule,delayed 20 mg PO DAILY GERD 0 06/05/19 07/02/25 History release rosuvastatin 20 mg tablet 20 mg PO DAILY high choleste rol 06/05/19 07/02/25 History metformin 750 mg tablet,extended 750 mg PO BID DM 12/2907/02/25 History release 24 hr losartan 50 mg tablet 50 mg PO DAILY #90 tabs 11/02 Unknown Rx amlodipine 5 mg tablet 5 mg PO DAILY #90 tabs 05/3107/02/25 Rx glimepiride 4 mg tablet 4 mg PO QDAY #1 TAB 05/31/25 07/02/25 Rx semaglutide 0.25 mg or 0.5 mg (2 0.25 mg (0.368 mL) blanco bcut QWEEK 4 06/10/25 07/02/25 Rx mg/3 mL) subcutaneous pen injector weeks #3 mL (Ozempic) metoclopramide HCl 5 mg tablet 5 mg PO UD #20 tabs 07/02/25 21:30 Rx (Reglan) Allergy/AdvReac Type Severity Reaction Status Date / Time celecoxib (From Celebrex) Allergy shortness Verified 07/03/25 05:35 of breath mushroom Allergy swelling Verified 07/03/25 05:35 naproxen Allergy rash Verified 07/03/25 05:35 Mvvwney-LUB-LsL Reductase Allergy leg cramps Verified 07/03/25 05:35 Inhibitor (Xkwbgzb-Frl-Whm Reductase Inhibitor) Surgical History History of cataract extraction with lens replacement H/O coronary artery bypass surgery (11/02/09) H/O hernia repair H/O neck surgery History of lumbar surgery H/O colonoscopy History of appendectomy Social History Smoking Status: Former smoker how long ago did patient quit smokin alcohol intake: never substance use type: does not use caffeine: Yes Type: tea Number of servings: 10 ROS Constitutional Constitutional: Reports malaise; Denies anorexia, change in weight, chills, fever(s), night sweats or weakness Eyes Eyes: Denies blurry vision, change in vision, discharge from eye(s) or eye pain Cardiovascular Cardiovascular: Denies chest pain, claudication, edema or palpitations Respiratory/Chest Respiratory/Chest: Denies cough, hemoptysis, shortness of breath at rest or shortness of breath with exertion Gastrointestinal Gastrointestinal: Reports abdominal pain, diarrhea, nausea and vomiting; Denies constipation, hematemesis, hematochezia or melena Genitourinary Genitourinary: Denies dysuria, hematuria, urinary frequency, urinary hesitancy, urinary incontinence or urinary urgency Musculoskeletal Musculoskeletal: Denies back pain, joint pain, joint stiffness, joint swelling, myalgias or neck pain Neurologic Neurologic: Denies abnormal gait, abnormal speech, dizziness, focal weakness, headache(s), loss of vision, numbness, other visual disturbances, paresthesias, syncope or tingling Psychiatric Psychiatric: Denies anxiety, cognitive impairment, depression, irritability, mood swings or suicidal ideation Endocrine Endocrinology: Denies change in body appearance, cold intolerance, excessive sweating, heat intolerance, polydipsia or polyuria Hematologic/Lymphatic Hematologic/Lymphatic: Denies none, anemia, easy bleeding, easy bruising or lymphadenopathy Allergic/Immunologic Allergic/Immunologic: Denies rhinitis, urticaria, eczemia or asthma Physical Exam Const alert, oriented x3, no apparent distress and healthy appearing General Appearance: cooperative GI normal to inspection, nondistended, normoactive bowel sounds, soft to palpation, non-tender and non-distended Percussion: normal to percussion Rectal Exam: deferred Lab / Micro Data 07/03/25 06:15 07/03/25 06:15 Labs: Laboratory Results - last 24 hr 07/03/25 06:15: WBC 16.9 H, RBC 5.14, Hgb 13.6, Hct 41.5, MCV 80.7, MCH 26.5 L, MCHC 32.8, RDW Std Deviation 40.9, RDW Coeff of [place] 14.0, Plt Count 155, MPV 10.1, Neut % (Auto) Not Reportable, Absolute Neuts (auto) 14.4 H, Absolute Lymphs (auto) 0.51 L, Total Counted 100, Neutrophils % (Manual) 79 H, Band Neutrophils % 6 H, Lymphocytes % (Manual) 3 L, Monocytes % (Manual) 11 H, Metamyelocytes % 1, Differential Comment SCANNED, Diff Path Review May foll, Reactive Lymphocytes RARE, Platelet Estimate ADEQUATE, RBC Morphology NORM C+C, Ovalocytes RARE, Sodium 138, Potassium 4.1, Chloride 101, Carbon Dioxide 22.4, Anion Gap 14, BUN 13, Creatinine 0.98, Estim Creat Clear Calc 77.64, Est GFR (MDRD) Non-Af 83, BUN/Creatinine Ratio 13.7, Glucose 242 H, Calcium 9.9, Total Bilirubin 3.57 H, AST 203 H, ALT 183 H, Alkaline Phosphatase 66, Total Protein 7.1, Albumin 4.5, Globulin 2.6, Albumin/Globulin Ratio 1.8, Lipase 46 07/03/25 06:48: Urine Color Yellow, Urine Clarity Clear, Urine pH 5.0, Ur Specific [place] 1.020, Urine Protein 30 H, Urine Glucose (UA) 1000 H, Urine Ketones 5 H, Urine Occult Blood 50 H, Urine Nitrite Negative, Urine Bilirubin 1 H, Urine Urobilinogen 4 H, Ur Leukocyte Esterase Negative, Urine RBC 0 SEEN, Urine WBC 0 SEEN, Ur Squamous Epith Cells 0 SEEN, Urine Bacteria 0 SEEN, Urine Mucus 0 SEEN 07/03/25 13:10: POC Glucose 156 H 07/03/25 17:03: POC Glucose 150 H Imaging Radiology Impression Abdomen/Pelvis CT 07/03/25 06:31 IMPRESSION: Gallbladder mildly distended with minimal stranding around it. Correlate clinically and with gallbladder ultrasound as needed to evaluate for very early gallbladder disease. Diverticulosis without diverticulitis. Enlarged prostate with probable bladder outlet obstruction Reading Location: [facility] Gallbladder Ultrasound 07/03/25 07:08 IMPRESSION: Mildly distended gallbladder with minimal adjacent perihepatic fluid. Gallbladder mildly painful with palpation. Suspect gallbladder disease and possibly very early cholecystitis. Reading Location: [facility] Assessment & Plan Assessment/Plan (1) Acute cholecystitis: (2) Transaminitis: (3) Hyperbilirubinemia: (4) Abdominal pain: (5) Leukocytosis: PLAN: 70-year-old male with a history of CABG, diabetes, and recent initiation of a?GLP-1 agonist, presenting with worsening abdominal pain, leukocytosis, and elevated LFTs. * Differential Diagnosis: * Acute cholecystitis:?The elevated WBC count, elevated LFTs (predominantly hepatocellular, but mixed pattern is possible), and CT findings of a mildly distended gallbladder with pericholecystic stranding are highly suggestive of acute cholecystitis. A?GLP-1 agonist?can increase the risk of gallbladder disease, especially with rapid weight loss, although causality is not confirmed in this case. The prior misdiagnosis and worsening symptoms fit with the progression of this condition. * Drug-induced liver injury (DILI):?Possible, particularly with the new?GLP- 1?medication or?metoclopramide, which have rare associations with elevated liver enzymes. However, the CT findings make cholecystitis a more specific and likely cause. * Biliary obstruction:?The elevated bilirubin can indicate a partial biliary obstruction, potentially from a gallstone passing into the common bile duct, which can present with similar symptoms and liver enzyme abnormalities. The normal alkaline phosphatase makes this less likely, but not impossible in the early stages. * Pancreatitis:?While?GLP-1 agonists?can cause pancreatitis, the patient's lipase level is normal, making this diagnosis unlikely. * Diverticulitis:?The patient has diverticulosis, but the CT explicitly states no diverticulitis, and the right-sided pain and elevated LFTs are less characteristic. * Likely diagnosis:?Acute calculous or acalculous cholecystitis, given the clinical picture, lab work, and imaging. The normal alkaline phosphatase suggests the process may be earlier or that the obstruction is not yet causing a purely cholestatic picture. Plan * Diagnostics: * Consult:?Surgery consultation for evaluation and management of suspected acute cholecystitis. * Imaging: He underwent an MRCP but it was not a very good study. Awaiting official report from MRCP. He did have a relative positive sonographic Sarkar's sign). * Labs:?Repeat LFTs and WBC count to monitor trends. * Therapeutics: * Medication Review:?Hold GLP-1 agonist and metoclopramide pending further workup and resolution of the current acute issue. * Antibiotics:?Initiate broad-spectrum antibiotics, as per hospital guidelines for cholecystitis, after consulting with the surgical team. * Pain Management:?Continue appropriate pain control, as indicated by the patient's symptoms. * Diet:?NPO (nothing by mouth) for now * He may need liver biopsy plus or minus ERCP Charges/Coding Visit Charges Inpatient E&M: 47647 Init Hosp L3
[2025-07-04 02:23] VITALS: BP 154/76; PULSE 86; RESP 22; TEMP 36.9; O2SAT 94
[2025-07-04] MEDS: 0.9% Saline Lock 10 ML Syringe IV ×4 (02:26→20:44)
[2025-07-04] MEDS: 0.9% Normal Saline (1000mL) 1,000 ML 125 ML IV ×2 (02:28→10:31)
[2025-07-04 05:43] LABS: Hematocrit 39.3 % (40-54); Hemoglobin 12.7 g/dL (13.0-16.5); Immature Granulocytes Count 0.140 X10^3/uL (0.0-0.0); Mean Corp Hgb Conc 32.3 g/dL (32-36); Mean Corpuscular Volume 83.8 fL (80-94); Mean Platelet Vol. 10.7 fl (6.2-12.0); NRBC Flagged by Analyzer 0 % (0-5); Platelet Count 129 K/mm3 (150-450); RBC Distribution Width CV 14.5 % (11.6-14.6); RBC Distribution Width SD 43.9 fl (35.1-43.9); Red Blood Count 4.69 M/mm3 (4.6-6.2); White Blood Count 9.9 K/mm3 (4.4-11.0)
[2025-07-04 05:51] VITALS: BP 148/78; PULSE 77; RESP 24; TEMP 36.3; O2SAT 96
[2025-07-04] MEDS: Piperacil/Tazobactam 3.375 GM in 0.9% Normal Saline (50mL MB+) 50 ML IV ×3 (05:56→20:44)
[2025-07-04 06:01] LABS: AST(SGOT) 74 U/L (<=37); Alanine Aminotransfer ALT/SGPT 125 U/L (<=46); Albumin, Serum 3.6 g/dL (3.4-4.8); Alkaline Phosphatase 75 U/L (40-129); Anion Gap 9 (5-15); BUN 14 mg/dL (4-19); BUN/Creat Ratio 16.7 RATIO (10-20); Calcium,Total 8.5 mg/dL (7.6-11.0); Carbon Dioxide 23.7 mmol/L (21.0-32.0); Chloride 107 mmol/L (98-108); Estimated Creatinine Clearance 89.40 ml/min (50-250); Globulin 2.3 g/dL (2.2-4.2); Glucose 169 mg/dL (70-99); Potassium 3.4 mmol/L (3.3-5.1)
[2025-07-04 07:44] VITALS: BP 166/89; PULSE 84; RESP 18; TEMP 36.6; O2SAT 95; BMI 31.2
[2025-07-04 07:55] VITALS: PULSE 84
[2025-07-04] MEDS: Metoprolol(XL)Succ 50 MG Tablet PO (07:55)
[2025-07-04] MEDS: FLU VACCINE HIGH DOSE 25-26(65YR UP) 180 MCG/0.5 ML SYRINGE IM (10:30)
[2025-07-04 11:20] LABS: Bilirubin, Direct 3.11 mg/dL (0.00-0.30); CPK Total, Creatine Kinase 35 U/L (24-195)
[2025-07-04] MEDS: HYDROmorphone 0.5 MG/0.5 ML SYRINGE IV (11:34)
--- NOTE | 2025-07-04 12:33 | PN.SURG_ITS ---
Subjective Subjective Patient seen and evaluated on rounds this morning. Patient feels his pain is better today than it was on admission. White count has normalized. Bilirubin continues to slowly increase however AST and ALT are decreasing. Alkaline phosphatase remains normal. MRCP results noted however it sounds as though this may have been suboptimal study due to patient movement Objective Data Objective Data Vital Signs: Vital Signs Temp Pulse Resp BP Pulse Ox O2 Del Method O2 Flow Rate 97.8 F 84 18 166/89 H 95 Room Air 2 07/04/25 07:44 07/04/25 07:55 07/04/25 07:44 07/04/25 07:44 07/04/25 07:44 07/04/25 07:44 07/03/25 12:42 Oxygen Flow Rate (L/min) 2 Oxygen Delivery Method Room Air Weight: 205 lb 11.06 oz Body Mass Index (BMI) 31.2 Intake & Output: Intake and Output for Last 24 Hours 07/02/25 07/03/25 07/04/25 23:59 23:59 23:59 Intake Total 2122.08 / 2722.08 2466.67 / 2466.67 Balance 2122.08 / 2722.08 2466.67 / 2466.67 Lab / Micro Data 07/04/25 05:00 07/04/25 05:00 Labs: Laboratory Results - last 24 hr 07/03/25 13:10: POC Glucose 156 H 07/03/25 17:03: POC Glucose 150 H 07/03/25 20:32: POC Glucose 188 H 07/04/25 05:00: WBC 9.9, RBC 4.69, Hgb 12.7 L, Hct 39.3 L, MCV 83.8, MCH 27.1, MCHC 32.3, RDW Std Deviation 43.9, RDW Coeff of [place] 14.5, Plt Count 129 L, MPV 10.7, Immature Gran % (Auto) 1.400 H, Neut % (Auto) 83.1 H, Lymph % (Auto) 8.7 L , [place] % (Auto) 6.6, Eos % (Auto) 0.0, Baso % (Auto) 0.2, Absolute Neuts (auto) 8.2 H, Absolute Lymphs (auto) 0.86, Nucleated RBC % 0, Sodium 139, Potassium 3.4, Chloride 107, Carbon Dioxide 23.7, Anion Gap 9, BUN 14, Creatinine 0.84, Estim Creat Clear Calc 89.40, Est GFR (MDRD) Non-Af 93, BUN/Creatinine Ratio 16.7, Glucose 169 H, Hemoglobin A1c 7.2 H, Calcium 8.5, Total Bilirubin 4.28 H, AST 74 H, ALT 125 H, Alkaline Phosphatase 75, Total Protein 5.9, Albumin 3.6, Globulin 2.3, Albumin/Globulin Ratio 1.6 07/04/25 05:33: Direct Bilirubin 3.11 H, Total Creatine Kinase 35 07/04/25 06:03: POC Glucose 138 H 07/04/25 11:16: POC Glucose 130 H Radiography Diagnostic Testing: Radiology Impression MRCP 07/03/25 10:44 IMPRESSION: Gall bladder sludge with mural thickening/edema and surrounding edema, possibly cholecystitis. Relatively swollen pancreas with surrounding edema suggestive of interstitial edematous pancreatitis with acute peripancreatic fluid (Ayden C). Advise clinical and laboratory correlation. Minimal sandy-hepatic fluid noted. Reading Location: [place] [id number] Physical Exam Narrative He is alert and oriented x 3. He is in no acute distress. Abdomen is diffusely tender. Maximal tenderness seems to be in the central abdomen and right lower quadrant. Assessment & Plan Assessment/Plan (1) Acute cholecystitis: (2) Transaminitis: (3) Hyperbilirubinemia: (4) Abdominal pain: (5) Leukocytosis: PLAN: Plan The patient is a 70-year-old male admitted with abdominal pain and elevated bilirubin. Imaging studies seem to be indicating cholecystitis without cholelithiasis. MRCP did not show any common bile duct stone. There was possibility of Sandy- pancreatic fluid and edema of unknown certain significance. Amylase and lipase to suggest pancreatitis has always been normal. Bilirubin continues to gradually rise despite decreasing AST and ALT From a surgical standpoint, this pattern of LFTs seems unique to straightforward cholecystitis. Concern for possible other etiologies of his symptoms including recent GLP-1 usage Recommend continuing antibiotics and close observation. If peripancreatic fluid and inflammation is present, would be somewhat hesitant to proceed with cholecystectomy given this inflammation. Appreciate input from GI and medicine.
[2025-07-04 14:44] VITALS: BP 154/72; PULSE 86; RESP 17; TEMP 36.7; O2SAT 98
--- NOTE | 2025-07-04 16:58 | PN.HOSP_ITS ---
Reason for Visit Chief Complaint: Right and left upper quadrant abdominal pain Subjective Subjective Patient was seen and examined today, I talked with general surgery as well as gastroenterology today about his care. Patient's hepatic enzymes are improving, his bilirubin however is more elevated. I elected to obtain an acute hepatitis profile on the patient, gastroenterology requested that I ordered LDH, and aldolase, and a direct bilirubin. The direct bilirubin was elevated. I placed him on an 1800-calorie ADA diet after discussing this with general surgery. Objective Data Objective Data Vital Signs: Vital Signs Temp Pulse Resp BP Pulse Ox O2 Del Method O2 Flow Rate 98.1 F 86 17 154/72 H 98 Room Air 2 07/04/25 14:44 07/04/25 14:44 07/04/25 14:44 07/04/25 14:44 07/04/25 14:44 07/04/25 14:44 07/03/25 12:42 Oxygen Flow Rate (L/min) 2 Oxygen Delivery Method Room Air Weight: 93.3 kg Body Mass Index (BMI) 31.2 Intake & Output: Intake and Output for Last 24 Hours 07/02/25 07/03/25 07/04/25 23:59 23:59 23:59 Intake Total 2122.08 / 2722.08 3270.84 / 3270.84 Balance 2122.08 / 2722.08 3270.84 / 3270.84 Lab / Micro Data 07/04/25 05:00 07/04/25 05:00 Labs: Laboratory Results - last 24 hr 07/03/25 17:03: POC Glucose 150 H 07/03/25 20:32: POC Glucose 188 H 07/04/25 05:00: WBC 9.9, RBC 4.69, Hgb 12.7 L, Hct 39.3 L, MCV 83.8, MCH 27.1, MCHC 32.3, RDW Std Deviation 43.9, RDW Coeff of [place] 14.5, Plt Count 129 L, MPV 10.7, Immature Gran % (Auto) 1.400 H, Neut % (Auto) 83.1 H, Lymph % (Auto) 8.7 L , [place] % (Auto) 6.6, Eos % (Auto) 0.0, Baso % (Auto) 0.2, Absolute Neuts (auto) 8.2 H, Absolute Lymphs (auto) 0.86, Nucleated RBC % 0, Sodium 139, Potassium 3.4, Chloride 107, Carbon Dioxide 23.7, Anion Gap 9, BUN 14, Creatinine 0.84, Estim Creat Clear Calc 89.40, Est GFR (MDRD) Non-Af 93, BUN/Creatinine Ratio 16.7, Glucose 169 H, Hemoglobin A1c 7.2 H, Calcium 8.5, Total Bilirubin 4.28 H, AST 74 H, ALT 125 H, Alkaline Phosphatase 75, Total Protein 5.9, Albumin 3.6, Globulin 2.3, Albumin/Globulin Ratio 1.6 07/04/25 05:33: Direct Bilirubin 3.11 H, Total Creatine Kinase 35 07/04/25 06:03: POC Glucose 138 H 07/04/25 11:16: POC Glucose 130 H Radiography Diagnostic Testing: Radiology Impression MRCP 07/03/25 10:44 IMPRESSION: Gall bladder sludge with mural thickening/edema and surrounding edema, possibly cholecystitis. Relatively swollen pancreas with surrounding edema suggestive of interstitial edematous pancreatitis with acute peripancreatic fluid (Ayden Leiva). Advise clinical and laboratory correlation. Minimal vijay-hepatic fluid noted. Reading Location: [place] [id number] Physical Exam Narrative alert, oriented x3 and no apparent distress Constitutional Narrative: Patient has class III obesity General Appearance: cooperative, well kempt and well developed Orientation / Consciousness: awake, oriented to person, oriented to place and oriented to time HEENT normocephalic, head/scalp atraumatic, hearing grossly normal bilaterally and moist oral mucous membranes Eyes PERRL, EOMs intact bilaterally and conjunctivae normal Neck supple, no JVD, thyroid normal and no carotid bruits General: trachea midline Resp normal respiratory effort and clear to auscultation bilaterally Auscultation: Negative for rales, rhonchi or wheezes Cardio regular rate, regular rhythm, no murmurs, no rub and no gallops GI GI Narrative: Abdomen is mildly distended, there is some abdominal tenderness particularly over the right upper quadrant to palpation bowel sounds, are present in all 4 quadrants, abdomen is mildly tympanic Extremity no clubbing, cyanosis or edema Skin no rashes or lesions noted General Skin Exam: no breakdown Neuro oriented x3, CN's II-XII intact bilaterally, moves all extremities, no focal motor deficits and no sensory deficits noted Sensorium / Orientation: awake and alert Speech: speech normal Psych affect normal Assessment & Plan Assessment/Plan (1) Acute cholecystitis: PLAN: Plan 1. Acute cholecystitis-I have decided to decrease the patient's IV fluids and continue his IV antibiotics, I do not believe the patient needs a cholecystectomy at this time. I have advanced his diet, due to constipation I have given him some milk of magnesia. #2 atherosclerotic heart disease-patient has a past history of coronary bypass surgery, he appears stable at this time regarding his heart disease #3 essential hypertension-patient will remain on some of his medications for blood pressure, blood pressure will be monitored #4 hyperlipidemia-patient is currently on a statin, this will be held because of the patient's elevated liver enzymes #5 class III obesity-complicates care, management, recovery, and prognosis #6 type 2 diabetes-patient's blood sugars will be monitored, sliding scale insulin will be administered as indicated #7 elevated liver enzymes-probably secondary to acute cholecystitis-patient does not appear to have an obstructive type pattern on his liver enzymes Total clinical time spent by myself addressing the patient's medical issues, reviewing all of his data, and collaborating with patient's care team: 35 minutes Charges/Coding Visit Charges Inpatient E&M: 31781 Subs Hosp L2
[2025-07-04] MEDS: 0.9% Normal Saline (1000mL) 1,000 ML 75 ML IV (17:46)
[2025-07-04 20:35] VITALS: BP 152/79; PULSE 84; RESP 20; TEMP 36.7; O2SAT 94
[2025-07-04] MEDS: Heparin Injection (Vial) 5,000 UNIT/ML VIAL 5000 UNIT SC (20:53)
[2025-07-05] VITALS (7 sets, daily range): BP systolic 144–177; BP diastolic 78–95; PULSE 80–87; RESP 16–20; TEMP 36.2–36.8; O2SAT 94–97
[2025-07-05 04:13] LABS: Hematocrit 33.7 % (40-54); Hemoglobin 11.0 g/dL (13.0-16.5); Immature Granulocytes Count 0.040 X10^3/uL (0.0-0.0); Mean Corp Hgb Conc 32.6 g/dL (32-36); Mean Corpuscular Volume 81.8 fL (80-94); Mean Platelet Vol. 11.2 fl (6.2-12.0); NRBC Flagged by Analyzer 0 % (0-5); Platelet Count 128 K/mm3 (150-450); RBC Distribution Width CV 14.1 % (11.6-14.6); RBC Distribution Width SD 41.7 fl (35.1-43.9); Red Blood Count 4.12 M/mm3 (4.6-6.2); White Blood Count 6.3 K/mm3 (4.4-11.0)
[2025-07-05] MEDS: 0.9% Normal Saline (1000mL) 1,000 ML 75 ML IV ×2 (04:45→17:57)
[2025-07-05 04:52] LABS: AST(SGOT) 35 U/L (<=37); Alanine Aminotransfer ALT/SGPT 76 U/L (<=46); Albumin, Serum 3.1 g/dL (3.4-4.8); Alkaline Phosphatase 106 U/L (40-129); Bilirubin, Direct 1.29 mg/dL (0.00-0.30); Globulin 2.3 g/dL (2.2-4.2)
[2025-07-05] MEDS: Piperacil/Tazobactam 3.375 GM in 0.9% Normal Saline (50mL MB+) 50 ML IV ×3 (05:22→21:56)
[2025-07-05] MEDS: Heparin Injection (Vial) 5,000 UNIT/ML VIAL 5000 UNIT SC ×2 (07:59→21:58)
[2025-07-05] MEDS: Metoprolol(XL)Succ 50 MG Tablet PO (07:59)
--- NOTE | 2025-07-05 11:01 | CASEMGMT ---
Dx:cholecystitis LACE:2 6-Clicks:20 Medical record reviewed and patient evaluated for identification of discharge planning needs. Based on this review, at this time criteria are not present to indicate a need for discharge planning. Will remain available to assist with discharge planning needs as identified or requested.
[2025-07-05] MEDS: Magnesium Citrate 300 ML PO (11:47)
--- NOTE | 2025-07-05 13:31 | PCM.PN.SRG ---
Subjective Subjective Patient seen and examined on rounds earlier today. Patient's LFTs seem to be continuing to normalize. Patient states his pain is continuing to improve. White count normal. No fevers or chills. Objective Data Objective Data Vital Signs: Vital Signs Temp Pulse Resp BP Pulse Ox O2 Del Method O2 Flow Rate 97.7 F L 82 18 146/95 H 96 Room Air 2 07/05/25 08:05 07/05/25 08:05 07/05/25 08:05 07/05/25 08:05 07/05/25 08:05 07/05/25 08:05 07/03/25 12:42 Oxygen Flow Rate (L/min) 2 Oxygen Delivery Method Room Air Weight: 205 lb 11.06 oz Body Mass Index (BMI) 31.2 Intake & Output: Intake and Output for Last 24 Hours 07/03/25 07/04/25 07/05/25 23:59 23:59 23:59 Intake Total 2122.08 / 2722.08 3382.09 / 3382.09 923.75 / 923.75 Balance 2122.08 / 2722.08 3382.09 / 3382.09 923.75 / 923.75 Lab / Micro Data 07/05/25 03:25 07/04/25 05:00 Labs: Laboratory Results - last 24 hr 07/04/25 16:42: POC Glucose 138 H 07/04/25 20:51: POC Glucose 151 H 07/05/25 03:25: WBC 6.3, RBC 4.12 L, Hgb 11.0 L, Hct 33.7 L, MCV 81.8, MCH 26.7 L, MCHC 32.6, RDW Std Deviation 41.7, RDW Coeff of [place] 14.1, Plt Count 128 L, MPV 11.2, Immature Gran % (Auto) 0.600, Neut % (Auto) 76.7 H, Lymph % (Auto) 13.9 L, [place] % (Auto) 7.4, Eos % (Auto) 1.1, Baso % (Auto) 0.3, Absolute Neuts (auto) 4.9, Absolute Lymphs (auto) 0.88, Nucleated RBC % 0, Total Bilirubin 1.79 H, Direct Bilirubin 1.29 H, AST 35, ALT 76 H, Alkaline Phosphatase 106, Total Protein 5.4 L, Albumin 3.1 L, Globulin 2.3, LDL Cholesterol Direct Cancelled, LDL Choles Direct Cmmnt Cancelled 07/05/25 07:06: POC Glucose 121 H 07/05/25 11:26: POC Glucose 160 H Physical Exam Narrative He is alert and oriented x 3. He is in no acute distress. Abdomen is soft, nondistended. Mild right sided tenderness to palpation. No rebound or guarding. Assessment & Plan Assessment/Plan (1) Acute cholecystitis: (2) Transaminitis: (3) Hyperbilirubinemia: (4) Abdominal pain: (5) Leukocytosis: PLAN: Plan The patient is a 70-year-old male admitted with right-sided abdominal pain likely secondary to acute acalculous cholecystitis which may or may not be compounded by Ozempic usage. He has been on Ozempic about 3 weeks. Initially his bilirubin was elevated but this is continuing to decrease. White count seems to have normalized. Imaging certainly shows a thickened gallbladder and question of pancreatitis on MRCP however lab values do not support diagnosis of pancreatitis. Certainly patient would benefit from cholecystectomy at some point. We did discuss options of cholecystectomy while he is here in the hospital versus doing a interval cholecystectomy in the near future. At this point, since the patient is clinically improving, I would tend to err on the side of caution and would recommend interval robotic cholecystectomy as an outpatient. Obviously the concern would be for return of symptoms prior to said interval cholecystectomy. Will continue supportive measures and follow closely. I did discuss the case with Dr. Lizama this morning and hospitalist yesterday
--- NOTE | 2025-07-05 14:31 | DCINST_ITS ---
Discharge Instructions DC O2, CPAP, BIPAP needs Home O2 Discharge instructions: No Dressing / Incision Discharge Activity: Return to Normal Activity Weight Bearing Status: Full weight bearing Follow Up Care Test Results: Test results from this visit will be discussed in further detail at your follow- up appointment, if applicable. Discharge Plan Admission Admit Date/Time: 07/03/25 11:18 Primary Reason for Your Visit: Cholecystitis, drug-induced hepatitis Attending Provider: John Rosales Primary Care Provider: Cody Kasper Consulting Providers: Cody Shaffer; Yoan Molina; Jameel Lizama; Lana Calderon; Nikki Carey; Jasmyne Hamilton Instructions Additional Instructions / Restrictions: Increase your losartan to 100 mg daily Discharge Orders/Prescriptions Prescriptions: New losartan 100 mg Tablet 100 mg PO DAILY Qty: 30 0RF ciprofloxacin HCl 500 mg tablet 500 mg PO BID Qty: 14 0RF Rx Instructions: Start on 07/05/2025 metronidazole 500 mg tablet 500 mg PO TID Qty: 21 0RF Rx Instructions: Start on 07/05/2025 Continued nitroglycerin 0.4 mg tablet, sublingual 0.4 mg SUBLINGUAL Q5-15M omega-3 fatty acids 1,250 mg capsule 1,250 mg PO DAILY rosuvastatin 20 mg tablet 20 mg PO DAILY metoprolol succinate 50 mg tablet extended release 24 hr 50 mg PO DAILY omeprazole 20 mg capsule,delayed release(DR/EC) 20 mg PO DAILY aspirin [Adult Aspirin Regimen] 81 mg tablet,delayed release (DR/EC) 81 mg PO DAILY metformin 750 mg tablet extended release 24 hr 750 mg PO BID glimepiride 4 mg tablet 4 mg PO QDAY Qty: 1 0RF amlodipine 5 mg tablet 5 mg PO DAILY Qty: 90 4RF metoclopramide HCl [Reglan] 5 mg tablet 5 mg PO UD Qty: 20 0RF Rx Instructions: 1/2-hour AC and at bedtime docusate sodium 250 mg capsule 250 mg PO DAILY Discontinued losartan 50 mg tablet 50 mg PO DAILY Qty: 90 3RF Ozempic 0.25 mg or 0.5 mg (2 mg/3 mL) pen injector 0.25 mg subcut QWEEK 28 Days Qty: 3 0RF Rx Instructions: for 4 weeks Referrals / Follow Up: Cody Kasper MD [Primary Care Provider, Family Practice] Cody Shaffer MD [Med Staff - Active Staff, General Surgery] - In 1 Week Referral Note: Call the office for an appointment next week, let them know you were hospitalized and seen by Dr. Shaffer Disposition Disposition (needs filled in before D/C Order can be placed): Home, Self Care
--- NOTE | 2025-07-05 14:38 | DS.PCM_ITS ---
Providers Date of Admission: 07/03/25 Date of Discharge: 07/09/25 Primary Care Physician: Dr. Cody Kasper MD Consultations 07/03/25 12:43 Consult: General Surgery Routine Consulting Provider: Cody Shaffer Reason for Consult: Acute cholecystitis EMERGENT Consult: No Notified: Yes Date Notified: 07/03/25 Time Notified: 11:25 Method of Notification: Verbal 07/04/25 10:15 Consult: Gastroenterology Routine Consulting Provider: [facility] Reason for Consult: Elevated liver enzymes EMERGENT Consult: No Notified: Yes Date Notified: 07/03/25 Time Notified: 14:15 Method of Notification: Verbal Reason For Visit: CHOLECYSTITIS Diagnosis Discharge Diagnosis (1) Acute cholecystitis: Status: Inactive Code(s): K81.0 - Acute cholecystitis (2) Transaminitis: Status: Inactive Code(s): R74.01 - Elevation of levels of liver transaminase levels (3) Hyperbilirubinemia: Status: Inactive Code(s): E80.6 - Other disorders of bilirubin metabolism (4) Abdominal pain: Status: Inactive Code(s): R10.9 - Unspecified abdominal pain (5) Leukocytosis: Status: Inactive Code(s): D72.829 - Elevated white blood cell count, unspecified Plan 1. Acute cholecystitis-I have decided to decrease the patient's IV fluids and continue his IV antibiotics, I do not believe the patient needs a cholecystectomy at this time. I have advanced his diet, due to constipation I have given him some milk of magnesia. #2 atherosclerotic heart disease-patient has a past history of coronary bypass surgery, he appears stable at this time regarding his heart disease #3 essential hypertension-patient will remain on some of his medications for blood pressure, blood pressure will be monitored #4 hyperlipidemia-patient is currently on a statin, this will be held because of the patient's elevated liver enzymes #5 class III obesity-complicates care, management, recovery, and prognosis #6 type 2 diabetes-patient's blood sugars will be monitored, sliding scale insulin will be administered as indicated #7 elevated liver enzymes-probably secondary to acute cholecystitis-patient does not appear to have an obstructive type pattern on his liver enzymes Total clinical time spent by myself addressing the patient's medical issues, reviewing all of his data, and collaborating with patient's care team: 35 minutes Medications at Discharge Home Medications aspirin 81 mg tablet,delayed release (Adult Aspirin Regimen) 81 mg PO DAILY cardiac 06/05/19 metoprolol succinate 50 mg tablet,extended release 24 hr 50 mg PO DAILY htn 06/05/19 nitroglycerin 0.4 mg sublingual tablet 0.4 mg sublingual Q5-15M chest pain 06/05/19 omeprazole 20 mg capsule,delayed release 20 mg PO DAILY GERD 06/05/19 rosuvastatin 20 mg tablet 20 mg PO DAILY high cholesterol 06/05/19 metformin 750 mg tablet,extended release 24 hr 750 mg PO BID DM 04/12/22 amlodipine 5 mg tablet 5 mg PO DAILY #90 tabs 05/31/25 glimepiride 4 mg tablet 4 mg PO QDAY #1 TAB 05/31/25 docusate sodium 250 mg capsule 250 mg PO DAILY stool softener 07/05/25 losartan 100 mg tablet 100 mg PO DAILY #30 tabs 07/05/25 hydrocodone-acetaminophen 5-325mg 5mg-325mg 2 tab PO Q6H PRN pain 7 days #25 tabs 07/09/25 Weight / BMI Weight Weight: 93.9 kg Body Mass Index (BMI) 31.2 ABG / Lab / Microbiology Data 07/09/25 08:20 07/09/25 08:20 Laboratory: Laboratory Results - last 24 hr 07/09/25 16:05: POC Glucose 161 H D/C Instructions Weight Bearing Status: Full weight bearing DC O2, CPAP, BIPAP Needs Home O2 Discharge instructions: No Discharge Plan Admission Admit Date/Time: 07/03/25 11:18 Primary Reason for Your Visit: Cholecystitis, drug-induced hepatitis Attending Provider: John Rosales Primary Care Provider: Cody Kasper Consulting Providers: Cody Shaffer; Yoan Molina; Jameel Lizama; Lana Calderon; Nikki Carey; Jasmyne Hamilton Instructions Patient Instructions: After Gallbladder Surgery, Cholecystectomy Dc, [place] Drain Tube Dc, Post Op Drain Emptying Steps Additional Instructions / Restrictions: Increase your losartan to 100 mg daily Do not take Cipro and metronidazole Discharge Orders/Prescriptions Prescriptions: New losartan 100 mg Tablet 100 mg PO DAILY Qty: 30 0RF hydrocodone-acetaminophen 5-325 mg tablet 2 tab PO Q6H PRN (Reason: pain) 7 Days Qty: 25 0RF Rx Instructions: 1 or 2 tabs every 6 hours as needed for pain Continued nitroglycerin 0.4 mg tablet, sublingual 0.4 mg SUBLINGUAL Q5-15M rosuvastatin 20 mg tablet 20 mg PO DAILY metoprolol succinate 50 mg tablet extended release 24 hr 50 mg PO DAILY omeprazole 20 mg capsule,delayed release(DR/EC) 20 mg PO DAILY aspirin [Adult Aspirin Regimen] 81 mg tablet,delayed release (DR/EC) 81 mg PO DAILY metformin 750 mg tablet extended release 24 hr 750 mg PO BID glimepiride 4 mg tablet 4 mg PO QDAY Qty: 1 0RF amlodipine 5 mg tablet 5 mg PO DAILY Qty: 90 4RF docusate sodium 250 mg capsule 250 mg PO DAILY Discontinued omega-3 fatty acids 1,250 mg capsule 1,250 mg PO DAILY metoclopramide HCl [Reglan] 5 mg tablet 5 mg PO UD Qty: 20 0RF Rx Instructions: 1/2-hour AC and at bedtime losartan 50 mg tablet 50 mg PO DAILY Qty: 90 3RF Ozempic 0.25 mg or 0.5 mg (2 mg/3 mL) pen injector 0.25 mg subcut QWEEK 28 Days Qty: 3 0RF Rx Instructions: for 4 weeks Referrals / Follow Up: Cody Kasper MD [Primary Care Provider, Family Practice] - Within 1 Month Cody Shaffer MD [Med Staff - Active Staff, General Surgery] - 07/14/25 1:45 pm Referral Note: Call the office for an appointment next week, let them know you were hospitalized and seen by Dr. Shaffer Disposition Disposition (needs filled in before D/C Order can be placed): Home, Self Care
--- NOTE | 2025-07-05 15:22 | PHA.DC.MC.R ---
Pharmacy [facility] Counseling Pharmacy Service has performed discharge medication reconciliation and counseling for this patient. The patient's discharge medication list was reviewed for discrepancies and discrepancies were resolved. The patient was counseled on the following discharge medications and changes in medications for homegoing were reviewed. The Reason for Use, instructions for use, and potential side effects were reviewed for all new medications. The patient's questions regarding all of their medications were answered. 1. Ciprofloxacin 500 mg PO BID x 7 days 2. Metronidazole 500 mg PO TID x 7 days 3. Losartan 100 mg PO daily The patient was able to verbally demonstrate an understanding of their discharge medications. Medications at Discharge Home Medications aspirin 81 mg tablet,delayed release (Adult Aspirin Regimen) 81 mg PO DAILY cardiac 06/05/19 metoprolol succinate 50 mg tablet,extended release 24 hr 50 mg PO DAILY htn 06/05/19 nitroglycerin 0.4 mg sublingual tablet 0.4 mg sublingual Q5-15M chest pain 06/05/19 omega-3 fatty acids 1,250 mg capsule 1,250 mg PO DAILY unknown 06/05/19 omeprazole 20 mg capsule,delayed release 20 mg PO DAILY GERD 06/05/19 rosuvastatin 20 mg tablet 20 mg PO DAILY high cholesterol 06/05/19 metformin 750 mg tablet,extended release 24 hr 750 mg PO BID DM 04/12/22 amlodipine 5 mg tablet 5 mg PO DAILY #90 tabs 05/31/25 glimepiride 4 mg tablet 4 mg PO QDAY #1 TAB 05/31/25 metoclopramide HCl 5 mg tablet (Reglan) 5 mg PO UD #20 tabs 07/02/25 ciprofloxacin HCl 500 mg tablet 500 mg PO BID #14 tabs 07/05/25 docusate sodium 250 mg capsule 250 mg PO DAILY stool softener 07/05/25 losartan 100 mg tablet 100 mg PO DAILY #30 tabs 07/05/25 metronidazole 500 mg tablet 500 mg PO TID #21 tabs 07/05/25
--- NOTE | 2025-07-05 17:11 | PN.HOSP_ITS ---
Reason for Visit Chief Complaint: Right and left upper quadrant abdominal pain Subjective Subjective Patient was seen and examined today, he complains of generalized abdominal pain, he has not had a bowel movement in several days, I gave him 10 ounces of magnesium citrate and 2 doses of lactulose so far and as of the time of this dictation, he has not had a bowel movement. I have elected to cancel his discharge and give him additional lactulose if needed. Objective Data Objective Data Vital Signs: Vital Signs Temp Pulse Resp BP Pulse Ox O2 Del Method O2 Flow Rate 97.1 F L 82 18 156/89 H 97 Room Air 2 07/05/25 14:13 07/05/25 14:13 07/05/25 14:13 07/05/25 14:13 07/05/25 14:13 07/05/25 14:13 07/03/25 12:42 Oxygen Flow Rate (L/min) 2 Oxygen Delivery Method Room Air Weight: 93.3 kg Body Mass Index (BMI) 31.2 Intake & Output: Intake and Output for Last 24 Hours 07/03/25 07/04/25 07/05/25 23:59 23:59 23:59 Intake Total 2122.08 / 2722.08 3382.09 / 3382.09 923.75 / 923.75 Balance 2122.08 / 2722.08 3382.09 / 3382.09 923.75 / 923.75 Lab / Micro Data 07/05/25 03:25 07/04/25 05:00 Labs: Laboratory Results - last 24 hr 07/03/25 06:15: Diff Path Review Reviewed 07/04/25 20:51: POC Glucose 151 H 07/05/25 03:25: WBC 6.3, RBC 4.12 L, Hgb 11.0 L, Hct 33.7 L, MCV 81.8, MCH 26.7 L, MCHC 32.6, RDW Std Deviation 41.7, RDW Coeff of [place] 14.1, Plt Count 128 L, MPV 11.2, Immature Gran % (Auto) 0.600, Neut % (Auto) 76.7 H, Lymph % (Auto) 13.9 L, [place] % (Auto) 7.4, Eos % (Auto) 1.1, Baso % (Auto) 0.3, Absolute Neuts (auto) 4.9, Absolute Lymphs (auto) 0.88, Nucleated RBC % 0, Total Bilirubin 1.79 H, Direct Bilirubin 1.29 H, AST 35, ALT 76 H, Alkaline Phosphatase 106, Total Protein 5.4 L, Albumin 3.1 L, Globulin 2.3, LDL Cholesterol Direct Cancelled, LDL Choles Direct Cmmnt Cancelled 07/05/25 07:06: POC Glucose 121 H 07/05/25 11:26: POC Glucose 160 H 07/05/25 16:28: POC Glucose 185 H Physical Exam Narrative alert, oriented x3 and no apparent distress Constitutional Narrative: Patient has class III obesity General Appearance: cooperative, well kempt and well developed Orientation / Consciousness: awake, oriented to person, oriented to place and oriented to time HEENT normocephalic, head/scalp atraumatic, hearing grossly normal bilaterally and moist oral mucous membranes Eyes PERRL, EOMs intact bilaterally and conjunctivae normal Neck supple, no JVD, thyroid normal and no carotid bruits General: trachea midline Resp normal respiratory effort and clear to auscultation bilaterally Auscultation: Negative for rales, rhonchi or wheezes Cardio regular rate, regular rhythm, no murmurs, no rub and no gallops GI GI Narrative: Abdomen is mildly distended, there is some abdominal tenderness particularly over the right upper quadrant to palpation bowel sounds, are present in all 4 quadrants, abdomen is mildly tympanic Extremity no clubbing, cyanosis or edema Skin no rashes or lesions noted General Skin Exam: no breakdown Neuro oriented x3, CN's II-XII intact bilaterally, moves all extremities, no focal motor deficits and no sensory deficits noted Sensorium / Orientation: awake and alert Speech: speech normal Psych affect normal Assessment & Plan Assessment/Plan (1) Transaminitis: (2) Acute cholecystitis: (3) Hyperbilirubinemia: (4) Abdominal pain: (5) Leukocytosis: PLAN: Plan 1. Acute cholecystitis-patient remains on IV fluids at this time and IV antibiotics, he will be reevaluated tomorrow morning #2 atherosclerotic heart disease-patient has a past history of coronary bypass surgery, he appears stable at this time regarding his heart disease #3 essential hypertension-patient will remain on some of his medications for blood pressure, blood pressure will be monitored #4 hyperlipidemia-patient is currently on a statin, this will be held because of the patient's elevated liver enzymes #5 class III obesity-complicates care, management, recovery, and prognosis #6 type 2 diabetes-patient's blood sugars will be monitored, sliding scale insulin will be administered as indicated #7 elevated liver enzymes-etiology is not for certain, it may be secondary to his Ozempic he was on as an outpatient. Liver profile will be repeated tomorrow #8 obstipation-again patient was given magnesium citrate and lactulose today, he may need to be given a GoLytely prep, patient will be monitored Total clinical time spent by myself addressing the patient's medical issues, reviewing all of his data, and collaborating with patient's care team: 35 minutes Charges/Coding Visit Charges Inpatient E&M: 12533 Subs Hosp L2
[2025-07-06] VITALS (7 sets, daily range): BP systolic 142–176; BP diastolic 78–92; PULSE 64–82; RESP 16–18; TEMP 36.2–37.2; O2SAT 96–98
[2025-07-06 05:07] LABS: HEPATITIS B SURFACE AG Negative (Negative); Hep C Antibodies Non Reactive (Non Reactive)
[2025-07-06 06:35] LABS: Hematocrit 36.0 % (40-54); Hemoglobin 11.9 g/dL (13.0-16.5); Immature Granulocytes Count 0.020 X10^3/uL (0.0-0.0); Mean Corp Hgb Conc 33.1 g/dL (32-36); Mean Corpuscular Volume 80.7 fL (80-94); Mean Platelet Vol. 10.5 fl (6.2-12.0); NRBC Flagged by Analyzer 0 % (0-5); Platelet Count 137 K/mm3 (150-450); RBC Distribution Width CV 14.1 % (11.6-14.6); RBC Distribution Width SD 41.3 fl (35.1-43.9); Red Blood Count 4.46 M/mm3 (4.6-6.2); White Blood Count 7.5 K/mm3 (4.4-11.0)
[2025-07-06] MEDS: 0.9% Normal Saline (1000mL) 1,000 ML 75 ML IV ×2 (06:41→18:19)
[2025-07-06] MEDS: Piperacil/Tazobactam 3.375 GM in 0.9% Normal Saline (50mL MB+) 50 ML IV ×3 (06:41→21:56)
[2025-07-06 07:04] LABS: AST(SGOT) 50 U/L (<=37); Alanine Aminotransfer ALT/SGPT 77 U/L (<=46); Albumin, Serum 3.4 g/dL (3.4-4.8); Alkaline Phosphatase 146 U/L (40-129); Bilirubin, Direct 0.87 mg/dL (0.00-0.30); Globulin 2.7 g/dL (2.2-4.2)
[2025-07-06] MEDS: Metoprolol(XL)Succ 50 MG Tablet PO (08:13)
--- NOTE | 2025-07-06 10:38 | CT_ITS ---
PROCEDURE: ABDOMEN/PELVIS W IV CONT ONLY 07/06/2025 REASON FOR EXAM: ABDOMINAL PAIN TECHNIQUE: Procedure Code: [id number] Modality: CT Procedure: ABDOMEN/PELVIS W IV CONT ONLY Coronal and Sagittal reconstruction series were provided. CONTRAST: 94 cc Isovue 370 One or more dose reduction techniques were used (e.g., Automated exposure control, adjustment of the mA and/or kV according to patient size, use of iterative reconstruction technique. RADIATION DOSE SUMMARY: DLP: 1190 mGycm COMPARISON: 07/03/2025 MRI FINDINGS: Lung bases: There is minimal atelectasis or scar at the right and left lung base Liver: There is a 0.7 cm radiopaque density in the margin of the right hepatic lobe at the gallbladder fossa. Gallbladder: There is circumferential gallbladder wall thickening to 0.4 cm. There is no visible stone. The cystic duct does not appear dilated. Common bile duct is not dilated. Spleen: Within normal limits Pancreas: There is increased density in the peripancreatic fat which can indicate acute pancreatitis with no abscess or organized collection. The inflammatory stranding extends into the right pericolic gutter. Adrenals: Unremarkable Kidneys: The kidneys show no stone or hydronephrosis Bladder: Within normal limits Reproductive Organs: Unremarkable Bowel: Gas and stool is noted throughout the colon. The small bowel loops are not distended. Appendix: Not demonstrated Lymph nodes: There is no pathologic adenopathy by size criteria. Vasculature: Atherosclerotic calcifications are noted. Peritoneum / Retroperitoneum: There is no free air. There is no significant free fluid. Bones: There is no acute bony abnormality. CT/Abdomen/Pelvis W IV Cont ONLY IMPRESSION: There is a 0.7 cm radiopaque density in the margin of the right hepatic lobe at the gallbladder fossa. There is circumferential gallbladder wall thickening to 0.4 cm. Consider nucle ar medicine hepatobiliary scan for further characterization. There is increased density in the peripancreatic fat which can indicate acute p ancreatitis with no abscess or organized collection. The inflammatory stranding extends into the right pericolic gutter . Reading [facility]
--- NOTE | 2025-07-06 11:18 | PCM.PN.SRG ---
Subjective Subjective Patient seen and examined this morning. Patient was doing well up until about 5 AM this morning when he began having similar abdominal pain as on presentation. Patient was feeling well yesterday and yesterday evening and was anticipating discharge but stated in order to facilitate bowel movement. Patient denies any fevers or chills. States pain is all throughout the abdomen and he feels bloated Objective Data Objective Data Vital Signs: Vital Signs Temp Pulse Resp BP Pulse Ox O2 Del Method O2 Flow Rate 98.9 F 81 18 160/83 H 97 Room Air 2 07/06/25 08:05 07/06/25 08:13 07/06/25 08:05 07/06/25 08:05 07/06/25 08:05 07/06/25 08:05 07/03/25 12:42 Oxygen Flow Rate (L/min) 2 Oxygen Delivery Method Room Air Weight: 205 lb 11.06 oz Body Mass Index (BMI) 31.2 Intake & Output: Intake and Output for Last 24 Hours 07/04/25 07/05/25 07/06/25 23:59 23:59 23:59 Intake Total 3382.09 / 3382.09 2263.75 / 2263.75 1255 / 1255 Balance 3382.09 / 3382.09 2263.75 / 2263.75 1255 / 1255 Lab / Micro Data 07/06/25 06:19 07/04/25 05:00 Labs: Laboratory Results - last 24 hr 07/03/25 06:15: Diff Path Review Reviewed 07/05/25 03:25: Hepatitis A IgM Ab Negative, Hep Bs Antigen Negative, Hep B Core IgM Ab Negative, Hepatitis C Ab (EIA) Non Reactive, Hep C Ab Comment Comment 07/05/25 11:26: POC Glucose 160 H 07/05/25 16:28: POC Glucose 185 H 07/06/25 06:19: WBC 7.5, RBC 4.46 L, Hgb 11.9 L, Hct 36.0 L, MCV 80.7, MCH 26.7 L, MCHC 33.1, RDW Std Deviation 41.3, RDW Coeff of [place] 14.1, Plt Count 137 L, MPV 10.5, Immature Gran % (Auto) 0.300, Neut % (Auto) 79.3 H, Lymph % (Auto) 10.6 L, [place] % (Auto) 8.8, Eos % (Auto) 0.7, Baso % (Auto) 0.3, Absolute Neuts (auto) 5.9, Absolute Lymphs (auto) 0.79 L, Nucleated RBC % 0, Total Bilirubin 1.17, Direct Bilirubin 0.87 H, AST 50 H, ALT 77 H, Alkaline Phosphatase 146 H, Total Protein 6.1, Albumin 3.4, Globulin 2.7 07/06/25 06:44: POC Glucose 138 H 07/06/25 10:43: POC Glucose 145 H Physical Exam Narrative He is alert and oriented x 3. No acute distress. Abdomen is diffusely tender to a moderate extent. Pain is present on the left side as well as on the right side. No rebound or guarding Assessment & Plan Assessment/Plan (1) Acute cholecystitis: (2) Transaminitis: (3) Hyperbilirubinemia: (4) Abdominal pain: (5) Leukocytosis: PLAN: Plan The patient is a 70-year-old male admitted with right-sided abdominal pain likely secondary to acute acalculous cholecystitis which may or may not be compounded by Ozempic usage. He has been on Ozempic about 3 weeks. Initially his bilirubin was elevated but this is continuing to decrease. White count seems to have normalized. Imaging certainly shows a thickened gallbladder and question of pancreatitis on MRCP however lab values do not support diagnosis of pancreatitis. Patient with pain exacerbation overnight of uncertain etiology. Recommending repeat CT scan. I discussed this with hospitalist. I placed the CT scan order. Will await results Based on CT scan results, patient could potentially require cholecystectomy during admission versus outpatient after allowing some time for the inflammation to subside. I did explain to the patient as well as his son that cholecystectomy at this time may be at higher risk as a result of the acute inflammation. They are understanding of this. Will await CT scan results and we will devise a plan from there
[2025-07-06 13:18] LABS: Amylase 89 U/L (28-100); Lipase 285 U/L (13-75)
--- NOTE | 2025-07-06 16:15 | PCM.PN.SRG ---
Subjective Subjective CT scan performed earlier today showed continued mild thickening of the gallbladder wall. CT scan also seemed to indicate edema of the pancreas. Amylase and lipase were ordered and lipase is around 300. This afternoon patient is actually feeling improved compared to this morning. Objective Data Objective Data Vital Signs: Vital Signs Temp Pulse Resp BP Pulse Ox O2 Del Method O2 Flow Rate 97.2 F L 81 18 142/88 H 97 Room Air 2 07/06/25 14:27 07/06/25 14:27 07/06/25 14:27 07/06/25 14:27 07/06/25 14:27 07/06/25 14:48 07/03/25 12:42 Oxygen Flow Rate (L/min) 2 Oxygen Delivery Method Room Air Weight: 205 lb 11.06 oz Body Mass Index (BMI) 31.2 Intake & Output: Intake and Output for Last 24 Hours 07/04/25 07/05/25 07/06/25 23:59 23:59 23:59 Intake Total 3382.09 / 3382.09 2263.75 / 2263.75 2255 / 2255 Balance 3382.09 / 3382.09 2263.75 / 2263.75 2255 / 2255 Lab / Micro Data 07/06/25 06:19 07/04/25 05:00 Labs: Laboratory Results - last 24 hr 07/05/25 03:25: Aldolase 3.7, Hepatitis A IgM Ab Negative, Hep Bs Antigen Negative, Hep B Core IgM Ab Negative, Hepatitis C Ab (EIA) Non Reactive, Hep C Ab Comment Comment 07/05/25 16:28: POC Glucose 185 H 07/06/25 06:19: WBC 7.5, RBC 4.46 L, Hgb 11.9 L, Hct 36.0 L, MCV 80.7, MCH 26.7 L, MCHC 33.1, RDW Std Deviation 41.3, RDW Coeff of [place] 14.1, Plt Count 137 L, MPV 10.5, Immature Gran % (Auto) 0.300, Neut % (Auto) 79.3 H, Lymph % (Auto) 10.6 L, [place] % (Auto) 8.8, Eos % (Auto) 0.7, Baso % (Auto) 0.3, Absolute Neuts (auto) 5.9, Absolute Lymphs (auto) 0.79 L, Nucleated RBC % 0, Total Bilirubin 1.17, Direct Bilirubin 0.87 H, AST 50 H, ALT 77 H, Alkaline Phosphatase 146 H, Total Protein 6.1, Albumin 3.4, Globulin 2.7, Amylase 89, Lipase 285 H 07/06/25 06:44: POC Glucose 138 H 07/06/25 10:43: POC Glucose 145 H Radiography Diagnostic Testing: Radiology Impression Abdomen/Pelvis CT 07/06/25 10:38 IMPRESSION: There is a 0.7 cm radiopaque density in the margin of the right hepatic lobe at the gallbladder fossa. There is circumferential gallbladder wall thickening to 0.4 cm. Consider nuclear medicine hepatobiliary scan for further characterization. There is increased density in the peripancreatic fat which can indicate acute pancreatitis with no abscess or organized collection. The inflammatory stranding extends into the right pericolic gutter. Reading Location: [facility] Physical Exam Narrative Alert and oriented x 3. No acute distress. Mild diffuse tenderness to palpation Assessment & Plan Assessment/Plan (1) Acute cholecystitis: (2) Transaminitis: (3) Hyperbilirubinemia: (4) Abdominal pain: PLAN: Plan 70-year-old male with abdominal pain likely secondary to acute cholecystitis/pancreatitis and this may be exacerbated by recent Ozempic usage. CT scan seems to indicate undergoing acute cholecystitis and possible pancreatitis. Will do a trial of clear liquid diet. Added IV Protonix for symptomatic relief. Tentatively I have scheduled the patient for robotic cholecystectomy on .
[2025-07-06] MEDS: 0.9% Saline Lock 10 ML Syringe IV (18:23)
--- NOTE | 2025-07-06 18:23 | PCM.PN.HOSP ---
Reason for Visit Chief Complaint: Right and left upper quadrant abdominal pain Subjective Subjective Patient was seen and examined today, he had several bowel movements last night. He still complains of right upper quadrant abdominal pain I talked with general surgery briefly about his care. Patient had a CT scan with IV contrast ordered today, it showed a 0.7 cm radiopaque density, possible pancreatitis, and thickened gallbladder wall. General surgery told me today that they would make him n.p.o. after midnight in case he had to be emergently taken for a cholecystectomy. When I asked the patient today were his pain was he pointed directly to his right upper quadrant. Objective Data Objective Data Vital Signs: Vital Signs Temp Pulse Resp BP Pulse Ox O2 Del Method O2 Flow Rate 97.2 F L 81 18 142/88 H 97 Room Air 2 07/06/25 14:27 07/06/25 14:27 07/06/25 14:27 07/06/25 14:27 07/06/25 14:27 07/06/25 14:48 07/03/25 12:42 Oxygen Flow Rate (L/min) 2 Oxygen Delivery Method Room Air Weight: 93.3 kg Body Mass Index (BMI) 31.2 Intake & Output: Intake and Output for Last 24 Hours 07/04/25 07/05/25 07/06/25 23:59 23:59 23:59 Intake Total 3382.09 / 3382.09 2263.75 / 2263.75 3127.5 / 3127.5 Balance 3382.09 / 3382.09 2263.75 / 2263.75 3127.5 / 3127.5 Lab / Micro Data 07/07/25 05:09 07/04/25 05:00 Labs: Laboratory Results - last 24 hr 07/05/25 03:25: Aldolase 3.7, Hepatitis A IgM Ab Negative, Hep Bs Antigen Negative, Hep B Core IgM Ab Negative, Hepatitis C Ab (EIA) Non Reactive, Hep C Ab Comment Comment 07/06/25 06:19: WBC 7.5, RBC 4.46 L, Hgb 11.9 L, Hct 36.0 L, MCV 80.7, MCH 26.7 L, MCHC 33.1, RDW Std Deviation 41.3, RDW Coeff of [place] 14.1, Plt Count 137 L, MPV 10.5, Immature Gran % (Auto) 0.300, Neut % (Auto) 79.3 H, Lymph % (Auto) 10.6 L, [place] % (Auto) 8.8, Eos % (Auto) 0.7, Baso % (Auto) 0.3, Absolute Neuts (auto) 5.9, Absolute Lymphs (auto) 0.79 L, Nucleated RBC % 0, Total Bilirubin 1.17, Direct Bilirubin 0.87 H, AST 50 H, ALT 77 H, Alkaline Phosphatase 146 H, Total Protein 6.1, Albumin 3.4, Globulin 2.7, Amylase 89, Lipase 285 H 07/06/25 06:44: POC Glucose 138 H 07/06/25 10:43: POC Glucose 145 H 07/06/25 16:16: POC Glucose 162 H Radiography Diagnostic Testing: Radiology Impression Abdomen/Pelvis CT 07/06/25 10:38 IMPRESSION: There is a 0.7 cm radiopaque density in the margin of the right hepatic lobe at the gallbladder fossa. There is circumferential gallbladder wall thickening to 0.4 cm. Consider nuclear medicine hepatobiliary scan for further characterization. There is increased density in the peripancreatic fat which can indicate acute pancreatitis with no abscess or organized collection. The inflammatory stranding extends into the right pericolic gutter. Reading Location: [facility] Physical Exam Narrative alert, oriented x3 and no apparent distress Constitutional Narrative: Patient has class III obesity General Appearance: cooperative, well kempt and well developed Orientation / Consciousness: awake, oriented to person, oriented to place and oriented to time HEENT normocephalic, head/scalp atraumatic, hearing grossly normal bilaterally and moist oral mucous membranes Eyes PERRL, EOMs intact bilaterally and conjunctivae normal Neck supple, no JVD, thyroid normal and no carotid bruits General: trachea midline Resp normal respiratory effort and clear to auscultation bilaterally Auscultation: Negative for rales, rhonchi or wheezes Cardio regular rate, regular rhythm, no murmurs, no rub and no gallops GI GI Narrative: Abdomen is mildly distended, there is some abdominal tenderness particularly over the right upper quadrant to palpation bowel sounds, are present in all 4 quadrants, abdomen is mildly tympanic Extremity no clubbing, cyanosis or edema Skin no rashes or lesions noted General Skin Exam: no breakdown Neuro oriented x3, CN's II-XII intact bilaterally, moves all extremities, no focal motor deficits and no sensory deficits noted Sensorium / Orientation: awake and alert Speech: speech normal Psych affect normal Assessment & Plan Assessment/Plan (1) Acute cholecystitis: (2) Transaminitis: (3) Hyperbilirubinemia: (4) Abdominal pain: (5) Leukocytosis: PLAN: Plan 1. Acute cholecystitis-patient remains on IV fluids at this time and IV antibiotics, patient will be scheduled tentatively for a cholecystectomy which will take place this if he remains medically stable. #2 atherosclerotic heart disease-patient has a past history of coronary bypass surgery, he appears stable at this time regarding his heart disease #3 essential hypertension-patient will remain on some of his medications for blood pressure, blood pressure will be monitored #4 hyperlipidemia-patient is currently on a statin, this will be held because of the patient's elevated liver enzymes #5 class III obesity-complicates care, management, recovery, and prognosis #6 type 2 diabetes-patient's blood sugars will be monitored, sliding scale insulin will be administered as indicated #7 elevated liver enzymes-etiology is not for certain, it may be secondary to his Ozempic he was on as an outpatient. Liver profile will be repeated tomorrow #8 obstipation-again patient was given magnesium citrate and lactulose today, he may need to be given a GoLytely prep, patient will be monitored Total clinical time spent by myself addressing the patient's medical issues, reviewing all of his data, and collaborating with patient's care team: 35 minutes Charges/Coding Visit Charges Inpatient E&M: 72597 Subs Hosp L2
[2025-07-06] MEDS: Heparin Injection (Vial) 5,000 UNIT/ML VIAL 5000 UNIT SC (20:08)
[2025-07-06] MEDS: Pantoprazole Sodium 40 MG in 0.9% Normal Saline (100mL MB+) 100 ML 300 MG IV (20:09)
--- NOTE | 2025-07-07 02:36 | NURSING ---
Pt was sleeping, Ivac going off. this nurse went to silent it and put light on. pt woke up and said i am to get 2 pills every 4hrs. This nurse went and looked informed him that he gets zosyn at 6am but no pills was ordered. Pt said I am to get my pills every 4 hrs. The son yells out he gets oxycodone. I said you are in pain. he said yes. I said you have to ask for it. The son yells out he did. I informed them no i did not hear that. Oxycodone given.
[2025-07-07 02:42] VITALS: BP 176/95; PULSE 82; RESP 16; TEMP 36.4; O2SAT 98
[2025-07-07] MEDS: Piperacil/Tazobactam 3.375 GM in 0.9% Normal Saline (50mL MB+) 50 ML IV ×3 (05:27→22:53)
[2025-07-07 05:56] LABS: Hematocrit 37.7 % (40-54); Hemoglobin 12.5 g/dL (13.0-16.5); Immature Granulocytes Count 0.050 X10^3/uL (0.0-0.0); Mean Corp Hgb Conc 33.2 g/dL (32-36); Mean Corpuscular Volume 80.7 fL (80-94); Mean Platelet Vol. 10.6 fl (6.2-12.0); NRBC Flagged by Analyzer 0 % (0-5); Platelet Count 164 K/mm3 (150-450); RBC Distribution Width CV 14.0 % (11.6-14.6); RBC Distribution Width SD 40.9 fl (35.1-43.9); Red Blood Count 4.67 M/mm3 (4.6-6.2); White Blood Count 8.6 K/mm3 (4.4-11.0)
[2025-07-07 06:18] LABS: AST(SGOT) 38 U/L (<=37); Alanine Aminotransfer ALT/SGPT 70 U/L (<=46); Albumin, Serum 3.2 g/dL (3.4-4.8); Alkaline Phosphatase 147 U/L (40-129); Bilirubin, Direct 0.69 mg/dL (0.00-0.30); Globulin 2.7 g/dL (2.2-4.2)
[2025-07-07] MEDS: 0.9% Normal Saline (1000mL) 1,000 ML 75 ML IV ×2 (06:20→19:52)
[2025-07-07 06:27] VITALS: BP 152/72
--- NOTE | 2025-07-07 08:01 | PN.SURG_ITS ---
Subjective Subjective Patient evaluated resting comfortably in bed. He notes constant pain in the right upper quadrant. He is able to get 4 hours of relief with the pain medication. He denies any nausea, vomiting, fever. He voices readiness to remove the gallbladder. Objective Data Objective Data Vital Signs: Vital Signs Temp Pulse Resp BP Pulse Ox O2 Del Method O2 Flow Rate 97.6 F L 82 16 152/72 H 98 Room Air 2 07/07/25 02:42 07/07/25 02:42 07/07/25 02:42 07/07/25 06:27 07/07/25 02:42 07/07/25 02:42 07/03/25 12:42 Oxygen Flow Rate (L/min) 2 Oxygen Delivery Method Room Air Weight: 205 lb 11.06 oz Body Mass Index (BMI) 31.2 Intake & Output: Intake and Output for Last 24 Hours 07/05/25 07/06/25 07/07/25 23:59 23:59 23:59 Intake Total 2263.75 / 2263.75 4277.5 / 4477.5 1251.25 / 1251.25 Output Total 100 / 100 Balance 2263.75 / 2263.75 4177.5 / 4377.5 1251.25 / 1251.25 Lab / Micro Data 07/07/25 05:09 07/04/25 05:00 Labs: Laboratory Results - last 24 hr 07/05/25 03:25: Aldolase 3.7 07/06/25 06:19: Amylase 89, Lipase 285 H 07/06/25 06:44: POC Glucose 138 H 07/06/25 10:43: POC Glucose 145 H 07/06/25 16:16: POC Glucose 162 H 07/07/25 05:09: WBC 8.6, RBC 4.67, Hgb 12.5 L, Hct 37.7 L, MCV 80.7, MCH 26.8 L, MCHC 33.2, RDW Std Deviation 40.9, RDW Coeff of [place] 14.0, Plt Count 164, MPV 10.6, Immature Gran % (Auto) 0.600, Neut % (Auto) 80.6 H, Lymph % (Auto) 9.5 L, [place] % (Auto) 8.5, Eos % (Auto) 0.6, Baso % (Auto) 0.2, Absolute Neuts (auto) 7.0, Absolute Lymphs (auto) 0.82 L, Nucleated RBC % 0, Total Bilirubin 1.05, D irect Bilirubin 0.69 H, AST 38, ALT 70 H, Alkaline Phosphatase 147 H, Total Protein 5.9, Albumin 3.2 L, Globulin 2.7 07/07/25 06:23: POC Glucose 136 H Radiography Diagnostic Testing: Radiology Impression Abdomen/Pelvis CT 07/06/25 10:38 IMPRESSION: There is a 0.7 cm radiopaque density in the margin of the right hepatic lobe at the gallbladder fossa. There is circumferential gallbladder wall thickening to 0.4 cm. Consider nuclear medicine hepatobiliary scan for further characterization. There is increased density in the peripancreatic fat which can indicate acute pancreatitis with no abscess or organized collection. The inflammatory stranding extends into the right pericolic gutter. Reading Location: [facility] Physical Exam GI GI Narrative: Abdomen- soft, obese, distended. Pain in the RUQ with palpation. Assessment & Plan Assessment/Plan (1) Acute cholecystitis: PLAN: I am following this patient in conjunction with Dr. Shaffer. Labs reviewed. Liver enzymes trending down Dr. Shaffer will plan to perform a robotic assisted laparoscopic cholecystectomy tomorrow around 2:00 pm Continue IV antibiotics Continue NPO Recommend ambulation and I.S. Will repeat lipase today We will continue to monitor this patient Charges/Coding Visit Charges Inpatient E&M: 30154 [facility] Hosp L2
[2025-07-07 09:00] VITALS: BP 158/80; PULSE 81; RESP 18; TEMP 36.4; O2SAT 96
[2025-07-07] MEDS: Pantoprazole Sodium 40 MG in 0.9% Normal Saline (100mL MB+) 100 ML 300 MG IV ×2 (10:03→22:04)
[2025-07-07] MEDS: Heparin Injection (Vial) 5,000 UNIT/ML VIAL 5000 UNIT SC ×2 (10:04→22:51)
[2025-07-07 10:21] LABS: Lipase 99 U/L (13-75)
--- NOTE | 2025-07-07 10:59 | PN.GI_ITS ---
Subjective Subjective Pt continues to have right up quadrant pain. Controlled with pain medication. Patient admits to feeling worried about his condition. 07/07/25 ALT 70 H, ALP 147 H, Lipase 99 H, total bilirubin 1.05, AST 38 Objective Data Objective Data Vital Signs: Vital Signs Temp Pulse Resp BP Pulse Ox O2 Del Method O2 Flow Rate 97.5 F L 81 18 158/80 H 96 Room Air 2 07/07/25 09:00 07/07/25 09:00 07/07/25 09:00 07/07/25 09:00 07/07/25 09:00 07/07/25 09:18 07/03/25 12:42 Oxygen Flow Rate (L/min) 2 Oxygen Delivery Method Room Air Weight: 205 lb 11.06 oz Body Mass Index (BMI) 31.2 Intake & Output: Intake and Output for Last 24 Hours 07/05/25 07/06/25 07/07/25 23:59 23:59 23:59 Intake Total 2263.75 / 2263.75 4277.5 / 4477.5 1401.25 / 1401.25 Output Total 100 / 100 Balance 2263.75 / 2263.75 4177.5 / 4377.5 1401.25 / 1401.25 Lab / Micro Data Attestation: I reviewed the patient's lab results. 07/07/25 05:09 07/04/25 05:00 Labs: Laboratory Results - last 24 hr 07/05/25 03:25: Aldolase 3.7 07/06/25 06:19: Amylase 89, Lipase 285 H 07/06/25 10:43: POC Glucose 145 H 07/06/25 16:16: POC Glucose 162 H 07/07/25 05:09: WBC 8.6, RBC 4.67, Hgb 12.5 L, Hct 37.7 L, MCV 80.7, MCH 26.8 L, MCHC 33.2, RDW Std Deviation 40.9, RDW Coeff of [place] 14.0, Plt Count 164, MPV 10.6, Immature Gran % (Auto) 0.600, Neut % (Auto) 80.6 H, Lymph % (Auto) 9.5 L, [place] % (Auto) 8.5, Eos % (Auto) 0.6, Baso % (Auto) 0.2, Absolute Neuts (auto) 7.0, Absolute Lymphs (auto) 0.82 L, Nucleated RBC % 0, Total Bilirubin 1.05, D irect Bilirubin 0.69 H, AST 38, ALT 70 H, Alkaline Phosphatase 147 H, Total Protein 5.9, Albumin 3.2 L, Globulin 2.7, Lipase 99 H 07/07/25 06:23: POC Glucose 136 H Radiography Diagnostic Testing: Radiology Impression Abdomen/Pelvis CT 07/06/25 10:38 IMPRESSION: There is a 0.7 cm radiopaque density in the margin of the right hepatic lobe at the gallbladder fossa. There is circumferential gallbladder wall thickening to 0.4 cm. Consider nuclear medicine hepatobiliary scan for further characterization. There is increased density in the peripancreatic fat which can indicate acute pancreatitis with no abscess or organized collection. The inflammatory stranding extends into the right pericolic gutter. [facility] Physical Exam Const no apparent distress General Appearance: well developed GI Auscultation: normoactive bowel sounds Palpation: firm and tender Assessment & Plan Assessment/Plan (1) Transaminitis: PLAN: Obdulio is a 70-year-old male patient with past medical history of diabetes, hyperlipidemia, hypertension and coronary artery disease status post bypass surgery who presented to the ED 07/03/2025 for abdominal pain. Imaging was consistent with early cholecystitis and pancreatitis. LFTs and bilirubin were elevated. Most recent imaging CT abdomen pelvis 07/06/2025 demonstrating circumferential gallbladder wall thickening and peripancreatic fat indicating acute pancreatitis. Labs today ALT 70H, ALP 147 H, Lipase 99 H, total bilirubin 1.05 and AST 38 which are downtrending. Etiology at this time is unclear but may be related to recent induction of semaglutide. I discussed case and plan with Dr. Lizama who did not feel there was necessity for ERCP at this time due to downtrending transaminases and normal total bilirubin. Per surgery, plan is for robotic cholecystectomy tomorrow. (2) Abdominal pain: (3) Acute cholecystitis:
[2025-07-07 11:31] VITALS: PULSE 81
[2025-07-07] MEDS: Metoprolol(XL)Succ 50 MG Tablet PO (11:31)
[2025-07-07 14:00] VITALS: BP 159/77; PULSE 83; RESP 18; TEMP 36.6; O2SAT 98
--- NOTE | 2025-07-07 14:14 | CASEMGMT ---
Pt up ad delfino in room. Added 6 clicks back for completion. Plan for pt to have areli tomorrow. KWABENA CM to follow for any dc needs.
--- NOTE | 2025-07-07 19:08 | PN.HOSP_ITS ---
Reason for Visit Chief Complaint: Right and left upper quadrant abdominal pain Subjective Subjective Patient was seen and examined today, he still has some right upper quadrant abdominal pain but he appears comfortable at rest today. Objective Data Objective Data Vital Signs: Vital Signs Temp Pulse Resp BP Pulse Ox O2 Del Method O2 Flow Rate 97.9 F 83 18 159/77 H 98 Room Air 2 07/07/25 14:00 07/07/25 14:00 07/07/25 14:00 07/07/25 14:00 07/07/25 14:00 07/07/25 14:00 07/03/25 12:42 Oxygen Flow Rate (L/min) 2 Oxygen Delivery Method Room Air Weight: 93.3 kg Body Mass Index (BMI) 31.2 Intake & Output: Intake and Output for Last 24 Hours 07/05/25 07/06/25 07/07/25 23:59 23:59 23:59 Intake Total 2263.75 / 2263.75 4277.5 / 4477.5 1751.25 / 1751.25 Output Total 100 / 100 Balance 2263.75 / 2263.75 4177.5 / 4377.5 1751.25 / 1751.25 Lab / Micro Data 07/07/25 05:09 07/04/25 05:00 Labs: Laboratory Results - last 24 hr 07/07/25 05:09: WBC 8.6, RBC 4.67, Hgb 12.5 L, Hct 37.7 L, MCV 80.7, MCH 26.8 L, MCHC 33.2, RDW Std Deviation 40.9, RDW Coeff of [place] 14.0, Plt Count 164, MPV 10.6, Immature Gran % (Auto) 0.600, Neut % (Auto) 80.6 H, Lymph % (Auto) 9.5 L, [place] % (Auto) 8.5, Eos % (Auto) 0.6, Baso % (Auto) 0.2, Absolute Neuts (auto) 7.0, Absolute Lymphs (auto) 0.82 L, Nucleated RBC % 0, Total Bilirubin 1.05, D irect Bilirubin 0.69 H, AST 38, ALT 70 H, Alkaline Phosphatase 147 H, Total Protein 5.9, Albumin 3.2 L, Globulin 2.7, Lipase 99 H 07/07/25 06:23: POC Glucose 136 H 07/07/25 11:30: POC Glucose 145 H 07/07/25 16:07: POC Glucose 190 H Physical Exam Narrative alert, oriented x3 and no apparent distress Constitutional Narrative: Patient has class III obesity General Appearance: cooperative, well kempt and well developed Orientation / Consciousness: awake, oriented to person, oriented to place and oriented to time HEENT normocephalic, head/scalp atraumatic, hearing grossly normal bilaterally and moist oral mucous membranes Eyes PERRL, EOMs intact bilaterally and conjunctivae normal Neck supple, no JVD, thyroid normal and no carotid bruits General: trachea midline Resp normal respiratory effort and clear to auscultation bilaterally Auscultation: Negative for rales, rhonchi or wheezes Cardio regular rate, regular rhythm, no murmurs, no rub and no gallops GI GI Narrative: Abdomen is mildly distended, there is some abdominal tenderness particularly over the right upper quadrant to palpation bowel sounds, are present in all 4 quadrants, abdomen is mildly tympanic Extremity no clubbing, cyanosis or edema Skin no rashes or lesions noted General Skin Exam: no breakdown Neuro oriented x3, CN's II-XII intact bilaterally, moves all extremities, no focal motor deficits and no sensory deficits noted Sensorium / Orientation: awake and alert Speech: speech normal Psych affect normal Assessment & Plan Assessment/Plan (1) Acute cholecystitis: (2) Transaminitis: (3) Hyperbilirubinemia: (4) Abdominal pain: (5) Leukocytosis: PLAN: Plan 1. Acute cholecystitis-patient remains on IV fluids at this time and IV antibiotics, patient will undergo a cholecystectomy tomorrow, patient appears medically stable at this time #2 atherosclerotic heart disease-patient has a past history of coronary bypass surgery, he appears stable at this time regarding his heart disease #3 essential hypertension-patient will remain on some of his medications for blood pressure, blood pressure will be monitored #4 hyperlipidemia-patient is currently on a statin, this will be held because of the patient's elevated liver enzymes #5 class III obesity-complicates care, management, recovery, and prognosis #6 type 2 diabetes-patient's blood sugars will be monitored, sliding scale insulin will be administered as indicated #7 elevated liver enzymes-etiology is not for certain, it may be secondary to his Ozempic he was on as an outpatient. Patient's bilirubin is now normal, he continues to have an elevated ALT and now he has an elevated alkaline phosphatase. #8 obstipation-resolved Total clinical time spent by myself addressing the patient's medical issues, reviewing all of his data, and collaborating with patient's care team: 35 minutes Charges/Coding Visit Charges Inpatient E&M: 85376 Subs Hosp L2
[2025-07-07 19:50] VITALS: BP 154/78; PULSE 76; RESP 18; TEMP 36.7; O2SAT 97
[2025-07-08] VITALS (19 sets, daily range): BP systolic 132–174; BP diastolic 68–85; PULSE 73–98; RESP 16–20; TEMP 36.2–37.1; O2SAT 93–97; BMI 31.2
[2025-07-08] MEDS: Piperacil/Tazobactam 3.375 GM in 0.9% Normal Saline (50mL MB+) 50 ML IV ×3 (06:39→21:56)
[2025-07-08 07:51] LABS: Hematocrit 35.2 % (40-54); Hemoglobin 11.5 g/dL (13.0-16.5); Immature Granulocytes Count 0.040 X10^3/uL (0.0-0.0); Mean Corp Hgb Conc 32.7 g/dL (32-36); Mean Corpuscular Volume 80.5 fL (80-94); Mean Platelet Vol. 10.2 fl (6.2-12.0); NRBC Flagged by Analyzer 0 % (0-5); Platelet Count 173 K/mm3 (150-450); RBC Distribution Width CV 14.4 % (11.6-14.6); RBC Distribution Width SD 42.0 fl (35.1-43.9); Red Blood Count 4.37 M/mm3 (4.6-6.2); White Blood Count 6.5 K/mm3 (4.4-11.0)
--- NOTE | 2025-07-08 07:56 | PCM.PN.SRG ---
Subjective Subjective Patient evaluated resting comfortably in bed. Patient notes pain is a 6 out of 10. Per nursing patient has been keeping up on pain medication every 4 hours on the dot. He has not been ambulating in the hallways. Patient denies any questions about the procedure today. He is currently NPO. Objective Data Objective Data Vital Signs: Vital Signs Temp Pulse Resp BP Pulse Ox O2 Del Method O2 Flow Rate 98.6 F 82 18 148/76 H 96 Room Air 2 07/08/25 06:40 07/08/25 06:40 07/08/25 06:40 07/08/25 06:40 07/08/25 06:40 07/08/25 06:40 07/03/25 12:42 Oxygen Flow Rate (L/min) 2 Oxygen Delivery Method Room Air Weight: 205 lb 11.06 oz Body Mass Index (BMI) 31.2 Intake & Output: Intake and Output for Last 24 Hours 07/06/25 07/07/25 07/08/25 23:59 23:59 23:59 Intake Total 4277.5 / 4477.5 2851.25 / 2851.25 50 / 50 Output Total 100 / 100 Balance 4177.5 / 4377.5 2851.25 / 2851.25 50 / 50 Lab / Micro Data 07/08/25 07:26 07/04/25 05:00 Labs: Laboratory Results - last 24 hr 07/07/25 05:09: Lipase 99 H 07/07/25 11:30: POC Glucose 145 H 07/07/25 16:07: POC Glucose 190 H 07/07/25 22:58: POC Glucose 120 H 07/08/25 06:41: POC Glucose 109 H 07/08/25 07:26: WBC 6.5, RBC 4.37 L, Hgb 11.5 L, Hct 35.2 L, MCV 80.5, MCH 26.3 L, MCHC 32.7, RDW Std Deviation 42.0, RDW Coeff of [place] 14.4, Plt Count 173, MPV 10.2, Immature Gran % (Auto) 0.600, Neut % (Auto) 71.1 H, Lymph % (Auto) 15.9 L, [place] % (Auto) 10.5 H, Eos % (Auto) 1.4, Baso % (Auto) 0.5, Absolute Neuts (auto) 4.6, Absolute Lymphs (auto) 1.03, Nucleated RBC % 0 Physical Exam GI GI Narrative: Abdomen- soft, pain in the right upper quadrant with palpation. Assessment & Plan Assessment/Plan (1) Acute cholecystitis: PLAN: I am following this patient in conjunction with Dr. Shaffer. Dr. Shaffer will plan to perform a robotic assisted laparoscopic cholecystectomy today Continue NPO status Continue IV antibiotics Hopeful discharge tomorrow We will continue to monitor this patient Charges/Coding Visit Charges Inpatient E&M: 93964 Subs Hosp L1 (pre-op)
[2025-07-08] MEDS: Metoprolol(XL)Succ 50 MG Tablet PO (08:21)
[2025-07-08] MEDS: 0.9% Normal Saline (1000mL) 1,000 ML 75 ML IV (08:21)
[2025-07-08 08:31] LABS: AST(SGOT) 35 U/L (<=37); Alanine Aminotransfer ALT/SGPT 62 U/L (<=46); Albumin, Serum 3.0 g/dL (3.4-4.8); Alkaline Phosphatase 126 U/L (40-129); Anion Gap 11 (5-15); BUN 7 mg/dL (4-19); BUN/Creat Ratio 11.8 RATIO (10-20); Calcium,Total 8.6 mg/dL (7.6-11.0); Carbon Dioxide 23.3 mmol/L (21.0-32.0); Chloride 105 mmol/L (98-108); Estimated Creatinine Clearance 93.87 ml/min (50-250); Globulin 2.8 g/dL (2.2-4.2); Glucose 126 mg/dL (70-99); Potassium 3.1 mmol/L (3.3-5.1)
[2025-07-08] MEDS: Potassium Chloride Oral Tablet 20 MEQ 40 MEQ PO (10:16)
[2025-07-08] MEDS: Pantoprazole Sodium 40 MG in 0.9% Normal Saline (100mL MB+) 100 ML 330 MG IV (11:24)
[2025-07-08] MEDS: 0.9% Saline Lock 10 ML Syringe IV ×3 (12:37→21:57)
[2025-07-08] MEDS: 0.9% Normal Saline (1000mL) 1,000 ML 15 ML IV (12:53)
[2025-07-08] MEDS: INDOCYANINE GREEN 3.75 MG in Syringe 1.5 ML 999 MG IV (12:54)
--- NOTE | 2025-07-08 13:46 | PRE.ANES_ITS ---
ASA Classification* ASA Classification ASA Classification: 3 Assessment & Plan Anesthesia* Anesthesia Assessment Anesthesia Assessment: Discussed sedation and/or anesthesia options, risks, benefits, and alternatives with patient/parents/legal guardian/POA. Questions invited. The patient/parents/legal guardian/POA seems to understand and agrees to proceed with anesthesia plan. Reviewed the physical assessment, medical history, allergy history and patient home medications list prior to surgery/procedure/anesthetic and documented any changes. Performed airway and anesthesia risk assessments. Anesthesia Type Anesthesia Type: General History Source History Obtained from:: Patient and Chart Anesthesia Focused Assessment* Temperature: 97.8 F Pulse Rate: 73 Blood Pressure: 148/80 Respiratory Rate: 16 Pulse Ox: 95 Oxygen Delivery Method: Room Air Oxygen Flow Rate (L/min): 2 Airway Assessment Mouth opens: >3 cm Mallampati Score: III Teeth Condition: Missing (Several missing teeth. Rest are tight.) Neck Range of motion (ROM): Limited ROM (Severe Restriction secondary to neck fusion.) Labs Anesthesia Preop lab: CBC WBC, (4.4-11.0) 6.5 K/mm3 Today, 07:26 RBC, (4.6-6.2) 4.37 M/mm3 L Today, 07:26 Hgb, (13.0-16.5) 11.5 g/dL L Today, 07:26 Hct, (40-54) 35.2 % L Today, 07:26 Plt Count, (150-450) 173 K/mm3 Today, 07:26 CHEMISTRY Potassium, (3.3-5.1) 3.1 mmol/L L Today, 07:26 Sodium, (133-145) 139 mmol/L Today, 07:26 BUN, (4-19) 7 mg/dL Today, 07:26 Creatinine, (0.70-1.20) 0.60 mg/dL L Today, 07:26 Glucose, (70-99) 126 mg/dL H Today, 07:26 POC Glucose, (74-106) 160 mg/dL H Today, 11:11 COAG Pre-Assessment Diagnosis/Proposed Procedure Planned Operative Procedure(s): Robotic assisted laparoscopic cholecystectomy. 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 When Was Last Pacemaker Check QUESTION #4 FULL TEXT: You/Your Family Experience fever (hyperthermia) with Anesthesia Last Oral Intake Last Oral intake: Last Oral Intake NPO since 00:00 07/08/25 11:15 Meds taken in AM with sips of Yes 07/08/25 11:15 water? Meds patient instructed to see MAR 07/08/25 11:15 take am of surgery PONV PONV - editor farm journal: PONV - editor farm journal Female HX of Motion Sickness HX of N/V After Surgery Non-Smoker Duration of Surgery greater than 60 minutes Number of Risk Factors PONV Score Height & Weight Height & Weight: Anesthesia: Height & Weight Height 5 ft 8 in 07/08/25 11:15 Weight: 93.3 kg 07/08/25 11:15 Body Mass Index (BMI) 31.2 07/08/25 11:15 Respiratory Assessment Respiratory Assessment - editor farm journal: Respiratory Tract Infection Hx - editor farm journal Hx Respiratory Tract Infection No 07/03/25 20:16 STOP Sleep Apnea STOP Sleep Apnea - editor farm journal: STOP Sleep Apnea - editor farm journal Hx Hypertension Yes 07/03/25 13:01 Hx Sleep Apnea Yes 07/03/25 13:01 CPAP Yes 07/03/25 13:01 BIPAP No 07/03/25 13:01 Do you snore loudly (louder than talking or can be heard Do you often feel tired/ fatigued/ sleepy during daytime? Has anyone observed you stop breathing during sleep? STOP Results Positive 07/03/25 13:01 QUESTION #5 FULL TEXT : Do you snore loudly (louder than talking or can be heard through closed doors)? 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 Specify any problems Hx of Preganancy in last 3 N/A 07/03/25 13:01 Months Nurse Filling Out Transfusion MLEACH2 07/03/25 13:01 & Questions: Date: 07/03/25 07/03/25 13:01 Time: 13:02 07/03/25 13:01 Patient unable to answer at this time (ie. confused, unrespo /Reproduction History /Reproductive History - editor farm journal: /Reproductive Hx- editor farm journal Hx Now No 07/03/25 20:16 Gestational Age (in weeks): EDC: Hx Hx Para Hx Section SAB No 07/03/25 20:16 Active Medications Active Medications: Current Medications Generic Name Dose Route Start Last Admin Trade Name Freq PRN Reason Stop Dose Admin Amlodipine Besylate 5 mg 07/05/25 10:00 07/08/25 08:21 Amlodipine 5 Mg Tablet PO 5 mg DAILY WAYNE Administration Protocol Glucagon 1 mg 07/03/25 12:43 Glucagon 1 Mg/Ml Syringe IM X1 PRN Hypoglycemia Protocol Glucagon 1 mg 07/04/25 11:58 Glucagon 1 Mg/Ml Syringe IM X1 PRN Hypoglycemia Protocol Heparin Sodium (Porcine) 5,000 unit 07/03/25 22:00 07/08/25 08:16 Heparin Injection (Vial) 5,000 Unit/Ml Vial SC Not Given Q12 WAYNE Hydralazine HCl 10 mg 07/07/25 04:01 Hydralazine 20 Mg/Ml Vial IV Q4H PRN PRN SBP > 160 Protocol Dextrose 250 mls @ 0 mls/hr 07/03/25 12:43 Dextrose 10%-Water IV .Q0M PRN HYPOGLYCEMIA Protocol As Directed Piperacillin Sod/Tazobactam 50 mls @ 12.5 mls/hr 07/03/25 14:00 07/08/25 11:24 Sod 3.375 gm/ Sodium Chloride IV Infused Q8 WAYNE Infusion Sodium Chloride 250 mls @ 15 mls/hr 07/03/25 13:12 IV .[id number] PRN Saline Flush Sodium Chloride 250 mls @ 15 mls/hr 07/03/25 13:12 IV .[id number] PRN Additional IVPB Infusion Dextrose 250 mls @ 0 mls/hr 07/04/25 11:58 Dextrose 10%-Water IV .Q0M PRN HYPOGLYCEMIA Protocol As Directed Pantoprazole Sodium 40 mg/ 100 mls @ 300 mls/hr 07/06/25 22:00 07/08/25 11:45 Sodium Chloride IV Infused Q12 WAYNE Infusion Sodium Chloride 1,000 mls @ 15 mls/hr 07/08/25 12:50 07/08/25 12:53 IV 15 mls/hr .Q48H WAYNE Administration Insulin Human Lispro 0 unit 07/04/25 16:00 07/08/25 11:24 Insulin Lispro 100 Unit/Ml Insuln.Pen SC Not Given TIDAC WAYNE Protocol Losartan Potassium 100 mg 07/04/25 10:00 07/08/25 08:22 Losartan Potassium 100 Mg Tablet PO 100 mg DAILY WAYNE Administration Protocol Metoprolol Succinate 50 mg 07/04/25 10:00 07/08/25 08:21 Metoprolol(Xl)Succ 50 Mg Tablet PO 50 mg DAILY WAYNE Administration Protocol Morphine Sulfate 4 mg 07/08/25 09:51 Morphine 4 Mg/Ml Syringe IV Q3H PRN PRN Pain Score 1-10 Ondansetron HCl 4 mg 07/03/25 12:43 07/06/25 18:18 Ondansetron 4 Mg/2 Ml Vial IV 4 mg Q8H PRN PRN Administration NAUSEA/VOMITING Oxycodone HCl 10 mg 07/04/25 16:54 07/08/25 08:21 Oxycodone 5 Mg Tablet PO 10 mg Q4H PRN PRN Administration Pain Score 1-10 Sodium Chloride 10 - 40 ml 07/03/25 13:12 07/08/25 12:37 0.9% Saline Lock 10 Ml Syringe IV 10 ml UD PRN Administration SALINE FLUSH Triamcinolone Acetonide 1 applic 07/08/25 12:00 07/08/25 12:09 Triamcinolone 0.1% Ointment 15 Gm Tube TOPICAL Not Given B[facility] Protocol PFSH Medical History Type 2 diabetes mellitus Atherosclerosis of coronary artery of [place] heart without angina pectoris Essential hypertension HLD (hyperlipidemia) Home Medications ?Medication ?Instructions ?Recorded ?Last Taken ?Type aspirin 81 mg tablet,delayed 81 mg PO DAILY cardiac 07/02/25 History release (Adult Aspirin Regimen) metoprolol succinate 50 mg 50 mg PO DAILY htn 06/05/19 07/02/25 History tablet,extended release 24 hr nitroglycerin 0.4 mg sublingual 0.4 mg sublingual Q5-1 5M chest pain 06/05/19 Unknown History tablet omega-3 fatty acids 1,250 mg 1,250 mg PO DAILY unknown 06/05/19 07/02/25 History capsule omeprazole 20 mg capsule,delayed 20 mg PO DAILY GERD 0 06/05/19 07/02/25 History release rosuvastatin 20 mg tablet 20 mg PO DAILY high choleste rol 06/05/19 07/02/25 History metformin 750 mg tablet,extended 750 mg PO BID DM 12/2907/02/25 History release 24 hr amlodipine 5 mg tablet 5 mg PO DAILY #90 tabs 05/3107/02/25 Rx glimepiride 4 mg tablet 4 mg PO QDAY #1 TAB 05/31/25 07/02/25 Rx metoclopramide HCl 5 mg tablet 5 mg PO UD #20 tabs 07/02/25 21:30 Rx (Reglan) ciprofloxacin HCl 500 mg tablet 500 mg PO BID #14 tabs 07/05/25 Unknown Rx docusate sodium 250 mg capsule 250 mg PO DAILY stool s oftener 07/05/25 07/02/25 History losartan 100 mg tablet 100 mg PO DAILY #30 tabs Unknown Rx metronidazole 500 mg tablet 500 mg PO TID #21 tabs Unknown Rx Allergy/AdvReac Type Severity Reaction Status Date / Time celecoxib (From Celebrex) Allergy shortness Verified 07/03/25 05:35 of breath mushroom Allergy swelling Verified 07/03/25 05:35 naproxen Allergy rash Verified 07/03/25 05:35 Kxisxqj-YYS-WjQ Reductase Allergy leg cramps Verified 07/03/25 05:35 Inhibitor (Assezsu-Enb-Qxx Reductase Inhibitor) Surgical History History of cataract extraction with lens replacement H/O coronary artery bypass surgery (11/02/09) H/O hernia repair H/O neck surgery History of lumbar surgery H/O colonoscopy History of appendectomy Social History Smoking Status: Former smoker how long ago did patient quit smokin alcohol intake: never substance use type: does not use caffeine: Yes Type: tea Number of servings: 10 Review of Systems (Anesthesia) ROS Narrative System reviewed and no additional complaints, except as documented.
--- NOTE | 2025-07-08 13:55 | GALL_PTH ---
PATIENT: TRAVIS WHITNEY LOC: [facility] U#:[id number] AGE/SX: 70/M [place] [facility] [place]/03/[address]: Dr. John Rosales DO : 1955 BED: 1 DIS: 07/09/2025 SPEC #: [id number] RECD: 07/09/25 08:00 STATUS: CAILIN REQ #: [id number] KULWANT: 07/08/25 13:[address]: Cody Shaffer DEPT: SURGICAL PATHOLOGY RECD BY: Mejia Dcikson ENTERED: 07/09/25 10:44 SP TYPE: JADE CHOW DR: DO Dr. Yoan Goldstein MD Dr. Rahsaan Friend, MD Lana Grant Dr., NP-C Jennifer Anthony, NP-C PATRICIA Elliott Tissues: A - Gallbladder, NOS Procedures: Surgery Specimen Level III HEADER OPERATION: Robotic cholecystectomy PRE-OP DIAGNOSIS: Acute cholecystitis TISSUE SUBMITTED: A- Gallbladder MICROSCOPIC DIAGNOSIS A. Gallbladder, robotic cholecystectomy: - Acute on chronic cholecystitis. MICROSCOPIC DESCRIPTION Slides are reviewed. GROSS DESCRIPTION A. Received in formalin labeled with the patient's name and date of . Designated as gallbladder is a 6.8 x 4.7 x 3.0 cm markedly disrupted gallbladder admixed with clotted blood. The attached cystic duct margin is inked black and shaved. A lymph node is not present. The serosa is golden-red to lee and fatty. The mucosa is golden-red and granular with focal ulcerations and necrosis. No choleliths are grossly identified. Sectioning reveals a maximum wall thickness of 0.6 cm. Cholesterolosis is not present. Double End Production Grinder sections are submitted in 1 cassette. NM 07/09/2025 CPT:96116
[2025-07-08] MEDS: 0.9% Normal Saline (1000mL) 1,000 ML 1000 ML IV (14:00)
[2025-07-08] MEDS: Midazolam 2 MG/2 ML Syringe IV (14:00)
[2025-07-08] MEDS: Lidocaine 1% (5 ml sdv) 5 ML Vial IV (14:07)
[2025-07-08] MEDS: Piperacil/Tazobactam 3.375 GM/50 ML ML IV (14:15)
--- NOTE | 2025-07-08 14:17 | NURSING ---
ircsyn tubed to AC upon pt leaving unit
--- NOTE | 2025-07-08 14:38 | NURSING ---
1240: pt own cpap sent down with pt to AC
[2025-07-08] MEDS: Bupiv/Epi 0.25% 30 ML Vial (14:50)
[2025-07-08] MEDS: Lactated Ringers 1,000 ML 1000 ML IV (15:20)
[2025-07-08] MEDS: fentaNYL 100 MCG/2 ML Ampul 200 MCG IV (15:34)
--- NOTE | 2025-07-08 15:58 | OP.PCM_ITS ---
Procedures Digestive 40xxx-49xxx: [id number] Laparoscopic cholecystectomy Operative Report (Standard) Operative Information Date of Procedure: 07/08/25 Pre-Operative Diagnosis: Acute cholecystitis Post-Operative Diagnosis: Same Surgery/Procedure Performed: Robotic cholecystectomy with attempted ICG cholangiogram woolen suiting shrinker: Yes Sound Cutter: Kari Mann Tasks completed by promotions assistant sales marketing: Closing, Trocar and Other Additional mortgage loan assistant?: No Type of Anesthesia: General and Local RN Documented Start/Stop Times: Operation Date: 07/08/25 13:55 Case Time Into Pre-Op 07/08/25 12:44 Anesthesia Start 07/08/25 14:00 Into Room 07/08/25 14:00 Procedure Start 07/08/25 14:22 Procedure End 07/08/25 15:47 Anesthesia End 07/08/25 15:53 Out of Room 07/08/25 15:53 Into Recovery 07/08/25 15:55 Procedure Start Time: 14:22 Procedure Stop Time: 15:47 Select all DRAINS/GRAFTS/IMPLANTS that apply: Drains Drain details: 10 Kiswahili flat EDWIGE drain x 1 Special Medications: Receiving IV Zosyn scheduled Estimated Blood Loss: 30 mL Specimen collected: Yes Description of specimen(s) removed: Gallbladder Description of surgery: The patient is a 70-year-old male who is admitted several days ago with abdominal pain. He was found to have a mildly thickened gallbladder as well as elevated LFTs including bilirubin. He was hospitalized and bilirubin decreased. This was not felt to be related to choledocholithiasis. MRCP showed possible pancreatitis. He was on Ozempic and so this was thought to be a potential etiology as well. He was treated with antibiotics and it was felt that the gallbladder was clearly the source of his symptoms. At that point it was decided to proceed with cholecystectomy. I offered him a robotic cholecystectomy as treatment. We discussed the details of the planned procedure and he wished to proceed. He was brought to the operating room today following informed consent. Antibiotics were being infused throughout his admission. We discussed the details of the planned procedure including the risks benefits and alternatives. He wished to proceed. He was placed supine on the operative table with arms outstretched on arm boards. A general endotracheal anesthesia was induced. His arms were then comfortably tucked at his sides. His abdomen was then prepped and draped in the usual sterile manner. An 8 mm incision was made just above the umbilicus which a 5 mm trocar was placed optically. This was placed without incident. The abdomen is then fully insufflated with CO2 gas. A 5 mm 0 degree scope was inserted. There were no signs of bowel or vascular injury next 3 additional trocars were inserted. These were 8 mm robotic trocars. 1 was placed on the right side of the abdomen. 1 was placed on the left side of the abdomen and another was placed in the left upper quadrant. These were all placed without difficulty. The original 5 mm trocar was switched to an 8 mm robotic trocar. The patient was then placed in reverse Trendelenburg positioning. The da Matilda robot was then brought onto the operative field and appropriately docked. Once instrumentation was inserted, the gallbladder was identified. It was quite friable and thickened. The gallbladder was reflected in a cephalad direction. Grasping of the gallbladder was very difficult due to the thickened wall as well as the overall friability. As the gallbladder was reflected in a cephalad direction, a large hole developed in the upper aspect of the gallbladder. The spilled bile was promptly suctioned out and irrigated as best possible. Fortunately this did decompress the gallbladder facilitating better mobility. The infundibulum of the gallbladder was dissected. Peritoneum was incised on either side of the gallbladder which facilitated greater mobility to the infundibulum. Careful dissection was performed using electrocautery and the L-hook. Blunt dissection with a suction tip catheter was also utilized. The lower aspect of the gallbladder was then bovied off the undersurface of the liver. The cystic duct and cystic artery were both identified. These were dissected out circumferentially. A critical view of safety was able to be obtained. Unfortunately ICG was not useful in this case as all of the bile spilled out of the gallbladder early on in the operation. I felt confident that the anatomy was accurately being identified. There were 2 and only 2 structures seeming to come from the gallbladder. That being the cystic duct and cystic artery. Both of these structures were clipped proximally and distally and then transected. The gallbladder was then bovied off the undersurface of the liver. The gallbladder again was very friable and seem to peel apart very easily. I was able to ensure that the entire gallbladder including the back wall of the gallbladder was removed. The liver bed was nicely hemostatic. A few areas were cauterized. Once the gallbladder was free, it was placed Endobag and brought out through the umbilical trocar site. The trocar was replaced. A 10 Kisw[place]ili fully fluted EDWIGE drain was inserted and laid in the region of the gallbladder fossa. This was brought out through the right sided trocar. This was sutured to the skin. The right upper quadrant was then copiously irrigated with a total of about 2 to 3 L of saline until clear. The fascia at the umbilical trocar site was closed using 0 PDS with the aid of the fascial closure device. This closed the fascia nicely. The remaining trocars were opened up and insufflation was allowed to escape. Local anesthetic was injected into each of the incisions. The incisions were then closed with 4-0 Vicryl. Skin glue was applied as dressing. He was awakened from anesthesia and taken recovery in good condition Surgical Findings: Extremely friable and necrotic gallbladder Complications Complications: No Admit VTE Documentation VTE Present on Admission: No VTE Mechan Device Prophylaxis: SCD's VTE Pharm Prophylaxis ordered?: No Reason prophylaxis not ordered: Treatment Not Indicated
--- NOTE | 2025-07-08 16:02 | PCM.POST.ANE ---
Anesthesia: Postop Eval I Current Vital Signs Temperature: 97.2 F Pulse Rate: 88 Blood Pressure: 163/77 Respiratory Rate: 20 Pulse Ox: 94 Oxygen Delivery Method: Room Air Assessment Airway patent: Yes Spontaneous unlabored respirations: Yes Mental status: Awake and Calm nausea: No Vomiting: No Anesthesia Complication: No Fluid Hydration Crystalloid volume administer (ml): 1,200 Total IV fluid infused: 1,200 Progress Note Anesthesia document: Postop Eval 1 completed: Yes
--- NOTE | 2025-07-08 16:18 | POSTOPAN2_ITS ---
Anesthesia Postop Eval I Sum Postop Eval Completion status Anesthesia document: Postop Eval 1 completed: Yes Anesthesia Postop Eval I Summary Anesthesia Postop Eval I Summary: Anesthesia Postop Eval I: Assessment Summary Airway patent Yes 07/08/25 16:02 PATIENT FINANCIAL [email or web address] Spontaneous unlabored Yes 07/08/25 16:02 PATIENT FINANCIAL COORDINATOR.[email or web address] respirations Mental status Awake,Calm 07/08/25 16:02 PATIENT FINANCIAL COORDINATOR.[email or web address] nausea No 07/08/25 16:02 PATIENT FINANCIAL COORDINATOR.[email or web address] Vomiting No 07/08/25 16:02 PATIENT FINANCIAL COORDINATOR.[email or web address] Anesthesia Postop Eval I: Fluid Summary Crystalloid volume administer 1,200 07/08/25 16:02 PATIENT FINANCIAL COORDINATOR.[email or web address] (ml) Colloids volume administered ( ml) Blood Product volume administered (ml) Total IV fluid infused 1,200 07/08/25 16:02 PATIENT FINANCIAL COORDINATOR.[email or web address] Anesthesia Postop Eval I: Summary Notes Anesthesia Complication No 07/08/25 16:02 PATIENT FINANCIAL COORDINATOR.[email or web address] Anesthesia Complication Comment: Post-operative progress note Anesthesia: Postop Eval II Evaluation Mental status: Awake and Calm Pain Level: 0 nausea: No Vomiting: No Complications Anesthesia Complication: No
--- NOTE | 2025-07-08 16:18 | PCM.POSTANE2 ---
Anesthesia Postop Eval I Sum Postop Eval Completion status Anesthesia document: Postop Eval 1 completed: Yes Anesthesia Postop Eval I Summary Anesthesia Postop Eval I Summary: Anesthesia Postop Eval I: Assessment Summary Airway patent Yes 07/08/25 16:02 PATTERN [email or web address] Spontaneous unlabored Yes 07/08/25 16:02 PATTERN [email or web address] respirations Mental status Awake,Calm 07/08/25 16:02 PATTERN [email or web address] nausea No 07/08/25 16:02 PATTERN [email or web address] Vomiting No 07/08/25 16:02 PATTERN [email or web address] Anesthesia Postop Eval I: Fluid Summary Crystalloid volume administer 1,200 07/08/25 16:02 PATTERN [email or web address] (ml) Colloids volume administered ( ml) Blood Product volume administered (ml) Total IV fluid infused 1,200 07/08/25 16:02 PATTERN [email or web address] Anesthesia Postop Eval I: Summary Notes Anesthesia Complication No 07/08/25 16:02 PATTERN [email or web address] Anesthesia Complication Comment: Post-operative progress note Anesthesia: Postop Eval II Evaluation Mental status: Awake and Calm Pain Level: 0 nausea: No Vomiting: No Complications Anesthesia Complication: No
--- NOTE | 2025-07-08 19:01 | PN.HOSP_ITS ---
Reason for Visit Chief Complaint: Right and left upper quadrant abdominal pain Subjective Subjective Patient was seen and examined earlier today, he stated he felt better this morning than he has since his initial admission to the hospital. Patient is due to undergo a cholecystectomy today. Objective Data Objective Data Vital Signs: Vital Signs Temp Pulse Resp BP Pulse Ox O2 Del Method O2 Flow Rate 98.0 F 87 17 174/81 H 96 Room Air 2 07/08/25 18:21 07/08/25 18:21 07/08/25 18:21 07/08/25 18:21 07/08/25 18:21 07/08/25 18:21 07/08/25 16:30 Oxygen Flow Rate (L/min) 2 Oxygen Delivery Method Room Air Weight: 93.3 kg Body Mass Index (BMI) 31.2 Intake & Output: Intake and Output for Last 24 Hours 07/06/25 07/07/25 07/08/25 23:59 23:59 23:59 Intake Total 4277.5 / 4477.5 2851.25 / 2851.25 3564.75 / 3564.75 Output Total 100 / 100 1745 / 1745 Balance 4177.5 / 4377.5 2851.25 / 2851.25 1819.75 / 1819.75 Lab / Micro Data 07/08/25 07:26 07/08/25 07:26 Labs: Laboratory Results - last 24 hr 07/07/25 22:58: POC Glucose 120 H 07/08/25 06:41: POC Glucose 109 H 07/08/25 07:26: WBC 6.5, RBC 4.37 L, Hgb 11.5 L, Hct 35.2 L, MCV 80.5, MCH 26.3 L, MCHC 32.7, RDW Std Deviation 42.0, RDW Coeff of [place] 14.4, Plt Count 173, MPV 10.2, Immature Gran % (Auto) 0.600, Neut % (Auto) 71.1 H, Lymph % (Auto) 15.9 L, [place] % (Auto) 10.5 H, Eos % (Auto) 1.4, Baso % (Auto) 0.5, Absolute Neuts (auto) 4.6, Absolute Lymphs (auto) 1.03, Nucleated RBC % 0, Sodium 139, Potassium 3.1 L , Chloride 105, Carbon Dioxide 23.3, Anion Gap 11, BUN 7, Creatinine 0.60 L, Estim Creat Clear Calc 93.87, Est GFR (MDRD) Non-Af 103, BUN/Creatinine Ratio 11.8, Glucose 126 H, Calcium 8.6, Total Bilirubin 0.74, AST 35, ALT 62 H, Alkaline Phosphatase 126, Total Protein 5.7 L, Albumin 3.0 L, Globulin 2.8, Albumin/Globulin Ratio 1.1 07/08/25 11:11: POC Glucose 160 H Physical Exam Narrative alert, oriented x3 and no apparent distress Constitutional Narrative: Patient has class III obesity General Appearance: cooperative, well kempt and well developed Orientation / Consciousness: awake, oriented to person, oriented to place and oriented to time HEENT normocephalic, head/scalp atraumatic, hearing grossly normal bilaterally and moist oral mucous membranes Eyes PERRL, EOMs intact bilaterally and conjunctivae normal Neck supple, no JVD, thyroid normal and no carotid bruits General: trachea midline Resp normal respiratory effort and clear to auscultation bilaterally Auscultation: Negative for rales, rhonchi or wheezes Cardio regular rate, regular rhythm, no murmurs, no rub and no gallops GI GI Narrative: Abdomen is mildly distended, there is some abdominal tenderness particularly over the right upper quadrant to palpation bowel sounds, are present in all 4 quadrants, abdomen is mildly tympanic Extremity no clubbing, cyanosis or edema Skin no rashes or lesions noted General Skin Exam: no breakdown Neuro oriented x3, CN's II-XII intact bilaterally, moves all extremities, no focal motor deficits and no sensory deficits noted Sensorium / Orientation: awake and alert Speech: speech normal Psych affect normal Assessment & Plan Assessment/Plan (1) Acute cholecystitis: (2) Transaminitis: (3) Hyperbilirubinemia: (4) Abdominal pain: (5) Leukocytosis: PLAN: Plan 1. Acute cholecystitis-patient remains on IV fluids at this time and IV antibiotics, patient will undergo a cholecystectomy today, he appears medically stable for surgery at this time #2 atherosclerotic heart disease-patient has a past history of coronary bypass surgery, he appears stable at this time regarding his heart disease #3 essential hypertension-patient will remain on some of his medications for blood pressure, blood pressure will be monitored #4 hyperlipidemia-patient is currently on a statin, this will be held because of the patient's elevated liver enzymes #5 class III obesity-complicates care, management, recovery, and prognosis #6 type 2 diabetes-patient's blood sugars will be monitored, sliding scale insulin will be administered as indicated #7 elevated liver enzymes-etiology is not for certain, it may be secondary to his Ozempic he was on as an outpatient. Patient's bilirubin is now normal, he continues to have an elevated ALT and now he has an elevated alkaline phosphatase. #8 obstipation-resolved Total clinical time spent by myself addressing the patient's medical issues, reviewing all of his data, and collaborating with patient's care team: 35 minutes Charges/Coding Visit Charges Inpatient E&M: 42712 Subs Hosp L2
[2025-07-08] MEDS: Heparin Injection (Vial) 5,000 UNIT/ML VIAL 5000 UNIT SC (21:13)
[2025-07-08] MEDS: Pantoprazole Sodium 40 MG in 0.9% Normal Saline (100mL MB+) 100 ML 300 MG IV (21:14)
[2025-07-09] VITALS (7 sets, daily range): BP systolic 159–175; BP diastolic 71–86; PULSE 63–79; RESP 17–18; TEMP 36.6–36.7; O2SAT 96–97
[2025-07-09] MEDS: Piperacil/Tazobactam 3.375 GM in 0.9% Normal Saline (50mL MB+) 50 ML IV ×2 (06:19→14:26)
[2025-07-09] MEDS: Heparin Injection (Vial) 5,000 UNIT/ML VIAL 5000 UNIT SC (08:23)
[2025-07-09] MEDS: Metoprolol(XL)Succ 50 MG Tablet PO (08:23)
[2025-07-09 08:51] LABS: Hematocrit 36.8 % (40-54); Hemoglobin 11.7 g/dL (13.0-16.5); Immature Granulocytes Count 0.080 X10^3/uL (0.0-0.0); Mean Corp Hgb Conc 31.8 g/dL (32-36); Mean Corpuscular Volume 82.0 fL (80-94); Mean Platelet Vol. 9.7 fl (6.2-12.0); NRBC Flagged by Analyzer 0 % (0-5); Platelet Count 248 K/mm3 (150-450); RBC Distribution Width CV 14.5 % (11.6-14.6); RBC Distribution Width SD 43.0 fl (35.1-43.9); Red Blood Count 4.49 M/mm3 (4.6-6.2); White Blood Count 7.2 K/mm3 (4.4-11.0)
[2025-07-09 09:30] LABS: AST(SGOT) 56 U/L (<=37); Alanine Aminotransfer ALT/SGPT 89 U/L (<=46); Albumin, Serum 3.4 g/dL (3.4-4.8); Alkaline Phosphatase 130 U/L (40-129); Anion Gap 9 (5-15); BUN 9 mg/dL (4-19); BUN/Creat Ratio 12.0 RATIO (10-20); Calcium,Total 9.0 mg/dL (7.6-11.0); Carbon Dioxide 26.5 mmol/L (21.0-32.0); Chloride 103 mmol/L (98-108); Estimated Creatinine Clearance 94.16 ml/min (50-250); Globulin 3.0 g/dL (2.2-4.2); Glucose 146 mg/dL (70-99); Potassium 3.6 mmol/L (3.3-5.1)
[2025-07-09] MEDS: 0.9% Saline Lock 10 ML Syringe IV (11:49)
--- NOTE | 2025-07-09 14:56 | PN.SURG_ITS ---
Subjective Subjective Patient seen and evaluated on rounds earlier today. Patient states that he is feeling very good since getting his gallbladder out yesterday. His only complaint is not being able to have a bowel movement. He does feel somewhat bloated. No nausea or vomiting. No fevers or chills. Objective Data Objective Data Vital Signs: Vital Signs Temp Pulse Resp BP Pulse Ox O2 Del Method O2 Flow Rate 97.8 F 63 17 175/71 H 97 Room Air 2 07/09/25 12:00 07/09/25 12:02 07/09/25 12:00 07/09/25 12:00 07/09/25 12:00 07/09/25 12:00 07/08/25 16:30 Oxygen Flow Rate (L/min) 2 Oxygen Delivery Method Room Air Weight: 207 lb 0.225 oz Body Mass Index (BMI) 31.2 Intake & Output: Intake and Output for Last 24 Hours 07/07/25 07/08/25 07/09/25 23:59 23:59 23:59 Intake Total 2851.25 / 2851.25 3664.75 / 3664.75 100 / 100 Output Total 1745 / 2625 910 / 910 Balance 2851.25 / 2851.25 1919.75 / 1039.75 -810 / -810 Lab / Micro Data 07/09/25 08:20 07/09/25 08:20 Labs: Laboratory Results - last 24 hr 07/08/25 21:12: POC Glucose 262 H 07/09/25 06:16: POC Glucose 180 H 07/09/25 08:20: WBC 7.2, RBC 4.49 L, Hgb 11.7 L, Hct 36.8 L, MCV 82.0, MCH 26.1 L, MCHC 31.8 L, RDW Std Deviation 43.0, RDW Coeff of [place] 14.5, Plt Count 248, MPV 9.7, Immature Gran % (Auto) 1.100 H, Neut % (Auto) 75.8 H, Lymph % (Auto) 14.6 L, [place] % (Auto) 8.3, Eos % (Auto) 0.1, Baso % (Auto) 0.1, Absolute Neuts (auto) 5.5, Absolute Lymphs (auto) 1.05, Nucleated RBC % 0, Sodium 138, Potassium 3.6, Chloride 103, Carbon Dioxide 26.5, Anion Gap 9, BUN 9, Creatinine 0.73, Estim Creat Clear Calc 94.16, Est GFR (MDRD) Non-Af 97, BUN/Creatinine Ratio 12.0, Glucose 146 H, Calcium 9.0, Total Bilirubin 0.63, AST 56 H, ALT 89 H , Alkaline Phosphatase 130 H, Total Protein 6.4, Albumin 3.4, Globulin 3.0, Albumin/Globulin Ratio 1.2 07/09/25 11:44: POC Glucose 127 H Physical Exam Narrative He is alert and oriented x 3. He is in no acute distress. Abdomen soft and appropriately tender. He does exhibit some distention. EDWIGE drain in place. Output is serosanguineous Assessment & Plan Assessment/Plan (1) Acute cholecystitis: PLAN: Plan The patient is a 70-year-old male admitted with acute acalculous cholecystitis likely secondary to Ozempic Is postoperative day #1 from a robotic cholecystectomy. He is doing well from my standpoint. I am okay for discharge later today. I discussed this with admitting physician. The plan will be for him to go home with a EDWIGE drain. He has to record the output daily. He has to follow-up next week and we can get the drain out in the office. He is agreeable to this plan. I recommended stool softeners and/or MiraLAX to assist with bowel movements
--- NOTE | 2025-07-09 15:25 | CASEMGMT ---
KWABENA CM into pt room, pt sitting up in bed with son and sig other at bedside. Pt states he feels safe to return home. Pt states the nurse will go over the drain care with him. He states he will be fine with the care of this. Pt is up indep. Denies any homegoing needs at this time.
--- NOTE | 2025-07-09 16:09 | DCINST_ITS ---
Discharge Instructions DC O2, CPAP, BIPAP needs Home O2 Discharge instructions: No Dressing / Incision Discharge Activity: Return to Normal Activity Weight Bearing Status: Full weight bearing Dressing / Incision Call your doctor if your incision/area has: Foul Smelling Discharge Call your doctor if you observe: Fever of 101 or Higher Follow Up Care Test Results: Test results from this visit will be discussed in further detail at your follow- up appointment, if applicable. Discharge Plan Admission Admit Date/Time: 07/03/25 11:18 Primary Reason for Your Visit: Cholecystitis, drug-induced hepatitis Attending Provider: John Rosales Primary Care Provider: Cody Kasper Consulting Providers: Cody Shaffer; Yoan Molina; Jameel Lizama; Lana Calderon; Nikki Carey; Jasmyne Hamilton Instructions Patient Instructions: After Gallbladder Surgery, Cholecystectomy Dc, Channing De Dios Drain Tube Dc, Post Op Drain Emptying Steps Additional Instructions / Restrictions: Increase your losartan to 100 mg daily Do not take Cipro and metronidazole Discharge Orders/Prescriptions Prescriptions: New losartan 100 mg Tablet 100 mg PO DAILY Qty: 30 0RF hydrocodone-acetaminophen 5-325 mg tablet 2 tab PO Q6H PRN (Reason: pain) 7 Days Qty: 25 0RF Rx Instructions: 1 or 2 tabs every 6 hours as needed for pain Continued nitroglycerin 0.4 mg tablet, sublingual 0.4 mg SUBLINGUAL Q5-15M rosuvastatin 20 mg tablet 20 mg PO DAILY metoprolol succinate 50 mg tablet extended release 24 hr 50 mg PO DAILY omeprazole 20 mg capsule,delayed release(DR/EC) 20 mg PO DAILY aspirin [Adult Aspirin Regimen] 81 mg tablet,delayed release (DR/EC) 81 mg PO DAILY metformin 750 mg tablet extended release 24 hr 750 mg PO BID glimepiride 4 mg tablet 4 mg PO QDAY Qty: 1 0RF amlodipine 5 mg tablet 5 mg PO DAILY Qty: 90 4RF docusate sodium 250 mg capsule 250 mg PO DAILY Discontinued omega-3 fatty acids 1,250 mg capsule 1,250 mg PO DAILY metoclopramide HCl [Reglan] 5 mg tablet 5 mg PO UD Qty: 20 0RF Rx Instructions: 1/2-hour AC and at bedtime losartan 50 mg tablet 50 mg PO DAILY Qty: 90 3RF Ozempic 0.25 mg or 0.5 mg (2 mg/3 mL) pen injector 0.25 mg subcut QWEEK 28 Days Qty: 3 0RF Rx Instructions: for 4 weeks Referrals / Follow Up: Cody Kasper MD [Primary Care Provider, Family Practice] - Within 1 Month Cody Shaffer MD [Med Staff - Active Staff, General Surgery] - 07/14/25 1:45 p m Referral Note: Call the office for an appointment next week, let them know you were hospitalized and seen by Dr. Shaffer Disposition Disposition (needs filled in before D/C Order can be placed): Home, Self Care
--- NOTE | 2025-07-09 16:30 | DS.PCM_ITS ---
Providers Date of Admission: 07/03/25 Date of Discharge: 07/09/25 Primary Care Physician: Dr. Cody Kasper MD Consultations 07/03/25 12:43 Consult: General Surgery Routine Consulting Provider: Cody Shaffer Reason for Consult: Acute cholecystitis EMERGENT Consult: No Notified: Yes Date Notified: 07/03/25 Time Notified: 11:25 Method of Notification: Verbal 07/04/25 10:15 Consult: Gastroenterology Routine Consulting Provider: [facility] Reason for Consult: Elevated liver enzymes EMERGENT Consult: No Notified: Yes Date Notified: 07/03/25 Time Notified: 14:15 Method of Notification: Verbal Reason For Visit: CHOLECYSTITIS Diagnosis Discharge Diagnosis (1) Acute cholecystitis: Status: Inactive Code(s): K81.0 - Acute cholecystitis Plan 1. Acute cholecystitis-patient remains on IV fluids at this time and IV antibiotics, patient will undergo a cholecystectomy today, he appears medically stable for surgery at this time #2 atherosclerotic heart disease-patient has a past history of coronary bypass surgery, he appears stable at this time regarding his heart disease #3 essential hypertension-patient will remain on some of his medications for blood pressure, blood pressure will be monitored #4 hyperlipidemia-patient is currently on a statin, this will be held because of the patient's elevated liver enzymes #5 class III obesity-complicates care, management, recovery, and prognosis #6 type 2 diabetes-patient's blood sugars will be monitored, sliding scale insulin will be administered as indicated #7 elevated liver enzymes-etiology is not for certain, it may be secondary to his Ozempic he was on as an outpatient. Patient's bilirubin is now normal, he continues to have an elevated ALT and now he has an elevated alkaline phosphatase. #8 obstipation-resolved Total clinical time spent by myself addressing the patient's medical issues, reviewing all of his data, and collaborating with patient's care team: 35 minutes Medications at Discharge Home Medications aspirin 81 mg tablet,delayed release (Adult Aspirin Regimen) 81 mg PO DAILY cardiac 06/05/19 metoprolol succinate 50 mg tablet,extended release 24 hr 50 mg PO DAILY htn 06/05/19 nitroglycerin 0.4 mg sublingual tablet 0.4 mg sublingual Q5-15M chest pain 06/05/19 omeprazole 20 mg capsule,delayed release 20 mg PO DAILY GERD 06/05/19 rosuvastatin 20 mg tablet 20 mg PO DAILY high cholesterol 06/05/19 metformin 750 mg tablet,extended release 24 hr 750 mg PO BID DM 04/12/22 amlodipine 5 mg tablet 5 mg PO DAILY #90 tabs 05/31/25 glimepiride 4 mg tablet 4 mg PO QDAY #1 TAB 05/31/25 docusate sodium 250 mg capsule 250 mg PO DAILY stool softener 07/05/25 losartan 100 mg tablet 100 mg PO DAILY #30 tabs 07/05/25 hydrocodone-acetaminophen 5-325mg 5mg-325mg 2 tab PO Q6H PRN pain 7 days #25 tabs 07/09/25 Hospital Course Operations - (Laparoscopic cholecystectomy) Procedures None Summary of Care Provided Minutes Spent on Discharge: 31 Hospital Course: This 70-year-old white male was seen in the emergency room at [facility] with complaints of abdominal pain, he had been seen in the emergency room 24 hours prior and had a workup for the abdominal pain which was unremarkable. Patient stated his abdominal pain was worse in the right upper quadrant and radiates into his back. Patient denied any diarrhea, melena, or hematochezia. Patient stated that he was nauseated but denied any vomiting. Workup in the emergency room showed an elevated white blood cell count of 16.9, liver enzymes were elevated with a bilirubin of 3.57, AST of 203, and ALT of 183. CT of the abdomen pelvis was obtained which showed the gallbladder to be mildly distended with minimal stranding around it. Gallbladder ultrasound was ordered which showed a mildly distended gallbladder with minimal adjacent perihepatic fluid, the gallbladder was mildly painful with palpation during the procedure. Patient was admitted to [place] [address], placed on IV antibiotics for suspected cholecystitis, and serial labs were obtained. Patient was seen in consultation by general surgery, initially it was felt that the patient would not require surgery but he continued to have right upper quadrant pain even though his liver enzymes improved during his hospitalization. Patient was taken for laparoscopic cholecystectomy on 07/08/2025 and had no complications from the surgery and did well. On 07/09/2025, patient was seen and examined: On examination he appeared in good health and spirits. Vital signs as documented. Skin warm and dry and without overt rashes. Neck without JVD, neck was supple, trachea midline, thyroid was normal. Lungs clear bilaterally, normal air movement was noted. Heart exam notable for regular rhythm, normal sounds and absence of murmurs, rubs or gallops. Abdomen unremarkable and without evidence of organomegaly, masses, or abdominal aortic enlargement. Bowel sounds are present, abdomen is not distended. Extremities nonedematous, no cyanosis was noted, no clubbing was noted. Neuro: Cranial nerves II through XII are grossly intact, no focal motor deficits were noted, sensation to light touch and pinprick intact, motor exam 5/5 throughout. Psych: Patient is alert and oriented x3, he does not appear anxious or depressed, he does not appear agitated. Patient was discharged home in stable condition on 07/09/2025. Weight / BMI Weight Weight: 93.9 kg Body Mass Index (BMI) 31.2 ABG / Lab / Microbiology Data 07/09/25 08:20 07/09/25 08:20 Laboratory: Laboratory Results - last 24 hr 07/08/25 21:12: POC Glucose 262 H 07/09/25 06:16: POC Glucose 180 H 07/09/25 08:20: WBC 7.2, RBC 4.49 L, Hgb 11.7 L, Hct 36.8 L, MCV 82.0, MCH 26.1 L, MCHC 31.8 L, RDW Std Deviation 43.0, RDW Coeff of [place] 14.5, Plt Count 248, MPV 9.7, Immature Gran % (Auto) 1.100 H, Neut % (Auto) 75.8 H, Lymph % (Auto) 14.6 L, [place] % (Auto) 8.3, Eos % (Auto) 0.1, Baso % (Auto) 0.1, Absolute Neuts (auto) 5.5, Absolute Lymphs (auto) 1.05, Nucleated RBC % 0, Sodium 138, Potassium 3.6, Chloride 103, Carbon Dioxide 26.5, Anion Gap 9, BUN 9, Creatinine 0.73, Estim Creat Clear Calc 94.16, Est GFR (MDRD) Non-Af 97, BUN/Creatinine Ratio 12.0, Glucose 146 H, Calcium 9.0, Total Bilirubin 0.63, AST 56 H, ALT 89 H , Alkaline Phosphatase 130 H, Total Protein 6.4, Albumin 3.4, Globulin 3.0, Albumin/Globulin Ratio 1.2 07/09/25 11:44: POC Glucose 127 H 07/09/25 16:05: POC Glucose 161 H D/C Instructions Weight Bearing Status: Full weight bearing Call your doctor if your incision/area has: Foul Smelling Discharge Call your doctor if you observe: Fever of 101 or Higher DC O2, CPAP, BIPAP Needs Home O2 Discharge instructions: No Meaningful Use Info Meaningful Use Meaningful Use Diagnoses (Choose all that apply): None applicable Discharge Plan Admission Admit Date/Time: 07/03/25 11:18 Primary Reason for Your Visit: Cholecystitis, drug-induced hepatitis Attending Provider: John Rosales Primary Care Provider: Cody Kasper Consulting Providers: Cody Shaffer; Yoan Molina; Jameel Lizama; Lana Calderon; Nikki Carey; Jasmyne Hamilton Instructions Patient Instructions: After Gallbladder Surgery, Cholecystectomy Dc, Channing De Dios Drain Tube Dc, Post Op Drain Emptying Steps Additional Instructions / Restrictions: Increase your losartan to 100 mg daily Do not take Cipro and metronidazole Discharge Orders/Prescriptions Prescriptions: New losartan 100 mg Tablet 100 mg PO DAILY Qty: 30 0RF hydrocodone-acetaminophen 5-325 mg tablet 2 tab PO Q6H PRN (Reason: pain) 7 Days Qty: 25 0RF Rx Instructions: 1 or 2 tabs every 6 hours as needed for pain Continued nitroglycerin 0.4 mg tablet, sublingual 0.4 mg SUBLINGUAL Q5-15M rosuvastatin 20 mg tablet 20 mg PO DAILY metoprolol succinate 50 mg tablet extended release 24 hr 50 mg PO DAILY omeprazole 20 mg capsule,delayed release(DR/EC) 20 mg PO DAILY aspirin [Adult Aspirin Regimen] 81 mg tablet,delayed release (DR/EC) 81 mg PO DAILY metformin 750 mg tablet extended release 24 hr 750 mg PO BID glimepiride 4 mg tablet 4 mg PO QDAY Qty: 1 0RF amlodipine 5 mg tablet 5 mg PO DAILY Qty: 90 4RF docusate sodium 250 mg capsule 250 mg PO DAILY Discontinued omega-3 fatty acids 1,250 mg capsule 1,250 mg PO DAILY metoclopramide HCl [Reglan] 5 mg tablet 5 mg PO UD Qty: 20 0RF Rx Instructions: 1/2-hour AC and at bedtime losartan 50 mg tablet 50 mg PO DAILY Qty: 90 3RF Ozempic 0.25 mg or 0.5 mg (2 mg/3 mL) pen injector 0.25 mg subcut QWEEK 28 Days Qty: 3 0RF Rx Instructions: for 4 weeks Referrals / Follow Up: Cody Kasper MD [Primary Care Provider, Family Practice] - Within 1 Month Cody Shaffer MD [Med Staff - Active Staff, General Surgery] - 07/14/25 1:45 pm Referral Note: Call the office for an appointment next week, let them know you were hospitalized and seen by Dr. Shaffer Disposition Disposition (needs filled in before D/C Order can be placed): Home, Self Care Charges/Coding Visit Charges Inpatient E&M: 16585 Disch Hosp >30min
== END 2025-07-09 18:13 | disposition home or self-care (01) | DRG 419 ==
LOC: ED 11:23 → MS3 11:36
PROVIDERS: Anesthesiology; Physician Assistant; Surgery; Admitting Provider Internal Medicine; Emergency Provider Emergency Medicine; PCP Family Medicine; Visit Provider Internal Medicine
PROC: 0FT44ZZ Resection of Gallbladder, Percutaneous Endoscopic Approach (ICD-10-PCS; CPT 47562; principal; 2025-07-08 13:35)
DX: K81.2 Acute cholecystitis with chronic cholecystitis (principal); E11.43 Type 2 diabetes mellitus with diabetic autonomic (poly)neuropathy; I10 Essential (primary) hypertension; E78.5 Hyperlipidemia, unspecified; E80.6 Other disorders of bilirubin metabolism; I25.10 Atherosclerotic heart disease of native coronary artery without angina pectoris; K59.00 Constipation, unspecified; K31.84 Gastroparesis; R74.01 Elevation of levels of liver transaminase levels; T38.3X5A Adverse effect of insulin and oral hypoglycemic [antidiabetic] drugs, initial encounter; Z95.1 Presence of aortocoronary bypass graft; Z79.82 Long term (current) use of aspirin; Z79.84 Long term (current) use of oral hypoglycemic drugs; Z79.85 Long-term (current) use of injectable non-insulin antidiabetic drugs; Z79.899 Other long term (current) drug therapy; Z87.891 Personal history of nicotine dependence; Z23 Encounter for immunization
CPT/HCPCS: 36415; 74176; 74177; 74181; 76705; 80048; 80053; 80074; 80076; 81001; 82085; 82150; 82248; 82550; 82962; 83036; 83605; 83690; 85025; 88304; 93005; 96361; 96374; 96375; 96376; 97802; 99283; 99285; Q9967; A4216; J2405